=== PATIENT | female | born 1950 | race Caucasian/White ===

== ENCOUNTER 2020-03-04 03:31 | Inpatient (IN) | payer MEDICARE, SELFPAY ==
[2020-03-04] VITALS (17 sets, daily range): BP systolic 108–162; BP diastolic 53–73; PULSE 80–109; RESP 14–24; TEMP 36.2–37.4; O2SAT 92–100; BMI 24.3
--- NOTE | ~2020-03-04 | US_ITS ---
EXAMINATION: US carotid duplex BI DATE: 03/04/2020 18:10 INDICATION: Subjective visual disturbance with left-sided amaurosis fugax. TECHNIQUE: Grayscale, color Doppler, and pulsed Doppler images of the cervical carotid arteries were obtained. The degree of vessel stenosis is placed in one of the following categories: normal, <50%, 5 0-69%, >=70% but less than near-occlusion, near-occlusion, or total occlusion. Note that percent sten osis relative to normal distal artery lumen diameter is indirectly measured from velocity measurement s as described by Tyron, et al. Radiology 2003; 229:340-346. COMPARISON: None. FINDINGS: RIGHT: The right common carotid artery (CCA) peak systolic velocity (PSV) is 112 cm/s. The right internal ca rotid artery (ICA) is tortuous with PSV of 167 cm/s occurring immediately distal to a sharp angulatio n in the course of the artery without significant associated atherosclerotic plaque. The right ICA en d-diastolic velocity (EDV) is 32 cm/s. The right ICA/CCA PSV ratio is 1.5. Grayscale and color Dopple r images yield an estimate of <50% diameter reduction from plaque in the ICA utilizing secondary Dopp ler criteria. The external carotid artery (ECA) PSV is 174 cm/s. There is antegrade flow in the right vertebral artery. LEFT: The left CCA PSV is 119 cm/s. The left ICA PSV is 88 cm/s. The left ICA EDV is 25 cm/s. The left ICA/ CCA PSV ratio is 0.7. Grayscale and color Doppler images yield an estimate of <50% diameter reduction from plaque in the ICA. The ECA PSV is 152 cm/s. There is antegrade flow in the left vertebral arter y. IMPRESSION: 1. <50% stenosis in the right internal carotid artery. 2. <50% stenosis in the left internal carotid artery. Reviewed, dictated and finalized at location A.
--- NOTE | ~2020-03-04 | XR_ITS ---
EXAMINATION: XR chest 2V 03/04/2020 04:03 INDICATION: Right-sided chest and shoulder pain. PROCEDURE: PA and lateral views of the chest COMPARISON: No prior studies for comparison. FINDINGS: The lungs are clear. The cardiomediastinal silhouette is within normal limits. There are no pleural effusions. There is no pneumothorax suspected. IMPRESSION: 1: NO ACUTE CARDIOPULMONARY DISEASE. Reviewed, dictated and finalized at location A.
--- NOTE | ~2020-03-04 | CT_ITS ---
EXAMINATION: CTA chest PE protocol DATE: 03/04/2020 07:54 CDT INDICATION: Chest pain TECHNIQUE: Computed tomographic angiography (CTA) of the chest was performed with 100 mL Omnipaque-35 0 intravenous contrast. The dose-length product was 168.85 mGy-cm. Maximum intensity projection 3D-re constructions of the aorta and other arteries were constructed by the technologist on a separate work station. Automated exposure control and iterative reconstruction technique were employed. COMPARISON: None. FINDINGS: Study is technically adequate without evidence for pulmonary embolism. No significant pleur al or pericardial effusion. No thoracic lymphadenopathy. No evidence for aortic aneurysm or dissectio n. There is subsegmental atelectasis in the right middle and lower lobes. No endobronchial lesions. M inimal fluid in the lower esophagus, consistent with reflux. No focal pneumonia. No acute abnormality of the visualized aspects of the upper abdomen. IMPRESSION: 1. No acute pulmonary embolism or focal pneumonia. Reviewed, dictated and finalized at location A.
--- NOTE | 2020-03-04 03:38 | ECG_ITS ---
Measurements Intervals [place] Rate: 111 P: 51 DE: 132 QRS: 26 QRSD: 99 T: 47 QT: 326 QTc: 444 Interpretive Statements SINUS TACHYCARDIA POSSIBLE LEFT ATRIAL ENLARGEMENT ABNORMAL ECG Electronically Signed On 03-04-2020 7:30:23 CDT by Sudhir Kyle D.O.
--- NOTE | 2020-03-04 03:44 | ED.CHESTPAIN ---
HPI - Chest Pain General Chief Complaint: Chest Pain Stated Complaint: cp Time Seen by Provider: 03/04/20 03:33 Source: RN notes reviewed History of Present Illness HPI narrative: Patient presents emergency department from home for chest pain. Patient states pain is located over the right side of the chest radiating into the right shoulder blade and up into the right jaw. Pain is described as sharp and stabbing worse with deep inspiration. Patient states the pain has been constant since 8 PM yesterday. She denies any fevers or chills shortness of breath abdominal pain nausea vomiting diarrhea or any other symptoms states she is taken no previous pain medication for the symptoms Related Data Allergies Allergy/AdvReac Type Severity Reaction Status Date / Time ibuprofen Allergy Unknown Verified 01/21/17 11:36 Review of Systems Review of Systems: Narrative: Gen.: Denies fevers or chills Eyes: Denies eye pain or visual change ENT: Denies congestion Respiratory: Denies shortness of breath or cough CV: See HPI GI: Denies abdominal pain nausea, emesis or diarrhea Musculoskeletal: Denies back pain or muscle pain Neuro: Denies numbness, tingling, weakness or focal weakness Skin: Denies rash Except as documented, all other systems reviewed and negative [facility] Past Medical History Medical History Amaurosis fugax of left eye Colon cancer screening (~09/2019) Cologuard negative Essential hypertension Hypercholesteremia Pre-diabetes Social History Social History Smoking status: Never smoker Second hand tobacco smoke exposure: No Alcohol intake: never Gender identity (if verbalized by the patient): Female Exam Narrative: Exam Narrative: APPEARANCE: No acute distress, nontoxic, resting in bed EYES: EOMI HEENT: Normocephalic, atraumatic, OMM RESPIRATORY: No respiratory distress Clear to auscultation bilaterally with no rhonchi wheezing or rales. CARDIOVASCULAR: Regular rate and rhythm without murmurs rubs or gallops. Chest: Tender palpation of her right anterior chest wall, pain increased with deep inspiration ABDOMINAL: Soft, nontender, nondistended, no rebound or guarding MUSCULOSKELETAl: Moves all extremities. No clubbing, cyanosis or edema. NEURO: Awake and alert. Following commands, speech normal, no focal deficits SKIN:: Warm, dry. No rashes lesions or abrasions PSYCHIATRIC: Normal affect/mood, Course Course Emergency Course: Patient states chest pain is resolved at this time Discussed Dr. Alcazar presentation work-up agrees with consult at this time Discussed with KITTY Pena for Dr. Cortez presentation work-up. Agrees with admission at this time Discussed with patient and family results of workup and diagnosis. Discussed need for admission. Patient and family understand and agree to current treatment plan Vital Signs Vital signs: Vital Signs Temperature 99.3 F 03/04/20 03:34 Pulse Rate 109 H 03/04/20 03:34 Respiratory Rate 24 H 03/04/20 03:34 Blood Pressure 162/72 H 03/04/20 03:34 Pulse Oximetry 96 03/04/20 03:34 Temperature 97.3 F L 03/04/20 06:52 Pulse Rate 89 03/04/20 06:52 Respiratory Rate 16 03/04/20 06:52 Blood Pressure 113/61 03/04/20 06:52 Pulse Oximetry 96 03/04/20 06:52 MDM - Chest Pain Lab Data Result diagrams: 03/04/20 03:45 03/04/20 04:08 Labs: Lab Results 03/04/20 03/04/20 03/04/20 Range/Units 03:44 03:45 04:07 WBC 13.2 H (4.5-10.0) K/mm3 RBC 4.00 L (4.2-5.4) M/mm3 Hgb 12.8 (12.0-15.0) g/dL Hct 38.3 (37.0-47.0) % MCV 95.8 (80-100) fl MCH 32.0 (26-34) pg MCHC 33.4 (32-36) g/dl RDW 12.3 (11.5-14.5) % Plt Count 342 (150-375) k/mm3 MPV 10.1 (7.4-10.4) fl Immature Gran % (Auto) 0.3 (0-0.5) % Neut % (Auto) 90.0 H (45.5-73.1) % Lymph % (Auto) 4.5 L
[2020-03-04 03:53] LABS: Basophils Percent Auto 0.2 % (0.2-1.2); Hematocrit 38.3 % (37.0-47.0); Hemoglobin 12.8 g/dL (12.0-15.0); Immature Granulocyte Absolute 0.04 K/mm3 (0.00-0.031); Immature Granulocyte Percent A 0.3 % (0-0.5); Lymphocytes Percent Auto 4.5 % (18.3-44.2); Mean Corpuscular HGB Conc 33.4 g/dl (32-36); Mean Corpuscular Volume 95.8 fl (80-100); Mean Platelet Volume 10.1 fl (7.4-10.4); Monocytes Absolute Auto 0.7 K/mm3 (0.1-0.6); Neutrophils Absolute Auto 11.9 K/mm3 (1.3-6.7); Platelet Count Result 342 k/mm3 (150-375); Red Cell Distribution Width 12.3 % (11.5-14.5); White Blood Count 13.2 K/mm3 (4.5-10.0)
[2020-03-04 04:27] LABS: INR 0.9; Partial Thromboplastin Time 31.9 SECONDS (22.3-36.8); Prothrombin Time 11.9 Seconds (11.1-14.7)
[2020-03-04 04:30] LABS: Alanine Aminotransferase 20 U/L (4-35); Albumin Level 4.5 g/dL (3.5-5.1); Alkaline Phosphatase 88 U/L (38-126); Aspartate Amino Transferase 22 U/L (14-36); Bilirubin,Total 0.2 mg/dL (0.2-1.3); Blood Urea Nitrogen 15 mg/dL (7-17); Calcium 9.4 mg/dL (8.4-10.2); Carbon Dioxide 24 mmol/L (22-30); Chloride 97 mmol/L (98-107); Estimated Glomerular Filt Rate > 60; Glucose 205 mg/dL (65-105); Lipase 43 U/L (23-300); Potassium 4.1 mmol/L (3.4-5.0); Sodium 132 mmol/L (137-145)
[2020-03-04 04:40] LABS: Troponin I < 0.012 ng/mL (0.000-0.034)
[2020-03-04] MEDS: MORPHINE SULFATE 2 MG/ML INJ 1 MG IV PUSH (06:08)
[2020-03-04] MEDS: ASPIRIN 81 MG CHEWABLE TABLET 324 MG PO (06:26)
--- NOTE | 2020-03-04 06:46 | PC.NURSE ---
This patient, Anita Little, was admitted to IMU Room 212-01 at 0640. Patient/family oriented to hospital policies and general routines including ID bracelet, bed and alarms, visiting hours, pain management, procedures, bathroom and other care routines, personal items, smoking policy, room service/diet, and visiting hours. Valuables list has been completed. Information on how to activate the Rapid Response Team has been discussed. Patient/Family are encouraged to report perceived risks to care and to ask questions if they do not understand what they are told or what they should do.
[2020-03-04 07:00] LABS: Troponin I < 0.012 ng/mL (0.000-0.034)
[2020-03-04] MEDS: OLMESARTAN MEDOXOMIL 20 MG TABLET BY MOUTH (09:20)
[2020-03-04 09:53] LABS: Cholesterol 200 mg/dL (0-200); HDL Direct 67 mg/dL; Triglycerides 36 mg/dL (<150)
--- NOTE | 2020-03-04 09:54 | PM.IMHP ---
H&P: HPI History of Present Illness Chief complaint: cp Narrative: Anita Little is a 70 year old female patient has a history of high cholesterol which she is not on medications for due to intolerance of statins, hypertension, who presented to the emergency department after having chest pain around 8:00 p.m.. Patient states the last 2 days she has visited her family and yesterday after eating dinner she was sitting down talking and suddenly developed a jabbing pain to her right sternal chest wall with some radiation into her right neck, jaw, upper and lower teeth and right shoulder. She reported relief of the pain if she was to sit still without any movement. She reported increased pain with taking a deep breath, and movement. She denies any increased pain with exertion or with palpation of her chest wall. The patient did not have any relief and at 3:00 a.m. she decided call her family to take her to the emergency department. Patient states when she came to the emergency room she received some IV Tylenol which did help with her pain and then she received a dose of morphine which completely resolved her pain. At this time she is only having some slight right substernal discomfort when she takes a deep breath. Patient denies any shortness of breath, cough, nausea, diaphoresis, lightheadedness, dizziness, syncope, recent falls, numbness, tingling, urinary symptoms, leg swelling, calf pain, increased activity, or any other symptoms at this time. Patient does have a history of neck problems for which she sees her chiropractor regularly. She has had a history of radiculopathy from her neck pain in the past and denies similar symptoms. The patient has never had a stress test before. She has had an echocardiogram in the past about 10 years ago because she has a murmur. On arrival to the emergency department her initial vitals showed temperature of 99.3?, blood pressure 162/72, heart rate 109, respiratory rate 24, oxygen saturation 96% on room air. Initial labs showed slight leukocytosis at 13,200, with a left shift, normal coag panel, hyponatremia at 132, serum glucose was 205. Troponin was negative x3. Her cholesterol panel showed her total cholesterol was 200 which is normal, LDL is 101 which is within normal limits, LDL was 67 which is good and triglycerides were 36 which is normal. Patient had a chest x-ray which showed no acute cardiopulmonary disease. CTA of chest showed no acute pulmonary embolism or focal pneumonia. The patient was admitted into the hospital under observation for chest pain workup and cardiology consult. Code Status: Full Code POA: Daughter, Sivan James PCP: Dr. Aguilera Review of Systems Review of Systems: All systems reviewed & are unremarkable except as noted in HPI and below PMFSH Past Medical History Medical History Amaurosis fugax of left eye Colon cancer screening (~09/2019) Cologuard negative Essential hypertension Hypercholesteremia Reports family history of high cholesterol and being intolerant of statin medications. She is not on any cholesterol control at this time. Pre-diabetes Surgical History Surgical History Hx of colonoscopy Family History Family History Mother Family history of Alzheimer's disease Father Family history of Alzheimer's disease AAA (abdominal aortic aneurysm, ruptured) Sibling Acute myocardial infarction Social History Social History Smoking status: Never smoker Second hand tobacco smoke exposure: Yes Alcohol intake: current Drinks per week: 2 Alcohol use details: Wine with dinner on weekends Substance use: never Living arrangements: alone Additional living arrangements comments: Living alone in [place], [place] and her two c
[2020-03-04 10:05] LABS: LDL Cholesterol Direct 101 mg/dL
[2020-03-04 10:06] LABS: Troponin I < 0.012 ng/mL (0.000-0.034)
--- NOTE | 2020-03-04 12:31 | ECG_ITS ---
Measurements Intervals [place] Rate: 96 P: 20 HI: 159 QRS: 9 QRSD: 87 T: 31 QT: 335 QTc: 424 Interpretive Statements SINUS RHYTHM DELAYED PRECORDIAL R/S TRANSITION BASELINE ARTIFACT- I, II, AVR, AVL BORDERLINE ECG Electronically Signed On 03-04-2020 13:12:24 CDT by Sudhir Kyle D.O.
--- NOTE | 2020-03-04 12:32 | PM.CNCAR ---
Assessment and Plan Assessment and plan (1) Pericarditis: Code(s): I31.9 - Disease of pericardium, unspecified Status: Acute Assessment and Plan: Cardiac examination is impressive and most likely consistent with a 3 component friction rub suggestive of a pericardial inflammatory process. Etiology is unknown at this time but most commonly secondary to viral illness. She denies any prior corroborate history of her preceding viral illness from a medication change or other environmental exposure. Given current pandemic although less likely it is possible this may be a presenting symptom associated with COVID-19 (although unusually short incubation period if so). Pericarditis may also explain her mild leukocytosis. Given negative Trop I, there is no evidence of myopericardial involvement thus far. -repeat 12 lead EKG now and in AM. -2D echocardiogram in AM to assess pericardium, LV function, and/or valve pathology. -screen for COVID-19 -Begin anti-inflammatory therapy with Colchicine 1.2 mg initially and 0.6 mg b.i.d. thereafter. Patient has a true NSAID allergy. Avoid use of steroids. -Check ESR, CRP, TSH, Coxsackie A and B -DVT prophylaxis -Check CBC in AM and BMP I explained my concerns with regards to the unexpected development of acute pericarditis without a corroborating preceding history of illness although curious symptoms begin within 72 hours after exposure to family in setting of pandemic. Although clinically this still remains less likely expressed my concern for possible presenting symptoms social with COVID-19 and recommendations to rule her out in this regard. Patient verbalized understanding. (2) Essential hypertension: Code(s): I10 - Essential (primary) hypertension Status: Acute Assessment and Plan: Stable, improved with pain control. Continue home medical therapy. (3) Leukocytosis: Code(s): D72.829 - Elevated white blood cell count, unspecified Status: Acute Assessment and Plan: As above, may be associated with inflammation related to pericarditis. (4) Heart murmur: Code(s): R01.1 - Cardiac murmur, unspecified Status: Acute Assessment and Plan: As above, I suspect cardiac exam findings most consistent with pericardial friction rub. (5) Hypercholesteremia: Code(s): E78.00 - Pure hypercholesterolemia, unspecified Status: Acute Assessment and Plan: Stable, no acute issues. Intolerant to statins. History of Present Illness History of Present Illness Consult date/time: Date of service: 03/04/20 12:32 This is a cardiology consultation at request of Cori Yadav NP for our opinion regarding chest pain. Requesting physician: Cori Yadav PA-C Consult reason: chest pain Reason For Visit: cp Narrative: Patient is a very pleasant 70-year-old female with past medical history significant for treated hypertension, history dyslipidemia and statin intolerance was in her UE otherwise usual state of health when she presented with sudden onset GI having constant pain beginning in the chest right sternal border radiating to the right neck and to the upper back and her shoulder blade. She was having dinner with her family and around 8:00 p.m. had the sudden onset. It is worse with certain movements, position change, deep breathing. No associated shortness of breath, fevers, chills, cough, sore throat or noted palpitations. She denies recent or preceding illnesses, trauma or strenuous physical activity. She was given intravenous Tylenol in the emergency department which greatly improved her chest pain and was completely resolved with morphine. She has an allergy to ibuprofen with swelling of her face mouth/lips. She has no allergy history with aspirin which she tolerates well with exception of day of set unless she takes with food. Symptoms resolved until later this morning slowly began to recover again worse lying down impro
[2020-03-04] MEDS: COLCHICINE 0.6 MG TABLET 1.2 MG PO (13:14)
--- NOTE | 2020-03-04 13:30 | PC.NURSE ---
This patient, Anita Little, was transferred to ICU-03 on 03/04/20 at 1320. Personal belongings sent with patient. Report given to Avi Knight. Appropriate documentation sent with patient.
[2020-03-04 13:55] LABS: Erythrocyte Sedimentation Rate > 140 mm/hr (0-20)
[2020-03-04 13:57] LABS: CRP 13.5 mg/dL (<1.0)
[2020-03-04] MEDS: COLCHICINE 0.6 MG TABLET PO (21:14)
[2020-03-05] VITALS: BP 105/65; PULSE 84; PULSE 86; RESP 23; TEMP 36.9; O2SAT 93
--- NOTE | 2020-03-05 | ECHO_ITS ---
Patient Info Name: Anita Little Age: 70 years : 1950 Gender: Female Ht: 59 in Wt: 120 lbs BSA: 1.52 m2 HR: 99 bpm BP: 131 / 72 mmHg Heart Rhythm: Sinus Rhythm Technical Quality: Good Exam Date: 03/05/2020 11:35 AM Exam Location: [facility] Pulmonary Patient Status: Inpatient Admit Date: 03/05/2020 Staff Ordering Physician: oCri Yadav PA-C Director Of Content And Programming: Roberth Rai, VERONICA, RT Attending Provider: Cori Yadav PA-C Referring Physician: Leif HERNANDEZ; Exam Type: CA echo doppler color flow Study Info Indications R07.89 - Other chest pain Complete two-dimensional, color flow and Doppler transthoracic echocardiogram is performed. Summary 1. Left ventricular chamber dimension is normal. 2. Left ventricular systolic function is normal, estimated at 60-65%. 3. There is small circumferential pericardial effusion. 4. No significant valvular abnormality. Left Ventricle Left ventricular chamber dimension is normal. Left ventricular systolic function is normal, estimated at 60-65%. There is mild concentric increased left ventricular wall thickness. The left ventricular diastolic function is normal. Right Ventricle Right ventricular chamber dimension is normal. Left Atria Left atrial chamber dimension is normal. Right Atria Right atrial chamber dimension is normal. Aortic Valve The aortic valve is normal. Pulmonic Valve The pulmonic valve is not well visualized. Mitral Valve The mitral valve has normal leaflets. Tricuspid Valve The tricuspid valve leaflets are normal. Pericardium/Pleural The pericardium appears normal. There is small circumferential pericardial effusion. Aorta The aortic root size at the sinus of Valsalva is normal. Left Ventricular Outflow Tract Name Value Normal LVOT 2D LVOT Diameter 1.9 cm LVOT Doppler LVOT Peak Gradient 5 mmHg LVOT Mean Gradient 3 mmHg LVOT VTI 22 cm LVOT VTI/AV VTI Ratio 0.8 LVOT Stroke Volume 66 ml LVOT CO 5.7 l/min LVOT CI 3.8 l/min/m2 Mitral Valve Name Value Normal MV Doppler MV Decel Davison 513 cm/s2 MV PHT 49 ms MV Area (PHT) 4.5 cm2 4.0-5.0 MV Diastolic Function MV E Peak Velocity 87 cm/s MV A Peak Velocity 77 cm/s MV E/A 1.1 MV Decel Time 169 ms Tricuspid Valve Name
[2020-03-05 02:00] VITALS: PULSE 72
[2020-03-05 04:00] VITALS: BP 108/69; PULSE 72; PULSE 76; RESP 22; TEMP 37; O2SAT 93
[2020-03-05 04:47] LABS: Hemoglobin A1C 5.7 % (<5.7)
[2020-03-05 04:48] LABS: Basophils Percent Auto 0.2 % (0.2-1.2); Eosinophils Percent Auto 0.5 % (0-4.4); Hematocrit 33.2 % (37.0-47.0); Hemoglobin 10.9 g/dL (12.0-15.0); Immature Granulocyte Absolute 0.03 K/mm3 (0.00-0.031); Immature Granulocyte Percent A 0.4 % (0-0.5); Lymphocytes Absolute Auto 0.79 K/mm3 (0.9-3.2); Lymphocytes Percent Auto 9.8 % (18.3-44.2); Mean Corpuscular HGB Conc 32.8 g/dl (32-36); Mean Corpuscular Hemoglobin 31.8 pg (26-34); Mean Corpuscular Volume 96.8 fl (80-100); Mean Platelet Volume 9.9 fl (7.4-10.4); Monocytes Absolute Auto 0.5 K/mm3 (0.1-0.6); Monocytes Percent Auto 6.1 % (2.6-8.5); Neutrophils Absolute Auto 6.7 K/mm3 (1.3-6.7); Nucleated Red Blood Cells Perc 0.2 % (0.0-0.2); Platelet Count Result 298 k/mm3 (150-375); Red Blood Count 3.43 M/mm3 (4.2-5.4); Red Cell Distribution Width 12.8 % (11.5-14.5)
[2020-03-05 04:48] LABS: Blood Urea Nitrogen 20 mg/dL (7-17); Calcium 8.8 mg/dL (8.4-10.2); Carbon Dioxide 24 mmol/L (22-30); Chloride 100 mmol/L (98-107); Estimated Glomerular Filt Rate > 60; Glucose 135 mg/dL (65-105); Potassium 3.8 mmol/L (3.4-5.0); Sodium 130 mmol/L (137-145)
[2020-03-05 06:00] VITALS: PULSE 75
[2020-03-05 08:00] VITALS: BP 131/72; PULSE 84; PULSE 91; RESP 16; TEMP 36.9; O2SAT 93; O2SAT 94
[2020-03-05] MEDS: COLCHICINE 0.6 MG TABLET PO (09:05)
[2020-03-05 09:48] LABS: SARS-CoV-2 RNA PCR Negative
[2020-03-05 10:00] VITALS: PULSE 86
[2020-03-05] MEDS: OLMESARTAN MEDOXOMIL 20 MG TABLET BY MOUTH (10:26)
--- NOTE | 2020-03-05 13:32 | PM.PNCARD ---
Progress Note: A&P Additional Plan patient appears to have acute idiopathic or viral pericarditis. Coronavirus swab is negative patient is improved clinically with colchicine which was started yesterday. Absolute contraindication to nonsteroidal anti-inflammatory drugs echocardiogram demonstrates very small circumferential rim of pericardial fluid otherwise structurally normal heart. Patient is okay from cardiac perspective for discharge. She should be continued on the colchicine and follow-up will be arranged with Dr. Mathis. Quincy Reynoso MD [facility] Subjective Date/time seen: Date of service:03/05/20 13:32 Interval history: Follow-up visit in 70-year-old lady with pericarditis patient feels much better today positional chest pain and chest pain with inspiratory effort is markedly improved compared with yesterday offers no new complaints Exam Const: General: comfortable and no acute distress HENMT: Mouth: Yes moist mucous membranes Eyes: Sclera: sclerae normal Pupils: Equal, round and reactive pupils present Neck: Neck: supple and no JVD Thyroid: thyroid normal Other: carotid pulses normal no bruits Resp: Effort & Inspection: normal respiratory effort Auscultation: clear to auscultation bilaterally Cardio: Rate: regular rate Rhythm: regular rhythm Other: continues to have a 2 component pericardial friction rub GI: Auscultation: normal bowel sounds Skin: General skin exam: normal color Neuro: Cognition (Neuro): normal cognition Extrem: General: normal to inspection Objective Data Vital Signs Vital Signs: Vital Signs - 24 hr 03/04/20 14:00 03/04/20 16:00 03/04/20 18:00 Temperature 37.2 C Pulse Rate 86 90 93 Respiratory Rate 20 Blood Pressure 120/68 Pulse Oximetry 96 03/04/20 20:00 03/04/20 21:05 03/04/20 22:00 Temperature 36.9 C Pulse Rate 87 87 85 Respiratory Rate 24 H Blood Pressure 108/68 Pulse Oximetry 92 03/05/20 00:00 03/05/20 02:00 03/05/20 04:00 Temperature 36.9 C 37.0 C Pulse Rate 84 72 72 Respiratory Rate 23 H 22 H Blood Pressure 105/65 108/69 Pulse Oximetry 93 93 03/05/20 06:00 03/05/20 08:00 03/05/20 10:00 Temperature 36.9 C Pulse Rate 75 84 86 Respiratory Rate 16 Blood Pressure 131/72 Pulse Oximetry 94 Intake/Output Intake/Output: Intake & Output 03/02/20 03/03/20 03/04/20 03/05/20 23:59 23:59 23:59 23:59 Intake Total 665 390 Output Total 200 Balance 665 190 Meds/Results Medications: Active Medications Generic Name Dose Route Start Last Admin Trade Name Michaelq PRN Reason Stop Dose Admin Colchicine 0.6 mg 03/04/20 21:00 03/05/20 09:05 Colchicine Po PO 0.6 mg Q12HR VIKTORIYA Administration Olmesartan 20 mg 03/04/20 09:00 03/05/20 10:26 Benicar BY MOUTH 20 mg QAM VIKTORIYA Administration Radiology Results: ITS Impressions Chest CTA 03/04/20 07:54 IMPRESSION: 1. No acute pulmonary embolism or focal pneumonia. Chest X-Ray 03/04/20 08:05 IMPRESSION: 1: NO ACUTE CARDIOPULMONARY DISEASE. Carotid Doppler Study 03/04/20 18:18 IMPRESSION: 1. <50% stenosis in the right internal carotid artery. 2. <50% stenosis in the left internal carotid artery. Labs Labs: Laboratory Results - last 24 hr 03/04/20 03/04/20 03/04/20 13:13 13:13 13:13 WBC RBC Hgb Hct MCV MCH MCHC RDW Plt Count MPV Immature Gran % (Auto) Neut % (Auto) Lymph % (Auto) [place] % (Auto) Eos % (Auto) Baso % (Auto) Lymph # (Auto) [place] # (Auto) Eos # (Auto) Baso # (Auto) Abs Immat Gran (auto) Absolute Neuts (auto) Absolute Nucleated RBC Nucleated RBC % ESR > 140 H Sodium Potassium Chloride Carbon Dioxide BUN Creatinine Estim Creat Clear Calc Estimated GFR Glucose Hemoglobin A1c Calcium C-Reactive Protein 13.5 H TSH (Reflex) 2.040 SARS-CoV-2 RNA (
--- NOTE | 2020-03-05 15:09 | PM.DS ---
DS: Admitting Diagnosis Admitting Diagnosis Admitting Diagnosis: Chest pain, unspecified DS: Discharge Diagnosis Discharge Diagnosis (1) Pericarditis: Code(s): I31.9 - Disease of pericardium, unspecified Status: Acute Assessment and Plan: Cardiology was consulted and diagnosed her with pericarditis. She was started on colchicine with improvement of her symptoms today. Cardiology feels comfortable discharge at this time to continue culture seen in follow-up as an outpatient. Patient feels better and has no concerns at this time. She understands and agrees the plan all questions answered (2) Chest pain: Code(s): R07.9 - Chest pain, unspecified Status: Acute Assessment and Plan: Patient had chest pain prior to arrival without any relief. Symptoms were worse with taking a deep breath and also with movement. Her troponins were negative x3. EKG showed sinus tachycardia, heart rate 111, with a possible left atrial enlargement, normal QTC. No acute STT wave changes noted. Telemetry shows normal sinus rhythm with a heart rate of 89 beats per minute, she had 2 alarms which showed mostly artifact. No arrhythmia or abnormality noted. Echocardiogram showed normal LV systolic function with an EF of 60-65 %, mild concentric increase LVH, normal diastolic function. (3) Heart murmur: Code(s): R01.1 - Cardiac murmur, unspecified Status: Acute Assessment and Plan: Patient has a heart murmur noted best at the apex. She says her last echocardiogram was about 10 years ago. Will repeat echocardiogram for further evaluation on her heart. (4) Hypercholesteremia: Code(s): E78.00 - Pure hypercholesterolemia, unspecified Status: Acute Assessment and Plan: Patient states she is supposed to be on a statin medication but she is intolerant causing liver issues. She states this is a family history of cholesterol problems. Her total cholesterol was 200, LDL was 101, HDL was 67 and triglycerides were 37. This is well controlled unless she has some atherosclerosis that her LDL has be less than 70. (5) Essential hypertension: Code(s): I10 - Essential (primary) hypertension Status: Acute Assessment and Plan: Blood pressure is well controlled this morning at 113/61. Continue her home medications. (6) Pre-diabetes: Code(s): R73.03 - Prediabetes Status: Acute Assessment and Plan: She states her last hemoglobin A1c in May of 2019 was 5 % Will check her hemoglobin A1c in the morning. Serum glucose on arrival was 205. Will continue monitoring glucose a.c. HS, sliding scale insulin low-dose, hypoglycemic protocol in place. (7) Leukocytosis: Code(s): D72.829 - Elevated white blood cell count, unspecified Status: Acute Assessment and Plan: Slight leukocytosis most likely secondary to her pain and discomfort on arrival. She has no signs of an infection. Her chest x-ray showed no pneumonia. She denies any urinary symptoms at this time. Will recheck leukocytosis the morning. (8) Hyponatremia: Code(s): E87.1 - Hypo-osmolality and hyponatremia Status: Acute Assessment and Plan: Found to have some hyponatremia during admission. Sodium this morning was 130. She is only on a started medication which should not at affect her sodium levels. Will recheck her BMP in 1 week have her follow-up with her primary care provider. DS: Summary Hospital Course Reason for hospitalization: Anita Little is a 70 year old female patient has a history of high cholesterol which she is not on medications f
--- NOTE | 2020-03-14 10:54 | PC.NURSE ---
Coxsackie Ab not detected.
== END 2020-03-05 15:55 | disposition home or self-care (01) | DRG 315 ==
LOC: ANHED 06:21 → ANHIMU 06:29 → ANHICU 13:21
PROVIDERS: Internal Medicine Cardiovascular Disease; Physician Assistant; Admitting Provider Internal Medicine; Emergency Provider Emergency Medicine; PCP Family Medicine; Visit Provider Family Medicine
DX: I30.9 Acute pericarditis, unspecified (principal); E87.1 Hypo-osmolality and hyponatremia; Z20.828 Contact with and (suspected) exposure to other viral communicable diseases; R07.9 Chest pain, unspecified; I65.23 Occlusion and stenosis of bilateral carotid arteries; D72.829 Elevated white blood cell count, unspecified; R01.1 Cardiac murmur, unspecified; E78.00 Pure hypercholesterolemia, unspecified; I10 Essential (primary) hypertension; R73.03 Prediabetes
CPT/HCPCS: 36415; 71046; 71275; 80048; 80053; 80061; 83036; 83690; 84443; 84484; 85025; 85610; 85652; 85730; 86140; 86658; 87635; 93005; 93306; 93880; 96374; 96375; 99285; A9270; C9803; G0378; J0131; J2270; Q9967; U0003

== ENCOUNTER 2020-03-10 01:28 | Inpatient (IN) | payer MEDICARE, SELFPAY ==
[2020-03-10] VITALS (13 sets, daily range): BP systolic 84–137; BP diastolic 58–78; PULSE 79–104; RESP 16–98; TEMP 36.5–37.2; O2SAT 93–98; BMI 24.5
--- NOTE | ~2020-03-10 | CT_ITS ---
EXAMINATION: CTA chest PE protocol DATE: 03/10/2020 03:21 INDICATION: Bilateral shoulder pain, posterior neck pain. TECHNIQUE: Computed tomography angiography (CTA) of the chest was performed with 100 mL Omnipaque-350 intravenous contrast timed to evaluate the pulmonary arteries. Coronal maximum intensity projection 3D-reconstructions were created by the technologist. Automated exposure control and iterative reconst ruction technique were employed. Exam dose: 152.71 mGy-cm total exam DLP. COMPARISON: 03/04/2020 CT pulmonary scan FINDINGS: There is diagnostic contrast enhancement of the pulmonary arteries and no evidence of pulmo nary embolism. There is moderately large pericardial effusion with mild pericardial enhancement, suspicious for edwina carditis. Bilateral small left greater than right pleural effusions. No hilar or mediastinal mass lesion or lymphadenopathy. There is dependent atelectasis of the lingula, left lower lobe and right lower lobe. IMPRESSION: No evidence of pulmonary embolism Moderate pericardial effusion, mild pericardial enhancement, suggesting pericarditis Small pleural effusions, left greater than right and mild lower lung atelectasis Reviewed, dictated and finalized at [facility]. Reviewed, dictated and finalized at location [facility]. IMPRESSION: No evidence of pulmonary embolism Moderate pericardial effusion, mild pericardial enhancement, suggesting pericar ditis Small pleural effusions, left greater than right and mild lower lung atelectasi s
--- NOTE | ~2020-03-10 | XR_ITS ---
XR chest 2V DATE: 03/10/2020 01:55 INDICATION: Chest pain TECHNIQUE: PA and lateral views COMPARISON: 03/04/2020 PA and lateral chest 03/04/2020 CT pulmonary scan FINDINGS: There is infiltrate and/atelectasis in the lower lung zones, left greater than right. Small pleural effusions. Cardiac megaly. Aortic calcification. No hilar or mediastinal enlargement. There is mild dextro scoliosis of the thoracic spine. IMPRESSION: Bilateral lower lung infiltrates and/or atelectasis, left greater than right Small bilateral pleural effusions Cardiomegaly Aortic atherosclerosis Osteopenia Reviewed, dictated and finalized at location [facility]. IMPRESSION: Bilateral lower lung infiltrates and/or atelectasis, left greater t sunshine right Small bilateral pleural effusions Cardiomegaly Aortic atherosclerosis Osteopenia
--- NOTE | 2020-03-10 01:39 | ECG_ITS ---
Measurements Intervals [place] Rate: 100 P: 35 NH: 128 QRS: 12 QRSD: 82 T: 55 QT: 341 QTc: 440 Interpretive Statements SINUS TACHYCARDIA POSSIBLE LEFT ATRIAL ENLARGEMENT BORDERLINE R WAVE PROGRESSION, ANTERIOR LEADS BORDERLINE ECG Electronically Signed On 03-10-2020 7:13:10 CDT by Sudhir Kyle D.O.
[2020-03-10 01:55] LABS: Basophils Percent Auto 0.2 % (0.2-1.2); Eosinophils Percent Auto 0.2 % (0-4.4); Hematocrit 35.6 % (37.0-47.0); Hemoglobin 11.9 g/dL (12.0-15.0); Immature Granulocyte Absolute 0.05 K/mm3 (0.00-0.031); Immature Granulocyte Percent A 0.5 % (0-0.5); Lymphocytes Absolute Auto 0.48 K/mm3 (0.9-3.2); Lymphocytes Percent Auto 4.8 % (18.3-44.2); Mean Corpuscular HGB Conc 33.4 g/dl (32-36); Mean Corpuscular Hemoglobin 31.6 pg (26-34); Mean Corpuscular Volume 94.4 fl (80-100); Mean Platelet Volume 9.4 fl (7.4-10.4); Monocytes Absolute Auto 0.6 K/mm3 (0.1-0.6); Monocytes Percent Auto 5.9 % (2.6-8.5); Neutrophils Absolute Auto 8.8 K/mm3 (1.3-6.7); Neutrophils Percent Auto 88.4 % (45.5-73.1); Platelet Count Result 466 k/mm3 (150-375); Red Blood Count 3.77 M/mm3 (4.2-5.4); Red Cell Distribution Width 11.9 % (11.5-14.5)
[2020-03-10 02:04] LABS: INR 0.9; Prothrombin Time 12.3 Seconds (11.1-14.7)
[2020-03-10 02:05] LABS: Partial Thromboplastin Time 31.4 SECONDS (22.3-36.8)
[2020-03-10 02:06] LABS: Blood Urea Nitrogen 22 mg/dL (7-17); Calcium 9.3 mg/dL (8.4-10.2); Carbon Dioxide 23 mmol/L (22-30); Chloride 95 mmol/L (98-107); Estimated Glomerular Filt Rate > 60; Glucose 171 mg/dL (65-105); Potassium 4.4 mmol/L (3.4-5.0); Sodium 130 mmol/L (137-145)
[2020-03-10 02:27] LABS: Troponin I 0.116 ng/mL (0.000-0.034)
[2020-03-10] MEDS: SODIUM CHLORIDE 0.9% IV 500 ML 999 ML IV CONT (02:32)
[2020-03-10 02:36] LABS: Band Neutrophils Percent 4 % (0-6); Monocytes Percent Manual 7 % (3-9); Neutrophils Percent Manual 84 % (46-73); Platelet Estimate Adequate (Adequate); Total Cells Counted 100
--- NOTE | 2020-03-10 02:57 | ED.GENADULT ---
HPI - General Adult General Chief complaint: Unspecified Stated complaint: bilat shoulder pain Time Seen by Provider: 03/10/20 02:43 History of Present Illness HPI narrative: Patient presents with her daughter for bilateral shoulder and posterior neck pain. She has had no injury. She was here in the hospital a week ago, and diagnosed with pericarditis. She has an Advil allergy, and so was sent home on colchicine. Yesterday she took a walk and had no shortness of breath, but in the evening had shortness of breath walking into the ER. Upon second thought she did have some left breast pain recently. Here she had an episode of diaphoresis, and dropped her blood pressure, and felt faint. Appetite is coming back, and she has not been sick. Her only surgery is wisdom tooth extraction. She does not smoke, but she does have occasional alcohol. Related Data Allergies Allergy/AdvReac Type Severity Reaction Status Date / Time ibuprofen Allergy Unknown Verified 01/21/17 11:36 Review of Systems Review of Systems: Narrative: CONSTITUTIONAL: Denies fever, chills, or sweats. EYES: Denies visual changes, redness, or discharge. ENT: Denies rhinorrhea, congestion, sore throat, or otalgia. CARDIOVASCULAR: Denies chest pain, palpitations, or edema. RESPIRATORY: Denies cough or dyspnea. GASTROINTESTINAL: Denies abdominal pain, nausea, vomiting, or diarrhea. GENITOURINARY: Denies dysuria or hematuria. SKIN: Denies rash or itching. MUSCULOSKELETAL: Denies back pain, or myalgia. She does have bilateral shoulder pain. NEUROLOGIC: Denies headache, numbness, or weakness. PSYCHIATRIC: Denies anxiety or depression. [facility] Past Medical History Medical History (Updated 03/10/20 @ 03:50 by Michelle Del Toro MD) Amaurosis fugax of left eye Colon cancer screening (~09/2019) Cologuard negative Essential hypertension Heart murmur Hypercholesteremia Reports family history of high cholesterol and being intolerant of statin medications. She is not on any cholesterol control at this time. Pre-diabetes Surgical History Surgical History (Updated 03/10/20 @ 03:00 by Michelle Del Toro MD) History of wisdom tooth extraction Hx of colonoscopy Family History Family History Mother Family history of Alzheimer's disease Father Family history of Alzheimer's disease AAA (abdominal aortic aneurysm, ruptured) Sibling Acute myocardial infarction Social History Social History Smoking status: Never smoker Second hand tobacco smoke exposure: Yes Alcohol intake: current Drinks per week: 2 Substance use: never Additional living arrangements comments: Living alone in [place], [place] and her two children live down the road within 5 minutes from her if she needs help. 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 Petite and delightful. HEAD: Normocephalic, atraumatic. EYES: PERRLA and EOMI. ENT: Nares clear, no rhinorrhea or epistaxis. Mucous membranes moist. NECK: Supple. CHEST: Clear to auscultation. No respiratory distress. HEART: Regular rate and rhythm. No murmur heard. Normal peripheral pulses. ABDOMEN: Soft, nontender, nondistended, normal active bowel sounds. EXTREMITIES: Normal range of motion. No edema. SKIN: Warm, dry, no rash. NEURO: No focal deficits. Alert and oriented x3. PSYCH: Normal mood and affect. Course Reevaluation(s) Reevaluation #1: Went in to tell the patient and her daughter about the new findings from the CAT scan. There is no blood clot in the lung, but there is fluid around the heart and fluid around the lungs. She will be admitted to the hospital and have another evaluation. Her only request is to go t
[2020-03-10] MEDS: ACETAMINOPHEN 500 MG TABLET 1000 MG PO (03:04)
[2020-03-10] MEDS: ASPIRIN 81 MG CHEWABLE TABLET 324 MG PO (03:04)
[2020-03-10 04:35] LABS: NT Pro B Type Natriuretic Pept 340 PG/ML (5-100)
--- NOTE | 2020-03-10 05:34 | PC.NURSE ---
This patient, Anita Little, was admitted to IMU Room 202-01 at 0507. Patient/family oriented to hospital policies and general routines including ID bracelet, bed and alarms, visiting hours, pain management, procedures, bathroom and other care routines, personal items, smoking policy, room service/diet, and visiting hours. Valuables list has been completed. Information on how to activate the Rapid Response Team has been discussed. Patient/Family are encouraged to report perceived risks to care and to ask questions if they do not understand what they are told or what they should do.
--- NOTE | 2020-03-10 05:37 | ADMIMU ---
This patient, Anita Little, was admitted to IMU status, and placed in IMU Room 202-01 at 0508. Patient/family oriented to hospital policies and general routines including ID bracelet, bed and alarms, visiting hours, pain management, procedures, bathroom and other care routines, personal items, smoking policy, room service/diet, and visiting hours. Valuables list has been completed. Information on how to activate the Rapid Response Team has been discussed. Patient/Family are encouraged to report perceived risks to care and to ask questions if they do not understand what they are told or what they should do.
[2020-03-10 05:41] LABS: Troponin I 0.106 ng/mL (0.000-0.034)
--- NOTE | 2020-03-10 06:01 | PM.IMHP ---
H&P: HPI History of Present Illness Chief complaint: pericarditis and pleural effusions Narrative: This is a 70 year old female with known recently diagnosed pericarditis and pericardial effusion and just discharged from our Hospitalist service on March 05, 2020 and returned to the hospital tonight with a complaint of left sided chest discomfort, left breast discomfort, and bilateral shoulder pain. The patient has been taking her cochicine as prescribed and had been doing well until this past when she started to experience midsternal chest pressure when leaning forward to pick things up. Her symptoms improved yesterday although yesterday evening while she was resting she started to experience left sided chest discomfort that didn't radiate anywhere. Her left sided chest/breast discomfort did not change with position and seemed to wax and wane in intensitiy. She denies any significant fever, chills, shortness of breath, cough, abdominal pain, d ysuria, hematuria, rectal bleeding or LE swelling. She does report having diarrhea over the past few days. The pateint was just tested for COVID-19 this past week and was negative. She was evaluated in the ER and was found to have a mildly elevated troponin of 0.116 and CTA chest was negative for acute pulmonary embolism, bilateral pleural effusions, and interval development of mild-moderate pericardial effusion. Cardiology was consulted by ER provider. We have been asked to admit the patient to the hospital for cardiac rule out. On my encounter with the patient she denies any current left sided chest discomfort. Review of Systems Review of Systems: All systems reviewed & are unremarkable except as noted in HPI and below PMFSH Past Medical History Medical History Amaurosis fugax of left eye Colon cancer screening (~09/2019) Cologuard negative Essential hypertension Heart murmur Hypercholesteremia Reports family history of high cholesterol and being intolerant of statin medications. She is not on any cholesterol control at this time. Pre-diabetes Surgical History Surgical History History of wisdom tooth extraction Hx of colonoscopy Family History Family History Mother Family history of Alzheimer's disease Father Family history of Alzheimer's disease AAA (abdominal aortic aneurysm, ruptured) Sibling Acute myocardial infarction Social History Social History Smoking status: Never smoker Second hand tobacco smoke exposure: No Alcohol intake: current Drinks per week: 2 Substance use: never Substance use type: does not use Additional living arrangements comments: Living alone in [place], [place] and her two children live down the road within 5 minutes from her if she needs help. 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 Gender identity (if verbalized by the patient): Female Spiritual care concerns: No Meds Home Medications and Allergies Home Medications Medication Instructions Recorded Confirmed Type olmesartan 20 mg tablet See Rx Instructions .ROUTE 01/30/20 03/10/20 Rx .COMPLEX #90 tablet colchicine [Colcrys] 0.6 mg PO Q12HR 30 Days #60 tablet 03/05/20 03/10/20 Rx methylprednisolone [Medrol ([place])] See Rx Instructions .ROUTE 03/10/20 Rx .COMPLEX #21 each Allergies Allergy/AdvReac Type Severity Reaction Status Date / Time ibuprofen Allergy Unknown Verified 01/21/17 11:36 Vital Signs Vital Signs - 24 hr 03/10/20 01:34 03/10/20 01:38 03/10/20 02:22 Temperature 36.8 C Pulse Rate 100 104 H 86 Respiratory Rate 98 H 26 H Blood Pressure 137/78 84/58 L Pulse Oximetry 98 93 03/10/20 05:29 Temperature 37.2 C Pulse Rate 88 Respiratory Rate 16 Blood Pressure 101/64 Pulse Oximetry
[2020-03-10] MEDS: ASPIRIN 81 MG ENTERIC TABLET PO (08:33)
[2020-03-10] MEDS: COLCHICINE 0.6 MG TABLET PO (08:33)
[2020-03-10] MEDS: OLMESARTAN MEDOXOMIL 20 MG TABLET PO (08:33)
[2020-03-10 08:42] LABS: Troponin I 0.098 ng/mL (0.000-0.034)
--- NOTE | 2020-03-10 09:22 | PM.CNCAR ---
Assessment and Plan Additional Plan 70-year-old lady with pericarditis. Acute onset of the illness was a week or 2 ago she was admitted last night because of recurrent symptomatology as detailed above. He does have some pericardial fluid but this was also seen on echocardiogram last week and so I M not greatly concerned by this. She has no physical exam evidence of tamponade physiology. Because of recurrent symptoms particularly enough to result in repeat hospitalization I would recommend a course of corticosteroids at this time. The patient is unusually fearful of taking steroids and is not sure that she is agreeable to doing this. She wants time to think about this. I am going to had an old go ahead and order a dose of prednisone 40 mg this morning. If she feels better later in the day and becomes agreeable to steroids I would discharge her with a Medrol Dosepak. If she is not agreeable to steroids that I do not know the we have anything else to offer since she can't take a nonsteroidal anti-inflammatory drug Quincy Reynoso MD [facility] History of Present Illness History of Present Illness Consult date/time: Date of service: 03/10/20 09:22 Reason For Visit: pericarditis and pleural effusions Narrative: This is a very pleasant 70-year-old lady who we saw in consultation just within the last couple of weeks here at this hospital with idiopathic pericarditis. The patient was in her usual state of health at that time when she developed chest pain, she had a fairly typical positional chest pain pattern typical of pericarditis. On physical exam she had a obvious 3 component pericardial friction rub although her electrocardiogram did not show obvious or typical findings of acute pericarditis. She was treated with colchicine after being seen in consultation. She has a serious reaction to nonsteroidal anti-inflammatory drugs with angioedema and swelling of her lips and so she was not able to receive an NSAID. She was feeling much better after a couple of days of colchicine treatment was discharged with plans to follow-up in the office with Dr. martinez. She came to the emergency room yesterday evening with recurrent episodes of some chest pain where she had pain in the precordial region and some pain radiating into the interscapular region of her back. She is not reporting any symptoms of shortness of breath. He was seen in the emergency room and admitted to the hospital reportedly because she has a pericardial effusion. A CTA of the chest was done which I do not see an official report of on the chart but according to the notations it demonstrates a pericardial effusion. I would note that her echocardiogram the last time she was here demonstrated a small circumferential effusion as well. She is not reporting any shortness of breath. She otherwise appears to be very comfortable in her hospital room at this time this morning. She did receive a dose of Tylenol yesterday in the ED in experienced improvement in her symptoms after that. Review of Systems Constitutional: Constitutional: Reports no additional constitutional complaints Eyes: Eyes: Reports no additional eye complaints ENT: Reports system reviewed and no additional complaints, except as documented Cardiovascular: Cardiovascular: Reports as per HPI Respiratory: Respiratory: Reports no additional respiratory complaints Gastrointestinal: Gastrointestinal: Reports no additional gastrointestinal complaints Genitourinary: Genitourinary: Reports no additional female genitourinary complaints Musculoskeletal: Musculoskeletal: Reports no additional musculoskeletal complaints Integumentary/Breasts: Skin/Breast: Reports system reviewed and no additional complaints, except as docu Neurologic: Reports system reviewed and no additional complaints, except as documented Psychiatric: Psychiatric: Reports no additional psychiatric complaints Endocrine: Endocrine: Reports no additional endocrine com
[2020-03-10] MEDS: predniSONE 20 MG TABLET 40 MG PO (10:34)
--- NOTE | 2020-03-10 11:32 | PM.IMPN ---
Progress Note: A&P Assessment and Plan (1) Chest pain: Qualifiers: Chest pain type: other chest pain Qualified Code(s): R07.89 - Other chest pain Code(s): R07.9 - Chest pain, unspecified Status: Acute Assessment and Plan: Result of pericarditis. Cardiology consulted and appreciate input. Patient now on prednisone in addition to colchicine for her pericarditis. She is on room air. Telemetry reviewed on 03/10/2020 with sinus rhythm. Will discharge home today. (2) Pericarditis: Qualifiers: Chronicity: acute Pericarditis type: unspecified type Qualified Code(s): I30.9 - Acute pericarditis, unspecified Code(s): I31.9 - Disease of pericardium, unspecified Status: Acute Assessment and Plan: Recent diagnosis. Has been seen by Cardiology with steroids added. Plan to send home on Medrol Dosepak in addition to her colchicine. Moderate pericardial effusion on CTA chest with no tamponade clinically suspected. (3) Bilateral pleural effusion: Code(s): J90 - Pleural effusion, not elsewhere classified Status: Acute Assessment and Plan: Small pleural effusions with left greater than right. She is on room air and stable. (4) Elevated troponin: Code(s): R79.89 - Other specified abnormal findings of blood chemistry Status: Acute Assessment and Plan: Mild elevation trending down. Result of pericarditis. No plan for further evaluation at this time. Has been seen by Cardiology. (5) Essential hypertension: Code(s): I10 - Essential (primary) hypertension Status: Acute Assessment and Plan: Blood pressure reviewed on 03/10/2020 and stable. Continue olmesartan. (6) Hypercholesteremia: Code(s): E78.00 - Pure hypercholesterolemia, unspecified Status: Acute Assessment and Plan: Not on medication at home. (7) DVT prophylaxis: Code(s): Z29.9 - Encounter for prophylactic measures, unspecified Status: Acute Assessment and Plan: SCDs. Time Spent With Patient Time with patient: 15 - 25 minutes Subjective Date/time seen: 03/10/20 11:32 Interval history: Date of Service: 03/10/2020. Admitted with left-sided chest pain with known recent diagnosis pericarditis. Patient has already seen cardiology this morning and taken prednisone. She is feeling better. No current chest pain. No shortness of breath. Does realize her stamina is not as good as it was prior to the diagnosis of pericarditis. No headache or dizziness. No abdominal pain. No nausea or vomiting. Review of Systems Review of Systems: Narrative: Feeling better. Decreased stamina. Constitutional: Constitutional: Denies chills and Denies fever(s) ENT: Denies dysphagia Cardiovascular: Cardiovascular: Denies chest pain and Denies palpitations Respiratory: Respiratory: Denies cough and Denies dyspnea Gastrointestinal: Gastrointestinal: Denies abdominal pain, Denies nausea and Denies vomiting Genitourinary: Genitourinary: Reports no additional female genitourinary complaints Musculoskeletal: Musculoskeletal: Reports no additional musculoskeletal complaints Integumentary/Breasts: Skin/Breast: Denies rash Neurologic: Denies dizziness and Denies headache(s) Psychiatric: Psychiatric: Denies anxiety, Denies confusion and Denies depression Exam Narrative: Exam Narrative: Awake and alert. Const: General: no acute distress HENMT: Mouth: Yes moist mucous membranes Neck: Neck: supple Lymphatic: lymphadenopathy not noted Resp: Auscultation: clear to auscultation bilaterally, no rales and no wheezes Cardio: Rate: regular rate Rhythm: regular rhythm GI: Inspection: non-distended GI Palp: Yes Soft to palpation and No Tenderness to palpation present (GI) Auscultation: normal bowel sounds Skin: General skin exam: normal color Neuro: Cognition (Neuro): normal cognition Speech: normal speech Extrem: General: n
--- NOTE | 2020-03-10 18:34 | PM.DS ---
DS: Admitting Diagnosis Admitting Diagnosis Admitting Diagnosis: Other chest pain DS: Discharge Diagnosis Discharge Diagnosis (1) Chest pain: Qualifiers: Chest pain type: other chest pain Qualified Code(s): R07.89 - Other chest pain Code(s): R07.9 - Chest pain, unspecified Status: Acute (2) Pericarditis: Qualifiers: Chronicity: acute Pericarditis type: unspecified type Qualified Code(s): I30.9 - Acute pericarditis, unspecified Code(s): I31.9 - Disease of pericardium, unspecified Status: Acute (3) Bilateral pleural effusion: Code(s): J90 - Pleural effusion, not elsewhere classified Status: Acute (4) Elevated troponin: Code(s): R79.89 - Other specified abnormal findings of blood chemistry Status: Acute (5) Essential hypertension: Code(s): I10 - Essential (primary) hypertension Status: Chronic (6) Hypercholesteremia: Code(s): E78.00 - Pure hypercholesterolemia, unspecified Status: Chronic DS: Summary Hospital Course Reason for hospitalization: Left-sided chest and breast pain. Hospital Course: Date of Service of Discharge: March 10, 2020. History of Present Illness: Patient is a 70-year-old with recently diagnosed pericarditis with pericardial effusion discharged from [facility] on March 05, 2020 who return to the emergency room with complaint of left-sided chest discomfort, left breast discomfort and bilateral shoulder pain. Patient has been taking her colchicine as prescribed. She was not given NSAIDs during her last visit due to known allergy. 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 Symptoms improved on the day before presentation although by the evening she began to experience left-sided chest discomfort. Pain did not radiate. Discomfort did not change with position but did seem to wax and wane in intensity. No fever, chills, shortness of breath or cough. No abdominal pain, nausea or vomiting. No lower extremity swelling. She did report having some diarrhea over the previous few days. COVID-19 testing within the past week was negative. In the emergency room, she was noted to have mild elevation of troponin with CTA chest negative for acute pulmonary embolism but bilateral pleural effusions and mild to moderate pericardial effusion present. Cardiology was consulted from the emergency room and did request admission for further evaluation and treatment. Course in Hospital: Patient was admitted to the IMU where she remained for the duration of her stay. Serial troponin levels were obtained with mild elevation and trending down. EKG with no acute changes. Telemetry also with no acute changes. She was seen in consultation by Dr. Reynoso who had a long discussion with the patient regarding treatment options for her pericarditis. Patient was eventually agreeable to steroid treatment with patient receiving prednisone in hospital and plan to continue Medrol Dosepak as an outpatient. Patient was monitored after starting prednisone with no ill affects. She was actually experiencing no chest pain once admitted to hospital and had no shortness of breath. She did notice a decrease in stamina. She was continued on colchicine. No new echocardiogram was felt needed. Patient's blood pressure was monitored throughout her stay and remained stable on home losartan. She remained on room air. She had no other acute issues. With the patient stabilized and no need for further inpatient care, she was discharged home on the afternoon of March 10, 2020. She did discharge sooner than a 2 midnight stay as she improved quicker than anticipated. Status at Discharge Cognitive/behavioral status at discharge: Stable. Functional status at discharge: independent ambulation Overall status at discharge: patient is back to baseline Time Spent wit
== END 2020-03-10 15:20 | disposition home or self-care (01) | DRG 315 ==
LOC: ANHED 04:20 → ANHIMU 05:37
PROVIDERS: Admitting Provider Family Medicine; Emergency Provider Emergency Medicine; PCP Family Medicine; Visit Provider Hospitalist
DX: I30.9 Acute pericarditis, unspecified (principal); J90 Pleural effusion, not elsewhere classified; R79.89 Other specified abnormal findings of blood chemistry; E78.00 Pure hypercholesterolemia, unspecified; I10 Essential (primary) hypertension
CPT/HCPCS: 36415; 71046; 71275; 80048; 83880; 84484; 85025; 85610; 85730; 93005; 96360; 96361; 99291; A9270; J7040; J7512; Q9967

== ENCOUNTER 2020-03-15 07:08 | Observation (INO) | payer MEDICARE, SELFPAY ==
[2020-03-15] VITALS (28 sets, daily range): BP systolic 90–151; BP diastolic 50–92; PULSE 71–164; RESP 16–26; TEMP 36–36.6; O2SAT 95–98; BMI 24.0
--- NOTE | 2020-03-15 | ECHO_ITS ---
Patient Info Name: Anita Little Age: 70 years : 1950 Gender: Female Ht: 59 in Wt: 118 lbs BSA: 1.50 m2 HR: 82 bpm BP: 93 / 57 mmHg Heart Rhythm: Sinus Rhythm Technical Quality: Good Exam Date: 03/15/2020 2:46 PM Exam Location: [facility] Patient Status: Inpatient Admit Date: 03/15/2020 Staff Ordering Physician: Mark Foley MD Barrel Cutter: Roberth Rai, VERONICA, RT Attending Provider: Oneil Dukes MD Referring Physician: Og SOARES; Exam Type: CA echo doppler color flow Study Info Indications I48.0 - Paroxysmal atrial fibrillation Complete two-dimensional, color flow and Doppler transthoracic echocardiogram is performed. Summary 1. Left ventricular systolic function is normal, estimated at 65-70%. 2. Left ventricular chamber dimension is normal. 3. There is mildly increased left ventricular wall thickness. 4. The left ventricular diastolic function is grade II diastolic dysfunction. 5. Global longitudinal strain is normal at -18 %. 6. Left atrial chamber dimension is mildly enlarged. 7. There is mild aortic valve calcification. 8. There is mild mitral valve regurgitation. 9. There is mild tricuspid valve regurgitation. 10. There is mild pulmonic regurgitation. 11. The pericardium appears increased echogenicity of the pericardium. 12. There is small pericardial effusion. Left Ventricle Left ventricular chamber dimension is normal. Left ventricular systolic function is normal, estimated at 65-70%. There is mildly increased left ventricular wall thickness. The left ventricular diastolic function is grade II diastolic dysfunction. Global longitudinal strain is normal at -18 %. Right Ventricle Right ventricular chamber dimension is normal. Right ventricular systolic function is normal. Left Atria Left atrial chamber dimension is mildly enlarged. Right Atria Right atrial chamber dimension is normal. Atrial Septum Intact interatrial septum visualized by color flow imaging. Aortic Valve The aortic valve is trileaflet. There is no aortic valve stenosis. There is trace aortic valve regurgitation. There is mild aortic valve calcification. Pulmonic Valve The pulmonic valve is normal. There is no pulmonic valve stenosis. There is mild pulmonic regurgitation. Mitral Valve The mitral valve has normal leaflets. There is no mitral valve stenosis. There is mild mitral valve regurgitation. Tricuspid Valve The tricuspid valve leaflets are normal. There is no significant tricuspid valve stenosis. There is mild tricuspid valve regurgitation. Pericardium/Pleural The pericardium appears increased echogenicity of the pericardium. There is small pericardial effusion. Inferior Vena Cava Dilated inferior vena cava with <50% collapse upon inspiration consistent with elevated right atrial pressure, 15 mmHg. Aorta The aortic root size at the sinus of Valsalva is normal. The prox ascending aorta size is normal. Left Ventricular Outflow Tract Name Value Normal LVOT 2D LVOT Diameter 1.9 cm LVOT Doppler LVOT Peak Gradient 5 mmHg
--- NOTE | ~2020-03-15 | XR_ITS ---
EXAMINATION: XR chest 1V portable DATE: 03/15/2020 07:53 INDICATION: Shortness of breath TECHNIQUE: frontal view of the chest was obtained. COMPARISON: Chest radiograph dated 03/10/2020 FINDINGS: Persistent opacities at the left lung base with blunting at costophrenic angles consistent with small left pleural effusion and associated basilar atelectasis versus less likely pneumonia. Right lung re maciej clear. No pulmonary edema, pneumothorax or right-sided pleural effusion. Enlarged cardiac silho uette which on prior CT corresponded to both cardiomegaly and pericardial effusion. IMPRESSION: 1. Persistent small left pleural effusion with left basilar atelectasis and/or pneumonia. 2. Enlarged cardiac silhouette likely combination of cardiomegaly and pericardial effusion. Reviewed, dictated and finalized at location A. IMPRESSION: 1. Persistent small left pleural effusion with left basilar atelectasis and/or pneumonia. 2. Enlarged cardiac silhouette likely combination of cardiomegaly and pericardi al effusion.
--- NOTE | 2020-03-15 07:27 | ECG_ITS ---
Measurements Intervals [place] Rate: 160 P: TN: 0 QRS: 23 QRSD: 86 T: 188 QT: 275 QTc: 450 Interpretive Statements ATRIAL FIBRILLATION WITH RAPID VENTRICULAR RESPONSE NONSPECIFIC ST & T-WAVE ABNORMALITY- INF/LAT LEADS ABNORMAL ECG Electronically Signed On 03-15-2020 10:45:25 CDT by Sudhir Kyle D.O.
--- NOTE | 2020-03-15 07:32 | ED.SOB ---
HPI - SOB/Dyspnea General Chief Complaint: Shortness of Breath/Dyspnea Stated Complaint: SOB Time Seen by Provider: 03/15/20 07:16 Source: patient and family Mode of arrival: ambulatory Limitations: no limitations History of Present Illness HPI Narrative: This patient is a 70 year old female with recent diagnosis of pericarditis who presents for evaluation of recurrent shortness of breath and dizziness. PAtient states she was discharged from hospital 03/10/20 after treatment and diagnosis of pericarditis, pericardial effusion, pleural effusion. Yesterday she states she felt fine and she did not have any shortness of breath or dizziness. This morning patient developed dull right shoulder pain, dizziness and shortness of breath. She states her right shoulder pain is similar to pain she had when she was first diagnosed with pericarditis, but it is very mild now. She has shortness of breath with exertion only. She denies dizziness at this time as well. MD elicited complaint: shortness of breath Related Data Home Medications Medication Instructions Recorded Confirmed olmesartan 20 mg PO DAILY 03/15/20 03/15/20 Allergies Allergy/AdvReac Type Severity Reaction Status Date / Time ibuprofen Allergy Unknown Swelling Verified 03/15/20 07:10 of Lip/Tongue/Throat Review of Systems Review of Systems: All systems reviewed & are unremarkable except as noted in HPI and below Constitutional: Constitutional: Denies chills and Denies fever(s) Cardiovascular: Cardiovascular: Denies rapid heart rate, Denies leg edema and Reports radiating jaw, neck or arm pain Respiratory: Respiratory: Denies cough, Reports dyspnea and Denies wheezing Gastrointestinal: Gastrointestinal: Denies abdominal pain, Denies nausea and Denies vomiting Neurologic: Reports dizziness PMFSH Family History Family History Mother Family history of Alzheimer's disease Father Family history of Alzheimer's disease AAA (abdominal aortic aneurysm, ruptured) Sibling Acute myocardial infarction Social History Social History (Updated 03/15/20 @ 16:48 by Oneil Dukes MD) Social History: Lifelong nonsmoker. Drinks 1-2 alcoholic drinks per week. No drug use. She is . Living alone in [place], [place] and her two children live down the road within 5 minutes from her if she needs help. She is a full code. She nominated her daughter sury to be the individual who would make medical decisions for her if she is not able. 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 Gender identity (if verbalized by the patient): Female Spiritual care concerns: No Exam Const: General: no acute distress and alert Orientation/consciousness: patient oriented x3 HENMT: Head: normocephalic and atraumatic Face and sinus: sinuses nontender and face symmetric Eyes: Pupils: Equal, round and reactive pupils present EOM: EOMs intact bilaterally Neck: Neck: no lymphadenopathy Chest: Chest palpation & inspection: normal inspection of the chest Resp: Effort & Inspection: normal respiratory effort and not tachypneic Auscultation: clear to auscultation bilaterally Cardio: Rate: tachycardic Rhythm: abnormal rhythm irregularly irregular Heart sounds: no murmurs GI: GI Palp: Yes Soft to palpation, No Tenderness to palpation present (GI), No Guarding due to palpation present (GI) and No Rigid due to palpation Back/Spine/Pelvis: Back: no CVA tenderness Skin: General skin exam: normal color Rashes: no rashes Neuro: General: patient oriented x3 and moves all extremities Extrem: General: no pedal edema Course Consultations Consultation #1: I discussed case with Carolynn grant. No further
[2020-03-15 07:42] LABS: Basophils Percent Auto 0.2 % (0.2-1.2); Eosinophils Absolute Auto 0.1 K/mm3 (0-0.3); Eosinophils Percent Auto 0.4 % (0-4.4); Hematocrit 37.1 % (37.0-47.0); Hemoglobin 12.4 g/dL (12.0-15.0); Immature Granulocyte Absolute 0.07 K/mm3 (0.00-0.031); Immature Granulocyte Percent A 0.6 % (0-0.5); Lymphocytes Absolute Auto 1.47 K/mm3 (0.9-3.2); Lymphocytes Percent Auto 11.7 % (18.3-44.2); Mean Corpuscular HGB Conc 33.4 g/dl (32-36); Mean Corpuscular Hemoglobin 31.8 pg (26-34); Mean Corpuscular Volume 95.1 fl (80-100); Mean Platelet Volume 9.6 fl (7.4-10.4); Monocytes Percent Auto 8.2 % (2.6-8.5); Neutrophils Percent Auto 78.9 % (45.5-73.1); Platelet Count Result 646 k/mm3 (150-375); Red Cell Distribution Width 11.8 % (11.5-14.5); White Blood Count 12.6 K/mm3 (4.5-10.0)
[2020-03-15 07:52] LABS: Blood Urea Nitrogen 29 mg/dL (7-17); Carbon Dioxide 26 mmol/L (22-30); Chloride 97 mmol/L (98-107); Estimated Glomerular Filt Rate > 60; Glucose 147 mg/dL (65-105); Sodium 132 mmol/L (137-145)
[2020-03-15] MEDS: SODIUM CHLORIDE 0.9% IV 500 ML 999 ML IV CONT ×3 (07:53→09:35)
[2020-03-15 07:54] LABS: INR 0.9; Prothrombin Time 12.2 Seconds (11.1-14.7)
[2020-03-15 07:55] LABS: Partial Thromboplastin Time 26.3 SECONDS (22.3-36.8)
[2020-03-15 08:05] LABS: NT Pro B Type Natriuretic Pept 3470 PG/ML (5-100); Troponin I 0.019 ng/mL (0.000-0.034)
--- NOTE | 2020-03-15 10:45 | ADMGEN ---
This patient, Anita Little, was admitted to IMU Room 214-01 @ 1015. Patient oriented to hospital policies and general routines including ID bracelet, bed and alarms, visiting hours, pain management, procedures, bathroom and other care routines, personal items, smoking policy, room service/diet, and visiting hours. Valuables list has been completed Patient are encouraged to report perceived risks to care and to ask questions if they do not understand what they are told or what they should do.
[2020-03-15 11:09] LABS: Troponin I 0.033 ng/mL (0.000-0.034)
--- NOTE | 2020-03-15 13:34 | PM.CNCAR ---
Assessment and Plan Assessment and plan (1) New onset atrial fibrillation: Code(s): I48.91 - Unspecified atrial fibrillation Status: Acute Assessment and Plan: still in atrial fibrillation with rapid ventricular response at this point. Uncertain etiology. May be related to pericarditis but cannot exclude underlying ischemia, thyroid disease, etc.. Will check a free T4 level. Will start amiodarone 150 mg IV bolus x1 and then standard drip per protocol. Obviously anticoagulation with restarted the given her pericardial effusion, will hold off at this point. Will hope amiodarone converted her back to sinus rhythm. Also will repeat the echo to re-evaluate the size of the effusion. Will also check a magnesium level. (2) Pericarditis: Code(s): I31.9 - Disease of pericardium, unspecified Status: Acute Assessment and Plan: Will check an MAGDALENA panel as well as a CRP. (3) Pericardial effusion: Code(s): I31.3 - Pericardial effusion (noninflammatory) Status: Acute Assessment and Plan: Repeat 2D echocardiogram with Doppler to evaluate the effusion. (4) Essential hypertension: Code(s): I10 - Essential (primary) hypertension Status: Chronic Assessment and Plan: Current lady a bit hypotensive. Will hold losartan for now. Overall Symptomatology is a bit worrisome for worsening effusion History of Present Illness History of Present Illness Consult date/time: 03/15/20 13:34 Requesting physician: Lani Hook MD Consult reason: atrial fibrillation Reason For Visit: new onset afib with RVR/pericarditis Narrative: Date of service 03/15/2020: History patient is a 70-year-old female who is once again admitted for some cardiac issues. She has had 2 other previous admissions recently. Most recent admission was for some chest discomfort that was thought to be related to pericarditis. She was treated with a combination steroids and colchicine. Those symptoms have predominantly resolved but she came to the hospital this morning because of some shortness of breath which started in the pattern scratcher hours or maybe yesterday. Patient states she took her medications and went to bed and woke up about 45 minutes later feeling ?odd?. She felt jittery. She did manage to go back to sleep and woke up a 430 this morning and feeling about the same. At 6:30 a.m. she states that she simply did not feel right and called her daughter. Her daughter came over and noticed that whenever she was walking to and from the bathroom she was short of breath. She also had some dull pain or chest yesterday that occurred and lasted most of the day. No associated symptoms. She did have some right shoulder pain this morning which is similar to what she had had with her ?pericarditis?. She came to the emergency department was found to be in atrial fibrillation with rapid ventricular response. She was given some diltiazem which did drop her blood pressure significantly. This was subsequently stopped. She currently is still in atrial fibrillation but is otherwise feeling okay. She denies any active chest pain, significant shortness of breath at rest. She has no paroxysmal nocturnal dyspnea, orthopnea, syncope, palpitations or edema. She did have a little bit of lightheadedness this morning when texting her daughter Review of Systems Review of Systems: All systems reviewed & are unremarkable except as noted in HPI and below Constitutional: Constitutional: Denies fatigue Eyes: Eyes: Denies blurry vision ENT: Reports Normal hearing present Cardiovascular: Cardiovascular: Reports chest pain, Denies pedal edema and Denies leg edema Respiratory: Respiratory: Reports dyspnea Gastrointestinal: Gastrointestinal: Denies abdominal pain Genitourinary: Genitourinary: Denies hematuria and Denies flank pain Musculoskeletal: Musculoskeletal: Denies back pain and Denies neck pain Integumentary/Breasts:
[2020-03-15] MEDS: AMIODARONE 150 MG/D5W 100 ML 150 MG/100 ML BAG 600 MG IV CONT (13:47)
--- NOTE | 2020-03-15 13:47 | PM.IMHP ---
H&P: HPI History of Present Illness Chief complaint: new onset afib with RVR/pericarditis Narrative: Anita Little is a 70 year old female who was recently diagnosed with pericarditis who returns to the ER fo ching delvalle'dominick' and found to have atrial fibrillation. Patient initially admitted on March 04 was found to have pericarditis. Carotid Dopplers negative. CRP 13. Showed small circumferential pericardial effusion. Trop were negative. She was started on colchicine was able to be discharged March 05. Patient returns to the hospital on March 10 for chest pain. CTA chest showing no evidence of PE, moderate pericardial effusion, and mild pericardial enhancement. Small pleural effusions, left greater than right and mild lower lung atelectasis also noted. Trop were mildly elevated. Steroids started and she had no further chest pain. She was discharged home on March 10. Since discharge, patient was feeling well until yesterday when she developed a 'dull' chest pain that lasted 'all day'. She has been compliant with her medications. Nothing seems to make the pain better or worse. No SOB, nausea, diaphoresis or radiation to the pain. Pain eventually resolved. Last night, patient was woken up feeling 'jittery' but no CP or palpitations. No pain when leaning forward but still with pleuritic pain to the right posterior shoulder. She did become diaphoretic overnight and felt more PORTER when walking to the bathroom prior to admission. She also states she felt everything was 'bright' after walking to the couch and sitting. Symptoms passed quickly. Vision remian clear. No urinary symptoms. No weight changes. No numbness, tingling, and weakness. No fever or chills. Having diarrhea due to the colchiciine. Due to her not feeling well, she presented to the ER. In the ER, patient noted to be tachycardic and found to have atrial fib. SBP 90 and he received Diltiazem 10mg once with improvement of heart rate. SBP dropped to 70 though and she received fluid bolus. BP improved. Heart rate climbed again and Amio started. While in the room, patient converted to NSR. Review of Systems Review of Systems: All systems reviewed & are unremarkable except as noted in HPI and below [facility] Family History Family History Mother Family history of Alzheimer's disease Father Family history of Alzheimer's disease AAA (abdominal aortic aneurysm, ruptured) Sibling Acute myocardial infarction Social History Social History (Updated 03/15/20 @ 16:48 by Oneil Dukes MD) Social History: Lifelong nonsmoker. Drinks 1-2 alcoholic drinks per week. No drug use. She is . Living alone in [place], [place] and her two children live down the road within 5 minutes from her if she needs help. She is a full code. She nominated her daughter sury to be the individual who would make medical decisions for her if she is not able. 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 Gender identity (if verbalized by the patient): Female Spiritual care concerns: No Meds Home Medications and Allergies Home Medications Medication Instructions Recorded Confirmed Type colchicine [Colcrys] 0.6 mg PO Q12HR 30 Days #60 tablet 03/05/20 03/15/20 Rx methylprednisolone [Medrol ([place])] See Rx Instructions .ROUTE 03/10/20 03/15/20 Rx .COMPLEX #21 each olmesartan 20 mg PO DAILY 03/15/20 03/15/20 History Allergies Allergy/AdvReac Type Severity Reaction Status Date / Time ibuprofen Allergy Unknown Swelling Verified 03/15/20 07:10 of Lip/Tongue/Throat Vital Signs Vital Signs - 24 hr 03/15/20 07:20 03/15/20 07:23 03/15/20 07:30 Temperature 97.9 F Pulse Rate 76 164 H 152 H Respir
[2020-03-15] MEDS: AMIODARONE 360 MG/D5W 200 ML 360 MG/200 ML BAG 33.3 MG IV CONT (14:01)
[2020-03-15 14:20] LABS: Troponin I 0.099 ng/mL (0.000-0.034)
[2020-03-15 15:35] LABS: Magnesium 2.2 mg/dL (1.6-2.3)
[2020-03-15 15:39] LABS: CRP 4.1 mg/dL (<1.0)
[2020-03-15 15:53] LABS: T4 Thyroxine 9.59 ug/dL (5.53-11.0)
[2020-03-15] MEDS: AMIODARONE 360 MG/D5W 200 ML 360 MG/200 ML BAG 16.7 MG IV CONT (20:11)
[2020-03-15] MEDS: methylPREDNISolone 4 MG TABLET PO (20:17)
[2020-03-15] MEDS: FAMOTIDINE 20 MG TABLET PO (20:17)
[2020-03-15 20:45] LABS: Glucose Point of Care 132 (65-105)
[2020-03-16] VITALS (8 sets, daily range): BP systolic 126–180; BP diastolic 71–87; PULSE 63–81; RESP 16–20; TEMP 36.2–36.8; O2SAT 98–99
[2020-03-16 04:24] LABS: Basophils Percent Auto 0.3 % (0.2-1.2); Eosinophils Percent Auto 0.5 % (0-4.4); Hematocrit 33.2 % (37.0-47.0); Immature Granulocyte Absolute 0.05 K/mm3 (0.00-0.031); Immature Granulocyte Percent A 0.7 % (0-0.5); Lymphocytes Absolute Auto 0.91 K/mm3 (0.9-3.2); Lymphocytes Percent Auto 12.1 % (18.3-44.2); Mean Corpuscular HGB Conc 33.1 g/dl (32-36); Mean Corpuscular Hemoglobin 31.4 pg (26-34); Mean Corpuscular Volume 94.9 fl (80-100); Mean Platelet Volume 9.3 fl (7.4-10.4); Monocytes Absolute Auto 0.6 K/mm3 (0.1-0.6); Monocytes Percent Auto 7.4 % (2.6-8.5); Platelet Count Result 485 k/mm3 (150-375); Red Cell Distribution Width 11.9 % (11.5-14.5); White Blood Count 7.5 K/mm3 (4.5-10.0)
[2020-03-16 04:38] LABS: Blood Urea Nitrogen 17 mg/dL (7-17); Calcium 8.9 mg/dL (8.4-10.2); Carbon Dioxide 26 mmol/L (22-30); Chloride 103 mmol/L (98-107); Estimated Glomerular Filt Rate > 60; Glucose 127 mg/dL (65-105); Potassium 4.2 mmol/L (3.4-5.0); Sodium 133 mmol/L (137-145)
[2020-03-16 04:48] LABS: Troponin I 0.107 ng/mL (0.000-0.034)
--- NOTE | 2020-03-16 07:00 | ECG_ITS ---
Measurements Intervals [place] Rate: 70 P: 7 MT: 153 QRS: 14 QRSD: 93 T: 61 QT: 377 QTc: 409 Interpretive Statements SINUS RHYTHM NONSPECIFIC T-WAVE ABNORMALITY- ANTERIOR LEADS BASELINE ARTIFACT- I, II, AVR, AVL, AVF, V5 BORDERLINE ECG Electronically Signed On 03-16-2020 10:21:10 CDT by Sudhir Kyle D.O.
[2020-03-16 08:10] LABS: Glucose Point of Care 88 (65-105)
[2020-03-16] MEDS: COLCHICINE 0.6 MG TABLET PO (09:10)
[2020-03-16] MEDS: FAMOTIDINE 20 MG TABLET PO (09:11)
[2020-03-16] MEDS: methylPREDNISolone 4 MG TABLET PO (09:11)
--- NOTE | 2020-03-16 09:37 | PM.PNCARD ---
Progress Note: A&P Assessment and Plan (1) New onset atrial fibrillation: Code(s): I48.91 - Unspecified atrial fibrillation Status: Acute Assessment and Plan: Converted to sinus rhythm. Given the situation, I do not think she requires anticoagulation. Follow-up next week. We eventually need outpatient stress test in my opinion but will defer to Dr. Alcazar. (2) Pericarditis: Code(s): I31.9 - Disease of pericardium, unspecified Status: Acute Assessment and Plan: CRP is improved. Any panel pending. (3) Pericardial effusion: Code(s): I31.3 - Pericardial effusion (noninflammatory) Status: Acute Assessment and Plan: Stable (4) Essential hypertension: Code(s): I10 - Essential (primary) hypertension Status: Chronic Assessment and Plan: Olmesartan 20 mg daily to be started Okay for discharge from my perspective Subjective Date/time seen: 03/16/20 09:37 Interval history: Reason for admission: Atrial fibrillation Date of service 03/16/2020: She converted to sinus rhythm. She feels well. No chest pain or shortness of breath. Review of Systems Review of Systems: All systems reviewed & are unremarkable except as noted in HPI and below Constitutional: Constitutional: Denies excessive sweating, Denies fatigue and Denies headache(s) Eyes: Eyes: Denies blurry vision ENT: Reports Normal hearing present, Denies headache(s), Denies lip swelling and Denies neck pain Cardiovascular: Cardiovascular: Denies pedal edema, Denies leg edema and Denies dyspnea Respiratory: Respiratory: Reports dyspnea Gastrointestinal: Gastrointestinal: Denies abdominal pain Genitourinary: Genitourinary: Denies hematuria and Denies flank pain Musculoskeletal: Musculoskeletal: Denies back pain and Denies neck pain Integumentary/Breasts: Skin/Breast: Denies dry skin Neurologic: Reports Normal hearing present, Denies confusion and Denies headache(s) Psychiatric: Psychiatric: Denies anxiety and Denies confusion Endocrine: Endocrine: Denies excessive sweating and Denies fatigue Hematologic/Lymphatic: Hematologic/Lymphatic: Denies easy bleeding and Denies easy bruising Allergic/Immunologic: Allergic/Immunologic: Denies GI upset with certain foods and Denies lip swelling Exam Narrative: Exam Narrative: Alert and oriented Const: General: no acute distress; No confusion Orientation/consciousness: No confusion HENMT: General nose exam: no epistaxis Eyes: Sclera: sclerae normal Neck: Neck: supple and no JVD Chest: Other: No reproducible chest wall pain to palpation Resp: Auscultation: clear to auscultation bilaterally Cardio: Rate: regular rate Rhythm: regular rhythm Skin: General skin exam: normal color Neuro: General: No confusion Cranial nerves: Yes Normal hearing present Cognition (Neuro): normal cognition Speech: normal speech Extrem: General: normal to inspection, no edema and no pedal edema Psych: Mental Status: mental status grossly normal Objective Data Vital Signs Vital Signs: Vital Signs - 24 hr 03/15/20 10:06 03/15/20 10:38 03/15/20 10:48 Temperature 36.3 C L Pulse Rate 138 H 142 H Respiratory Rate 18 Blood Pressure 151/92 H 113/68 Pulse Oximetry 97 03/15/20 10:50 03/15/20 12:27 03/15/20 14:00 Temperature 36.0 C L Pulse Rate 145 H 110 H 81 Respiratory Rate 18 Blood Pressure 103/62 93/57 L Pulse Oximetry 96 03/15/20 16:00 03/15/20 18:00 03/15/20 20:00 Temperature 36.4 C Pulse Rate 85 78 75 Respiratory Rate 16 Blood Pressure 107/59 L Pulse Oximetry 95 03/15/20 20:07 03/15/20 22:00 03/15/20 23:44 Temperature 36.3 C L 36.2 C L Pulse Rate 90 76 71 Respiratory Rate 20 20 Blood Pressure 146/72 H 116/67 Pulse Oximetry 95 98 03/16/20 00:00 03/16/20 02:00 03/16/20 04:00 Temperature Pulse Rate 72 63 67 Respiratory Rate Blood Pressure Pulse Oximetry
--- NOTE | 2020-03-16 09:43 | PM.IMPN ---
Progress Note: A&P Assessment and Plan (1) New onset atrial fibrillation: Code(s): I48.91 - Unspecified atrial fibrillation Status: Acute Assessment and Plan: Patietn with new onset AFib/RVR. She was initially treated with Diltiazem in ER but resulted in HoTN. She was changed to Amiodarone and has converted to NSR. [id number] 3-4 (if you count the DM). No plans for anticoagulation at this time due to the pericarditis. Appreciate cardiology input. Amiodarone stopped. Did not feel she need betablockers. No ASA due to allergy. (2) Pericardial effusion: Code(s): I31.3 - Pericardial effusion (noninflammatory) Status: Acute Assessment and Plan: CT chest on 03/10 showing moderate pericardial effusion with mild pericardial enhancement. Related to the pericarditis. Treatment as mentioned below. Echo has been repeated showing increased echogenicity of the pericardium with small effusion. (3) Elevated troponin: Code(s): R79.89 - Other specified abnormal findings of blood chemistry Status: Acute Assessment and Plan: Trop has climbed to 0.099. EKG did show AFib with ST-T changes in the lateral leads. Elevated Trop probably related to the AFib/RVR. Echo repeated showing EF 65% with Grade 2 DD, and mild valvular disease. There is increased echogenicity of the pericardium with small effusion. Repeat EKG in NSR showing improvement in the lateral ST-T wave changes. (4) Pericarditis: Code(s): I31.9 - Disease of pericardium, unspecified Status: Acute Assessment and Plan: Recently diagnosed and now on Colchicine and steroids. Pericarditis symptoms improved overall. Colchicine held due to interaction with Amio but this has been resumed. She has now completed steroids. Continue pepcid (5) Pre-diabetes: Code(s): R73.03 - Prediabetes Status: Acute Assessment and Plan: A1c 5.7 earlier this month. Glucose well controlled (6) Essential hypertension: Code(s): I10 - Essential (primary) hypertension Status: Chronic Assessment and Plan: Blood pressure soft on admission. Using amiodarone for rate and rhythm control. BP improved now that she is back in NSR. Olmesartan resumed. (7) DVT prophylaxis: Code(s): Z29.9 - Encounter for prophylactic measures, unspecified Status: Acute Assessment and Plan: SCDs Subjective Date/time seen: 03/16/20 09:43 Interval history: 70yo female with recently diagnosed with pericarditis here for new onset atrial fib. No issues overnight. Eating well. Up walking to the bedside commode. Slept well. Exam Narrative: Exam Narrative: AF 172/71 74 Gen - NARD Chest - CTA bilaterally, nml RR CV - RRR S1/S2. No murmur, gallop or rub; Tele showing no recurrence of AFib Abd - Soft, NT/ND, Positive BS Ext - No pedal edema Psych - Nml mood and affect Skin - Warm and dry Objective Data Vital Signs Vital Signs: Vital Signs - 24 hr 03/15/20 10:06 03/15/20 10:38 03/15/20 10:48 Temperature 97.3 F L Pulse Rate 138 H 142 H Respiratory Rate 18 Blood Pressure 151/92 H 113/68 Pulse Oximetry 97 03/15/20 10:50 03/15/20 12:27 03/15/20 14:00 Temperature 96.8 F L Pulse Rate 145 H 110 H 81 Respiratory Rate 18 Blood Pressure 103/62 93/57 L Pulse Oximetry 96 03/15/20 16:00 03/15/20 18:00 03/15/20 20:00 Temperature 97.6 F Pulse Rate 85 78 75 Respiratory Rate 16 Blood Pressure 107/59 L Pulse Oximetry 95 03/15/20 20:07 03/15/20 22:00 03/15/20 23:44 Temperature 97.3 F L 97.1 F L Pulse Rate 90 76 71 Respiratory Rate 20 20 Blood Pressure 146/72 H 116/67 Pulse Oximetry 95 98 03/16/20 00:00 03/16/20 02:00 03/16/20 04:00 Temperature Pulse Rate 72 63 67 Respiratory Rate Blood Pressure Pulse Oximetry 03/16/20 04:30 03/16/20 06:00 03/16/20 08:00 Temperature 97.2 F L 98.2 F Pulse Rate 66 66
--- NOTE | 2020-03-16 10:17 | PM.DS ---
DS: Admitting Diagnosis Admitting Diagnosis Admitting Diagnosis: Unspecified atrial fibrillation DS: Discharge Diagnosis Discharge Diagnosis (1) New onset atrial fibrillation: Code(s): I48.91 - Unspecified atrial fibrillation Status: Acute Assessment and Plan: Patient with new onset AFib/RVR. She was initially treated with Diltiazem in ER but resulted in HoTN. She was changed to Amiodarone and has converted to NSR. [id number] 3-4 (if you count the DM). No plans for anticoagulation at this time due to the pericarditis. Appreciate cardiology input. Amiodarone stopped. Cards did not feel she need betablockers. No ASA due to allergy. (2) Pericardial effusion: Code(s): I31.3 - Pericardial effusion (noninflammatory) Status: Acute Assessment and Plan: CT chest on 03/10 showing moderate pericardial effusion with mild pericardial enhancement. Related to the pericarditis. Treatment as mentioned below. Echo has been repeated showing increased echogenicity of the pericardium with small effusion. (3) Elevated troponin: Code(s): R79.89 - Other specified abnormal findings of blood chemistry Status: Acute Assessment and Plan: Trop has climbed to 0.099. EKG did show AFib with ST-T changes in the lateral leads. Elevated Trop probably related to the AFib/RVR. Echo repeated showing EF 65% with Grade 2 DD, and mild valvular disease. There is increased echogenicity of the pericardium with small effusion. Repeat EKG in NSR showing improvement in the lateral ST-T wave changes. (4) Pericarditis: Code(s): I31.9 - Disease of pericardium, unspecified Status: Acute Assessment and Plan: Recently diagnosed and now on Colchicine and steroids. Pericarditis symptoms improved overall. Colchicine held due to interaction with AMiobut this has been resumed. She has now completed steroids. Continue pepcid (5) Pre-diabetes: Code(s): R73.03 - Prediabetes Status: Acute Assessment and Plan: A1c 5.7 earlier this month. Glucose well controlled (6) Essential hypertension: Code(s): I10 - Essential (primary) hypertension Status: Chronic Assessment and Plan: Blood pressure soft on admission. Using amiodarone for rate and rhythm control. BP improved now that she is back in NSR. Olmesartan resumed. DS: Summary Time Spent with Patient Time attestation: Total time spent providing and/or coordinating discharge services: Exam Narrative: Exam Narrative: AF 172/71 74 Gen - NARD Chest - CTA bilaterally, nml RR CV - RRR S1/S2. No murmur, gallop or rub; Tele showing no recurrence of AFib Abd - Soft, NT/ND, Positive BS Ext - No pedal edema Psych - Nml mood and affect Skin - Warm and dry DS: Data Data Completed and Pending Labs on day of discharge: Labs from last 24 hours 03/16/20 03/16/20 03/16/20 08:02 04:10 04:10 WBC RBC Hgb Hct MCV MCH MCHC RDW Plt Count MPV Immature Gran % (Auto) Neut % (Auto) Lymph % (Auto) Wirt % (Auto) Eos % (Auto) Baso % (Auto) Lymph # (Auto) Wirt # (Auto) Eos # (Auto) Baso # (Auto) Abs Immat Gran (auto) Absolute Neuts (auto) Absolute Nucleated RBC Nucleated RBC % Sodium 133 L Potassium 4.2 Chloride 103 Carbon Dioxide 26 BUN 17 D Creatinine 0.50 L Estim Creat Clear Calc Not Reportable Estimated GFR > 60 Glucose 127 H POC Capillary Glucose 88 Calcium 8.9 Magnesium Troponin I 0.107 H* C-Reactive Protein Thyroxine (T4) MAGDALENA Screen 03/16/20 03/15/20 03/15/20 04:10 20:37 15:13 WBC 7.5 RBC 3.50 L Hgb 11.0 L Hct 33.2 L MCV 94.9 MCH 31.4 MCHC 33.1 RDW 11.9 Plt Count 485 H MPV 9.3 Immature Gran % (Auto) 0.7 H Neut % (Auto) 79.0 H Lymph % (Auto) 12.1 L Wirt % (Auto) 7.4 Eos % (Auto) 0.5 Bas
[2020-03-16] MEDS: OLMESARTAN MEDOXOMIL 20 MG TABLET PO (11:14)
== END 2020-03-16 11:30 | disposition home or self-care (01) ==
LOC: ANHED 07:38 → ANHIMU 09:50
PROVIDERS: Internal Medicine Cardiovascular Disease; Admitting Provider Internal Medicine; Emergency Provider General Practice; PCP Family Medicine; Visit Provider Internal Medicine
DX: I48.91 Unspecified atrial fibrillation (principal); I30.9 Acute pericarditis, unspecified; I10 Essential (primary) hypertension; R79.89 Other specified abnormal findings of blood chemistry; R73.03 Prediabetes
CPT/HCPCS: 36415; 71045; 80048; 83735; 83880; 84436; 84484; 85025; 85610; 85730; 86038; 86039; 86140; 93005; 93306; 96365; 96366; 96367; 96376; 99285; A9270; G0378; J0282; J7040

== ENCOUNTER 2020-03-16 21:18 | Emergency (ER) | payer MEDICARE, SELFPAY ==
[2020-03-16 21:21] VITALS: BP 178/95; PULSE 80; RESP 18; TEMP 36.2; O2SAT 100
--- NOTE | 2020-03-16 22:38 | ED.SKABFB ---
HPI - Skin/Abscess/Foreign Bdy General Chief complaint: Skin/Abscess/Foreign Body Stated complaint: skin infection Time Seen by Provider: 03/16/20 21:34 History of Present Illness HPI narrative: Patient is a 70-year-old female who presents ER with left arm redness and pain. Noticed that this evening while getting ready for bed around 8:30 PM. It is located right at the site where she had a peripheral IV inserted. She was admitted yesterday for A. fib with RVR and cardioverted with amiodarone. She has since been discharged home on colchicine for pericarditis. She is not on blood thinner. She has no chest pain or shortness of breath. She has been without any fevers or chills or sweats. Additional concerns. Related Data Home Medications Medication Instructions Recorded Confirmed olmesartan 20 mg PO DAILY 03/15/20 03/15/20 Allergies Allergy/AdvReac Type Severity Reaction Status Date / Time ibuprofen Allergy Unknown Swelling Verified 03/16/20 21:59 of Lip/Tongue/Throat Review of Systems Review of Systems: All systems reviewed & are unremarkable except as noted in HPI and below Constitutional: Constitutional: Denies chills, Denies fever(s) and Denies weakness ENT: Denies nasal congestion and Denies sore throat Cardiovascular: Cardiovascular: Denies chest pain and Denies radiating jaw, neck or arm pain Respiratory: Respiratory: Denies cough, Denies dyspnea and Denies wheezing Integumentary/Breasts: Skin/Breast: Reports erythema and Reports rash PMFSH Social History Social History (Updated 03/15/20 @ 16:48 by Oneil Dukes MD) Social History: Lifelong nonsmoker. Drinks 1-2 alcoholic drinks per week. No drug use. She is . Living alone in [place], [place] and her two children live down the road within 5 minutes from her if she needs help. She is a full code. She nominated her daughter sury to be the individual who would make medical decisions for her if she is not able. 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 HEAD: Normocephalic, atraumatic. HEART: Regular rate and rhythm. Normal peripheral pulses. EXTREMITIES: Normal range of motion. No edema. SKIN: Warm, dry, Rash to left biceps with firm cord down near the antecubital fossa. Warm to touch. NEURO: Alert and oriented x3. PSYCH: Normal mood and affect. Course Course Emergency Course: Reviewed case with Dr. Quijano who is on-call for Dr. Aguilera. Patient will be started on Keflex and will contact PCP for routine follow-up. Vital Signs Vital signs: Vital Signs Temperature 97.1 F L 03/16/20 21:21 Pulse Rate 80 03/16/20 21:21 Respiratory Rate 18 03/16/20 21:21 Blood Pressure 178/95 H 03/16/20 21:21 Pulse Oximetry 100 03/16/20 21:21 Temperature 97.1 F L 03/16/20 21:21 Pulse Rate 80 03/16/20 21:21 Respiratory Rate 18 03/16/20 21:21 Blood Pressure 178/95 H 03/16/20 21:21 Pulse Oximetry 100 03/16/20 21:21 Discharge Plan Discharge Clinical Impression: Superficial thrombophlebitis of arm Patient Disposition: Home, Self-Care Condition: Stable Instructions: Antibiotic Form, Superficial Thrombophlebitis (ED) Additional Instructions: Return to the ER if you develop edema or swelling to the lower part of your arm, you have chest pain or shortness of breath, you lose consciousness, or you have additional concerns. Prescriptions: New cephalexin [Keflex] 500 mg capsule 500 mg PO Q12H Qty: 14 RF: 0 No Action colchicine [Colcrys] 0.6 mg Tablet 0.6 mg PO Q12HR 30 Days Qty: 60 RF: 0 olme
[2020-03-16] MEDS: CEPHALEXIN 500 MG CAPSULE PO (22:45)
[2020-03-16 22:50] VITALS: BP 127/87; PULSE 78; RESP 15; O2SAT 99
== END 2020-03-16 22:50 | disposition home or self-care (01) ==
PROVIDERS: Emergency Provider Emergency Medicine; PCP Family Medicine
DX: I80.8 Phlebitis and thrombophlebitis of other sites (principal)
CPT/HCPCS: 99283; A9270

== ENCOUNTER → 2021-07-09 10:20 | Outpatient (CLI) | payer MEDICARE, SELFPAY ==
--- NOTE | ~2021-07-09 | DEXA_ITS ---
Bone Density Report Name: Anita Little Age: 71 Sex: Female Ethnicity: White Date of : 1950 Indication: postmenopausal; screening for osteoporosis; height loss; Referring Provider: ULI SALAZAR Study: Bone densitometry was performed. Exam Date: July 09, 2021 Accession number: [id number] Bone Density: Region BMD T-score Z-score Classification AP Spine (L1, L3, L4) 0.955 -0.9 1.3 Normal Femoral Neck (Left) 0.721 -1.2 0.7 Osteopenia Total Hip (Left) 0.771 -1.4 0.1 Osteopenia Femoral Neck (Right) 0.676 -1.6 0.3 Osteopenia Total Hip (Right) 0.703 -2.0 -0.4 Osteopenia Total Hip Mean 0.737 -1.7 -0.2 Osteopenia World Health Organization criteria for BMD impression classify patients as: Normal (T-score at or above -1.0), Osteopenia (T-score between -1.0 and -2.5), or Osteoporosis (T-score at or below -2.5). 10-year Fracture Risk(1): Major Osteoporotic Fracture 9.2% Hip Fracture 1.4% Reported Risk Factors: [place] (), Neck BMD=0.676, BMI=21.7 (1) FRAX(R) Version 3.08. Fracture probability calculated for an untreated patient. Fracture probability may be lower if the patient has received treatment. Clinical Information Provided by Patient: Has used the following medications: Vitamin D, MTV Patient maximum height was 59.75 Menopause Age: 53 No regular weight bearing exercise Does not regularly consume dairy products Drinks caffeinated beverages Onset of menses at age 10 Number of children 2 Impression: The patient has low bone mass, based on the Right Total Hip T-score. The patient has an estimated ten-year risk of hip fracture of 1.4% and an estimated ten-year risk of major fracture of 9.2%, based on the WHO FRAX algorithm. Discussion: BONE DENSITY IS LOW AT ONE OR MORE SKELETAL SITES. This patient's lowest T-score is low at one or more skeletal sites. It meets the World Health Organization's (WHO) criteria for ?low bone mass? (T-score between -1.0 and -2.5). The patient's 10-year risk of fracture as calculated by FRAX is less than the threshold where pharmacological therapy is recommended by the National Osteoporosis Foundation (NOF). However, all treatment decisions require clinical judgment and consideration of individual patient factors, including patient preferences, comorbidities, previous drug use, risk factors not captured in the FRAX model (e.g., frailty, falls, vitamin D deficiency, increased bone turnover, interval significant decline in bone density) and possible under or overestimation of fracture risk by FRAX. The patient should follow a healthful lifestyle (good nutrition with adequate calcium and vitamin D, and appropriate weight-bearing exercise). Follow-Up: Consider repeating this study in 2 to 3 years to reassess this patient's status, or sooner if there is some new
== END ==
PROVIDERS: PCP Family Medicine; Visit Provider Family Medicine
DX: Z78.0 Asymptomatic menopausal state (principal); M85.851 Other specified disorders of bone density and structure, right thigh; M85.852 Other specified disorders of bone density and structure, left thigh
CPT/HCPCS: 77080

== ENCOUNTER 2022-04-30 14:49 | Observation (INO) | payer MEDICARE, SELFPAY ==
[2022-04-30] VITALS (48 sets, daily range): BP systolic 125–186; BP diastolic 67–85; PULSE 81–104; RESP 16–28; TEMP 36.9; O2SAT 95–100; BMI 20.6
--- NOTE | ~2022-04-30 | CT_ITS ---
EXAMINATION: CTA chest PE protocol DATE: 04/30/2022 17:28 INDICATION: Pulmonary embolism TECHNIQUE: Computed tomography angiography (CTA) of the chest was performed with 200 mL Omnipaque-350 intravenous contrast timed to evaluate the pulmonary arteries (initial injection leaked outside the body). Coronal maximum intensity projection 3D-reconstructions were created by the technologist. The dose-length product (DLP) was 298.58 mGy-cm. Automated exposure control and iterative reconstruction technique were employed. COMPARISON: 03/10/2020. FINDINGS: Study quality: Degraded by late contrast phase, beam hardening, and motion such that subsegmental and non-occlusive segmental emboli could be missed particularly in the left lower lobe. Pulmonary arteries: No pulmonary emboli detected. Thoracic aorta: Arch calcifications. Lung parenchyma and airways: Bibasilar atelectasis. Thoracic inlet, axillae and chest wall: Unremarkable. Mediastinum: Normal. Heart and pericardium: Small volume pericardial effusion, smaller than in the prior study. Coronary artery calcifications: Absent. Pleura: Small volume left pleural fluid. Upper abdomen: No significant finding. Bones: No acute osseous finding. IMPRESSION: Limited exam, as described above, with no definite CT evidence of acute central or occlusive segmenta l pulmonary embolus. Small pericardial effusion. Small left pleural effusion. Reviewed, dictated and finalized at location K. IMPRESSION: Limited exam, as described above, with no definite CT evidence of acute central or occlusive segmental pulmonary embolus. Small pericardial effusion. Small le ft pleural effusion.
--- NOTE | ~2022-04-30 | XR_ITS ---
EXAMINATION: XR chest 1V portable Exam Date/Time: 04/30/2022 15:27 CDT HISTORY: Chest pain Comparison: 03/15/2020. CTPA 03/10/2020. RESULT: Lines, tubes, and devices: None. Lungs and pleura: Chronic bibasilar scar/atelectasis. Chronic left angle blunting. Cardiomediastinal silhouette: Stable. Other: No acute osseous or upper abdominal finding. IMPRESSION: Small left pleural effusion versus chronic pleural scarring. Unchanged cardiomediastinal silhouette s ize, which previously corresponded with a pericardial effusion. Reviewed, dictated and finalized at location K. IMPRESSION: Small left pleural effusion versus chronic pleural scarring. Unchanged cardiome diastinal silhouette size, which previously corresponded with a pericardial eff usion.
--- NOTE | ~2022-04-30 | NM_ITS ---
EXAMINATION: NM martha stress w perfusion DATE: 05/02/2022 09:59 INDICATION: Elevated troponins. Prior pericarditis. TECHNIQUE: Rest images were obtained following intravenous administration of 11.2 mCi Tc99m tetrofosm in (Myoview). The patient was infused intravenously with Lexiscan (Regadenoson). Then, 34.5 mCi Tc99m tetrofosmin (Myoview) was administered intravenously, and stress images were obtained. Data was zoltan nstructed into short axis and horizontal and vertical long axis SPECT images. Gated SPECT images were also obtained. COMPARISON: None. FINDINGS: There is no definite reversible or fixed perfusion abnormality to suggest ischemia or infar ction. There is normal left ventricular chamber size, wall motion and ejection fraction. Left ventr icular ejection fraction measures >70%. IMPRESSION: 1. Normal myocardial perfusion at rest and during stress. 2. Left ventricular ejection fraction measuring >70%. Reviewed, dictated and finalized at location A.
--- NOTE | 2022-04-30 14:59 | ECG_ITS ---
Measurements Intervals [place] Rate: 89 P: 53 NC: 157 QRS: 6 QRSD: 86 T: 63 QT: 343 QTc: 418 Interpretive Statements SINUS RHYTHM DELAYED PRECORDIAL R/S TRANSITION BORDERLINE ECG Electronically Signed On 04-30-2022 15:18:43 CDT by Sudhir Kyle D.O.
--- NOTE | 2022-04-30 15:09 | ED.CHESTPAIN ---
HPI - Chest Pain General Chief Complaint: Chest Pain Stated Complaint: CP w/ fever Time Seen by Provider: 04/30/22 14:59 Source: patient Mode of arrival: ambulatory Limitations: no limitations History of Present Illness HPI narrative: Patient brought to the hospital from home by private car complaining of left shoulder blade and left shoulder pain started at 3:30 AM. Patient work-up from sleep at that time and noticed that pain. Patient is not sure if she wake up because of the storm or because of the pain. Patient denies any trauma or new physical activities. She stated that she been running low-grade fever 99.4 up to 100 over the last 7 days. She denies any chills, sore throat, runny nose, sneezing, headache, nasal congestion or postnasal discharge, coughing or chest pain. History of cervical radiculopathy with intermittent pain at the left shoulder and left shoulder blades usually go away in few hours this 1 has been steady. Patient also reports having similar symptoms and was diagnosed of pericarditis at that time. History of anemia, pericarditis, pericardial effusion, atrial fibrillation, hyponatremia, hyperkalemia, hypertension. Patient does not smoke or uses drugs, drinks occasionally. Patient reports that pain sometimes gets worse with walking, nothing make it better. She did not try to take any pain medication at home prior to arrival. Patient did not get vaccinated for COVID. Related Data Home Medications Medication Instructions Recorded Confirmed Lactobacillus 1 cap PO .qd 03/21/20 12/09/21 acidophil,plantar-Bifido no.7 25 billion cell capsule (up4 Probiotics Adult 50 Plus) ascorbic acid (vitamin C) 250 mg 750 mg PO BID 03/21/20 12/09/21 tablet biotin 5 mg capsule 5 mg PO DAILY 03/21/20 12/09/21 cholecalciferol (vitamin D3) 50 50 mcg PO DAILY 03/21/20 12/09/21 mcg (2,000 unit) capsule cod liver oil 15 ml PO DAILY 03/21/20 12/09/21 garlic 1,500 mg capsule 3,000 mg PO BID 03/21/20 12/09/21 magnesium oxide 350 mg PO BID 03/21/20 12/09/21 [id number] 2 tablet PO BID 03/21/20 12/09/21 tablet (Multivitamin 50 Plus tablet) vitamin B complex 1 cap PO DAILY 03/21/20 12/09/21 Allergies Allergy/AdvReac Type Severity Reaction Status Date / Time ibuprofen Allergy Unknown Swelling Verified 04/30/22 15:02 of Lip/Tongue/Throat Review of Systems Review of Systems: All systems reviewed & are unremarkable except as noted in HPI and below PMFSH Past Medical History Medical History (Updated 04/30/22 @ 18:21 by Michelle Morales MD) Amaurosis fugax of left eye Colon cancer screening (09/2019) Cologuard negative. Essential hypertension Heart murmur Hypercholesteremia Intolerant to statin. Pericarditis Pre-diabetes Surgical History Surgical History (Updated 04/30/22 @ 18:19 by Kanwal Gusman PA-C) History of colonoscopy History of wisdom tooth extraction Family History Family History Mother Family history of Alzheimer's disease Father Family history of Alzheimer's disease AAA (abdominal aortic aneurysm, ruptured) Sibling Acute myocardial infarction Social History Social History Social History: Lifelong nonsmoker. Drinks 1-2 alcoholic drinks per week. No drug use. She is . Living alone in [place], [place] and her two children live down the road within 5 minutes from her if she needs help. She designates her daughter, Sivan Lin, as her surrogate medical decision maker. Code status: Full code. Spiritual care concerns: No Exam Narrative: General appearance: Well-developed, well-nourished Skin: Normal color Head: Normocephalic, nontraumatic Eyes: Clear conjunctiva ENT: Oropharynx normal, ears normal, nose normal Neck: Supple, nontender Chest and respiratory: Airway patent, no respiratory distress, no accessory muscle use Hea
[2022-04-30 15:53] LABS: Basophils Percent Auto 0.2 % (0.2-1.2); Hematocrit 33.5 % (37.0-47.0); Hemoglobin 10.8 g/dL (12.0-15.0); Immature Granulocyte Absolute 0.03 K/mm3 (0.00-0.031); Immature Granulocyte Percent A 0.5 % (0-0.5); Lymphocytes Absolute Auto 0.53 K/mm3 (0.9-3.2); Lymphocytes Percent Auto 9.1 % (18.3-44.2); Mean Corpuscular HGB Conc 32.2 g/dl (32-36); Mean Corpuscular Hemoglobin 31.1 pg (26-34); Mean Corpuscular Volume 96.5 fl (80-100); Mean Platelet Volume 9.9 fl (7.4-10.4); Monocytes Absolute Auto 0.4 K/mm3 (0.1-0.6); Monocytes Percent Auto 6.9 % (2.6-8.5); Neutrophils Absolute Auto 4.8 K/mm3 (1.3-6.7); Neutrophils Percent Auto 83.3 % (45.5-73.1); Platelet Count Result 269 k/mm3 (150-375); Red Blood Count 3.47 M/mm3 (4.2-5.4); Red Cell Distribution Width 12.3 % (11.5-14.5); White Blood Count 5.8 K/mm3 (4.5-10.0)
[2022-04-30 16:04] LABS: Prothrombin Time 12.8 Seconds (11.1-14.7)
[2022-04-30 16:05] LABS: Alanine Aminotransferase 21 U/L (6-35); Albumin Level 3.8 g/dL (3.5-5.1); Alkaline Phosphatase 62 U/L (38-126); Anion Gap 11 mmol/L (8-16); Aspartate Amino Transferase 32 U/L (14-36); Bilirubin,Total 0.4 mg/dL (0.2-1.3); Blood Urea Nitrogen 12 mg/dL (7-17); CRP 7.4 mg/dL (<1.0); Calcium 8.2 mg/dL (8.4-10.2); Carbon Dioxide 24 mmol/L (22-30); Chloride 92 mmol/L (98-107); Estimated Glomerular Filt Rate > 60; Glucose 127 mg/dL (65-110); Potassium 4.6 mmol/L (3.4-5.0); Sodium 127 mmol/L (137-145)
[2022-04-30 16:08] LABS: D Dimer 2.75 ug/mL (<0.48)
[2022-04-30 16:19] LABS: NT Pro B Type Natriuretic Pept 556 pg/mL (5-100)
[2022-04-30 16:25] LABS: Erythrocyte Sedimentation Rate 83 mm/hr (0-20)
[2022-04-30 16:30] LABS: SARS-CoV-2 RNA PCR Negative
--- NOTE | 2022-04-30 18:17 | PM.IMHP ---
H&P: HPI History of Present Illness Date/Time: 04/30/22 18:45 Chief Complaint: Chest pain. Narrative: This is a 72-year-old female with PMFSH Past Medical History Medical History (Updated 04/30/22 @ 18:21 by Michelle Morales MD) Amaurosis fugax of left eye Colon cancer screening (09/2019) Cologuard negative. Essential hypertension Heart murmur Hypercholesteremia Intolerant to statin. Pericarditis Pre-diabetes Surgical History Surgical History (Updated 04/30/22 @ 18:19 by Kanwal Gusman PA-C) History of colonoscopy History of wisdom tooth extraction Family History Family History Mother Family history of Alzheimer's disease Father Family history of Alzheimer's disease AAA (abdominal aortic aneurysm, ruptured) Sibling Acute myocardial infarction Social History Social History (Updated 04/30/22 @ 18:21 by Kanwal Gusman PA-C) Social History: Lifelong nonsmoker. Drinks 1-2 alcoholic drinks per week. No drug use. She is . Living alone in [place], [place] and her two children live down the road within 5 minutes from her if she needs help. She designates her daughter, Sivan Lin, as her surrogate medical decision maker. Code status: Full code. Spiritual care concerns: No Meds Home Medications and Allergies Home Medications Medication Instructions Recorded Confirmed Type Lactobacillus 1 cap PO .qd 03/21/20 12/09/21 History acidophil,plantar-Bifido no.7 25 billion cell capsule (up4 Probiotics Adult 50 Plus) ascorbic acid (vitamin C) 250 mg 750 mg PO BID 03/21/20 12/09/21 History tablet biotin 5 mg capsule 5 mg PO DAILY 03/21/20 12/09/21 History cholecalciferol (vitamin D3) 50 50 mcg PO DAILY 03/21/20 12/09/21 History mcg (2,000 unit) capsule cod liver oil 15 ml PO DAILY 03/21/20 12/09/21 History garlic 1,500 mg capsule 3,000 mg PO BID 03/21/20 12/09/21 History magnesium oxide 350 mg PO BID 03/21/20 12/09/21 History kxipuhtaiabf-ggtywojz-rgzksx 2 tablet PO BID 03/21/20 12/09/21 History tablet (Multivitamin 50 Plus tablet) vitamin B complex 1 cap PO DAILY 03/21/20 12/09/21 History losartan 50 mg tablet 50 mg PO DAILY #90 tabs 08/04/21 12/09/21 Rx Allergies Allergy/AdvReac Type Severity Reaction Status Date / Time ibuprofen Allergy Unknown Swelling Verified 04/30/22 15:02 of Lip/Tongue/Throat Vital Signs Vital Signs - 24 hr 04/30/22 14:55 04/30/22 14:54 04/30/22 15:05 Pulse Rate 91 93 Respiratory Rate 28 H 24 H Blood Pressure 178/85 H 178/85 H Pulse Oximetry 100 97 Oxygen Delivery Room Air Room Air 04/30/22 15:06 04/30/22 16:20 04/30/22 16:21 Pulse Rate 89 85 85 Respiratory Rate 22 H Blood Pressure 141/75 H Pulse Oximetry 96 Oxygen Delivery H&P: Results Labs Labs: Short CBC 04/30/22 Range/Units 15:47 WBC 5.8 (4.5-10.0) K/mm3 Hgb 10.8 L (12.0-15.0) g/dL Hct 33.5 L (37.0-47.0) % Plt Count 269 (150-375) k/mm3 BMP 04/30/22 15:47 Sodium 127 L Potassium 4.6 Chloride 92 L Carbon Dioxide 24 BUN 12 D Creatinine 0.40 L Glucose 127 H Calcium 8.2 L Cardiac Enzymes 04/30/22 Range/Units 15:47 Troponin I 1.070 H* (0.000-0.034) ng/mL Liver Function 04/30/22 Range/Units 15:47 Total Bilirubin 0.4 (0.2-1.3) mg/dL AST 32 (14-36) U/L ALT 21 (6-35) U/L Alkaline Phosphatase 62 (38-126) U/L Albumin 3.8 (3.5-5.1) g/dL Imaging Chest X-Ray 04/30/22 15:34 IMPRESSION: 1. Small left pleural effusion versus chronic pleural scarring. 2. Unchanged cardiomediastinal silhouette size, which previously corresponded with a pericardial effusion. Chest CTA 04/30/22 17:31 IMPRESSION: 1. Limited exam, as described above, with no definite CT evidence of acute central or occlusive segmental pulmonary embolus. 2. Small pericardial effusion. Small left pleural effusion.
[2022-04-30] MEDS: ENOXAPARIN 60 MG/0.6 ML SYRINGE 50 MG SUB-Q (19:04)
--- NOTE | 2022-04-30 20:02 | PM.IMHP ---
H&P: HPI History of Present Illness Date/Time: 04/30/22 20:02 Chief Complaint: chest discomfort Narrative: This is a 72-year-old female with past medical history significant for hypertension, hypercholesterolemia, pericarditis. patient presents to the emergency room with complaints of chest discomfort that had started early in the morning along with left shoulder pain patient has had pericarditis in the past and has been having low-grade fevers for the last week or so denies any rashes, any pain or swelling of the joints, no nausea, no vomiting, no abdominal pain, no shortness of breath, no cough, no sputum production, no leg swelling, no dizziness, no PND, no orthopnea, no syncope, or near syncope, no lightheadedness, patient is by herself has not been around sick contacts according to her to the best of her knowledge. Preliminary workup was significant for CT angiogram of the chest with no acute pulmonary embolism small pericardial effusion and left pleural effusion, sodium 127, CBC hemoglobin of 10, Coxsackie serology is pending tested negative for COVID-19, troponins x3 were elevated and EKG shows sinus rhythm with delayed precordial R/S transition. Patient is been admitted for further evaluation management and treatment. Review of Systems Review of Systems: Chest discomfort, low-grade temp, left shoulder pain. Constitutional: Constitutional: Reports fatigue, Reports fever(s), Reports malaise, Reports poor appetite and Reports weakness Eyes: Eyes: Denies change in vision ENT: Denies dysphagia, Denies vertigo, Denies dizziness, Denies nasal congestion, Denies nasal discharge and Denies odynophagia Cardiovascular: Cardiovascular: Reports chest pain, Denies pedal edema, Denies claudication, Denies lightheadedness, Denies palpitations, Denies dyspnea on exertion and Denies paroxysmal nocturnal dyspnea Respiratory: Respiratory: Denies chest congestion, Denies cough, Denies excessive phlegm production and Denies dyspnea Gastrointestinal: Gastrointestinal: Denies abdominal pain, Denies dyspepsia, Denies heartburn, Denies diarrhea, Denies nausea and Denies vomiting Genitourinary: Genitourinary: Denies dysuria Musculoskeletal: Musculoskeletal: Reports myalgias, Denies atrophy, Denies joint swelling, Denies limited range of motion and Denies muscle weakness Integumentary/Breasts: Skin/Breast: Denies rash Neurologic: Denies vertigo, Denies dizziness, Denies focal weakness and Denies Sensory deficit (Neuro) Psychiatric: Psychiatric: Reports no additional psychiatric complaints and Reports as per HPI Endocrine: Endocrine: Denies cold intolerance, Denies fatigue, Denies flushing, Denies heat intolerance, Denies polyphagia, Denies polydipsia and Denies palpitations Hematologic/Lymphatic: Hematologic/Lymphatic: Reports no additional hematologic/lymphatic complaints and Reports as per HPI Allergic/Immunologic: Allergic/Immunologic: Reports no additional allergic/immunologic complaints and Reports as per HPI PMFSH Past Medical History Medical History (Updated 04/30/22 @ 18:21 by Michelle Morales MD) Amaurosis fugax of left eye Colon cancer screening (09/2019) Cologuard negative. Essential hypertension Heart murmur Hypercholesteremia Intolerant to statin. Pericarditis Pre-diabetes Surgical History Surgical History (Updated 04/30/22 @ 18:19 by Kanwal Gusman PA-C) History of colonoscopy History of wisdom tooth extraction Family History Family History Mother Family history of Alzheimer's disease Father Family history of Alzheimer's disease AAA (abdominal aortic aneurysm, ruptured) Sibling Acute myocardial infarction Social History Social History (Updated 04/30/22 @ 18:21 by Kanwal Gusman PA-C) Social History: Lifelong nonsmoker. Drinks 1-2 alcoholic drinks per week. No drug use. She is . Living alone in [place], [place] and her two children l
--- NOTE | 2022-04-30 22:27 | ADMGEN ---
This patient, Anita Little, was admitted to IMU Room 210-01 at 2227. Patient/family oriented to hospital policies and general routines including ID bracelet, bed and alarms, visiting hours, pain management, procedures, bathroom and other care routines, personal items, smoking policy, room service/diet, and visiting hours. Information on how to activate the Rapid Response Team has been discussed. Patient/Family are encouraged to report perceived risks to care and to ask questions if they do not understand what they are told or what they should do.
[2022-04-30] MEDS: NITROGLYCERIN OINTMENT 1 INCH DOSE TRANSDERM (23:52)
[2022-04-30] MEDS: SODIUM CHLORIDE 0.9% IV 1,000 ML 60 ML IV CONT (23:52)
[2022-05-01] VITALS (14 sets, daily range): BP systolic 119–140; BP diastolic 60–80; PULSE 77–91; RESP 12–26; TEMP 36.4–37.3; O2SAT 92–96
--- NOTE | 2022-05-01 | ECHO_ITS ---
Patient Info Name: Anita Little Age: 72 years : 1950 Gender: Female Ht: 59 in Wt: 102 lbs BSA: 1.39 m2 HR: 88 bpm BP: 125 / 60 mmHg Heart Rhythm: Sinus Rhythm Technical Quality: Good Exam Date: 05/01/2022 3:21 PM Exam Location: [facility] Pulmonary Exam Room: 310 Patient Status: Inpatient Admit Date: 04/30/2022 Staff Ordering Physician: Quincy Mack MD Thread Spooler: Dee Leggett RDCS Attending Provider: Quincy Mack MD Referring Physician: Frederick VARGAS; Exam Type: CA echo doppler color flow Study Info Indications R07.89 - Other chest pain Complete two-dimensional, color flow and Doppler transthoracic echocardiogram is performed. Summary 1. Complete two-dimensional, color flow and Doppler transthoracic echocardiogram is performed. 2. Left ventricular hypertrophy with normal size and contractility. 3. Grade 1 diastolic noncompliance. 4. Modest left atrial enlargement. 5. In contrast to chest CT no pericardial fluid is seen on this exam. Left Ventricle Left ventricular chamber dimension is normal. Left ventricular systolic function is normal, estimated at 65-70%. There is mild concentric increased left ventricular wall thickness. The left ventricular diastolic function is grade I diastolic dysfunction. Right Ventricle Right ventricular chamber dimension is normal. Left Atria Left atrial chamber dimension is mildly enlarged. Right Atria Right atrial chamber dimension is normal. Aortic Valve The aortic valve is trileaflet. There is mild aortic valve sclerosis. Pulmonic Valve The pulmonic valve is normal. Mitral Valve The mitral valve has normal leaflets. Tricuspid Valve The tricuspid valve leaflets are normal. Pericardium/Pleural The pericardium appears normal. There is no pericardial effusion. Aorta The aortic root size at the sinus of Valsalva is normal. Left Ventricular Outflow Tract Name Value Normal LVOT 2D LVOT Diameter 2.0 cm LVOT Doppler LVOT Peak Gradient 5 mmHg LVOT Mean Gradient 3 mmHg LVOT VTI 23 cm LVOT VTI/AV VTI Ratio 0.7 LVOT Stroke Volume 68 ml LVOT CO 16.2 l/min LVOT CI 11.7 l/min/m2 Pulmonic Valve Name Value Normal PV Doppler PV Peak Gradient 3 mmHg Mitral Valve Name Value Normal MV Doppler MV Decel D[place] 442 cm/s2 MV PHT 106 ms
[2022-05-01 05:41] LABS: Anion Gap 9 mmol/L (8-16); Blood Urea Nitrogen 8 mg/dL (7-17); Calcium 7.8 mg/dL (8.4-10.2); Carbon Dioxide 26 mmol/L (22-30); Chloride 95 mmol/L (98-107); Estimated Glomerular Filt Rate > 60; Glucose 101 mg/dL (65-110); Potassium 3.8 mmol/L (3.4-5.0); Sodium 130 mmol/L (137-145)
--- NOTE | 2022-05-01 06:00 | ECG_ITS ---
Measurements Intervals [place] Rate: 80 P: 26 CO: 150 QRS: 10 QRSD: 86 T: 19 QT: 373 QTc: 431 Interpretive Statements SINUS RHYTHM CONSIDER INFERIOR INFARCT, AGE INDETERMINATE BASELINE ARTIFACT- I, II, AVR, V2, V4-V5 ABNORMAL ECG Electronically Signed On 05-01-2022 9:15:50 CDT by Sudhir Kyle D.O.
[2022-05-01] MEDS: OPTI-GEN TAB 2 TABLET PO ×2 (08:46→16:52)
[2022-05-01] MEDS: LOSARTAN POTASSIUM 50 MG TABLET PO (08:46)
[2022-05-01] MEDS: VITAMIN B COMPLEX CAPSULE 2 CAP PO (08:46)
[2022-05-01] MEDS: MAGNESIUM OXIDE 400 MG TABLET PO ×2 (08:46→16:52)
[2022-05-01] MEDS: ACIDOPHILUS/BULGARICUS CHEWABLE TABLET 2 TABLET BY MOUTH (08:46)
[2022-05-01] MEDS: CHOLECALCIFEROL 1,000 UNITS TABLET 2000 UNITS PO (08:46)
[2022-05-01] MEDS: ASCORBIC ACID 500 MG TABLET 1000 MG PO ×2 (08:47→16:52)
--- NOTE | 2022-05-01 10:37 | PM.CNCAR ---
Assessment and Plan Assessment and plan (1) Acute hyponatremia: Code(s): E87.1 - Hypo-osmolality and hyponatremia Status: Acute (2) Elevated troponin: Code(s): R77.8 - Other specified abnormalities of plasma proteins Status: Acute (3) Pleural effusion: Code(s): J90 - Pleural effusion, not elsewhere classified Status: Acute (4) Effusion, pericardium: Code(s): I31.3 - Pericardial effusion (noninflammatory) Status: Acute Additional Plan -fever for 1 week as patient stated. -elevated troponins. -small pericardial effusion CT scan. -small left pleural effusion CT scan. -hyponatremia with sodium 127 on presentation. -history of pericarditis. -history of hypertension. -history of hyperlipidemia This 72-year-old female with past history of pericarditis, negative stress test 2019 who presents here to the hospital with feeling fever for 1 week with maximum recorded temperature by patient of 100.4, mild episode of right upper back yesterday that resolved. She underwent CT scan that showed small pericardial effusion and small left pleural effusion was noted to have hyponatremia on presentation. His EKG showed no ischemia but troponins were elevated with maximum 1.29. Her troponins 2 years ago were in range of 0.1. No events on telemetry. This could be an episode of pericarditis however due to higher elevation troponin than previous episode will order a nuclear stress test to rule out ischemia. -continue aspirin 81 mg daily. -I will order treatment for pericarditis using colchicine until the stress test is done. Given small pericardial effusion this is definitely high on the differential diagnosis as possible etiology for the elevated troponin. -in regards to the hyponatremia patient is not on any diuretics at and therefore the etiology to be determined by primary team. -blood pressure is reasonable controlled using losartan 50 mg daily. History of Present Illness History of Present Illness Consult date/time: Date of service 05/01/22 10:37 Requesting physician: Quincy Mack MD Consult reason: chest pain Reason For Visit: N STEMI,pleural effusion,pericardial effusion Narrative: This 72-year-old female with past medical history of hypertension, hyperlipidemia and history of pericarditis in 2019, brief episode of atrial fibrillation 2019 which converted to sinus rhythm and did not require anticoagulation. Presents here to the hospital with chest pain. She states that she has been feeling tired and with low-grade fever this week. She measured a temperature 100.4?. Yesterday she did have some pain in the right upper back which was mild with no aggravating or relieving factors. Denies shortness of breath, palpitations, dizziness, syncope, orthopnea proximal nocturnal dyspnea. She reports that when she had pericarditis previously she did have severe pain across the upper back. This time the pain is much milder. CTA coronary angiogram shows no pulmonary embolism in the major arteries, small pleural effusions, small pericardial effusion Sodium 127 on admission and today 130, Troponins 1 , 1.25, 1.29 Hemoglobin 10.8, Brain atretic peptide 556 EKG reviewed and was massive shows normal sinus rhythm. Nuclear stress test April 05 1020 negative for ischemia. Review of Systems Constitutional: Constitutional: Denies chills, Reports fatigue, Reports fever(s) and Denies poor appetite Eyes: Eyes: Denies eye discharge, Denies loss of vision, Denies eye pain and Denies photophobia ENT: Denies dizziness, Denies epistaxis, Denies nasal congestion and Denies sore throat Cardiovascular: Cardiovascular: Denies chest pain, Denies syncope, Denies pedal edema, Denies leg edema, Denies palpitations, Denies dyspnea, Denies dyspnea on exertion and Denies orthopnea Comments: Pain in the upper back Respiratory: Respiratory: Denies cough, Denies dyspnea, Denies dyspnea on exertion and Denies wheezing
[2022-05-01] MEDS: NITROGLYCERIN OINTMENT 1 INCH DOSE TRANSDERM ×2 (12:25→16:52)
[2022-05-01] MEDS: COLCHICINE 0.6 MG TABLET 1.2 MG PO (12:25)
--- NOTE | 2022-05-01 12:45 | PM.IMPN ---
Progress Note: A&P Assessment and Plan (1) Acute hyponatremia: Code(s): E87.1 - Hypo-osmolality and hyponatremia Status: Acute Assessment and Plan: patient appears euvolemic this could be SIADH according to findings on chest x-ray will do fluid restriction to 1500 cc daily will continue to monitor And renal consult (2) Elevated troponin: Code(s): R77.8 - Other specified abnormalities of plasma proteins Status: Acute Assessment and Plan: likely secondary to pericarditis Coxsackie serology pending will start colchicine EKG reviewed cardiology consult Echo ordered, question plan for stress test (3) Effusion, pericardium: Code(s): I31.3 - Pericardial effusion (noninflammatory) Status: Acute Assessment and Plan: small pericardial effusion supportive care (4) Pleural effusion: Code(s): J90 - Pleural effusion, not elsewhere classified Status: Acute Assessment and Plan: small pleural effusion on the left side continue to monitor (5) Positive MAGDALENA (antinuclear antibody): Code(s): R76.8 - Other specified abnormal immunological findings in serum Status: Acute Assessment and Plan: according to patient her jockey valet is said that this was not concerning. (6) Essential hypertension: Code(s): I10 - Essential (primary) hypertension Status: Chronic Assessment and Plan: continue home meds continue to monitor Subjective Date/time seen: 05/01/22 12:45 Still having some mild chest pain Exam Narrative: patient is laying in a stretcher Const: General: cooperative, comfortable, no acute distress, well developed, alert, awake and other ( well-appearing) Nutritional Appearance: average body habitus Orientation/consciousness: patient oriented x3 HENMT: Head: normal to inspection, normocephalic and atraumatic Ears: hearing grossly normal bilaterally Face and sinus: normal facial exam Eyes: General: appearance normal, both eyes and all related structures Pupils: Equal, round and reactive pupils present EOM: EOMs intact bilaterally Neck: Neck: full ROM, no lymphadenopathy and no JVD Thyroid: thyroid normal Lymphatic: no lymphadenopathy noted Resp: Effort & Inspection: normal respiratory effort and able to speak in complete sentences Auscultation: clear to auscultation bilaterally Cardio: Jugular venous distension: no JVD Rate: regular rate Rhythm: regular rhythm Heart sounds: S1 normal heart sound present and S2 normal heart sound present GI: Inspection: normal to inspection : General: Yes deferred Skin: Rashes: no rashes Wounds: no wounds Neuro: General: patient oriented x3 and CN's II-XI intact bilaterally Cranial nerves: Yes CN's II-XII intact bilaterally and Yes Equal, round and reactive pupils present Cognition (Neuro): normal cognition Speech: normal speech Gait exam (Neuro): Normal gait present Motor exam (neuro): 5/5 motor strength present throughout Sensory Exam: No Sensory deficit (Neuro) Extrem: General: normal to inspection, full ROM, no joint enlargement and no pedal edema Objective Data Vital Signs Vital Signs: Vital Signs - 24 hr 04/30/22 14:55 04/30/22 14:54 04/30/22 15:05 Temperature Pulse Rate 91 93 Respiratory Rate 28 H 24 H Blood Pressure 178/85 H 178/85 H Pulse Oximetry 100 97 Oxygen Delivery Room Air Room Air 04/30/22 15:06 04/30/22 16:20 04/30/22 16:21 Temperature Pulse Rate 89 85 85 Respiratory Rate 22 H Blood Pressure 141/75 H Pulse Oximetry 96 Oxygen Delivery 04/30/22 15:01 04/30/22 15:15 04/30/22 15:30 Temperature Pulse Rate 89 86 89 Respiratory Rate 25 H 25 H 24 H Blood Pressure Pulse Oximetry 96 96 Oxygen Delivery 04/30/22 15:45 04/30/22 16:00 04/30/22 16:15 Temperature Pulse Rate 86 90 94 Respiratory Rate 24 H 24 H 27 H Blood Pressure Pulse Oximetry 95 97 100 Oxygen Delivery
--- NOTE | 2022-05-01 12:46 | PM.CNNEP ---
Assessment and Plan Additional Plan 1. Anita has hyponatremia. This happened once before when she was in the hospital for pericarditis. Now she presents with the same symptoms and she has a pericardial effusion but I am not sure how this relates to the low sodium , and less that his brought along with that a mild episode of dehydration. She is not on any medications that would do this. She has no personal history of cancer. She has no pulmonary issues. 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 At this point will get at TSH , cholesterol, and a cortisol level. Will also check an SPEP, urine sodium, serum and urine osmolality. her sodium came up from 127 to 130 on its own. She is getting some IV fluids in so perhaps some subtle case of dehydration is being treated. I will not put her on a fluid restriction now since her sodium level is coming up at a reasonable rate. 2. The patient has a pericardial effusion. Dr. Ventura is seeing the patient for this. History of Present Illness Reason for Consult Consult date: 05/01/22 Chief Complaint Chief complaint: N STEMI,pleural effusion,pericardial effusion History of Present Illness Narrative: Anita is a very pleasant 72-year-old lady who has multiple medical problems including a past history of pericarditis, pre diabetes, hyperlipidemia, hypertension, who has low sodium. The patient says that she came to the emergency room because of chest and back discomfort. It reminded her of the pericarditis that she had in the past. She tells me that the pericarditis was diagnosed as a viral syndrome. It resolved spontaneously. This time she developed the chest pain plus back pain along with low-grade fevers. This is been going on for about a week. She does not have any sores in her mouth she does not cough up blood she does not blow blood out of her nose no skin rash, oral ulcers, or unusual joint pains. she was seen in the emergency room and evaluated. She had a CTA of the lungs which ruled out pulmonary embolism. It did show a small pericardial effusion and the left pleural effusion. Her sodium was 127. She was felt to be dehydrated possibly so she was given some IV fluids overnight and her sodium climbed to 130. She says that she has not changed her dietary intake especially of either water or food. She does not think she was dehydrated when she had was admitted to the hospital. Looking in the records looks like she had a low sodium in the past. In March of 2020 the patient was admitted for the episode of pericarditis as above. At the time her sodium level was low, but only mildly ranging from 130-133. It was improving by the time she was discharged. In for lab draws between then and now her sodium level was normal. She denies any use of narcotics, antidepressants, diuretics, or PPI eyes. She has no history of cancer. There is no pulmonary issues on chest x-ray or CT. Review of Systems Constitutional: Constitutional: Reports no additional constitutional complaints Eyes: Eyes: Reports no additional eye complaints ENT: Reports system reviewed and no additional complaints, except as documented Cardiovascular: Cardiovascular: Reports no additional cardiovascular complaints Respiratory: Respiratory: Reports no additional respiratory complaints Gastrointestinal: Gastrointestinal: Reports no additional gastrointestinal complaints Genitourinary: Genitourinary: Reports no additional female genitourinary complaints Musculoskeletal: Musculoskeletal: Reports no additional musculoskeletal complaints Integumentary/Breasts: Skin/Breast: Reports system reviewed and no additional complaints, except as docu Neurologic: Reports system reviewed and no additional complaints, except as documented Psychiatric: Psychiatric: Reports no additional psychiatric complaints Endocrine: Endocrine: Reports no additional endocrine complaints [facility] Past Medic
[2022-05-01 13:42] LABS: Cholesterol 137 mg/dL (0-200)
[2022-05-01 16:03] LABS: Sodium 129 mmol/L (137-145)
[2022-05-01] MEDS: SODIUM CHLORIDE 0.9% IV 1,000 ML 60 ML IV CONT (16:52)
[2022-05-01 21:44] LABS: Sodium Urine Random 35 meq/L
[2022-05-01 21:48] LABS: Creatinine Urine 32.6 mg/dL; Total Protein Urine Random 13 mg/dL
[2022-05-02] VITALS (10 sets, daily range): BP systolic 137–169; BP diastolic 72–89; PULSE 76–97; RESP 16–28; TEMP 36.8–37.4; O2SAT 94–97
[2022-05-02 05:36] LABS: Hematocrit 31.3 % (37.0-47.0); Hemoglobin 10.4 g/dL (12.0-15.0); Mean Corpuscular HGB Conc 33.2 g/dl (32-36); Mean Corpuscular Hemoglobin 31.6 pg (26-34); Mean Corpuscular Volume 95.1 fl (80-100); Mean Platelet Volume 10.8 fl (7.4-10.4); Platelet Count Result 288 k/mm3 (150-375); Red Blood Count 3.29 M/mm3 (4.2-5.4); Red Cell Distribution Width 12.1 % (11.5-14.5)
[2022-05-02 05:47] LABS: Albumin Level 2.9 g/dL (3.5-5.1); Anion Gap 10 mmol/L (8-16); Blood Urea Nitrogen 10 mg/dL (7-17); Calcium 8.1 mg/dL (8.4-10.2); Carbon Dioxide 24 mmol/L (22-30); Chloride 98 mmol/L (98-107); Estimated Glomerular Filt Rate > 60; Glucose 98 mg/dL (65-110); Phosphorus 3.3 mg/dL (2.5-4.5); Potassium 3.9 mmol/L (3.4-5.0); Sodium 132 mmol/L (137-145)
--- NOTE | 2022-05-02 09:36 | PM.PNCARD ---
Progress Note: A&P Assessment and Plan (1) Elevated troponin: Code(s): R77.8 - Other specified abnormalities of plasma proteins Status: Acute Assessment and Plan: Possibly related to pericarditis. Underwent lexiscan stress test this morning to rule out ischemia. Further recommendations to follow review of those results. Does not have any ungoing chest pain. (2) Acute hyponatremia: Code(s): E87.1 - Hypo-osmolality and hyponatremia Status: Acute Assessment and Plan: Improving. (3) Effusion, pericardium: Code(s): I31.3 - Pericardial effusion (noninflammatory) Status: Acute Assessment and Plan: Small by CT scan yesterday. She was started on colchicine. Subjective Date/time seen: 05/02/22 09:36 Cardiology follow up for chest pain, elevated troponin Feels ok this morning. Denies any chest pain at the present time. No shortness of breath. Review of Systems Constitutional: Constitutional: Denies chills, Reports fatigue, Reports fever(s) and Denies poor appetite Eyes: Eyes: Denies eye discharge, Denies loss of vision, Denies eye pain and Denies photophobia ENT: Denies dizziness, Denies epistaxis, Denies nasal congestion and Denies sore throat Cardiovascular: Cardiovascular: Denies chest pain, Denies syncope, Denies pedal edema, Denies leg edema, Denies palpitations, Denies dyspnea, Denies dyspnea on exertion and Denies orthopnea Respiratory: Respiratory: Denies cough, Denies dyspnea, Denies dyspnea on exertion and Denies wheezing Gastrointestinal: Gastrointestinal: Denies abdominal pain, Denies diarrhea, Denies nausea and Denies vomiting Genitourinary: Genitourinary: Denies hematuria, Denies genital lesions and Denies dysuria Musculoskeletal: Musculoskeletal: Denies arthralgias, Denies joint swelling and Denies numbness Integumentary/Breasts: Skin/Breast: Denies pruritus and Denies rash Neurologic: Denies dizziness, Denies syncope, Denies loss of vision and Denies numbness Psychiatric: Psychiatric: Denies anxiety and Denies depression Endocrine: Endocrine: Denies cold intolerance, Reports fatigue, Denies heat intolerance and Denies palpitations Hematologic/Lymphatic: Hematologic/Lymphatic: Denies easy bleeding and Denies easy bruising Allergic/Immunologic: Allergic/Immunologic: Denies urticaria and Denies wheezing Exam Const: General: cooperative, comfortable, no acute distress, alert and awake Nutritional Appearance: well nourished Orientation/consciousness: patient oriented x3 HENMT: Head: normal to inspection, normocephalic and atraumatic Ears: hearing grossly normal bilaterally General nose exam: Normal external nose present, Normal nares present and no nasal discharge noted Face and sinus: normal facial exam and no erythema Mouth: No drooling and No restricted motion Throat: uvula midline Eyes: General: appearance normal, both eyes and all related structures Alignment and Position: position normal Conjunctivae: conjunctivae normal Sclera: sclerae normal Direct Ophthalmoscopy: No photophobia Neck: Neck: normal visual inspection and no JVD Thyroid: thyroid normal Carotids: no bruits Lymphatic: lymphedema not noted Chest: Chest palpation & inspection: normal inspection of the chest and no tenderness Resp: Effort & Inspection: normal respiratory effort and no nasal flaring Auscultation: clear to auscultation bilaterally, no crackles, no rales and no wheezes Cardio: Jugular venous distension: no JVD Rate: regular rate Rhythm: regular rhythm Heart sounds: S1 normal heart sound present, S2 normal heart sound present, no gallops, no murmurs and no rubs GI: Inspection: non-distended Auscultation: normal bowel sounds Rectal Exam: deferred : General: No no CVA tenderness Back/Spine/Pelvis: Back: No no CVA tenderness Cervical Spine: cervical ROM normal Skin: General skin exam: normal color and rashes and/or lesions noted Neuro: Genera
[2022-05-02] MEDS: CHOLECALCIFEROL 1,000 UNITS TABLET 2000 UNITS PO (09:55)
[2022-05-02] MEDS: ASPIRIN 81 MG ENTERIC TABLET PO (09:55)
[2022-05-02] MEDS: VITAMIN B COMPLEX CAPSULE 2 CAP PO (09:55)
[2022-05-02] MEDS: OPTI-GEN TAB 2 TABLET PO (09:55)
[2022-05-02] MEDS: ACIDOPHILUS/BULGARICUS CHEWABLE TABLET 2 TABLET BY MOUTH (09:55)
[2022-05-02] MEDS: COLCHICINE 0.6 MG TABLET PO (09:56)
[2022-05-02] MEDS: LOSARTAN POTASSIUM 50 MG TABLET PO (09:56)
[2022-05-02] MEDS: MAGNESIUM OXIDE 400 MG TABLET PO (09:56)
[2022-05-02] MEDS: ASCORBIC ACID 500 MG TABLET 1000 MG PO (09:56)
--- NOTE | 2022-05-02 11:00 | EST_ITS ---
Patient Info Name: Anita Little Age: 72 years : 1950 Gender: Female Ht: 59 in Wt: 101 lbs BSA: 1.38 m2 HR: 92 bpm BP: 148 / 76 mmHg Heart Rhythm: Sinus Rhythm Exam Date: 05/02/2022 8:40 AM Exam Location: [facility] Stress Patient Status: Inpatient Admit Date: 04/30/2022 Staff Ordering Physician: Oscar Ventura MD Attending Provider: Quincy Mack MD Exercise Technologist: Hollie Daley, DARLENE Nurse: NABEEL HILLMAN Exam Type: CA stress martha w NM Study Info Indications R74.8 - ELEVATED TROPONIN A regadenoson stress test was performed. Summary 1. Normal sinus rhythm. 2. Minor nonspecific T-wave flattening. 3. No significant ST or T changes following Lexiscan injection. 4. Clinically and electrocardiographically uneventful Lexiscan stress test. 5. Myocardial perfusion imaging results to be dictated by the radiologist. Protocol: Lexiscan Stress ECG Details Stage: REST Duration (min): 1 min : 29 sec HR (bpm): 93 SBP (mmHg): 148 DBP (mmHg): 76 Stage: REST Duration (min): 8 min : 15 sec HR (bpm): 92 SBP (mmHg): 148 DBP (mmHg): 76 Stage: STAGE 1 Duration (min): 1 min : 0 sec HR (bpm): 110 SBP (mmHg): 150 DBP (mmHg): 76 Stage: RECOVERY Duration (min): 1 min : 0 sec HR (bpm): 111 SBP (mmHg): 150 DBP (mmHg): 76 Stage: RECOVERY Duration (min): 2 min : 0 sec HR (bpm): 112 SBP (mmHg): 150 DBP (mmHg): 76 Stage: RECOVERY Duration (min): 3 min : 0 sec HR (bpm): 106 SBP (mmHg): 145 DBP (mmHg): 70 Stage: RECOVERY Duration (min): 4 min : 0 sec HR (bpm): 104 SBP (mmHg): 145 DBP (mmHg): 70 Stage: RECOVERY Duration (min): 5 min : 0 sec HR (bpm): 104 SBP (mmHg): 148 DBP (mmHg): 67 Stage: RECOVERY Duration (min): 5 min : 29 sec HR (bpm): 103 SBP (mmHg): 148 DBP (mmHg): 67 Rest HR: 92 bpm Peak HR: 113 bpm Rest Sys BP: 148 mmHg Peak Sys BP: 150 mmHg Max Pred HR: 149 bpm % Max Pred HR: 76 % Target HR: 127 bpm Max RPP: 16,950 bpm*mmHg Termination Reason: Completed protocol Cardiac Symptoms: Chest discomfort Total Time: 1 min : 0 sec Rest Salgado BP: 76 mmHg Peak Salgado BP: 76 mmHg Total Dose: 0.4 mg Resting ECG Normal sinus rhythm. Minor nonspecific T-wave flattening. Stress ECG No significant ST or T changes following Lexiscan injection. Report Signatures
--- NOTE | 2022-05-02 11:52 | PM.PNNEP ---
Progress Note: A&P Additional Plan 1. Anita has hyponatremia. Urine osmolality and SPEP are pending. Cortisol levels 13.5. Will need a Cortrosyn stim test since below 15. TSH not done. It was normal however a few months ago. Sodium level is 132 today. Will start a fluid restriction. I do not think we need to be too aggressive about this currently because it is above 130 and can be managed as an outpatient when she is ready to go. She is not on any medications that would do this. She has no personal history of cancer. She has no pulmonary issues. 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 If the low-sodium is persistent be on this hospitalization we can do further evaluation. 2. The patient has a pericardial effusion. Dr. Ventura is seeing the patient for this. Subjective Date/time seen: 05/02/22 11:52 Interval history: The patient feels okay this morning. She had the 1st part of her nuclear stress test. Review of Systems Cardiovascular: Cardiovascular: Reports no additional cardiovascular complaints Respiratory: Respiratory: Reports no additional respiratory complaints Gastrointestinal: Gastrointestinal: Reports no additional gastrointestinal complaints Genitourinary: Genitourinary: Reports no additional female genitourinary complaints Exam Narrative: WDWN in NAD skin no rash head ncat lungs clear cor reg no rub abd BS+ nontender and soft ext no edema. Objective Data Vital Signs Vital Signs: Vital Signs - 24 hr 05/01/22 12:00 05/01/22 12:00 05/01/22 12:00 Temperature 36.4 C Pulse Rate 83 86 Respiratory Rate 12 Blood Pressure 125/60 Pulse Oximetry 96 Oxygen Delivery Room Air 05/01/22 14:00 05/01/22 16:00 05/01/22 16:00 Temperature 36.6 C Pulse Rate 84 86 Respiratory Rate 12 Blood Pressure 127/80 Pulse Oximetry 96 Oxygen Delivery Room Air 05/01/22 16:00 05/01/22 18:00 05/01/22 20:00 Temperature 36.7 C Pulse Rate 87 84 85 Respiratory Rate 24 H Blood Pressure 122/60 Pulse Oximetry 93 Oxygen Delivery 05/01/22 20:00 05/01/22 20:00 05/01/22 22:00 Temperature Pulse Rate 79 79 85 Respiratory Rate 24 H Blood Pressure Pulse Oximetry 93 Oxygen Delivery Room Air 05/02/22 00:00 05/02/22 00:00 05/02/22 00:00 Temperature 36.8 C Pulse Rate 81 76 76 Respiratory Rate 26 H 26 H Blood Pressure 152/72 H Pulse Oximetry 97 97 Oxygen Delivery Room Air 05/02/22 02:00 05/02/22 04:00 05/02/22 04:00 Temperature Pulse Rate 82 82 82 Respiratory Rate 26 H Blood Pressure Pulse Oximetry 97 Oxygen Delivery Room Air 05/02/22 04:00 05/02/22 06:00 05/02/22 07:47 Temperature 37.4 C 37.1 C Pulse Rate 90 88 91 Respiratory Rate 24 H 28 H Blood Pressure 169/82 H 137/79 Pulse Oximetry 94 94 Oxygen Delivery 05/02/22 08:00 05/02/22 10:00 05/02/22 08:00 Temperature Pulse Rate 87 91 Respiratory Rate Blood Pressure Pulse Oximetry Oxygen Delivery Room Air Intake/Output Intake/Output: Intake & Output 04/29/22 04/30/22 05/01/22 05/02/22 23:59 23:59 23:59 23:59 Intake Total 2020 650 Output Total 1200 1550 Balance 820 -900 Meds/Results Medications: Active Medications Generic Name Dose Route Start Last Admin Trade Name Freq PRN Reason Stop Dose Admin Ascorbic Acid 1,000 mg 05/01/22 09:00 05/02/22 09:56 Ascorbic Acid 500 Mg Tablet PO 1,000 mg BID VIKTORIYA Administration Aspirin 81 mg 05/02/22 09:00 05/02/22 09:55 Aspirin 81 Mg Enteric Tablet PO 81 mg QAM VIKTROIYA Administration Colchicine 0.6 mg 05/02/22 09:00 05/02/22 09:56 Colchicine 0.6 Mg Tablet PO 0.6 mg Q12HR VIKTORIYA Administration Sodium Chloride 1,000 mls @ 60 mls/hr 04/30/22 19:25 05/01/22 16:52 Normal Saline Iv IV CONT 60 mls/hr .[id number] VIKTORIYA Administration Lactobacillus Acidophilus 2 tablet 05/01/22 09:00 05/02/22 09:55 Acidophilus/Bulgaricus Mary
[2022-05-02] MEDS: SODIUM CHLORIDE 0.9% IV 1,000 ML 60 ML IV CONT (12:02)
[2022-05-02] MEDS: NITROGLYCERIN OINTMENT 1 INCH DOSE TRANSDERM (12:04)
--- NOTE | 2022-05-02 12:34 | PM.DS ---
DS: Admitting Diagnosis Discharge Date May 02, 2022 Admitting Diagnosis . Carditis now improved DS: Discharge Diagnosis Discharge Diagnosis (1) Acute hyponatremia: Code(s): E87.1 - Hypo-osmolality and hyponatremia Status: Acute Assessment and Plan: patient appears euvolemic this could be SIADH according to findings on chest x-ray will do fluid restriction to 1500 cc daily will continue to monitor Improved. (2) Elevated troponin: Code(s): R77.8 - Other specified abnormalities of plasma proteins Status: Acute Assessment and Plan: likely secondary to pericarditis Coxsackie serology pending will start colchicine EKG reviewed cardiology consult Echo ordered, question plan for stress test (3) Effusion, pericardium: Code(s): I31.3 - Pericardial effusion (noninflammatory) Status: Acute Assessment and Plan: small pericardial effusion supportive care (4) Pleural effusion: Code(s): J90 - Pleural effusion, not elsewhere classified Status: Acute Assessment and Plan: small pleural effusion on the left side continue to monitor (5) Positive MAGDALENA (antinuclear antibody): Code(s): R76.8 - Other specified abnormal immunological findings in serum Status: Acute Assessment and Plan: 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 (6) Essential hypertension: Code(s): I10 - Essential (primary) hypertension Status: Chronic Assessment and Plan: continue home meds continue to monitor DS: Summary Hospital Course Hospital Course: Patient was admitted for some chest pain with mild troponin elevation. Looks scan and echo or within normal limits. Likely has pericarditis. Patient can't take NSAIDs secondary to allergy. She was given some colchicine here but there is no pericardial effusion so this can likely be stopped on discharge. will need to follow up with Cardiology Also to note patient had mild hyponatremia likely from dehydration improved. Time Spent with Patient Time attestation: Total time spent providing and/or coordinating discharge services: Exam Narrative: patient is laying in a stretcher Const: General: cooperative, comfortable, no acute distress, well developed, alert, awake and other ( well-appearing) Nutritional Appearance: average body habitus Orientation/consciousness: patient oriented x3 HENMT: Head: normal to inspection, normocephalic and atraumatic Ears: hearing grossly normal bilaterally Face and sinus: normal facial exam Eyes: General: appearance normal, both eyes and all related structures Pupils: Equal, round and reactive pupils present EOM: EOMs intact bilaterally Neck: Neck: full ROM, no lymphadenopathy and no JVD Thyroid: thyroid normal Lymphatic: no lymphadenopathy noted Resp: Effort & Inspection: normal respiratory effort and able to speak in complete sentences Auscultation: clear to auscultation bilaterally Cardio: Jugular venous distension: no JVD Rate: regular rate Rhythm: regular rhythm Heart sounds: S1 normal heart sound present and S2 normal heart sound present GI: Inspection: normal to inspection : General: Yes deferred Skin: Rashes: no rashes Wounds: no wounds Neuro: General: patient oriented x3 and CN's II-XI intact bilaterally Cranial nerves: Yes CN's II-XII intact bilaterally and Yes Equal, round and reactive pupils present Cognition (Neuro): normal cognition Speech: normal speech Gait exam (Neuro): Normal gait present Motor exam (neuro): 5/5 motor strength present throughout Sensory Exam: No Sensory deficit (Neuro) Extrem: General: normal to inspection, full ROM, no joint enlargement and no pedal edema DS: Data Data Completed and Pending Labs on day of discharge: Labs from last 24 hours 05/02/22 05/02/22 05/02/22 12:05 12:05 04:09 WBC RBC Hgb Hct MCV MCH MCHC RDW Plt
[2022-05-02] MEDS: COSYNTROPIN 0.25 MG/ML VIAL IV PUSH (12:45)
[2022-05-04 14:53] LABS: Kappa\\Lambda Light Chains 0.79 (0.26-1.65); Lambda Light Chain 44.9 mg/L (5.7-26.3)
[2022-05-08 13:09] LABS: Osmolality, Urine 240 mOsm/kg (50-1200)
[2022-05-14 01:50] LABS: Albumin 18 %; Measured Kappa Chains 1.62 mg/dL (<2.00); Measured Lambda Chains <1.00 mg/dL (<2.00); Pro/Creat Ratio 324 mg/g creat (<=114); Total Kappa Chains 30.78 mg/24 h
[2022-05-14 15:17] LABS: Protein,total, 24 Hr Ur 209 mg/24h
== END 2022-05-02 15:26 | disposition home or self-care (01) ==
LOC: ANHED 18:21 → ANHIMU 21:40
PROVIDERS: Internal Medicine Nephrology; Admitting Provider Chiropractor; Emergency Provider Emergency Medicine; PCP Family Medicine; Visit Provider Chiropractor
DX: E87.1 Hypo-osmolality and hyponatremia (principal); R77.8 Other specified abnormalities of plasma proteins; I31.3 Pericardial effusion (noninflammatory); J90 Pleural effusion, not elsewhere classified; R76.8 Other specified abnormal immunological findings in serum; I10 Essential (primary) hypertension; R94.31 Abnormal electrocardiogram [ECG] [EKG]; M54.12 Radiculopathy, cervical region; M25.512 Pain in left shoulder; R50.9 Fever, unspecified; R07.89 Other chest pain; D64.9 Anemia, unspecified; I25.10 Atherosclerotic heart disease of native coronary artery without angina pectoris; R01.1 Cardiac murmur, unspecified; E78.00 Pure hypercholesterolemia, unspecified; R73.03 Prediabetes; Z20.822 Contact with and (suspected) exposure to COVID-19; Z28.310 Unvaccinated for COVID-19; Z72.89 Other problems related to lifestyle; Z79.899 Other long term (current) drug therapy; Z82.49 Family history of ischemic heart disease and other diseases of the circulatory system
CPT/HCPCS: 36415; 71045; 71275; 78452; 80048; 80053; 80069; 82465; 82533; 82570; 83880; 83883; 83930; 83935; 84156; 84295; 84300; 84443; 84484; 85025; 85027; 85380; 85610; 85652; 85730; 86140; 86334; 86335; 93005; 93017; 93306; 96361; 96372; 96374; 99285; A9270; A9502; C9803; G0378; J0834; J1650; J2785; J7030; Q9967; U0003; U0005

== ENCOUNTER 2022-05-23 13:21 | Emergency (ER) | payer MEDICARE, SELFPAY ==
[2022-05-23 13:25] VITALS: BP 147/80; PULSE 105; RESP 16; TEMP 36.6; O2SAT 98
[2022-05-23 14:05] LABS: Basophils Percent Auto 0.4 % (0.2-1.2); Eosinophils Percent Auto 0.2 % (0-4.4); Hemoglobin 11.2 g/dL (12.0-15.0); Immature Granulocyte Absolute 0.04 K/mm3 (0.00-0.031); Immature Granulocyte Percent A 0.8 % (0-0.5); Lymphocytes Absolute Auto 0.87 K/mm3 (0.9-3.2); Lymphocytes Percent Auto 16.9 % (18.3-44.2); Mean Corpuscular HGB Conc 32.9 g/dl (32-36); Mean Corpuscular Hemoglobin 30.4 pg (26-34); Mean Corpuscular Volume 92.1 fl (80-100); Mean Platelet Volume 10.9 fl (7.4-10.4); Monocytes Absolute Auto 0.2 K/mm3 (0.1-0.6); Monocytes Percent Auto 4.7 % (2.6-8.5); Platelet Count Result 207 k/mm3 (150-375); Red Blood Count 3.69 M/mm3 (4.2-5.4); Red Cell Distribution Width 12.6 % (11.5-14.5); White Blood Count 5.2 K/mm3 (4.5-10.0)
[2022-05-23 15:01] LABS: Alanine Aminotransferase 33 U/L (6-35); Albumin Level 3.1 g/dL (3.5-5.1); Alkaline Phosphatase 77 U/L (38-126); Anion Gap 10 mmol/L (8-16); Aspartate Amino Transferase 46 U/L (14-36); Bilirubin,Total 0.3 mg/dL (0.2-1.3); Blood Urea Nitrogen 22 mg/dL (7-17); Calcium 8.2 mg/dL (8.4-10.2); Carbon Dioxide 25 mmol/L (22-30); Chloride 91 mmol/L (98-107); Estimated Glomerular Filt Rate > 60; Glucose 114 mg/dL (65-110); Sodium 126 mmol/L (137-145)
--- NOTE | 2022-05-23 15:41 | ED.GENADULT ---
HPI - General Adult General Chief complaint: Recheck/Abnormal Lab/Rx Stated complaint: abnormal labs - fatique and memory loss Time Seen by Provider: 05/23/22 13:38 History of Present Illness HPI narrative: 72-year-old female presented to the emergency department for evaluation of worsened confusion and generalized fatigue. Patient had similar symptoms when she was hyponatremic. Patient had a recent admission for pericarditis and hyponatremia on April 30. At that time patient was evaluated by nephrology. Was decided to start a water restriction. Patient had a recheck of her labs 1 week ago and was found to have a sodium of 129. Patient did switch to a 1500 cc water restriction and had worsening symptoms so she was referred to the emergency department today by her primary care physician. Patient denies any seizure-like activity. Patient denies any falls or injuries. Patient denies any coughs colds or fevers. Family states that the patient has been following a 1600 cc water restriction. Related Data Home Medications Medication Instructions Recorded Confirmed Lactobacillus 1 cap PO .qd 03/21/20 05/16/22 acidophil,plantar-Bifido no.7 25 billion cell capsule (up4 Probiotics Adult 50 Plus) ascorbic acid (vitamin C) 250 mg 1,000 mg PO BID 03/21/20 05/16/22 tablet biotin 5 mg capsule 5 mg PO DAILY 03/21/20 05/16/22 cholecalciferol (vitamin D3) 50 50 mcg PO DAILY 03/21/20 05/16/22 mcg (2,000 unit) capsule cod liver oil 15 ml PO DAILY 03/21/20 05/16/22 garlic 1,500 mg capsule 3,000 mg PO BID 03/21/20 05/16/22 magnesium oxide 350 mg PO BID 03/21/20 05/16/22 [id number] 2 tablet PO BID 03/21/20 05/16/22 tablet (Multivitamin 50 Plus tablet) vitamin B complex 2 cap PO DAILY 03/21/20 05/16/22 Allergies Allergy/AdvReac Type Severity Reaction Status Date / Time ibuprofen Allergy Unknown Swelling Verified 05/23/22 13:23 of Lip/Tongue/Throat Review of Systems Review of Systems: CONSTITUTIONAL: See HPI EYES: Denies visual changes, redness, or discharge. ENT: Denies rhinorrhea, congestion, sore throat, or otalgia. CARDIOVASCULAR: Denies chest pain, palpitations, or edema. RESPIRATORY: Denies cough or dyspnea. GASTROINTESTINAL: Denies abdominal pain, nausea, vomiting, or diarrhea. GENITOURINARY: Denies dysuria or hematuria. SKIN: Denies rash or itching. MUSCULOSKELETAL: Denies back pain, joint pain, or myalgia. NEUROLOGIC: Denies headache, numbness, or weakness. PSYCHIATRIC: Denies anxiety or depression. [facility] Past Medical History Medical History (Updated 05/23/22 @ 17:49 by Darren Aden MD) Amaurosis fugax of left eye Colon cancer screening (09/2019) Cologuard negative. Essential hypertension Heart murmur Hypercholesteremia Intolerant to statin. Hypocalcemia Pericarditis Pre-diabetes Surgical History Surgical History History of colonoscopy History of wisdom tooth extraction Family History Family History Mother Family history of Alzheimer's disease Father Family history of Alzheimer's disease AAA (abdominal aortic aneurysm, ruptured) Sibling Acute myocardial infarction Social History Social History Social History: Lifelong nonsmoker. Drinks 1-2 alcoholic drinks per week. No drug use. She is . Living alone in [place], [place] and her two children live down the road within 5 minutes from her if she needs help. She designates her daughter, Sivan Lin, as her surrogate medical decision maker. Code status: Full code. Smoking status: Never smoker Alcohol intake: current Drinks per week: 2 Substance use: never Substance use type: does not use Spiritual care concerns: Yes (does not eat shellfish) Exam Narrative: APPEARANCE: Well appearing, no pain, no distress, well
[2022-05-23 15:58] LABS: Appearance Urine Clear (Clear); Bilirubin Urine 1+ (Negative); Blood Urine Negative (Negative); Color Urine Yellow (Yellow); Glucose Urine UA Negative (Negative); Ketones Urine 2+ mg/dL (Negative); Leukocyte Esterase Ur Negative LEU/UL (Negative); Nitrate Urine Negative (Negative); Protein Urine 1+ mg/dL (Negative); Specific Grav Ur 1.025 (1.001-1.035); Urobilinogen Urine 0.2 mg/dL (<2.0)
[2022-05-23 16:11] LABS: Mucus Urine Rare /lpf; RBC Urine 0-2 /hpf (0-2); Squamous Epithelial Cell Urine Rare /hpf (Few); WBC Urine 0-3 /hpf
[2022-05-23 16:16] LABS: Add Urine Microscopic? YES
[2022-05-23 18:08] VITALS: BP 156/89; PULSE 100; RESP 16; O2SAT 96
== END 2022-05-23 18:10 | disposition home or self-care (01) ==
PROVIDERS: Emergency Provider Emergency Medicine; PCP Family Medicine
DX: E87.1 Hypo-osmolality and hyponatremia (principal); I10 Essential (primary) hypertension; E78.00 Pure hypercholesterolemia, unspecified; R73.03 Prediabetes
CPT/HCPCS: 36415; 80053; 81001; 85025; 99283

== ENCOUNTER 2022-05-28 02:54 | Inpatient (IN) | payer MEDICARE, SELFPAY ==
[2022-05-28] VITALS (15 sets, daily range): BP systolic 102–144; BP diastolic 57–82; PULSE 83–112; RESP 16–42; TEMP 36.2–36.5; O2SAT 91–100
--- NOTE | ~2022-05-28 | CT_ITS ---
EXAMINATION: CTA chest PE protocol DATE: 05/30/2022 13:49 INDICATION: Tachypnea. TECHNIQUE: Computed tomography angiography (CTA) of the chest was performed with 100 mL Omnipaque-350 intravenous contrast timed to evaluate the pulmonary arteries. Coronal maximum intensity projection 3D-reconstructions were created by the technologist. Automated exposure control and iterative reconst ruction technique were employed. The dose-length product was 147.59 mGy-cm. COMPARISON: Chest CT 04/30/2022 FINDINGS: There is mild scarring at the lung apices. There is mild atelectasis bilaterally. There are small pleural effusions. Cardiomegaly is noted. No pericardial effusion. The central pulmonary arter ies are enlarged, consistent with pulmonary arterial hypertension. There is no pulmonary embolus. The re is mild thoracic spondylosis. There is mild chronic anterior wedging of multiple thoracic vertebra l bodies. IMPRESSION: 1. No pulmonary embolus. 2. Small pleural effusions. 3. Cardiomegaly. Reviewed, dictated and finalized at location A.
--- NOTE | ~2022-05-28 | CT_ITS ---
EXAMINATION: CT lumbar spine w con DATE: 05/28/2022 11:38 INDICATION: Back pain. TECHNIQUE: Computed tomography (CT) of the lumbar spine was performed with 100 mL Omnipaque 350 intra venous contrast. Automated exposure control and iterative reconstruction technique were employed. The dose-length product was 176.40 mGy-cm. COMPARISON: None FINDINGS: There is 5 degrees levocurvature of lumbar spine. Vertebral body heights are normal. There is mildly decreased disc height at L1-L2, L3-L4, and L4-L5. The following disc levels are specificall y discussed: L1-L2: The disc is bulging. There is severe right and moderate left facet joint osteoarthritis. There is no neural foraminal stenosis. There is mild central canal stenosis. L2-L3: The disc is bulging. There is moderate bilateral facet joint osteoarthritis. There is mild alfie ateral neural foraminal stenosis. There is mild central canal stenosis. L3-L4: The disc is bulging. There is severe right and mild left facet joint osteoarthritis. There is mild bilateral neural foraminal stenosis. There is mild central canal stenosis. L4-L5: The disc is bulging. There is severe bilateral facet joint osteoarthritis. There is mild bilat eral neural foraminal stenosis. There is mild central canal stenosis. L5-S1: The disc is mildly bulging. There is severe bilateral facet joint osteoarthritis. There is mil d bilateral neural foraminal stenosis. There is no central canal stenosis. IMPRESSION: 1. Mild lumbar spondylosis. Reviewed, dictated and finalized at location A. IMPRESSION: 1. Mild lumbar spondylosis.
--- NOTE | ~2022-05-28 | XR_ITS ---
EXAMINATION: XR chest 2V DATE: 05/28/2022 04:33 INDICATION: Altered mental status. TECHNIQUE: Frontal and lateral views of the chest were obtained. COMPARISON: Chest single view 04/30/2022, CT abdomen and pelvis 05/28/2022 FINDINGS: There are small pleural effusions. There are airspace opacities in left mid and lower lung zones. No pneumothorax. Cardiomegaly is noted. There is mild chronic anterior wedging of 2 thoracic v ertebral bodies. IMPRESSION: 1. Small pleural effusions. 2. Airspace opacities in left mid and lower lung zones, likely atelectasis. 3. Cardiomegaly. Reviewed, dictated and finalized at location A.
--- NOTE | ~2022-05-28 | XR_ITS ---
EXAMINATION: XR chest 1V portable INDICATION: Tachypnea TECHNIQUE: Portable AP chest at 1232 hours COMPARISON: 05/28/2022 FINDINGS: Small pleural effusions persist without significant change. Cardiomegaly is noted. There is no pneumothorax. There are minimal airspace opacities of the mid and lower lung zones. IMPRESSION: 1. Small pleural effusions. 2. Airspace opacities of the mid and lower lung zones, consistent with atelectasis versus pneumonia v ersus pulmonary edema. 3. Cardiomegaly. Reviewed, dictated and finalized at location A. IMPRESSION: 1. Small pleural effusions. 2. Airspace opacities of the mid and lower lung zones, consistent with atelecta sis versus pneumonia versus pulmonary edema. 3. Cardiomegaly.
--- NOTE | ~2022-05-28 | CT_ITS ---
EXAMINATION: CT brain wo con DATE: 05/28/2022 04:35 INDICATION: Altered mental status. TECHNIQUE: Computed tomography (CT) of the head was performed without intravenous contrast. The mA wa s adjusted according to patient size. Iterative reconstruction technique was employed. The dose-lengt h product was 605.33 mGy-cm. COMPARISON: None FINDINGS: There is no intracranial hemorrhage, acute infarction, or abnormal intracranial mass lesion . There are scattered areas of low attenuation in the cerebral white matter, which is within normal l imits for the patient's age. The ventricles are normal in size. The orbits are normal. There is mild mucosal thickening in the ethmoid sinuses. The mastoid air cells are normal. IMPRESSION: 1. Normal aging brain. Reviewed, dictated and finalized at location A. IMPRESSION: 1. Normal aging brain.
--- NOTE | ~2022-05-28 | XR_ITS ---
EXAMINATION: XR chest 2V DATE: 06/06/2022 14:40 INDICATION: Shortness of breath TECHNIQUE: frontal and lateral views of the chest were obtained. COMPARISON: Chest radiograph dated 06/05/2022 FINDINGS: Persistent opacities in the bilateral lower lung zones, left greater than right with blunting at the posterior sulci and costophrenic angles consistent with small bilateral pleural effusions and associa tiny basilar atelectasis and/or pneumonia. No other airspace opacities, pulmonary edema or pneumothora x. Again mildly . Mild thoracic spondylosis with chronic mild anterior wedging of a few mid to lower thoracic vertebral bodies. IMPRESSION: 1. No significant change in small bilateral pleural effusions left greater than right, with associate d basilar atelectasis and/or pneumonia. Reviewed, dictated and finalized at location A. IMPRESSION: 1. No significant change in small bilateral pleural effusions left greater than right, with associated basilar atelectasis and/or pneumonia.
--- NOTE | ~2022-05-28 | XR_ITS ---
EXAM: XR abdomen/kub 1V DATE: 05/31/2022 11:24 HISTORY: abdominal pain, constipation . COMPARISON: None available. FINDINGS: Lung bases and upper abdomen excluded from [id number]. The rectum is dilated by formed stool, otherwise normal bowel gas pattern. No organomegaly. Pelvic phleboliths. Degenerative changes in the lumbar spine. IMPRESSION: Limited [id number]. Possible fecal impaction. No radiographic evidence of obstruction or ileus. Reviewed, dictated and finalized at location K. IMPRESSION: Limited [id number]. Possible fecal impaction. No radiographic ev idence of obstruction or ileus.
--- NOTE | ~2022-05-28 | XR_ITS ---
EXAMINATION: XR chest 1V portable DATE: 06/05/2022 16:16 INDICATION: Worsening shortness of breath. TECHNIQUE: A single frontal view of the chest was obtained. COMPARISON: Chest single view 05/24/2022, chest CT 05/30/2022 FINDINGS: There are small right and moderate-sized left pleural effusions. There are airspace opaciti es at the lung bases. No pneumothorax. The heart size is normal. IMPRESSION: 1. Stable small right and moderate-sized left pleural effusions. 2. Stable airspace opacities at the lung bases, consistent with atelectasis or less likely pneumonia. Reviewed, dictated and finalized at location A.
--- NOTE | ~2022-05-28 | CT_ITS ---
EXAMINATION: CT abdomen pelvis w con DATE: 05/28/2022 06:07 INDICATION: Right lower quadrant abdominal pain. TECHNIQUE: Computed tomography (CT) of the abdomen and pelvis was performed with 88 mL Omnipaque 350 intravenous contrast. Automated exposure control and iterative reconstruction technique were employed . The dose-length product was 176.40 mGy-cm. COMPARISON: None. FINDINGS: The visualized portions of the lung bases demonstrate mild atelectasis. There are small ple ural effusions, left worse than right. Cardiomegaly is noted. There is a small pericardial effusion. The liver, gallbladder, spleen, pancreas, adrenal glands, and kidneys are normal. There are no dilate d loops of bowel. The appendix is normal. The periuterine veins and left ovarian vein are enlarged, c onsistent with pelvic venous insufficiency. There is a small right inguinal hernia containing fat. Th ere are no pathologically enlarged lymph nodes. There is no free intraperitoneal fluid. There is mild lumbar spondylosis. IMPRESSION: 1. Small right inguinal hernia containing fat. 2. Small pleural effusions. 3. Pelvic venous insufficiency. 4. Small pericardial effusion. Reviewed, dictated and finalized at location A.
--- NOTE | 2022-05-28 03:54 | ECG_ITS ---
Measurements Intervals [place] Rate: 97 P: 34 RI: 157 QRS: 20 QRSD: 86 T: 1 QT: 348 QTc: 444 Interpretive Statements SINUS RHYTHM NONSPECIFIC T-WAVE ABNORMALITY BORDERLINE ECG COMPARED TO ECG 05/01/2022 09:00:23 T-WAVE ABNORMALITY NOW PRESENT Electronically Signed On 05-28-2022 16:04:24 CDT by Helder Alcazar M.D.
--- NOTE | 2022-05-28 03:54 | ED.RECABL ---
HPI - Recheck/Abnormal Lab/Rx General Chief Complaint: Recheck/Abnormal Lab/Rx <Keily Padgett MD - Last Filed: 05/28/22 06:33> Stated Complaint: sharp pains lower right abd. low sodium. <Keily Padgett MD - Last Filed: 05/28/22 06:33> Time Seen by Provider: 05/28/22 03:53 <Keily Padgett MD - Last Filed: 05/28/22 06:33> Source: patient <Keily Padgett MD - Last Filed: 05/28/22 06:33> Mode of arrival: wheelchair <Keily Padgett MD - Last Filed: 05/28/22 06:33> Limitations: altered mental status and clinical condition <Keily Padgett MD - Last Filed: 05/28/22 06:33> History of Present Illness HPI narrative: Patient is a 72-year-old female with a history of presumptive SIADH, hyponatremia currently on water restriction, pericarditis, presenting to the emergency department for evaluation of worsening generalized weakness, altered mental status. Patient with recent inpatient admission for these diagnoses, followed by nephrology and discharged home with water restriction and PCP follow-up. Patient followed up to her primary care provider where she had continued to clinically worsen and patient was noted to have worsening hyponatremia. Patient then presented to our emergency department and was seen on May 23, and noted to have worsening hyponatremia and shared decision-making occurred, patient ultimately wished for discharge home with family. Patient presents with daughter, patient is currently alert and oriented to person, not to place, can state the year. She cannot identify she is at the hospital and no history can be obtained from her. Patient's daughter states that she has had worsening mental status with increased confusion over the past week. She has been sleeping upwards of 16 to 18 hours daily. Patient also has been reporting right-sided lower abdominal pain without fever, nausea or vomiting. Patient's daughter states that she has had very limited oral intake since discharge from the hospital. <Keily Padgett MD - Last Filed: 05/28/22 06:33> Related Data Home Medications: Home Medications Medication Instructions Recorded Confirmed cholecalciferol (vitamin D3) 50 50 mcg PO DAILY 03/21/20 05/28/22 mcg (2,000 unit) capsule magnesium oxide 350 mg PO BID 03/21/20 05/28/22 aspirin 81 mg tablet 81 mg PO DAILY 05/28/22 05/28/22 <Keily Padgett MD - Last Filed: 05/28/22 06:33> Allergies/Adverse Reactions: Allergies Allergy/AdvReac Type Severity Reaction Status Date / Time ibuprofen Allergy Unknown Swelling Verified 05/28/22 05:05 of Lip/Tongue/Throat <Keily Padgett MD - Last Filed: 05/28/22 06:33> Review of Systems Review of Systems: ROS unobtainable: Yes unobtainable due to mental status <Keily Padgett MD - Last Filed: 05/28/22 06:33> [facility] Past Medical History Medical History: Medical History Amaurosis fugax of left eye Colon cancer screening (09/2019) Cologuard negative. Essential hypertension Heart murmur Hypercholesteremia Intolerant to statin. Hypocalcemia Pericarditis Pre-diabetes <Keily Padgett MD - Last Filed: 05/28/22 06:33> Surgical History Surgical History: Surgical History History of colonoscopy History of wisdom tooth extraction <Keily Pagdett MD - Last Filed: 05/28/22 06:33> Family History Family History: Family History Mother Family history of Alzheimer's disease Father Family history of Alzheimer's disease AAA (abdominal aortic aneurysm, ruptured) Sibling Acute myocardial infarction <Keily Padgett MD - Last Filed: 05/28/22 06:33> Social History Social History: Social History Social History: Lifelong nonsmoker. Drinks 1-
[2022-05-28 04:59] LABS: Basophils Percent Auto 0.1 % (0.2-1.2); Hematocrit 32.2 % (37.0-47.0); Hemoglobin 10.7 g/dL (12.0-15.0); Immature Granulocyte Absolute 0.07 K/mm3 (0.00-0.031); Immature Granulocyte Percent A 0.9 % (0-0.5); Lymphocytes Absolute Auto 0.59 K/mm3 (0.9-3.2); Lymphocytes Percent Auto 7.2 % (18.3-44.2); Mean Corpuscular HGB Conc 33.2 g/dl (32-36); Mean Corpuscular Hemoglobin 30.2 pg (26-34); Mean Platelet Volume 8.7 fl (7.4-10.4); Monocytes Absolute Auto 0.3 K/mm3 (0.1-0.6); Neutrophils Absolute Auto 7.3 K/mm3 (1.3-6.7); Neutrophils Percent Auto 88.8 % (45.5-73.1); Platelet Count Result 422 k/mm3 (150-375); Red Blood Count 3.54 M/mm3 (4.2-5.4); Red Cell Distribution Width 12.4 % (11.5-14.5); White Blood Count 8.2 K/mm3 (4.5-10.0)
[2022-05-28 05:11] LABS: Prothrombin Time 13.2 Seconds (11.1-14.7)
[2022-05-28 05:12] LABS: Partial Thromboplastin Time 34.1 SECONDS (22.3-36.8)
[2022-05-28 05:14] LABS: Lactic Acid Reflex 0.9 mmol/L (0.7-2.0)
[2022-05-28 05:18] LABS: Alanine Aminotransferase 30 U/L (6-35); Alkaline Phosphatase 68 U/L (38-126); Anion Gap 8 mmol/L (8-16); Aspartate Amino Transferase 35 U/L (14-36); Bilirubin,Total 0.3 mg/dL (0.2-1.3); Blood Urea Nitrogen 21 mg/dL (7-17); Calcium 8.7 mg/dL (8.4-10.2); Carbon Dioxide 27 mmol/L (22-30); Chloride 95 mmol/L (98-107); Estimated Glomerular Filt Rate > 60; Glucose 155 mg/dL (65-110); Lipase 60 U/L (23-300); Sodium 130 mmol/L (137-145)
[2022-05-28 05:25] LABS: Troponin I 0.022 ng/mL (0.000-0.034)
[2022-05-28 05:39] LABS: Appearance Urine Clear (Clear); Bilirubin Urine Negative (Negative); Blood Urine Negative (Negative); Color Urine Yellow (Yellow); Glucose Urine UA Negative (Negative); Ketones Urine 1+ mg/dL (Negative); Leukocyte Esterase Ur Negative LEU/UL (Negative); Nitrate Urine Negative (Negative); Protein Urine 1+ mg/dL (Negative); Urobilinogen Urine 0.2 mg/dL (<2.0); pH Urine 6.5 (5.0-9.0)
[2022-05-28 05:45] LABS: Bacteria Urine Trace /hpf; Mucus Urine Rare /lpf; RBC Urine 0-2 /hpf (0-2); WBC Urine 0-3 /hpf
[2022-05-28 05:46] LABS: Add Urine Microscopic? YES
[2022-05-28 05:53] LABS: SARS-CoV-2 RNA PCR Negative
[2022-05-28 06:28] LABS: CRP 13.8 mg/dL (<1.0)
--- NOTE | 2022-05-28 06:49 | PC.NURSE ---
Pt ambulated to the bathroom with daughter with a steady gait
--- NOTE | 2022-05-28 08:31 | PM.IMHP ---
H&P: HPI History of Present Illness Date/Time: 05/28/22 08:31 Chief Complaint: Abdominal pain Narrative: Patient is a 72-year-old female with a past medical history of HTN, hypocalcemia, and Pre-diabetes. She presented to [facility] worsening generalized weakness and altered mental status. The patient was recently inpatient admission for SIADH and hyponatremia she was discharged with a water restriction intake. Patient was followed by Nephrology discharged home to follow-up with her PCP. Patient was able to follow-up with primary care provider where she continued to clinically worsen and the patient was noted to have worsening hyponatremia. Patient presented to [facility] on May 23 and noted to have worsening hyponatremia unsure decision making occurred. Patient ultimately wished for discharge home with family at that time. Patient presents with her daughter in the emergency department today as she is currently alert and oriented to person, not to place or time. She cannot identify which hospital she is at [facility] history can be provided. Patient's daughter was able to provide history at the bedside. Patient daughter reports that she has become worsening with mental status and increased confusion over the last week. She has increased her sleeping habits up to 16-18 hours a day. She reports right-sided lower abdominal pain without fever, nausea or vomiting. Patient's daughter states that she has had very limited oral intake since discharge from the hospital. While in the emergency department labs and imaging were obtained. She had a WBC of 8.2, hemoglobin 10.7, hematocrit 32.2 and platelet 422, INR 1, sodium 130, potassium 4.0, BUN 21, creatinine 0.4 and GFR greater than 60, glucose 155 with normal LFTs and a negative troponin. Patient's CRP is elevated at 13.8 lipase negative and UA unremarkable. Chest x-ray did reveal a left pleural effusion. Head CT negative for acute findings. CT of the abdomen and pelvis revealed small right inguinal hernia containing fat, small pleural effusions, pelvic venous insufficiency and small pericardial effusion. Unchanged to improved from last obtained imaging in the 04/30/2022 during my encounter with the patient and the daughter at bedside. Discussed possible [facility] facility placement. Discussed imaging results and sodium. Patient appears at her baseline she is just physically declining due to multiple hospitalizations and prolonged immobility at home. Patient will need skilled therapy. Patient also reported possible urinary retention. although the patient is a poor historian. Will have nursing staff to perform accurate I&Os Review of Systems Review of Systems: All systems reviewed & are unremarkable except as noted in HPI and below PMFSH Past Medical History Medical History Amaurosis fugax of left eye Colon cancer screening (09/2019) Cologuard negative. Essential hypertension Heart murmur Hypercholesteremia Intolerant to statin. Hypocalcemia Pericarditis Pre-diabetes Surgical History Surgical History History of colonoscopy History of wisdom tooth extraction Family History Family History Mother Family history of Alzheimer's disease Father Family history of Alzheimer's disease AAA (abdominal aortic aneurysm, ruptured) Sibling Acute myocardial infarction Social History Social History Social History: Lifelong nonsmoker. Drinks 1-2 alcoholic drinks per week. No drug use. She is . Living alone in [place], [place] and her two children live down the road within 5 minutes from her if she needs help. She designates her daughter, Sivan Lin, as her surrogate medical decision maker. Code status: Full code.
[2022-05-28] MEDS: MORPHINE SULFATE (*CRX) 4 MG/ML INJ IV PUSH (09:11)
[2022-05-28] MEDS: TAMSULOSIN HCL 0.4 MG CAPSULE PO (13:09)
--- NOTE | 2022-05-28 15:00 | WPDNEURCNPN ---
Consult date: 05/28/22 HPI: Anita Little is a 72 year old female admitted to the [facility] through the emergency room for the complaints of right lower abdominal pains with hyponatremia and resultant change in mental status. Patient has ongoing history of SI ADH, hyponatremia, and is currently on water restriction in addition to the diagnosis of pericarditis she presented to the ER for the complaints of increasing generalized weakness with change in the mental status patient had been seen by chair lift operator during her most recent hospitalization when she was discharged to home with water restriction and follow-up by the primary care physician but unfortunately she continued to clinically worsened with worsening hyponatremia she was seen in the emergency room on 05/23 22 when she was found to have hyponatremia she was discharged to her home with family with the patient's desire at the time of this particular visit patient is awake alert oriented to person not to the place and further information could not be obtained from the patient she was noted to have increasing confusion over the last week, excessive sleepiness up to 16 to 18 hours with complaint of right lower abdominal pain without any febrile condition her medications included all the supplement she is allergic to ibuprofen she has history of amaurosis fugax of left eye, hypertension, hypocalcemia, and pericarditis she has never smoker current alcohol intake of the 2 drinks per week but no substance abuse initial examination in the emergency room was nonfocal except the rebound tenderness in the right lower quadrant and orientation x2 vital signs were normal, her basic metabolic panel was abnormal with sodium of 130 glucose 155 lactic acid 0.9 x-ray chest with left pleural effusion, EKG without any atrial fibrillation negative CT scan of the brain Review of Systems Review of Systems: All systems reviewed & are unremarkable except as noted in HPI and below PMFSH Past Medical History Medical History Amaurosis fugax of left eye Colon cancer screening (09/2019) Cologuard negative. Essential hypertension Heart murmur Hypercholesteremia Intolerant to statin. Hypocalcemia Pericarditis Pre-diabetes Surgical History Surgical History History of colonoscopy History of wisdom tooth extraction Family History Family History Mother Family history of Alzheimer's disease Father Family history of Alzheimer's disease AAA (abdominal aortic aneurysm, ruptured) Sibling Acute myocardial infarction Social History Social History Social History: Lifelong nonsmoker. Drinks 1-2 alcoholic drinks per week. No drug use. She is . Living alone in [place], [place] and her two children live down the road within 5 minutes from her if she needs help. She designates her daughter, Sivan Lin, as her surrogate medical decision maker. Code status: Full code. Smoking status: Never smoker Alcohol intake: never Drinks per week: 2 Substance use: never Substance use type: does not use Spiritual care concerns: No Meds Home Medications and Allergies Home Medications Medication Instructions Recorded Confirmed Type cholecalciferol (vitamin D3) 50 50 mcg PO DAILY 03/21/20 05/28/22 History mcg (2,000 unit) capsule magnesium oxide 350 mg PO BID 03/21/20 05/28/22 History losartan 50 mg tablet 50 mg PO DAILY #90 tabs 08/04/21 05/28/22 Rx ferrous sulfate 325 mg (65 mg 325 mg PO BID #60 tabs 05/27/22 05/28/22 Rx iron) tablet aspirin 81 mg tablet 81 mg PO DAILY 05/28/22 05/28/22 History Allergies Allergy/AdvReac Type Severity Reaction Status Date / Time ibuprofen Allergy Unknown Swelling Verified 05/28/22 05:05 of Lip/Tongue/Throat Vital Si
--- NOTE | 2022-05-28 15:18 | PCOTNOTE ---
Addendum entered by Emelina Garza, OT 05/28/22 15:21: Will follow. Original Note: Attempted occupational therapy evaluation. Spoke with pt. and family who are interested in greater understanding of pt. condition and state prior to seeking therapy services
--- NOTE | 2022-05-28 16:26 | PCPTNOTE ---
Per OT: Spoke with pt. and family who are interested in greater understanding of pt. condition and state prior to seeking therapy services.
[2022-05-28] MEDS: ACETAMINOPHEN 325 MG TABLET 650 MG PO ×2 (17:30→23:24)
[2022-05-28] MEDS: FERROUS SULFATE 324 MG TABLET PO (18:01)
[2022-05-28] MEDS: MELATONIN 5 MG TABLET PO (20:32)
[2022-05-29] VITALS (24 sets, daily range): BP systolic 98–130; BP diastolic 50–72; PULSE 73–165; RESP 14–24; TEMP 36.2–36.7; O2SAT 91–98; BMI 17.8
--- NOTE | 2022-05-29 06:22 | ECG_ITS ---
Measurements Intervals [place] Rate: 160 P: RI: 0 QRS: 3 QRSD: 82 T: -34 QT: 278 QTc: 453 Interpretive Statements ATRIAL FIBRILLATION WITH RAPID VENTRICULAR RESPONSE NONSPECIFIC ST & T-WAVE ABNORMALITY ABNORMAL ECG COMPARED TO ECG 05/28/2022 04:10:52 ATRIAL FIBRILLATION NOW PRESENT Electronically Signed On 05-29-2022 15:10:58 CDT by Helder Alcazar M.D.
[2022-05-29] MEDS: METOPROLOL TARTRATE 25 MG TABLET PO ×2 (06:41→18:15)
[2022-05-29] MEDS: METOPROLOL TARTRATE INJ 5 MG/5 ML VIAL IV PUSH ×2 (06:44→08:02)
[2022-05-29 06:53] LABS: Basophils Percent Auto 0.1 % (0.2-1.2); Eosinophils Percent Auto 0.1 % (0-4.4); Hematocrit 29.2 % (37.0-47.0); Hemoglobin 9.6 g/dL (12.0-15.0); Immature Granulocyte Absolute 0.07 K/mm3 (0.00-0.031); Immature Granulocyte Percent A 0.9 % (0-0.5); Lymphocytes Absolute Auto 0.47 K/mm3 (0.9-3.2); Lymphocytes Percent Auto 6.2 % (18.3-44.2); Mean Corpuscular HGB Conc 32.9 g/dl (32-36); Mean Corpuscular Hemoglobin 30.1 pg (26-34); Mean Corpuscular Volume 91.5 fl (80-100); Monocytes Absolute Auto 0.3 K/mm3 (0.1-0.6); Monocytes Percent Auto 3.9 % (2.6-8.5); Neutrophils Absolute Auto 6.8 K/mm3 (1.3-6.7); Neutrophils Percent Auto 88.8 % (45.5-73.1); Platelet Count Result 441 k/mm3 (150-375); Red Blood Count 3.19 M/mm3 (4.2-5.4); Red Cell Distribution Width 12.5 % (11.5-14.5); White Blood Count 7.6 K/mm3 (4.5-10.0)
[2022-05-29 07:10] LABS: Alanine Aminotransferase 25 U/L (6-35); Albumin Level 2.8 g/dL (3.5-5.1); Alkaline Phosphatase 65 U/L (38-126); Anion Gap 10 mmol/L (8-16); Aspartate Amino Transferase 31 U/L (14-36); Bilirubin,Total 0.3 mg/dL (0.2-1.3); Blood Urea Nitrogen 15 mg/dL (7-17); Calcium 8.3 mg/dL (8.4-10.2); Carbon Dioxide 24 mmol/L (22-30); Chloride 97 mmol/L (98-107); Estimated Glomerular Filt Rate > 60; Glucose 146 mg/dL (65-110); Potassium 3.6 mmol/L (3.4-5.0); Sodium 131 mmol/L (137-145)
--- NOTE | 2022-05-29 07:52 | ECHO_ITS ---
Patient Info Name: Anita Little Age: 72 years : 1950 Gender: Female Ht: 59 in Wt: 88 lbs BSA: 1.28 m2 HR: 86 bpm BP: 110 / 50 mmHg Heart Rhythm: Atrial Fibrillation Exam Date: 05/29/2022 1:39 PM Exam Location: [facility] Patient Status: Outpatient Admit Date: 05/28/2022 Staff Ordering Physician: Allison Marie APRN Roofing Laborer: Roberth Rai RDCS, RT Attending Provider: Larry Alvarado MD Referring Physician: Frank ARZATE; Exam Type: CA echo doppler color flow Study Info Indications I48.1 - Persistent atrial fibrillation Complete two-dimensional, color flow and Doppler transthoracic echocardiogram is performed. Strain analysis performed. Summary 1. Complete two-dimensional, color flow and Doppler transthoracic echocardiogram is performed. 2. Left ventricular chamber dimension is normal. 3. Left ventricular systolic function is normal, estimated at 55-60%. 4. There is moderately increased left ventricular wall thickness. 5. The left ventricular diastolic function is indeterminate. 6. Global longitudinal strain is moderately elevated at -14 %. 7. There is mild mitral valve regurgitation. 8. There is mild tricuspid valve regurgitation. 9. No pulmonary hypertension, estimated pulmonary arterial systolic pressure is 31 mmHg. 10. There is trivial pericardial effusion. Left Ventricle Left ventricular chamber dimension is normal. Left ventricular systolic function is normal, estimated at 55-60%. There is moderately increased left ventricular wall thickness. The left ventricular diastolic function is indeterminate. Global longitudinal strain is moderately elevated at -14 %. Right Ventricle Right ventricular chamber dimension is normal. Right ventricular systolic function is normal. Left Atria Left atrial chamber dimension is normal. Right Atria Right atrial chamber dimension is normal. Aortic Valve The aortic valve is trileaflet. There is mild aortic valve sclerosis. There is no aortic valve stenosis. There is no aortic valve regurgitation. Pulmonic Valve The pulmonic valve is not well visualized. There is mild pulmonic regurgitation. Mitral Valve The mitral valve has normal leaflets. There is mild mitral valve regurgitation. Tricuspid Valve The tricuspid valve leaflets are normal. There is mild tricuspid valve regurgitation. No pulmonary hypertension, estimated pulmonary arterial systolic pressure is 31 mmHg. Pericardium/Pleural The pericardium appears normal. There is trivial pericardial effusion. Inferior Vena Cava Dilated inferior vena cava with >50% collapse upon inspiration consistent with elevated right atrial pressure, 10 mmHg. Aorta The aortic root size at the sinus of Valsalva is normal. Left Ventricular Outflow Tract Name Value Normal LVOT 2D LVOT Diameter 1.9 cm LVOT Doppler LVOT Peak Gradient 2 mmHg LVOT Mean Gradient 1 mmHg LVOT VTI 17 cm LVOT VTI/AV VTI Ratio 0.6 LVOT Stroke Volume
--- NOTE | 2022-05-29 08:04 | PM.IMPN ---
Progress Note: A&P Assessment and Plan (1) Abdominal pain, acute, right lower quadrant: Code(s): R10.31 - Right lower quadrant pain Status: Acute Assessment and Plan: -stable (2) Chronic hyponatremia: Code(s): E87.1 - Hypo-osmolality and hyponatremia Status: Acute Assessment and Plan: Patient has been to the hospital multiple times for chronic hyponatremia. Patient's sodium level today is 130 although this is appears to be the patient's baseline Will obtain a TSH, cortisol level, urine osmolality and SPEP Patient was placed on a fluid restriction at the time of discharge at the end of April, patient has been relatively compliant. Patient has no PATIENT ACCOUNT ANALYST symptoms, CT head WNL Patient has no pulmonary issues-chest x-ray does show small pleural effusion that is stable since 05/02/2022 (3) Confusion: Code(s): R41.0 - Disorientation, unspecified Status: Acute Assessment and Plan: stable (4) Pericardial effusion: Code(s): I31.3 - Pericardial effusion (noninflammatory) Status: Acute Assessment and Plan: Stable pericardial effusion since April, cardiology follows the patient on the outpatient basis. Patient was started on colchicine during her last hospitalization (5) New onset atrial fibrillation: Code(s): I48.91 - Unspecified atrial fibrillation Status: Acute Assessment and Plan: patient has had a recurrent episode of AFib RVR. First episode of AFib RVR March 16, 2020 during her last hospitalization. Patient was not started on anticoagulation at that time. cardiology did not feel that she needed beta-blockers at that time. Patient converted to normal sinus rhythm At that time. Monitor vital signs, I&Os, neuro status, patient is a fall risk and patient is a bleeding risk Monitor PTT, Serum electrolytes, and cbc Keep serum potassium >4 and keep magnesium >2 Started the patient on Lovenox 1 mg per kg b.i.d. Consult Cardiology for further management, appreciate assistance and recommendations Obtain echocardiogram Plan During the patient's last hospitalization and discharged on 05/02/2022. The patient was started on colchicine for possible pericarditis and pericardial effusion although this was stopped upon discharge. She was recommended to follow up with Cardiology and nephrology on the outpatient basis. Patient was placed on a 1500 cc fluid restriction. Negative Coxsackie panel on last hospitalization. 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 Subjective Date/time seen: 05/29/22 08:04 Patient is alert this morning at bedside. She reports mild abdominal pain. However the patient was found to be in AFib RVR at 5:45 a.m. this morning. At that time the treatment supervisor administered 1 dose of 25 mg metoprolol oral and 5 mg metoprolol IV P. Patient's heart rate continues to sustain in the 120s. Around 8:00 a.m. this morning the patient's heart rate continued to check climb, heart rate 130 therefore an additional dose of metoprolol was administered and the patient was ordered to be transferred to IMU to start a Cardizem drip. Cardiology was consulted and will further manage AFib RVR. The patient was placed on therapeutic Lovenox. Patient has had history of AFib RVR in March of 2020, at that time cardiology deferred anticoagulation and beta-ann as the patient converted to normal sinus rhythm after dose of amiodarone. Review of Systems Review of Systems: All systems reviewed & are unremarkable except as noted in HPI and below Exam Narrative: General: No acute distress. Forgetful Mental Status: Awake, alert and oriented to person, disoriented place and time with clear speech. Skin: Skin in warm, dry and intact without rashes or lesions. Head: Normocephalic and atraumatic. Eyes: Conjunctivae are clear without exudates or hemorrhage. Sclera is non-icteric. EOM are intact, PERRLA. Ears
[2022-05-29] MEDS: ASPIRIN 81 MG ENTERIC TABLET PO (08:58)
[2022-05-29] MEDS: CHOLECALCIFEROL 1,000 UNITS TABLET 2000 UNITS PO (08:58)
[2022-05-29] MEDS: MAGNESIUM OXIDE 400 MG TABLET PO ×2 (08:58→17:17)
[2022-05-29] MEDS: LOSARTAN POTASSIUM 50 MG TABLET PO (08:58)
[2022-05-29] MEDS: FERROUS SULFATE 324 MG TABLET PO ×2 (08:58→17:17)
[2022-05-29] MEDS: ACETAMINOPHEN 325 MG TABLET 650 MG PO (09:08)
--- NOTE | 2022-05-29 09:13 | ECG_ITS ---
Measurements Intervals [place] Rate: 144 P: DE: 0 QRS: 2 QRSD: 86 T: -28 QT: 295 QTc: 457 Interpretive Statements ATRIAL FIBRILLATION WITH RAPID VENTRICULAR RESPONSE NONSPECIFIC T-WAVE ABNORMALITY ABNORMAL ECG COMPARED TO ECG 05/29/2022 05:35:12 NO SIGNIFICANT CHANGES Electronically Signed On 05-29-2022 15:20:48 CDT by Helder Alcazar M.D.
--- NOTE | 2022-05-29 09:54 | PC.NURSE ---
Addendum entered by Izzy Pearce RN 05/29/22 17:32: Report received from NAHUN [place] @ 0934 Original Note: This patient, Anita Little, was received from [[id number] ] on 05/29/22 at 0955. Patient/family oriented to unit policies and routines
[2022-05-29] MEDS: ENOXAPARIN 40 MG/0.4 ML SYRINGE SUB-Q ×2 (10:06→20:48)
[2022-05-29] MEDS: dilTIAZem 100 MG/100 ML 100 MG/100 ML BAG IV CONT ×2 (10:06→20:47)
--- NOTE | 2022-05-29 12:26 | PCPTNOTE ---
Attempted PT evaluation, Per RN, patient HR recently controlled with medication and would like patient to rest at this time. Will follow.
--- NOTE | 2022-05-29 12:41 | PC.NURSE ---
Addendum entered by Izzy Pearce RN 05/29/22 12:47: Phone conversation occurred at 1235 Original Note: Notified Dr. Alcazar of BP of 101/52 taken one hour after increasing Cardizem drip to 10mg/hr. Pt's BP prior to increase was 103/70. HR now more controlled in the 90's to 1-teen's, down from the 140-160's. New order to keep Cardizem infusion at 10mg/hr. Continue to monitor BP and HR. Notify MD if heart rate becomes uncontrolled on current medication dosage.
--- NOTE | 2022-05-29 12:55 | PCOTNOTE ---
Per RN, patient HR recently controlled with medication and would like patient to rest. Therapy evaluation to be held at this time. Will follow.
--- NOTE | 2022-05-29 13:32 | PM.CNCAR ---
Assessment and Plan Assessment and plan (1) Paroxysmal atrial fibrillation with RVR: Code(s): I48.0 - Paroxysmal atrial fibrillation Status: Acute Assessment and Plan: History of paroxysmal atrial fibrillation with rapid ventricular response mildly symptomatic heart rate improved on uptitration of diltiazem infusion. Patient is on systemic anticoagulation at present. Discussed AV nena blocking agents versus antiarrhythmic therapy with the patient and her daughter bedside at great length. If unable to up titrate AV nena blocking agents due to hypotension and or poorly controlled heart rate may consider short-term use of amiodarone which has previously been successful. However, this would necessitate persistent anticoagulation for least the next 30 days sore like to observe patient's response to therapy at this time hold off for now if possible. Risks and benefits in this regard discussed at length. All questions answered to their satisfaction. Patient is otherwise hemodynamically stable and tolerating atrial fibrillation reasonably well although she is symptomatic. Further recommendations to follow. CHADS2 Vasc score 2 age hypertension. Patient has previously declined systemic anticoagulation agreeing only to aspirin daily (2) Altered mental status: Code(s): R41.82 - Altered mental status, unspecified Status: Acute Assessment and Plan: Improving this morning. Does not seem likely that her significant decline in mental status, memory issues is related to sodium level at the lowest 126 when she has a history of chronic hyponatremia generally in the low 130s. I have great concern with regards to description of her memory lapses, intermittent confusion generalized weakness and excessive daytime sleepiness over the past several weeks along with unintentional weight loss. Neurology consultation noted. While this will be deferred to primary service and Neurology consider MRI of the brain. No clear medication complications contributors. AFib would not explain her symptoms. Although certainly possible I do not believe her degree of hyponatremia his primary explanation but cannot be exclude. Further management per primary service. Avoid narcotics, anxiolytics/sedatives. The constellation of this patients issues and presentation are very concerning given fairly rapid decline from her baseline functional status. There is no evidence of stroke on CT head. (3) History of pericarditis: Code(s): Z86.79 - Personal history of other diseases of the circulatory system Status: Acute Assessment and Plan: Unusual history to with myopericarditis with elevated troponin 1.29 in April with symptoms resolved with very brief use of colchicine which was not continued. Patient plan of ongoing exertional dyspnea and some atypical chest pain resolved with topical salves per her daughter. I would favor re-initiation colchicine 0.6 mg b.i.d.. However, given potential side effects which would confound patient's recovery and or present symptom complex I feel be prudent to further evaluate for evidence of active inflammatory process prior to resuming. Will check Sedimentation rate, troponin. I have concern with regards anticoagulation given this history as there is a risk for increased bleeding risk if significant pericardial inflammation is present. 2D echocardiogram pending. Certainly, if significant or enlarging pericardial effusion out favor discontinuation anticoagulation better safety. Consider cardiac MRI post discharge. (4) Chronic hyponatremia: Code(s): E87.1 - Hypo-osmolality and hyponatremia Status: Acute Assessment and Plan: As above. Stable, slight improvement. Difficult to associate her presentation in the past several weeks simply due to hyponatremia given chronic hyponatremia although remains a possibility. (5) Anemia: Code(s): D64.9 - Anemia, unspecified Status: Acute A
[2022-05-29 14:52] LABS: Troponin I 0.023 ng/mL (0.000-0.034)
[2022-05-29 15:34] LABS: Erythrocyte Sedimentation Rate > 140 mm/hr (0-20)
--- NOTE | 2022-05-29 16:20 | PC.NURSE ---
Spoke with KITTY Cooper regarding patient not voiding since 1000 today. Bladder scanned showed >500 in bladder. Pt placed on bedside commode and was unable to urinate. New order for Buck Catheter placement.
--- NOTE | 2022-05-29 17:00 | PC.NURSE ---
Addendum entered by Izzy Pearce RN 05/29/22 17:05: This conversation took place at 1620 Addendum entered by Izzy Pearce RN 05/29/22 17:03: Continuation of note: administer 250ml/hr NS IV bolus, recheck BP in one hour, start 25 mg PO Metoprolol Tartrate q12h (first dose in one hour, if SBP >95), and hold Losartan. Original Note: Spoke with Dr. Alcazar regarding elevated ESR level. Also notified MD of patient's current BP of 98/61. New orders to decrease Cardizem gtt to 5mg/hr, adminsiter 254
[2022-05-29] MEDS: SODIUM CHLORIDE 0.9% IV 250 ML IV CONT (17:08)
[2022-05-29] MEDS: MELATONIN 5 MG TABLET PO (20:48)
[2022-05-30] VITALS (17 sets, daily range): BP systolic 81–126; BP diastolic 42–69; PULSE 71–110; RESP 20–32; TEMP 36.4–37; O2SAT 92–95
--- NOTE | 2022-05-30 08:12 | PM.IMPN ---
Progress Note: A&P Assessment and Plan (1) Abdominal pain, acute, right lower quadrant: Code(s): R10.31 - Right lower quadrant pain Status: Acute Assessment and Plan: -stable (2) Chronic hyponatremia: Code(s): E87.1 - Hypo-osmolality and hyponatremia Status: Acute Assessment and Plan: Patient has been to the hospital multiple times for chronic hyponatremia. Patient's sodium level today is 130 although this is appears to be the patient's baseline Will obtain a TSH, cortisol level, urine osmolality and SPEP Patient was placed on a fluid restriction at the time of discharge at the end of April, patient has been relatively compliant. Patient has no CAMPAIGN ASSISTANT symptoms, CT head WNL Patient has no pulmonary issues-chest x-ray does show small pleural effusion that is stable since 05/02/2022 (3) Confusion: Code(s): R41.0 - Disorientation, unspecified Status: Acute Assessment and Plan: stable (4) Pericardial effusion: Code(s): I31.3 - Pericardial effusion (noninflammatory) Status: Acute Assessment and Plan: Stable pericardial effusion since April, cardiology follows the patient on the outpatient basis. Patient was started on colchicine during her last hospitalization (5) New onset atrial fibrillation: Code(s): I48.91 - Unspecified atrial fibrillation Status: Acute Assessment and Plan: patient has had a recurrent episode of AFib RVR. First episode of AFib RVR March 16, 2020 during her last hospitalization. Patient was not started on anticoagulation at that time. cardiology did not feel that she needed beta-blockers at that time. Patient converted to normal sinus rhythm. patient remains in AFib, Cardizem drip plans 2 transition to oral amiodarone -defer to Cardiology Monitor vital signs, I&Os, neuro status, patient is a fall risk and patient is a bleeding risk Monitor Serum electrolytes, and cbc Keep serum potassium >4 and keep magnesium >2 patient was started on Eliquis 5 mg b.i.d. by Cardiology Cardiology Consulted for further management, appreciate assistance and recommendations echocardiogram reviewed. Patient on LVEF of 55-60% with global longitudinal strain moderately elevated at -14% and left ventricular wall thickness. (6) Unintentional weight loss: Code(s): R63.4 - Abnormal weight loss Status: Acute Assessment and Plan: registered dietitian consulted Dietary supplements added Patient reports that she has had decreased oral intake, however does not believe that she has had a significant amount decreased to create the weight loss imaging that has been performed has not revealed significant abnormalities to suspect other modalities at that time, unknown last mammogram (7) Severe protein-calorie malnutrition: Code(s): E43 - Unspecified severe protein-calorie malnutrition Status: Acute Assessment and Plan: RD consulted (8) Weakness: Code(s): R53.1 - Weakness Status: Acute Assessment and Plan: PT/OT ordered for further evaluation and treatment (9) History of pericarditis: Code(s): Z86.79 - Personal history of other diseases of the circulatory system Status: Acute Assessment and Plan: patient does have a history of pericarditis Patient's CRP is elevated-she previously received colchicine. She was started on Eliquis by Cardiology. (10) Paroxysmal atrial fibrillation with RVR: Code(s): I48.0 - Paroxysmal atrial fibrillation Status: Acute Assessment and Plan: Patient was seen by Cardiology today. She will trial a dose of amiodarone and she was started on Eliquis for AFib. Patient remained in AFib with a rate in 80s (11) Urinary retention: Code(s): R33.9 - Retention of urine, unspecified Status: Acute Assessment and Plan: patient's bladder scan revealed greater than 350 mL. Patient's family reported possible uri
[2022-05-30] MEDS: MAGNESIUM OXIDE 400 MG TABLET PO ×2 (08:26→17:17)
[2022-05-30] MEDS: METOPROLOL TARTRATE 25 MG TABLET PO ×2 (08:26→20:29)
[2022-05-30] MEDS: CHOLECALCIFEROL 1,000 UNITS TABLET 2000 UNITS PO (08:26)
[2022-05-30] MEDS: ENOXAPARIN 40 MG/0.4 ML SYRINGE SUB-Q (08:26)
[2022-05-30] MEDS: FERROUS SULFATE 324 MG TABLET PO ×2 (08:27→17:17)
[2022-05-30] MEDS: ASPIRIN 81 MG ENTERIC TABLET PO (08:27)
[2022-05-30 09:46] LABS: Erythrocyte Sedimentation Rate > 140 mm/hr (0-20)
[2022-05-30 09:47] LABS: CRP 17.2 mg/dL (<1.0)
--- NOTE | 2022-05-30 10:44 | PCNFU ---
Nutrition Follow-Up Complete: Severe malnutrition related to chronic illness, loss of appetite as evidenced by weight loss -22%/1 month, poor intake, and muscle wasting and fat loss. Goal: Meal intake at least 50% - goal being met. Intakes improved to 80% Supplement intakes at least 50% - patient has not gotten supplement yet, had to override fluid restriction. Pt current nutrition is Diabetic consistent carb, 1500 ml fluid restriction. Nutrition recommendation: Continue current diet order and Ensure Compact BID. Last recorded weight is 40 kg. Bowel Motility: 0 BM charted Labs Reviewed: No new labs Meds Noted: Losartan, zofran, Vit D Skin: WNL Additional Notes: Pt is feeling better and able to eat a bit more. Not requiring assistance now. Follow up in 5 days for intakes, weights, plan of care.
--- NOTE | 2022-05-30 11:17 | PM.PNCARD ---
Progress Note: A&P Assessment and Plan (1) Paroxysmal atrial fibrillation with RVR: Code(s): I48.0 - Paroxysmal atrial fibrillation Status: Acute (2) History of pericarditis: Code(s): Z86.79 - Personal history of other diseases of the circulatory system Status: Acute Plan 72-year-old lady with previous history of myopericarditis in the past presents with symptomatic/problematic hyponatremia during this hospitalization she has developed recurrent atrial fibrillation. Despite rate control with IV diltiazem and metoprolol she remains in atrial fib. My partner who is followed her and saw her yesterday recommended amiodarone to restore sinus rhythm if this persists. I will start oral loading dose of amiodarone today and stop IV diltiazem. Systemic anticoagulation with apixaban will be started as well. Quincy Reynoso MD [facility] Subjective Date/time seen: Date of service: 05/30/22 11:17 Interval history: Follow-up visit in this 72-year-old lady with: Previous history of myopericarditis presenting to the hospital with generalized weakness hyponatremia and in that setting developed recurrent atrial fibrillation. Heart rate is controlled with metoprolol and intravenous diltiazem but she persists in atrial fibrillation today. She says that she feels better with less sense of tachycardia and palpitations but according to telemetry is still in atrial fib with controlled response. Exam Const: General: comfortable and no acute distress Other: Thin elderly lady no distress HENMT: Mouth: Yes moist mucous membranes Eyes: Sclera: sclerae normal Neck: Neck: supple Other: No significant venous distention Resp: Effort & Inspection: normal respiratory effort Auscultation: diminished lung sounds Cardio: Rhythm: abnormal rhythm irregularly irregular GI: GI Palp: Yes Soft to palpation Auscultation: normal bowel sounds Skin: General skin exam: normal color Neuro: Other: Alert and oriented x3 Extrem: Other: No edema, normal pulses Objective Data Vital Signs Vital Signs: Vital Signs - 24 hr 05/29/22 11:25 05/29/22 11:25 05/29/22 12:00 Temperature Pulse Rate 130 H 83 Respiratory Rate Blood Pressure 103/70 103/70 Pulse Oximetry Oxygen Delivery 05/29/22 12:00 05/29/22 14:00 05/29/22 14:35 Temperature Pulse Rate 73 Respiratory Rate Blood Pressure Pulse Oximetry 97 Oxygen Delivery Room Air Room Air 05/29/22 11:25 05/29/22 16:00 05/29/22 16:40 Temperature 36.4 C L 36.6 C Pulse Rate 87 81 Respiratory Rate 20 24 H Blood Pressure 103/70 98/61 L 98/61 L Pulse Oximetry 98 93 Oxygen Delivery 05/29/22 16:00 05/29/22 16:00 05/29/22 18:14 Temperature Pulse Rate 87 Respiratory Rate Blood Pressure 100/62 Pulse Oximetry Oxygen Delivery Room Air 05/29/22 18:15 05/29/22 18:00 05/29/22 19:50 Temperature 36.2 C L Pulse Rate 93 94 94 Respiratory Rate 16 Blood Pressure 99/54 L Pulse Oximetry 93 Oxygen Delivery 05/29/22 20:00 05/29/22 20:47 05/29/22 22:00 Temperature Pulse Rate 76 81 Respiratory Rate Blood Pressure 99/54 L Pulse Oximetry Oxygen Delivery 05/30/22 00:00 05/30/22 00:00 05/30/22 02:00 Temperature 36.6 C Pulse Rate 80 71 71 Respiratory Rate 20 Blood Pressure 97/53 L Pulse Oximetry 94 Oxygen Delivery 05/30/22 04:00 05/30/22 04:00 05/30/22 06:00 Temperature 36.6 C Pulse Rate 77 86 85 Respiratory Rate 20 Blood Pressure 104/53 L Pulse Oximetry 93 Oxygen Delivery 05/30/22 08:00 05/30/22 08:00 05/30/22 08:00 Temperature 36.7 C Pulse Rate 81 84 Respiratory Rate 28 H Blood Pressure 113/53 L Pulse Oximetry 93 Oxygen Delivery Room Air 05/30/22 10:00 Temperature Pulse Rate 80 Respiratory Rate Blood Pressure Pulse Oximetry Oxygen Delivery Intake/Output Intake/Output: Intake & Output 05/27/22 05/28/2205/29
[2022-05-30 11:56] LABS: Magnesium 2.3 mg/dL (1.6-2.3)
[2022-05-30 11:59] LABS: Basophils Percent Auto 0.1 % (0.2-1.2); Eosinophils Percent Auto 0.4 % (0-4.4); Hematocrit 28.2 % (37.0-47.0); Hemoglobin 9.1 g/dL (12.0-15.0); Immature Granulocyte Absolute 0.02 K/mm3 (0.00-0.031); Immature Granulocyte Percent A 0.3 % (0-0.5); Lymphocytes Absolute Auto 0.55 K/mm3 (0.9-3.2); Lymphocytes Percent Auto 8.2 % (18.3-44.2); Mean Corpuscular HGB Conc 32.3 g/dl (32-36); Mean Corpuscular Volume 93.1 fl (80-100); Mean Platelet Volume 9.6 fl (7.4-10.4); Monocytes Absolute Auto 0.3 K/mm3 (0.1-0.6); Monocytes Percent Auto 4.6 % (2.6-8.5); Neutrophils Absolute Auto 5.8 K/mm3 (1.3-6.7); Neutrophils Percent Auto 86.4 % (45.5-73.1); Platelet Count Result 506 k/mm3 (150-375); Red Blood Count 3.03 M/mm3 (4.2-5.4); Red Cell Distribution Width 12.9 % (11.5-14.5); White Blood Count 6.7 K/mm3 (4.5-10.0)
[2022-05-30 12:06] LABS: Alanine Aminotransferase 22 U/L (6-35); Albumin Level 2.6 g/dL (3.5-5.1); Alkaline Phosphatase 59 U/L (38-126); Anion Gap 10 mmol/L (8-16); Aspartate Amino Transferase 35 U/L (14-36); Bilirubin,Total 0.2 mg/dL (0.2-1.3); Blood Urea Nitrogen 25 mg/dL (7-17); Calcium 8.2 mg/dL (8.4-10.2); Carbon Dioxide 21 mmol/L (22-30); Chloride 98 mmol/L (98-107); Estimated Glomerular Filt Rate > 60; Glucose 112 mg/dL (65-110); Potassium 3.6 mmol/L (3.4-5.0); Sodium 129 mmol/L (137-145)
[2022-05-30] MEDS: AMIODARONE HCL 200 MG TABLET 400 MG PO ×2 (12:43→20:28)
[2022-05-30 12:50] LABS: Carcinoembryonic Antigen < 0.3 ng/mL (0.0-3.0)
--- NOTE | 2022-05-30 13:12 | ECG_ITS ---
Measurements Intervals [place] Rate: 109 P: VT: 0 QRS: 16 QRSD: 86 T: 25 QT: 347 QTc: 468 Interpretive Statements ATRIAL FIBRILLATION WITH RAPID VENTRICULAR RESPONSE ABNORMAL ECG Electronically Signed On 05-31-2022 9:55:41 CDT by Mark Foley M.D.
--- NOTE | 2022-05-30 14:00 | WPDURCON ---
Assessment and Plan Assessment and plan (1) Urinary retention: Code(s): R33.9 - Retention of urine, unspecified Status: Acute Assessment and Plan: No identifiable source for retention, we discussed the possibility of a neurogenic bladder and the need for Urodynamics in the future possibly. She will keep her sandoval in for the duration of her hospital stay and follow up in 1-2 weeks in the office after discharge and we can perform a voiding trial to re-assess in the office. CT scan is normal, no hematuria or UTI present at this time. She is not on any OAB medications that could cause retention. Urology Consult Note HPI Date Seen: 05/30/22 Time Seen: 12:30 Requesting Physician: Larry Alvarado MD Primary Care Provider: Danelle Aguilera MD Consult Narrative Reason for consult: Retention Narrative: Anita Little is a 72 year old female who presented to the ER for weakness and mental status changes. She is currently on fluid restrictions for hyponatremia. However, simultaneously over the past week at home her daughter and daughter in law are at the bedside and state that she has been struggling with urinary frequency, urgency, hesitancy, straining and nocturia x 2/night. This is new for her, but she has had several months of a slow stream and difficulty with urination and bladder emptying. Suddenly in the hospital this time she is unable to urinate at all. Her bladder scan was >500cc and a sandoval was then placed. She denies a history of hematuria, OAB or chronic UTI's. Her WBC is normal at 7.6 and creatinine is 0.30. CT scan on 05/28/22 shows no urologic abnormalities. Blood cultures are negative preliminarily and her UA is not suggestive of a UTI. Urine is clear and draining to gravity in her sandoval bag. Review of Systems Cardiovascular: Cardiovascular: Denies chest pain Respiratory: Respiratory: Reports no additional respiratory complaints Gastrointestinal: Gastrointestinal: Denies abdominal pain, Denies nausea and Denies vomiting Genitourinary: Genitourinary: Denies hematuria, Denies nocturia, Denies dysuria, Denies flank pain, Denies urinary incontinence and Reports urinary hesitancy Comments: nocturia x2/night PMFSH Past Medical History Medical History Amaurosis fugax of left eye Colon cancer screening (09/2019) Cologuard negative. Essential hypertension Heart murmur Hypercholesteremia Intolerant to statin. Hypocalcemia Pericarditis Pre-diabetes Surgical History Surgical History History of colonoscopy History of wisdom tooth extraction Family History Family History Mother Family history of Alzheimer's disease Father Family history of Alzheimer's disease AAA (abdominal aortic aneurysm, ruptured) Sibling Acute myocardial infarction Social History Social History Social History: Lifelong nonsmoker. Drinks 1-2 alcoholic drinks per week. No drug use. She is . Living alone in [place], [place] and her two children live down the road within 5 minutes from her if she needs help. She designates her daughter, Sivan Lin, as her surrogate medical decision maker. Code status: Full code. Smoking status: Never smoker Alcohol intake: never Drinks per week: 2 Substance use: never Substance use type: does not use Spiritual care concerns: No Meds Home Medications and Allergies Home Medications Medication Instructions Recorded Confirmed Type cholecalciferol (vitamin D3) 50 50 mcg PO DAILY 03/21/20 05/28/22 History mcg (2,000 unit) capsule magnesium oxide 350 mg PO BID 03/21/20 05/28/22 History losartan 50 mg tablet 50 mg PO DAILY #90 tabs 08/04/21 05/28/22 Rx ferrous sulfate 325 mg (65 mg 325 mg PO BID #60 tabs 05/27/22 05/28/22 Rx iron) t
[2022-05-30] MEDS: TAMSULOSIN HCL 0.4 MG CAPSULE PO (17:17)
--- NOTE | 2022-05-30 18:22 | ECG_ITS ---
Measurements Intervals [place] Rate: 90 P: 24 ND: 151 QRS: 3 QRSD: 86 T: 15 QT: 378 QTc: 463 Interpretive Statements SINUS RHYTHM WITH OCCASIONAL SUPRAVENTRICULAR PREMATURE COMPLEXES NONSPECIFIC T-WAVE ABNORMALITY ABNORMAL ECG Electronically Signed On 05-31-2022 10:00:02 CDT by Mark Foley M.D.
[2022-05-30] MEDS: APIXABAN 5 MG TABLET PO (20:28)
[2022-05-30] MEDS: MELATONIN 5 MG TABLET PO (20:29)
[2022-05-31] VITALS (16 sets, daily range): BP systolic 113–140; BP diastolic 67–78; PULSE 73–101; RESP 20–32; TEMP 36.4–37.7; O2SAT 93–95
[2022-05-31] MEDS: ACETAMINOPHEN 325 MG TABLET 650 MG PO (04:11)
--- NOTE | 2022-05-31 07:11 | PM.IMPN ---
Progress Note: A&P Assessment and Plan (1) Abdominal pain, acute, right lower quadrant: Code(s): R10.31 - Right lower quadrant pain Status: Acute Assessment and Plan: -stable (2) Chronic hyponatremia: Code(s): E87.1 - Hypo-osmolality and hyponatremia Status: Acute Assessment and Plan: Patient has been to the hospital multiple times for chronic hyponatremia. Patient's sodium level today is 130 although this is appears to be the patient's baseline Will obtain a TSH, cortisol level, urine osmolality and SPEP Patient was placed on a fluid restriction at the time of discharge at the end of April, patient has been relatively compliant. Patient has no STNA symptoms, CT head WNL Patient has no pulmonary issues-chest x-ray does show small pleural effusion that is stable since 05/02/2022 (3) Confusion: Code(s): R41.0 - Disorientation, unspecified Status: Acute Assessment and Plan: stable (4) Pericardial effusion: Code(s): I31.3 - Pericardial effusion (noninflammatory) Status: Acute Assessment and Plan: Stable pericardial effusion since April, cardiology follows the patient on the outpatient basis. Patient was started on colchicine during her last hospitalization (5) New onset atrial fibrillation: Code(s): I48.91 - Unspecified atrial fibrillation Status: Acute Assessment and Plan: patient has had a recurrent episode of AFib RVR. First episode of AFib RVR March 16, 2020 during her last hospitalization. Patient was not started on anticoagulation at that time. cardiology did not feel that she needed beta-blockers at that time. Patient converted to normal sinus rhythm. patient remains in AFib, Cardizem drip plans 2 transition to oral amiodarone -defer to Cardiology Monitor vital signs, I&Os, neuro status, patient is a fall risk and patient is a bleeding risk Monitor Serum electrolytes, and cbc Keep serum potassium >4 and keep magnesium >2 patient was started on Eliquis 5 mg b.i.d. by Cardiology Cardiology Consulted for further management, appreciate assistance and recommendations echocardiogram reviewed. Patient on LVEF of 55-60% with global longitudinal strain moderately elevated at -14% and left ventricular wall thickness. 820: Patient converted to normal sinus rhythm, she was started on amiodarone by Cardiology on 05/30/2022. (6) Unintentional weight loss: Code(s): R63.4 - Abnormal weight loss Status: Acute Assessment and Plan: registered dietitian consulted Dietary supplements added Patient reports that she has had decreased oral intake, however does not believe that she has had a significant amount decreased to create the weight loss imaging that has been performed has not revealed significant abnormalities to suspect other modalities at that time, unknown last mammogram >10 years Last colonoscopy was greater than 10 years ago CEA negative (7) Severe protein-calorie malnutrition: Code(s): E43 - Unspecified severe protein-calorie malnutrition Status: Acute Assessment and Plan: RD consulted (8) Weakness: Code(s): R53.1 - Weakness Status: Acute Assessment and Plan: PT/OT ordered for further evaluation and treatment (9) History of pericarditis: Code(s): Z86.79 - Personal history of other diseases of the circulatory system Status: Acute Assessment and Plan: patient does have a history of pericarditis Patient's CRP is elevated-she previously received colchicine. does not appear to have active pericarditis She was started on Eliquis by Cardiology. (10) Paroxysmal atrial fibrillation with RVR: Code(s): I48.0 - Paroxysmal atrial fibrillation Status: Acute Assessment and Plan: Patient was seen by Cardiology today. She will trial a dose of amiodarone and she was started on Eliquis for AFib. Patient remained in AFib with a rate in 80s
[2022-05-31 07:40] LABS: Basophils Percent Auto 0.1 % (0.2-1.2); Eosinophils Percent Auto 0.1 % (0-4.4); Hematocrit 30.3 % (37.0-47.0); Hemoglobin 9.9 g/dL (12.0-15.0); Immature Granulocyte Absolute 0.04 K/mm3 (0.00-0.031); Immature Granulocyte Percent A 0.6 % (0-0.5); Lymphocytes Absolute Auto 0.51 K/mm3 (0.9-3.2); Lymphocytes Percent Auto 7.1 % (18.3-44.2); Mean Corpuscular HGB Conc 32.7 g/dl (32-36); Mean Corpuscular Hemoglobin 29.9 pg (26-34); Mean Corpuscular Volume 91.5 fl (80-100); Mean Platelet Volume 8.7 fl (7.4-10.4); Monocytes Absolute Auto 0.3 K/mm3 (0.1-0.6); Monocytes Percent Auto 3.6 % (2.6-8.5); Neutrophils Absolute Auto 6.4 K/mm3 (1.3-6.7); Neutrophils Percent Auto 88.5 % (45.5-73.1); Platelet Count Result 491 k/mm3 (150-375); Red Blood Count 3.31 M/mm3 (4.2-5.4); Red Cell Distribution Width 12.7 % (11.5-14.5); White Blood Count 7.2 K/mm3 (4.5-10.0)
[2022-05-31 07:55] LABS: Alanine Aminotransferase 29 U/L (6-35); Albumin Level 2.8 g/dL (3.5-5.1); Alkaline Phosphatase 69 U/L (38-126); Anion Gap 10 mmol/L (8-16); Aspartate Amino Transferase 38 U/L (14-36); Bilirubin,Total 0.3 mg/dL (0.2-1.3); Blood Urea Nitrogen 20 mg/dL (7-17); Calcium 7.9 mg/dL (8.4-10.2); Carbon Dioxide 23 mmol/L (22-30); Chloride 96 mmol/L (98-107); Estimated Glomerular Filt Rate > 60; Glucose 138 mg/dL (65-110); Magnesium 2.2 mg/dL (1.6-2.3); Potassium 3.7 mmol/L (3.4-5.0); Sodium 129 mmol/L (137-145)
[2022-05-31] MEDS: MAGNESIUM OXIDE 400 MG TABLET PO ×2 (09:07→18:27)
[2022-05-31] MEDS: AMIODARONE HCL 200 MG TABLET 400 MG PO ×2 (09:07→21:25)
[2022-05-31] MEDS: METOPROLOL TARTRATE 25 MG TABLET PO ×2 (09:07→21:26)
[2022-05-31] MEDS: ASPIRIN 81 MG ENTERIC TABLET PO (09:07)
[2022-05-31] MEDS: APIXABAN 5 MG TABLET PO ×2 (09:08→21:26)
[2022-05-31] MEDS: FERROUS SULFATE 324 MG TABLET PO ×2 (09:08→18:27)
[2022-05-31] MEDS: CHOLECALCIFEROL 1,000 UNITS TABLET 2000 UNITS PO (09:08)
[2022-05-31] MEDS: TAMSULOSIN HCL 0.4 MG CAPSULE PO (09:08)
[2022-05-31] MEDS: polyethylene glycoL 3350 17 GM POWD.PACK PO (10:13)
[2022-05-31] MEDS: DOCUSATE SODIUM 100 MG CAPSULE PO (10:14)
--- NOTE | 2022-05-31 14:20 | PM.PNCARD ---
Progress Note: A&P Assessment and Plan (1) Paroxysmal atrial fibrillation with RVR: Code(s): I48.0 - Paroxysmal atrial fibrillation Status: Acute Assessment and Plan: Continue amiodarone and anticoagulation. No changes today from a cardiac perspective (2) History of pericarditis: Code(s): Z86.79 - Personal history of other diseases of the circulatory system Status: Acute Subjective Date/time seen: 05/31/22 14:20 Interval history: Follow-up visit in this 72-year-old lady with: Previous history of myopericarditis presenting to the hospital with generalized weakness hyponatremia and in that setting developed recurrent atrial fibrillation. Follow-up note date of service 05/31/2022: Still in sinus rhythm. Still short of breath with some activity but no chest pain Review of Systems Constitutional: Constitutional: Denies body ache(s) ENT: Reports Normal hearing present Cardiovascular: Cardiovascular: Denies chest pain Respiratory: Respiratory: Reports dyspnea on exertion Gastrointestinal: Gastrointestinal: Denies abdominal pain Genitourinary: Genitourinary: Denies hematuria Musculoskeletal: Musculoskeletal: Denies myalgias Integumentary/Breasts: Skin/Breast: Denies dry skin Psychiatric: Psychiatric: Denies anxiety Endocrine: Endocrine: Denies change in body appearance Allergic/Immunologic: Allergic/Immunologic: Denies GI upset with certain foods Exam Const: General: comfortable and no acute distress Other: Thin elderly lady no distress HENMT: Mouth: Yes moist mucous membranes Eyes: Sclera: sclerae normal Neck: Neck: supple Other: No significant venous distention Resp: Effort & Inspection: normal respiratory effort Auscultation: diminished lung sounds Cardio: Rate: regular rate Rhythm: regular rhythm GI: Auscultation: normal bowel sounds Skin: General skin exam: normal color Neuro: Speech: normal speech Other: Alert and oriented x3 Extrem: Other: No edema, normal pulses Objective Data Vital Signs Vital Signs: Vital Signs - 24 hr 05/30/22 16:00 05/30/22 16:00 05/30/22 16:00 Temperature 36.8 C Pulse Rate 110 H 106 H Respiratory Rate 32 H Blood Pressure 107/65 Pulse Oximetry 92 Oxygen Delivery Room Air 05/30/22 18:00 05/30/22 19:49 05/30/22 20:28 Temperature 36.4 C Pulse Rate 92 86 95 Respiratory Rate 20 Blood Pressure 112/55 L Pulse Oximetry 93 Oxygen Delivery 05/30/22 20:29 05/30/22 20:00 05/30/22 20:00 Temperature Pulse Rate 95 89 Respiratory Rate Blood Pressure Pulse Oximetry 93 Oxygen Delivery Room Air 05/30/22 23:50 05/30/22 22:00 05/31/22 00:00 Temperature 37.0 C Pulse Rate 92 82 85 Respiratory Rate 20 Blood Pressure 126/67 Pulse Oximetry 93 Oxygen Delivery 05/31/22 00:00 05/31/22 02:00 05/31/22 04:00 Temperature 36.9 C Pulse Rate 84 96 Respiratory Rate 22 H Blood Pressure 131/67 Pulse Oximetry 93 94 Oxygen Delivery Room Air 05/31/22 04:00 05/31/22 04:00 05/31/22 06:00 Temperature Pulse Rate 97 93 Respiratory Rate Blood Pressure Pulse Oximetry 94 Oxygen Delivery Room Air 05/31/22 08:00 05/31/22 08:00 05/31/22 12:00 Temperature 36.4 C 36.7 C Pulse Rate 90 82 Respiratory Rate 28 H 28 H Blood Pressure 139/70 127/68 Pulse Oximetry 95 95 Oxygen Delivery Room Air 05/31/22 12:31 05/31/22 12:00 05/31/22 08:00 Temperature 36.7 C Pulse Rate 82 93 Respiratory Rate 28 H Blood Pressure 127/68 Pulse Oximetry 95 Oxygen Delivery Room Air 05/31/22 10:00 05/31/22 12:00 05/31/22 14:00 Temperature Pulse Rate 83 73 80 Respiratory Rate Blood Pressure Pulse Oximetry Oxygen Delivery Intake/Output Intake/Output: Intake & Output 05/28/22 05/29/22 05/30/22 05/31/22 23:59 23:59 23:59 23:59 Intake Total 1989 1085.0 802.6 510 Output Total 1250 700 325 Balance 1989 -165.0 1
[2022-05-31] MEDS: MELATONIN 5 MG TABLET PO (21:26)
[2022-06-01] VITALS (17 sets, daily range): BP systolic 125–144; BP diastolic 67–75; PULSE 73–94; RESP 14–34; TEMP 36.1–37.3; O2SAT 92–96
[2022-06-01 06:23] LABS: Basophils Percent Auto 0.2 % (0.2-1.2); Hematocrit 27.8 % (37.0-47.0); Hemoglobin 9.3 g/dL (12.0-15.0); Immature Granulocyte Absolute 0.06 K/mm3 (0.00-0.031); Immature Granulocyte Percent A 1.1 % (0-0.5); Lymphocytes Absolute Auto 0.46 K/mm3 (0.9-3.2); Lymphocytes Percent Auto 8.2 % (18.3-44.2); Mean Corpuscular HGB Conc 33.5 g/dl (32-36); Mean Corpuscular Hemoglobin 30.1 pg (26-34); Mean Platelet Volume 9.2 fl (7.4-10.4); Monocytes Absolute Auto 0.2 K/mm3 (0.1-0.6); Monocytes Percent Auto 3.9 % (2.6-8.5); Neutrophils Absolute Auto 4.9 K/mm3 (1.3-6.7); Neutrophils Percent Auto 86.6 % (45.5-73.1); Platelet Count Result 490 k/mm3 (150-375); Red Blood Count 3.09 M/mm3 (4.2-5.4); Red Cell Distribution Width 12.6 % (11.5-14.5); White Blood Count 5.6 K/mm3 (4.5-10.0)
[2022-06-01 06:48] LABS: Alanine Aminotransferase 30 U/L (6-35); Albumin Level 2.8 g/dL (3.5-5.1); Alkaline Phosphatase 69 U/L (38-126); Anion Gap 8 mmol/L (8-16); Aspartate Amino Transferase 38 U/L (14-36); Bilirubin,Total 0.2 mg/dL (0.2-1.3); Blood Urea Nitrogen 17 mg/dL (7-17); Calcium 7.8 mg/dL (8.4-10.2); Carbon Dioxide 23 mmol/L (22-30); Chloride 97 mmol/L (98-107); Estimated Glomerular Filt Rate > 60; Glucose 124 mg/dL (65-110); Potassium 3.9 mmol/L (3.4-5.0); Sodium 128 mmol/L (137-145)
--- NOTE | 2022-06-01 07:06 | PM.IMPN ---
Progress Note: A&P Assessment and Plan (1) Abdominal pain, acute, right lower quadrant: Code(s): R10.31 - Right lower quadrant pain Status: Acute Assessment and Plan: -stable (2) Chronic hyponatremia: Code(s): E87.1 - Hypo-osmolality and hyponatremia Status: Acute Assessment and Plan: Patient has been to the hospital multiple times for chronic hyponatremia. 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 Patient has no LAB SUPPORT SERVICE TECH symptoms, CT head WNL Patient has no pulmonary issues-chest x-ray does show small pleural effusion that is stable since 05/02/2022 (3) Confusion: Code(s): R41.0 - Disorientation, unspecified Status: Acute Assessment and Plan: stable (4) Pericardial effusion: Code(s): I31.3 - Pericardial effusion (noninflammatory) Status: Acute Assessment and Plan: Stable pericardial effusion since April, cardiology follows the patient on the outpatient basis. Patient was started on colchicine during her last hospitalization (5) New onset atrial fibrillation: Code(s): I48.91 - Unspecified atrial fibrillation Status: Acute Assessment and Plan: patient has had a recurrent episode of AFib RVR. First episode of AFib RVR March 16, 2020 during her last hospitalization. Patient was not started on anticoagulation at that time. cardiology did not feel that she needed beta-blockers at that time. Patient converted to normal sinus rhythm. patient remains in AFib, Cardizem drip plans 2 transition to oral amiodarone -defer to Cardiology Monitor vital signs, I&Os, neuro status, patient is a fall risk and patient is a bleeding risk Monitor Serum electrolytes, and cbc Keep serum potassium >4 and keep magnesium >2 patient was started on Eliquis 5 mg b.i.d. by Cardiology Cardiology Consulted for further management, appreciate assistance and recommendations echocardiogram reviewed. Patient on LVEF of 55-60% with global longitudinal strain moderately elevated at -14% and left ventricular wall thickness. 820: Patient converted to normal sinus rhythm, she was started on amiodarone by Cardiology on 05/30/2022. (6) Unintentional weight loss: Code(s): R63.4 - Abnormal weight loss Status: Acute Assessment and Plan: registered dietitian consulted Dietary supplements added Patient reports that she has had decreased oral intake, however does not believe that she has had a significant amount decreased to create the weight loss imaging that has been performed has not revealed significant abnormalities to suspect other modalities at that time, unknown last mammogram >10 years Last colonoscopy was greater than 10 years ago CEA negative (7) Severe protein-calorie malnutrition: Code(s): E43 - Unspecified severe protein-calorie malnutrition Status: Acute Assessment and Plan: RD consulted (8) Weakness: Code(s): R53.1 - Weakness Status: Acute Assessment and Plan: PT/OT ordered for further evaluation and treatment (9) History of pericarditis: Code(s): Z86.79 - Personal history of other diseases of the circulatory system Status: Acute Assessment and Plan: patient does have a history of pericarditis Patient's CRP is elevated-she previously received colchicine. does not appear to have active pericarditis She was started on Eliquis by Cardiology. (10) Paroxysmal atrial fibrillation with RVR: Code(s): I48.0 - Paroxysmal atrial fibrillation Status: Acute Assessment and Plan: Patient was seen by Cardiology today. She will trial a dose of amiodarone and she was started on Eliquis for AFib. Tim
[2022-06-01] MEDS: CHOLECALCIFEROL 1,000 UNITS TABLET 2000 UNITS PO (10:09)
[2022-06-01] MEDS: DOCUSATE SODIUM 100 MG CAPSULE PO (10:09)
[2022-06-01] MEDS: TAMSULOSIN HCL 0.4 MG CAPSULE PO (10:09)
[2022-06-01] MEDS: METOPROLOL TARTRATE 25 MG TABLET PO ×2 (10:09→21:04)
[2022-06-01] MEDS: MAGNESIUM OXIDE 400 MG TABLET PO ×2 (10:09→16:16)
[2022-06-01] MEDS: FERROUS SULFATE 324 MG TABLET PO ×2 (10:09→16:16)
[2022-06-01] MEDS: ASPIRIN 81 MG ENTERIC TABLET PO (10:10)
[2022-06-01] MEDS: AMIODARONE HCL 200 MG TABLET 400 MG PO (10:10)
[2022-06-01] MEDS: APIXABAN 5 MG TABLET PO ×2 (10:10→21:04)
--- NOTE | 2022-06-01 11:04 | PM.PNCARD ---
Progress Note: A&P Assessment and Plan (1) Paroxysmal atrial fibrillation with RVR: Code(s): I48.0 - Paroxysmal atrial fibrillation Status: Acute Assessment and Plan: Will reduce amiodarone to 200 mg p.o. b.i.d.. Continue anticoagulation. Furosemide 20 mg IV x1 (2) History of pericarditis: Code(s): Z86.79 - Personal history of other diseases of the circulatory system Status: Acute Subjective Date/time seen: 06/01/22 11:04 Interval history: 72-year-old with shortness of breath, atrial fibrillation Date of service 06/01/2022: Still in sinus rhythm. No chest pain. Mildly dyspneic Review of Systems Constitutional: Constitutional: Denies body ache(s) ENT: Reports Normal hearing present Cardiovascular: Cardiovascular: Denies chest pain and Reports dyspnea on exertion Respiratory: Respiratory: Reports dyspnea on exertion Gastrointestinal: Gastrointestinal: Denies abdominal pain Genitourinary: Genitourinary: Denies hematuria Musculoskeletal: Musculoskeletal: Denies myalgias Integumentary/Breasts: Skin/Breast: Denies dry skin Neurologic: Reports Normal hearing present Psychiatric: Psychiatric: Denies anxiety Endocrine: Endocrine: Denies change in body appearance Allergic/Immunologic: Allergic/Immunologic: Denies GI upset with certain foods Exam Const: General: comfortable and no acute distress Other: Thin elderly lady no distress HENMT: Mouth: Yes moist mucous membranes Eyes: Sclera: sclerae normal Neck: Neck: supple Other: No significant venous distention Resp: Effort & Inspection: normal respiratory effort Auscultation: diminished lung sounds Cardio: Rate: regular rate Rhythm: regular rhythm and abnormal rhythm irregularly irregular GI: Auscultation: normal bowel sounds Skin: General skin exam: normal color Neuro: Cranial nerves: Yes Normal hearing present Speech: normal speech Other: Alert and oriented x3 Extrem: Other: No edema, normal pulses Objective Data Vital Signs Vital Signs: Vital Signs - 24 hr 05/31/22 12:00 05/31/22 12:31 05/31/22 12:00 Temperature 36.7 C 36.7 C Pulse Rate 82 82 Respiratory Rate 28 H 28 H Blood Pressure 127/68 127/68 Pulse Oximetry 95 95 Oxygen Delivery Room Air 05/31/22 12:00 05/31/22 14:00 05/31/22 16:00 Temperature Pulse Rate 73 80 Respiratory Rate Blood Pressure Pulse Oximetry Oxygen Delivery Room Air 05/31/22 16:00 05/31/22 16:00 05/31/22 18:00 Temperature 36.6 C Pulse Rate 78 89 94 Respiratory Rate 32 H Blood Pressure 129/75 Pulse Oximetry 94 Oxygen Delivery 05/31/22 20:00 05/31/22 21:25 05/31/22 21:26 Temperature 37.7 C H Pulse Rate 94 101 H 101 H Respiratory Rate 20 Blood Pressure 113/70 Pulse Oximetry 95 Oxygen Delivery 05/31/22 20:00 05/31/22 23:37 06/01/22 00:00 Temperature 37.1 C Pulse Rate 94 87 87 Respiratory Rate 20 20 20 Blood Pressure 140/78 Pulse Oximetry 95 93 93 Oxygen Delivery Room Air Room Air 05/31/22 20:00 05/31/22 22:00 06/01/22 00:00 Temperature Pulse Rate 95 97 78 Respiratory Rate Blood Pressure Pulse Oximetry Oxygen Delivery 06/01/22 02:00 06/01/22 04:00 06/01/22 04:00 Temperature 36.4 C L Pulse Rate 91 78 94 Respiratory Rate 18 Blood Pressure 137/75 Pulse Oximetry 96 Oxygen Delivery 06/01/22 03:43 06/01/22 06:00 06/01/22 08:00 Temperature Pulse Rate 94 86 75 Respiratory Rate 18 Blood Pressure Pulse Oximetry 96 Oxygen Delivery Room Air 06/01/22 08:00 06/01/22 10:09 06/01/22 10:10 Temperature 36.7 C Pulse Rate 82 94 94 Respiratory Rate 24 H Blood Pressure 129/72 Pulse Oximetry 93 Oxygen Delivery 06/01/22 08:00 06/01/22 10:00 Temperature Pulse Rate 94 85 Respiratory Rate 24 H Blood Pressure Pulse Oximetry 93 Oxygen Delivery Room Air Intake/Output Intake/Output: Intake & Output
[2022-06-01] MEDS: FUROSEMIDE INJ 40 MG/4 ML VIAL 20 MG IV PUSH (12:11)
[2022-06-01 13:06] LABS: Fractional Inspired Oxygen 21 %; HCO3 ABG 23.4 mEq/l (22.0-26.0); Oxygen Content ABG 13.5 %vol (16.0-22.0); Oxygen Saturation ABG 93.3 % (95.0-100.0); Oxyhemoglobin 90.1 % THb (90.0-100.0); PCO2 ABG 29.7 mmHg (35.0-45.0); PO2 ABG 59.2 mmHg (80.0-100.0); PO2 FiO2 Ratio Arterial Blood 2.82 %; Total Hemoglobin 10.6 g/dL (12.0-18.0)
[2022-06-01 13:07] LABS: Device ROOM AIR; Modified Allen's Test Pass; Site Drawn RIGHT RADIAL; pH ABG 7.514 (7.350-7.450)
--- NOTE | 2022-06-01 13:40 | PM.IMPN ---
Progress Note: A&P Assessment and Plan (1) Abdominal pain, acute, right lower quadrant: Code(s): R10.31 - Right lower quadrant pain Status: Acute (2) Chronic hyponatremia: Code(s): E87.1 - Hypo-osmolality and hyponatremia Status: Acute (3) Confusion: Code(s): R41.0 - Disorientation, unspecified Status: Acute (4) Pericardial effusion: Code(s): I31.3 - Pericardial effusion (noninflammatory) Status: Acute (5) New onset atrial fibrillation: Code(s): I48.91 - Unspecified atrial fibrillation Status: Acute (6) Unintentional weight loss: Code(s): R63.4 - Abnormal weight loss Status: Acute (7) Severe protein-calorie malnutrition: Code(s): E43 - Unspecified severe protein-calorie malnutrition Status: Acute (8) Weakness: Code(s): R53.1 - Weakness Status: Acute (9) History of pericarditis: Code(s): Z86.79 - Personal history of other diseases of the circulatory system Status: Acute (10) Paroxysmal atrial fibrillation with RVR: Code(s): I48.0 - Paroxysmal atrial fibrillation Status: Acute (11) Urinary retention: Code(s): R33.9 - Retention of urine, unspecified Status: Acute Plan # abdominal pain CT abdomen with no acute findings. Small pleural effusions. The venous insufficiency and small pericardial effusion. This resolved lipase normal # chronic hyponatremia: Multiple admissions for chronic hyponatremia. Sodium level is 130 TSH normal cortisol normal, urine osmolality an SPEP. On fluid restriction CT head within normal limits # altered mental status CT head is negative. This is resolved and much improved # pericardial effusion stable pericardial effusion since April per id cardiology following. Placed on colchicine last hospitalization # paroxysmal atrial fibrillation. Episode March 16, 2020. Back with atrial fibrillation. Cardizem drip later switched to oral amiodarone. On Eliquis that was started by kiln car unloader. EF 55-60% with global longitudinal strain moderately elevated at -14% and left ventricular wall thickness. 05/24 converted to sinus rhythm. Currently on are amiodarone # unintentional weight loss colon dietitian consulted on overall supplement cancer screening as an outpatient basis. CEA negative. Last colonoscopy greater than 10 years ago. Mammogram more than 10 years ago. Cologuard test done 2019 was negative # tachypnea ABG with respiratory alkalosis. BNP was elevated. Effusions bilateral has gotten worse. Pericardial effusion is trivial on repeat echo. Diurese and monitor. CT is negative for PE # severe protein calorie malnutrition # anemia mild normocytic. No signs of bleeding. Continue to monitor. Check ferritin and iron profile B12 # generalized weakness PT OT # history of pericarditis # urinary retention bladder scan more than 350 mL. Buck catheter in place. Follow-up with Urology in 1-2 weeks after discharge for voiding trial. Subjective Date/time seen: 06/01/22 13:40 chart reviewed. Discussed with patient and her [id number] at bedside. Feels little short of breath. Abdominal pain has resolved. Confusion has resolved as well. No fever. Intermittent cough without any expectoration. No chest pain. No nausea vomiting appetite is low. Weight loss history noted. Review of Systems Review of Systems: All systems reviewed & are unremarkable except as noted in HPI and below Exam Narrative: GENERAL: The patient is thin built, not in acute distress HEENT: Nonicteric sclerae, PERRLA, EOMI. Oropharynx clear. Moist mucous membranes. Conjunctivae appear well perfused. CHEST: Chest wall is nontender. HEART: Regular rate and rhythm without murmur, rubs, or gallops LUNGS: Coarse breath sounds bilaterally few crackles at the bases. no respiratory distress ABDOMEN: Soft, positive bowel sounds, non-tender, no organomegaly. SKIN: No rash, no excessive bruising, petec
[2022-06-01 14:20] LABS: NT Pro B Type Natriuretic Pept 1750 pg/mL (5-100)
[2022-06-01 15:58] LABS: Iron 20 ug/dL (37-170)
[2022-06-01 16:09] LABS: Percent Iron Saturation 12 % (20-50)
[2022-06-01 17:11] LABS: Folic Acid 11.6 ng/mL (2.76->20); Vitamin B12 > 1000.0 pg/mL (239-931)
[2022-06-01] MEDS: TOLNAFTATE 1% POWDER 45 GM BTL 1 APPLIC TOPICAL (21:03)
[2022-06-01] MEDS: AMIODARONE HCL 200 MG TABLET PO (21:04)
[2022-06-01] MEDS: MELATONIN 5 MG TABLET PO (21:04)
[2022-06-01 21:19] LABS: Sodium 125 mmol/L (137-145)
[2022-06-02] VITALS (17 sets, daily range): BP systolic 120–133; BP diastolic 58–67; PULSE 66–89; RESP 16–36; TEMP 36.6–37.1; O2SAT 92–95
--- NOTE | 2022-06-02 00:11 | PC.NURSE ---
Assumed care of the patient at this time. Report received from NAHUN Beht.
[2022-06-02 05:31] LABS: Basophils Percent Auto 0.2 % (0.2-1.2); Eosinophils Percent Auto 0.2 % (0-4.4); Hematocrit 27.4 % (37.0-47.0); Hemoglobin 9.1 g/dL (12.0-15.0); Immature Granulocyte Absolute 0.08 K/mm3 (0.00-0.031); Immature Granulocyte Percent A 1.4 % (0-0.5); Lymphocytes Absolute Auto 0.49 K/mm3 (0.9-3.2); Lymphocytes Percent Auto 8.5 % (18.3-44.2); Mean Corpuscular HGB Conc 33.2 g/dl (32-36); Mean Corpuscular Hemoglobin 29.8 pg (26-34); Mean Corpuscular Volume 89.8 fl (80-100); Mean Platelet Volume 9.1 fl (7.4-10.4); Monocytes Absolute Auto 0.2 K/mm3 (0.1-0.6); Monocytes Percent Auto 3.8 % (2.6-8.5); Neutrophils Percent Auto 85.9 % (45.5-73.1); Platelet Count Result 490 k/mm3 (150-375); Red Blood Count 3.05 M/mm3 (4.2-5.4); Red Cell Distribution Width 12.6 % (11.5-14.5); White Blood Count 5.8 K/mm3 (4.5-10.0)
[2022-06-02 05:50] LABS: Alanine Aminotransferase 29 U/L (6-35); Albumin Level 2.6 g/dL (3.5-5.1); Alkaline Phosphatase 65 U/L (38-126); Anion Gap 2 mmol/L (8-16); Aspartate Amino Transferase 37 U/L (14-36); Bilirubin,Total 0.2 mg/dL (0.2-1.3); Blood Urea Nitrogen 18 mg/dL (7-17); Calcium 7.7 mg/dL (8.4-10.2); Carbon Dioxide 26 mmol/L (22-30); Chloride 93 mmol/L (98-107); Estimated Glomerular Filt Rate > 60; Glucose 128 mg/dL (65-110); Magnesium 2.1 mg/dL (1.6-2.3); Potassium 3.7 mmol/L (3.4-5.0); Sodium 121 mmol/L (137-145)
[2022-06-02] MEDS: MAGNESIUM OXIDE 400 MG TABLET PO ×2 (10:26→17:34)
[2022-06-02] MEDS: CHOLECALCIFEROL 1,000 UNITS TABLET 2000 UNITS PO (10:26)
[2022-06-02] MEDS: METOPROLOL TARTRATE 25 MG TABLET PO ×2 (10:27→21:31)
[2022-06-02] MEDS: AMIODARONE HCL 200 MG TABLET PO ×2 (10:27→21:31)
[2022-06-02] MEDS: DOCUSATE SODIUM 100 MG CAPSULE PO (10:28)
[2022-06-02] MEDS: SODIUM CHLORIDE 1 GM TABLET PO ×2 (10:28→17:35)
[2022-06-02] MEDS: APIXABAN 5 MG TABLET PO ×2 (10:28→21:31)
[2022-06-02] MEDS: ASPIRIN 81 MG ENTERIC TABLET PO (10:28)
[2022-06-02] MEDS: FERROUS SULFATE 324 MG TABLET PO ×2 (10:28→17:34)
[2022-06-02] MEDS: TAMSULOSIN HCL 0.4 MG CAPSULE PO (10:29)
[2022-06-02] MEDS: TOLNAFTATE 1% POWDER 45 GM BTL 1 APPLIC TOPICAL ×2 (10:29→21:32)
--- NOTE | 2022-06-02 12:14 | PM.IMPN ---
Progress Note: A&P Assessment and Plan (1) Abdominal pain, acute, right lower quadrant: Code(s): R10.31 - Right lower quadrant pain Status: Acute (2) Chronic hyponatremia: Code(s): E87.1 - Hypo-osmolality and hyponatremia Status: Acute (3) Confusion: Code(s): R41.0 - Disorientation, unspecified Status: Acute (4) Pericardial effusion: Code(s): I31.3 - Pericardial effusion (noninflammatory) Status: Acute (5) New onset atrial fibrillation: Code(s): I48.91 - Unspecified atrial fibrillation Status: Acute (6) Unintentional weight loss: Code(s): R63.4 - Abnormal weight loss Status: Acute (7) Severe protein-calorie malnutrition: Code(s): E43 - Unspecified severe protein-calorie malnutrition Status: Acute (8) Weakness: Code(s): R53.1 - Weakness Status: Acute (9) History of pericarditis: Code(s): Z86.79 - Personal history of other diseases of the circulatory system Status: Acute (10) Paroxysmal atrial fibrillation with RVR: Code(s): I48.0 - Paroxysmal atrial fibrillation Status: Acute (11) Urinary retention: Code(s): R33.9 - Retention of urine, unspecified Status: Acute Plan # abdominal pain CT abdomen with no acute findings. Small pleural effusions. The venous insufficiency and small pericardial effusion. This resolved lipase normal # chronic hyponatremia: Multiple admissions for chronic hyponatremia. Sodium level is 130 TSH normal cortisol normal, urine osmolality an SPEP. On fluid restriction CT head within normal limits. Sodium worsened today at 1:21 a.m.. Add salt tablets. Recheck and monitor if worsens get Nephrology on board. Will give a dose of IV Lasix # altered mental status CT head is negative. This is resolved and much improved # pericardial effusion stable pericardial effusion since April per id cardiology following. Placed on colchicine last hospitalization # paroxysmal atrial fibrillation. Episode March 16, 2020. Back with atrial fibrillation. Cardizem drip later switched to oral amiodarone. On Eliquis that was started by water treatment plant mechanic. EF 55-60% with global longitudinal strain moderately elevated at -14% and left ventricular wall thickness. 05/24 converted to sinus rhythm. Currently on oral amiodarone # unintentional weight loss colon dietitian consulted on overall supplement cancer screening as an outpatient basis. CEA negative. Last colonoscopy greater than 10 years ago. Mammogram more than 10 years ago. Cologuard test done 2019 was negative # tachypnea ABG with respiratory alkalosis. BNP was elevated. Effusions bilateral has gotten worse. Pericardial effusion is trivial on repeat echo. Diurese and monitor. CT is negative for PE # severe protein calorie malnutrition # anemia mild normocytic. No signs of bleeding. Continue to monitor. Iron profile suggestive of anemia chronic disease. B12 and folate normal # generalized weakness PT OT # history of pericarditis # urinary retention bladder scan more than 350 mL. Buck catheter in place. Follow-up with Urology in 1-2 weeks after discharge for voiding trial. Subjective Date/time seen: 06/02/22 12:14 Interval history: 06/01/22? 13:40 chart reviewed.? Discussed with patient and her [id number] at bedside.? Feels little short of breath.? Abdominal pain has resolved.? Confusion has resolved as well.? No fever.? Intermittent cough without any expectoration.? No chest pain.? No nausea vomiting appetite is low.? Weight loss history noted. 06/02/2022 no overnight events. No new complaints. Sodium is lowered. Labs reviewed. Feels short of breath particularly with exertion. Denies any chest pain. Tickly sensation in her throat with some dry cough denies any fever chills Review of Systems Review of Systems: All systems reviewed & are unremarkable except as noted in HPI and below Exam Narrative:
[2022-06-02 13:36] LABS: Osmolality, Urine 515 mOsm/kg (50-1200)
[2022-06-02 15:12] LABS: Anion Gap 4 mmol/L (8-16); Blood Urea Nitrogen 19 mg/dL (7-17); Calcium 7.6 mg/dL (8.4-10.2); Carbon Dioxide 25 mmol/L (22-30); Chloride 92 mmol/L (98-107); Estimated Glomerular Filt Rate > 60; Glucose 150 mg/dL (65-110); Potassium 4.2 mmol/L (3.4-5.0); Sodium 121 mmol/L (137-145)
[2022-06-02] MEDS: FUROSEMIDE INJ 40 MG/4 ML VIAL 20 MG IV PUSH (15:17)
[2022-06-02] MEDS: ACETAMINOPHEN 325 MG TABLET 650 MG PO (17:31)
[2022-06-02 18:53] LABS: Anion Gap 3 mmol/L (8-16); Blood Urea Nitrogen 21 mg/dL (7-17); Calcium 7.6 mg/dL (8.4-10.2); Carbon Dioxide 26 mmol/L (22-30); Chloride 91 mmol/L (98-107); Estimated Glomerular Filt Rate > 60; Glucose 159 mg/dL (65-110); Potassium 3.6 mmol/L (3.4-5.0); Sodium 120 mmol/L (137-145)
[2022-06-02] MEDS: MELATONIN 5 MG TABLET PO (21:31)
[2022-06-03] VITALS (12 sets, daily range): BP systolic 116–150; BP diastolic 60–74; PULSE 70–88; RESP 16–36; TEMP 36.5–36.9; O2SAT 92–96
[2022-06-03 03:54] LABS: Anion Gap 11 mmol/L (8-16); Blood Urea Nitrogen 23 mg/dL (7-17); Calcium 7.5 mg/dL (8.4-10.2); Carbon Dioxide 25 mmol/L (22-30); Chloride 90 mmol/L (98-107); Estimated Glomerular Filt Rate > 60; Glucose 129 mg/dL (65-110); Potassium 3.5 mmol/L (3.4-5.0); Sodium 126 mmol/L (137-145)
[2022-06-03 04:47] LABS: Eosinophils Percent Auto 0.3 % (0-4.4); Hematocrit 27.5 % (37.0-47.0); Hemoglobin 9.1 g/dL (12.0-15.0); Immature Granulocyte Absolute 0.06 K/mm3 (0.00-0.031); Lymphocytes Absolute Auto 0.47 K/mm3 (0.9-3.2); Lymphocytes Percent Auto 7.8 % (18.3-44.2); Mean Corpuscular HGB Conc 33.1 g/dl (32-36); Mean Corpuscular Hemoglobin 29.6 pg (26-34); Mean Corpuscular Volume 89.6 fl (80-100); Mean Platelet Volume 8.7 fl (7.4-10.4); Monocytes Absolute Auto 0.2 K/mm3 (0.1-0.6); Monocytes Percent Auto 3.3 % (2.6-8.5); Neutrophils Absolute Auto 5.3 K/mm3 (1.3-6.7); Neutrophils Percent Auto 87.6 % (45.5-73.1); Platelet Count Result 469 k/mm3 (150-375); Red Blood Count 3.07 M/mm3 (4.2-5.4); Red Cell Distribution Width 12.6 % (11.5-14.5); White Blood Count 6.1 K/mm3 (4.5-10.0)
[2022-06-03 05:02] LABS: Alanine Aminotransferase 34 U/L (6-35); Albumin Level 2.5 g/dL (3.5-5.1); Alkaline Phosphatase 69 U/L (38-126); Anion Gap 8 mmol/L (8-16); Aspartate Amino Transferase 43 U/L (14-36); Bilirubin,Total 0.1 mg/dL (0.2-1.3); Blood Urea Nitrogen 18 mg/dL (7-17); Calcium 7.8 mg/dL (8.4-10.2); Carbon Dioxide 28 mmol/L (22-30); Chloride 93 mmol/L (98-107); Estimated Glomerular Filt Rate > 60; Glucose 132 mg/dL (65-110); Potassium 3.5 mmol/L (3.4-5.0); Sodium 129 mmol/L (137-145)
[2022-06-03 08:33] LABS: Anion Gap 7 mmol/L (8-16); Blood Urea Nitrogen 17 mg/dL (7-17); Calcium 7.7 mg/dL (8.4-10.2); Carbon Dioxide 26 mmol/L (22-30); Chloride 94 mmol/L (98-107); Estimated Glomerular Filt Rate > 60; Glucose 126 mg/dL (65-110); Potassium 3.7 mmol/L (3.4-5.0); Sodium 127 mmol/L (137-145)
[2022-06-03] MEDS: CHOLECALCIFEROL 1,000 UNITS TABLET 2000 UNITS PO (09:51)
[2022-06-03] MEDS: FERROUS SULFATE 324 MG TABLET PO ×2 (09:52→16:55)
[2022-06-03] MEDS: APIXABAN 5 MG TABLET PO ×2 (09:52→20:07)
[2022-06-03] MEDS: METOPROLOL TARTRATE 25 MG TABLET PO ×2 (09:52→20:07)
[2022-06-03] MEDS: DOCUSATE SODIUM 100 MG CAPSULE PO (09:52)
[2022-06-03] MEDS: ASPIRIN 81 MG ENTERIC TABLET PO (09:52)
[2022-06-03] MEDS: TAMSULOSIN HCL 0.4 MG CAPSULE PO (09:53)
[2022-06-03] MEDS: MAGNESIUM OXIDE 400 MG TABLET PO ×2 (09:53→16:56)
[2022-06-03] MEDS: AMIODARONE HCL 200 MG TABLET PO ×2 (09:54→20:07)
[2022-06-03] MEDS: TOLNAFTATE 1% POWDER 45 GM BTL 1 APPLIC TOPICAL (09:58)
--- NOTE | 2022-06-03 12:03 | PM.CNNEP ---
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 (and CT of brain negative) TSH and cortisol okay currently previous cortisol level was lowish (13.5) - but appropriate response with cosyntropin stim test sodium improved in the last 24 hours with addition of salt tabs and IV lasix in conjunction with fluid restriction to avoid overcorrection of sodium (4 - 6mmol/L in 24hrs but not to exceed 8mmol/L) have cut back on salt tabs sodium went from 121 to 129 in 24 hours so still within range follow trend of repeat sodium levels (2) Altered mental status: Code(s): R41.82 - Altered mental status, unspecified Status: Acute Assessment and Plan: due to #1 (?) clinically better at this time (3) Weakness: Code(s): R53.1 - Weakness Status: Acute Assessment and Plan: physical decline likely due to recurrent hospitalizations recently PT/OT as tolerated Long and extensive discussion (> 20 minutes) with patient and daughter at bedside regarding her hyponatremia and the need for close monitoring of sodium as well as ensuring stability in this issue. Will continue to follow. History of Present Illness Reason for Consult Consult date: 06/03/22 Reason for consult: hyponatremia Chief Complaint Chief complaint: hyponatremia History of Present Illness Narrative: The patient is 72-year-old female with a past medical history as outlined below who presented to [facility] Emergency room for further evaluation of generalized weakness in association with altered mental status. The patient's daughter reported on admission that the patient's weakness, altered mental status, and confusion has been deteriorating over the last week prior to presentation. She has been reported sleeping up to 16-18 hours a day because of lethargy. She also apparently had some right lower abdominal pain but no associated fevers, chills nausea or vomiting. Furthermore, the patient's daughter stated that her oral intake was very limited due to her altered mental status and in general. It should be noted the patient was just recently discharged from the hospital about a month ago for issues relating to hyponatremia. At that time, she responded to gentle IV fluids and no real other interventions (salt tabs, diuretics, fluid restriction...etc) were needed and her discharge sodium was 132 millimoles per L. Workup and evaluation emergency room demonstrated routine labs with a normal white blood cell count, mild anemia, along with a sodium of 130 and normal renal function. The urinalysis was unremarkable and chest x-ray only revealed a left pleural effusion. CT scan of the head was negative for any acute intracranial findings a and her CT scan of the abdomen pelvis was unremarkable aside from a small pericardial effusion. Given her constellation of symptoms as well as her laboratory/imaging findings, she was admitted the hospital for further evaluation therapy. Over the course of her hospitalization, despite being on a fluid restriction, her sodium levels continue to drop. She was subsequently continued on the fluid restriction but salt tablets were recently added to her medication regimen and this seems to have improved her sodium level in the last 24 hours. Renal consultation was requested due to her acute on chronic hyponatremia. The patient has had issues and problems with hyponatremia in the past with her most recent hospitalization here a
[2022-06-03 12:57] LABS: Anion Gap 9 mmol/L (8-16); Blood Urea Nitrogen 18 mg/dL (7-17); Calcium 8.1 mg/dL (8.4-10.2); Carbon Dioxide 28 mmol/L (22-30); Chloride 90 mmol/L (98-107); Estimated Glomerular Filt Rate > 60; Glucose 121 mg/dL (65-110); Potassium 3.9 mmol/L (3.4-5.0); Sodium 127 mmol/L (137-145)
--- NOTE | 2022-06-03 15:05 | PM.IMPN ---
Progress Note: A&P Assessment and Plan (1) Abdominal pain, acute, right lower quadrant: Code(s): R10.31 - Right lower quadrant pain Status: Acute (2) Chronic hyponatremia: Code(s): E87.1 - Hypo-osmolality and hyponatremia Status: Acute (3) Confusion: Code(s): R41.0 - Disorientation, unspecified Status: Acute (4) Pericardial effusion: Code(s): I31.3 - Pericardial effusion (noninflammatory) Status: Acute (5) New onset atrial fibrillation: Code(s): I48.91 - Unspecified atrial fibrillation Status: Acute (6) Unintentional weight loss: Code(s): R63.4 - Abnormal weight loss Status: Acute (7) Severe protein-calorie malnutrition: Code(s): E43 - Unspecified severe protein-calorie malnutrition Status: Acute (8) Weakness: Code(s): R53.1 - Weakness Status: Acute (9) History of pericarditis: Code(s): Z86.79 - Personal history of other diseases of the circulatory system Status: Acute (10) Paroxysmal atrial fibrillation with RVR: Code(s): I48.0 - Paroxysmal atrial fibrillation Status: Acute (11) Urinary retention: Code(s): R33.9 - Retention of urine, unspecified Status: Acute Plan # abdominal pain CT abdomen with no acute findings. Small pleural effusions. The venous insufficiency and small pericardial effusion. This resolved lipase normal # chronic hyponatremia: Multiple admissions for chronic hyponatremia. Sodium level is 130 TSH normal cortisol normal, urine osmolality an SPEP. On fluid restriction CT head within normal limits. Sodium worsened to 120. Started on salt tablets and Lasix. Suspect SIADH. Nephrology board. Sodium level has improved but with wide jump from 120-129 today. Will hold off on salt tablets and Lasix today recheck and monitor sodium level. Per nephrology # altered mental status CT head is negative. This is resolved and much improved # pericardial effusion stable pericardial effusion since April per id cardiology following. Placed on colchicine last hospitalization # paroxysmal atrial fibrillation. Episode March 16, 2020. Back with atrial fibrillation. Cardizem drip later switched to oral amiodarone. 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 EF 55-60% with global longitudinal strain moderately elevated at -14% and left ventricular wall thickness. 05/24 converted to sinus rhythm. Currently on oral amiodarone # unintentional weight loss colon dietitian consulted on overall supplement cancer screening as an outpatient basis. CEA negative. Last colonoscopy greater than 10 years ago. Mammogram more than 10 years ago. Cologuard test done 2018 was negative # tachypnea ABG with respiratory alkalosis. BNP was elevated. Effusions bilateral has gotten worse. Pericardial effusion is trivial on repeat echo. Diurese and monitor. CTA is negative for PE # severe protein calorie malnutrition # anemia mild normocytic. No signs of bleeding. Continue to monitor. Iron profile suggestive of anemia chronic disease. B12 and folate normal # generalized weakness PT OT # history of pericarditis # urinary retention bladder scan more than 350 mL. Buck catheter in place. Follow-up with Urology in 1-2 weeks after discharge for voiding trial. Moved out of IMU. To medical floor Subjective Date/time seen: 06/03/22 15:05 Interval history: 06/01/22? 13:40 chart reviewed.? Discussed with patient and her [id number] at bedside.? Feels little short of breath.? Abdominal pain has resolved.? Confusion has resolved as well.? No fever.? Intermittent cough without any expectoration.? No chest pain.? No nausea vomiting appetite is low.? Weight loss history noted. 06/02/2022 no overnight events. No new complaints. Sodium is lowered. Labs reviewed. Feels short of breath particularly with exertion. Denies any chest pain. Tickly sensation in her throat with some dry cough de
--- NOTE | 2022-06-03 16:52 | PC.NURSE ---
This patient, Anita Little, was transferred to [facility] on 06/03/22 at 1621. Personal belongings sent with patient. Report given to Tigist GARNICA. Appropriate documentation sent with patient.
[2022-06-03 18:56] LABS: Anion Gap 11 mmol/L (8-16); Blood Urea Nitrogen 22 mg/dL (7-17); Calcium 8.1 mg/dL (8.4-10.2); Carbon Dioxide 25 mmol/L (22-30); Chloride 90 mmol/L (98-107); Estimated Glomerular Filt Rate > 60; Glucose 127 mg/dL (65-110); Potassium 3.6 mmol/L (3.4-5.0); Sodium 126 mmol/L (137-145)
[2022-06-03] MEDS: polyethylene glycoL 3350 17 GM POWD.PACK PO (20:05)
[2022-06-03] MEDS: MELATONIN 5 MG TABLET PO (20:07)
[2022-06-04 01:14] LABS: Anion Gap 0 mmol/L (8-16); Blood Urea Nitrogen 20 mg/dL (7-17); Calcium 7.6 mg/dL (8.4-10.2); Carbon Dioxide 27 mmol/L (22-30); Chloride 93 mmol/L (98-107); Estimated Glomerular Filt Rate > 60; Glucose 126 mg/dL (65-110); Potassium 4.2 mmol/L (3.4-5.0); Sodium 120 mmol/L (137-145)
[2022-06-04 05:53] LABS: Eosinophils Percent Auto 0.2 % (0-4.4); Hematocrit 26.8 % (37.0-47.0); Hemoglobin 8.8 g/dL (12.0-15.0); Immature Granulocyte Absolute 0.04 K/mm3 (0.00-0.031); Immature Granulocyte Percent A 0.8 % (0-0.5); Lymphocytes Percent Auto 8.2 % (18.3-44.2); Mean Corpuscular HGB Conc 32.8 g/dl (32-36); Mean Corpuscular Hemoglobin 29.5 pg (26-34); Mean Corpuscular Volume 89.9 fl (80-100); Mean Platelet Volume 8.9 fl (7.4-10.4); Monocytes Absolute Auto 0.2 K/mm3 (0.1-0.6); Monocytes Percent Auto 3.9 % (2.6-8.5); Neutrophils Absolute Auto 4.3 K/mm3 (1.3-6.7); Neutrophils Percent Auto 86.9 % (45.5-73.1); Platelet Count Result 498 k/mm3 (150-375); Red Blood Count 2.98 M/mm3 (4.2-5.4); Red Cell Distribution Width 12.6 % (11.5-14.5); White Blood Count 4.9 K/mm3 (4.5-10.0)
[2022-06-04 05:56] LABS: Alanine Aminotransferase 36 U/L (6-35); Albumin Level 2.5 g/dL (3.5-5.1); Alkaline Phosphatase 70 U/L (38-126); Anion Gap 8 mmol/L (8-16); Aspartate Amino Transferase 40 U/L (14-36); Bilirubin,Total 0.1 mg/dL (0.2-1.3); Blood Urea Nitrogen 16 mg/dL (7-17); Calcium 7.9 mg/dL (8.4-10.2); Carbon Dioxide 26 mmol/L (22-30); Chloride 92 mmol/L (98-107); Estimated Glomerular Filt Rate > 60; Glucose 122 mg/dL (65-110); Potassium 3.8 mmol/L (3.4-5.0); Sodium 126 mmol/L (137-145)
[2022-06-04 08:00] VITALS: BP 110/48; PULSE 77; RESP 20; TEMP 36.4; O2SAT 95
[2022-06-04] MEDS: ASPIRIN 81 MG ENTERIC TABLET PO (08:53)
[2022-06-04] MEDS: APIXABAN 5 MG TABLET PO ×2 (08:53→20:38)
[2022-06-04] MEDS: DOCUSATE SODIUM 100 MG CAPSULE PO (08:53)
[2022-06-04] MEDS: CHOLECALCIFEROL 1,000 UNITS TABLET 2000 UNITS PO (08:53)
[2022-06-04] MEDS: FERROUS SULFATE 324 MG TABLET PO ×2 (08:53→17:04)
[2022-06-04] MEDS: MAGNESIUM OXIDE 400 MG TABLET PO ×2 (08:53→17:04)
[2022-06-04] MEDS: FUROSEMIDE 10 MG TABLET PO ×2 (08:53→17:03)
[2022-06-04 08:54] VITALS: PULSE 81
[2022-06-04] MEDS: SODIUM CHLORIDE 1 GM TABLET PO ×2 (08:54→17:04)
[2022-06-04] MEDS: AMIODARONE HCL 200 MG TABLET PO ×2 (08:54→20:38)
[2022-06-04] MEDS: TAMSULOSIN HCL 0.4 MG CAPSULE PO (08:54)
[2022-06-04 08:55] VITALS: PULSE 81
[2022-06-04] MEDS: METOPROLOL TARTRATE 25 MG TABLET PO ×2 (08:55→20:38)
[2022-06-04] MEDS: polyethylene glycoL 3350 17 GM POWD.PACK PO (09:04)
[2022-06-04 09:20] LABS: Sodium 126 mmol/L (137-145)
--- NOTE | 2022-06-04 11:05 | PCNFU ---
Nutrition Follow-Up Complete: Severe malnutrition related to chronic illness, loss of appetite as evidenced by weight loss -22%/1 month, poor intake, and muscle wasting and fat loss. goal: Meal intake at least 50% Supplement intakes at least 50% Patient is meeting current goals. Pt current nutrition is DBCC/FR 1500 ml. Last recorded weight is 47.5 kg, up from 40 kg on admit. Bowel Motility:+BM reported 05/31 Labs Reviewed:Glu 122, Cr 0.4,Alb 2.5 Meds Noted:Lopressor, Mag ox, Ferrous Sulfate, Eliquis, Lasix, Colace Skin: Deep Tissue-sacrum Additional Notes: Patient seen today for nutrition follow up. She is tolerating DBCC-eating 100% of most meals. Discussed Leif with patient today due to wounds. Leif started BID for wound healing, providing an additional 90 kcals and 2.5 gms protein. Na 126, nursing plans to speak with MD regarding fluid restriction. Agree with diet orders. Monitoring: Follow up in 7 days for intakes, weights, plan of care.
[2022-06-04] MEDS: TOLNAFTATE 1% POWDER 45 GM BTL 1 APPLIC TOPICAL (12:02)
--- NOTE | 2022-06-04 12:36 | P.PNNP_ITS ---
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 (and CT of brain negative) * TSH and cortisol okay currently * previous cortisol level was lowish (13.5) - but appropriate response with cosyntropin stim test * trying to avoid overcorrection of sodium (4 - 6mmol/L in 24hrs but not to exceed 8mmol/L) * will add low dose lasix to salt tabs * follow trend of repeat sodium levels (2) Altered mental status: Code(s): R41.82 - Altered mental status, unspecified Status: Acute Assessment and Plan: * due to #1 (?) * clinically better at this time (3) Weakness: Code(s): R53.1 - Weakness Status: Acute Assessment and Plan: * physical decline likely due to recurrent hospitalizations recently * PT/OT as tolerated Will continue to follow. Subjective Date/time seen: 06/04/22 12:36 Appears to be doing reasonably well; sodium better overall but still continues t o fluctuate as noted by trend in the last 24 hours; otherwise, appears asymptomatic with regard to this issue; no other acute distress noted; no events overnight or earlier this AM. Exam Narrative: General: elderly female in NAD Heart: normal S1 and S2; no rub Lungs: coarse breath sounds Abdomen: soft, nontender, nondistended, positive bowel sounds Extremities: no cyanosis or clubbing; trace edema Skin: warm and dry Objective Data Vital Signs Vital Signs: Vital Signs Temp Pulse Resp BP Pulse Ox O2 Del Method 06/04/22 08:00 Room Air 06/04/22 08:55 81 06/04/22 08:54 81 06/04/22 08:00 36.4 C 77 20 110/48 L 95 06/03/22 23:56 36.7 C 73 18 130/63 95 06/03/22 20:07 83 06/03/22 20:07 83 06/03/22 16:00 36.8 C 78 20 119/60 95 Intake/Output Intake/Output: Intake & Output 06/01/22 06/02/22 06/03/22 06/04/22 23:59 23:59 23:59 23:59 Intake Total 602 190 5546 520 Output Total 1050 1225 1900 450 [facility] -60 -265 -820 70 Meds/Results Medications: Active Medications Generic Name Dose Route Start Last Admin Trade Name Freq PRN Reason Stop Dose Admin Acetaminophen 650 mg 05/28/22 08:49 06/02/22 17:31 Acetaminophen 325 Mg Tablet PO 650 mg Q6H PRN Administration Mild Pain (1-3) or Fever Amiodarone HCl 200 mg 06/01/22 21:00 06/04/22 08:54 Amiodarone Hcl 200 Mg Tablet PO 200 mg Q12HR VIKTORIYA Administration Apixaban 5 mg 05/30/22 21:00 06/04/22 08:53 Apixaban 5 Mg Tablet PO 5 mg Q12HR VIKTORIYA Administration Aspirin 81 mg 05/29/22 09:00 06/04/22 08:53 Aspirin 81 Mg Enteric Tablet PO 81 mg QAM VIKTORIYA Administration
--- NOTE | 2022-06-04 12:36 | PM.PNNEP ---
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 (and CT of brain negative) TSH and cortisol okay currently previous cortisol level was lowish (13.5) - but appropriate response with cosyntropin stim test trying to avoid overcorrection of sodium (4 - 6mmol/L in 24hrs but not to exceed 8mmol/L) will add low dose lasix to salt tabs follow trend of repeat sodium levels (2) Altered mental status: Code(s): R41.82 - Altered mental status, unspecified Status: Acute Assessment and Plan: due to #1 (?) clinically better at this time (3) Weakness: Code(s): R53.1 - Weakness Status: Acute Assessment and Plan: physical decline likely due to recurrent hospitalizations recently PT/OT as tolerated Will continue to follow. Subjective Date/time seen: 06/04/22 12:36 Appears to be doing reasonably well; sodium better overall but still continues to fluctuate as noted by trend in the last 24 hours; otherwise, appears asymptomatic with regard to this issue; no other acute distress noted; no events overnight or earlier this AM. Exam Narrative: General: elderly female in NAD Heart: normal S1 and S2; no rub Lungs: coarse breath sounds Abdomen: soft, nontender, nondistended, positive bowel sounds Extremities: no cyanosis or clubbing; trace edema Skin: warm and dry Objective Data Vital Signs Vital Signs: Vital Signs Temp Pulse Resp BP Pulse Ox O2 Del Method 06/04/22 08:00 Room Air 06/04/22 08:55 81 06/04/22 08:54 81 06/04/22 08:00 36.4 C 77 20 110/48 L 95 06/03/22 23:56 36.7 C 73 18 130/63 95 06/03/22 20:07 83 06/03/22 20:07 83 06/03/22 16:00 36.8 C 78 20 119/60 95 Intake/Output Intake/Output: Intake & Output 06/01/22 06/02/22 06/03/22 06/04/22 23:59 23:59 23:59 23:59 Intake Total 013 691 5496 520 Output Total 1050 1225 1900 450 Balance -60 -265 -820 70 Meds/Results Medications: Active Medications Generic Name Dose Route Start Last Admin Trade Name Freq PRN Reason Stop Dose Admin Acetaminophen 650 mg 05/28/22 08:49 06/02/22 17:31 Acetaminophen 325 Mg Tablet PO 650 mg Q6H PRN Administration Mild Pain (1-3) or Fever Amiodarone HCl 200 mg 06/01/22 21:00 06/04/22 08:54 Amiodarone Hcl 200 Mg Tablet PO 200 mg Q12HR VIKTORIYA Administration Apixaban 5 mg 05/30/22 21:00 06/04/22 08:53 Apixaban 5 Mg Tablet PO 5 mg Q12HR VIKTORIYA Administration Aspirin 81 mg 05/29/22 09:00 06/04/22 08:53 Aspirin 81 Mg Enteric Tablet PO 81 mg QAM VIKTORIYA Administration Docusate Sodium 100 mg 06/01/22 09:00 06/04/22 08:53 Docusate Sodium 100 Mg Capsule PO 100 mg DAILY VIKTORIYA Administration Ferrous Sulfate 324 mg 05/28/22 17:00 06/04/22 08:53 Ferrous Sulfate 324 Mg Tablet PO 324 mg BIDWM VIKTORIYA Administration Furosemide 10 mg 06/04/22 09:00 06/04/22 08:53 Furosemide 10 Mg Tablet PO 10 mg BID VIKTORIYA Administration Losartan Potassium 50 mg 05/29/22 09:00 05/29/22 08:58 Losartan Potassium 50 Mg Tablet PO 50 mg DAILY VIKTORIYA Administration Magnesium Oxide 400 mg 05/29/22 09:00 06/04/22 08:53 Magnesium Oxide 400 Mg Tablet PO 06/27/22 08:59 400 mg BID VIKTORIYA Administration Melatonin 5 mg 05/28/22 21:00 06/03/22 20:07 Melatonin 5 Mg Tablet PO 5 mg HS VIKTORIYA Administration Metoprolol Tartrate 25 mg 05/29/22 16:30 06/04/22 08:55 Metoprolol T
[2022-06-04 14:00] VITALS: BP 115/57; PULSE 78; RESP 18; TEMP 36.6; O2SAT 93
[2022-06-04 15:26] LABS: Sodium 121 mmol/L (137-145)
--- NOTE | 2022-06-04 18:38 | PM.IMPN ---
Progress Note: A&P Assessment and Plan (1) Paroxysmal atrial fibrillation with RVR: Code(s): I48.0 - Paroxysmal atrial fibrillation Status: Acute (2) Chronic hyponatremia: Code(s): E87.1 - Hypo-osmolality and hyponatremia Status: Acute (3) Abdominal pain, acute, right lower quadrant: Code(s): R10.31 - Right lower quadrant pain Status: Acute (4) Confusion: Code(s): R41.0 - Disorientation, unspecified Status: Acute (5) Pericardial effusion: Code(s): I31.3 - Pericardial effusion (noninflammatory) Status: Acute (6) Unintentional weight loss: Code(s): R63.4 - Abnormal weight loss Status: Acute (7) Severe protein-calorie malnutrition: Code(s): E43 - Unspecified severe protein-calorie malnutrition Status: Acute (8) Weakness: Code(s): R53.1 - Weakness Status: Acute (9) History of pericarditis: Code(s): Z86.79 - Personal history of other diseases of the circulatory system Status: Acute (10) Urinary retention: Code(s): R33.9 - Retention of urine, unspecified Status: Acute Plan # Abdominal and pelvic CT with no acute findings except small pericardial effusions. She does have small right inguinal hernia containing fat and pelvic venous insufficient which could possibly contribute to pain. No bowel movements for 3 days so consider constipation for abdominal pain. Lipase is normal. Pain is much improved. Will schedule the MiraLax # chronic hyponatremia: Multiple admissions for chronic hyponatremia. Sodium level was 130 but dropped to 120. TSH and cortisol normal. Remains on fluid restriction. CT head within normal limits. Started on salt tablets and Lasix. Suspect SIADH. Nephrology consulted and appreciate their input. Sodium level with wide jump from 120-129 over the past 48hrs. Continue salt tablets; Lasix stopped. # altered mental status: CT head is negative. This is resolved and much improved # pericardial effusion: stable pericardial effusion since April. Cardiology following. Echo showing trivial effusion. # pAFib: Previous episode in 2019 associated with pericarditis. Back with atrial fibrillation. Cardizem drip later switched to oral amiodarone. Eliquis started. Echo showing EF 55-60% with global longitudinal strain moderately elevated at -14% and left ventricular wall thickness. 05/24 converted to sinus rhythm. Continue amiodarone. Continue Eliquis. Continue metoprolol. # unintentional weight loss: CEA negative. Last colonoscopy greater than 10 years ago. Mammogram more than 10 years ago. Cologuard test done 2018 was negative. Continue supplements. # tachypnea ABG with respiratory alkalosis. BNP was elevated. CT showing small pleural effusions. Pericardial effusion is trivial on repeat echo. Diurese and monitor. CTA is negative for PE # severe protein calorie malnutrition # anemia mild normocytic. No signs of bleeding. Continue to monitor. Iron profile suggestive of anemia chronic disease. B12 and folate normal # generalized weakness PT OT # history of pericarditis # urinary retention bladder scan more than 350 mL. Buck catheter in place. Follow-up with Urology in 1-2 weeks after discharge for voiding trial. Will discuss with them about voiding trial prior to discharge. Subjective Date/time seen: 06/04/22 18:38 Interval history: 72yo female with HTN and pre-DM here for abdominal pain. Assuming care. Chart reviewed. Slept well last night. No bowel a 3 days. She has occasional abdominal pain. At passing flatus. No nausea or vomiting. No chest pain. Exam Narrative: AF 97.9 115/57 78 18 93% RA Gen - NARD lying semi-recumbent in bed Chest - distant BS with faint crackles in the left base CV - RRR S1/S2 Abd - Soft, mildly protuberant, +BS, NT Ext - No pedal edema Psych - Nml mood and affect Skin - Warm and dry Objective Data Vital
[2022-06-04 20:38] VITALS: PULSE 82
[2022-06-04] MEDS: MELATONIN 5 MG TABLET PO (20:38)
[2022-06-04 21:51] LABS: Sodium 127 mmol/L (137-145)
[2022-06-04] MEDS: BISACODYL 10 MG SUPPOSITORY RECTAL (22:00)
[2022-06-05] VITALS (7 sets, daily range): BP systolic 109–154; BP diastolic 55–75; PULSE 77–85; RESP 16–20; TEMP 36.1–36.9; O2SAT 93–99
[2022-06-05 06:15] LABS: Eosinophils Percent Auto 0.2 % (0-4.4); Hemoglobin 8.5 g/dL (12.0-15.0); Immature Granulocyte Absolute 0.06 K/mm3 (0.00-0.031); Immature Granulocyte Percent A 1.1 % (0-0.5); Lymphocytes Absolute Auto 0.56 K/mm3 (0.9-3.2); Lymphocytes Percent Auto 10.2 % (18.3-44.2); Mean Corpuscular HGB Conc 32.7 g/dl (32-36); Mean Corpuscular Hemoglobin 29.5 pg (26-34); Mean Corpuscular Volume 90.3 fl (80-100); Mean Platelet Volume 8.9 fl (7.4-10.4); Monocytes Absolute Auto 0.3 K/mm3 (0.1-0.6); Monocytes Percent Auto 4.8 % (2.6-8.5); Neutrophils Absolute Auto 4.6 K/mm3 (1.3-6.7); Neutrophils Percent Auto 83.7 % (45.5-73.1); Platelet Count Result 520 k/mm3 (150-375); Red Blood Count 2.88 M/mm3 (4.2-5.4); Red Cell Distribution Width 12.6 % (11.5-14.5); White Blood Count 5.5 K/mm3 (4.5-10.0)
[2022-06-05 06:24] LABS: Alanine Aminotransferase 37 U/L (6-35); Albumin Level 2.5 g/dL (3.5-5.1); Alkaline Phosphatase 68 U/L (38-126); Anion Gap 6 mmol/L (8-16); Aspartate Amino Transferase 40 U/L (14-36); Bilirubin,Total < 0.1 mg/dL (0.2-1.3); Blood Urea Nitrogen 19 mg/dL (7-17); Calcium 7.7 mg/dL (8.4-10.2); Carbon Dioxide 27 mmol/L (22-30); Chloride 93 mmol/L (98-107); Estimated Glomerular Filt Rate > 60; Glucose 126 mg/dL (65-110); Potassium 3.7 mmol/L (3.4-5.0); Sodium 126 mmol/L (137-145)
[2022-06-05] MEDS: APIXABAN 5 MG TABLET PO ×2 (09:14→19:48)
[2022-06-05] MEDS: FUROSEMIDE 10 MG TABLET PO ×2 (09:14→16:49)
[2022-06-05] MEDS: CHOLECALCIFEROL 1,000 UNITS TABLET 2000 UNITS PO (09:14)
[2022-06-05] MEDS: FERROUS SULFATE 324 MG TABLET PO ×2 (09:14→16:49)
[2022-06-05] MEDS: ASPIRIN 81 MG ENTERIC TABLET PO (09:14)
[2022-06-05] MEDS: MAGNESIUM OXIDE 400 MG TABLET PO ×2 (09:14→16:49)
[2022-06-05] MEDS: METOPROLOL TARTRATE 25 MG TABLET PO ×2 (09:15→19:47)
[2022-06-05] MEDS: TAMSULOSIN HCL 0.4 MG CAPSULE PO (09:15)
[2022-06-05] MEDS: DOCUSATE SODIUM 100 MG CAPSULE PO (09:15)
[2022-06-05] MEDS: AMIODARONE HCL 200 MG TABLET PO ×2 (09:16→19:47)
--- NOTE | 2022-06-05 09:16 | PM.IMPN ---
Progress Note: A&P Assessment and Plan (1) Paroxysmal atrial fibrillation with RVR: Code(s): I48.0 - Paroxysmal atrial fibrillation Status: Acute Assessment and Plan: Previous episode in 2019 associated with pericarditis. Had recurrent atrial fibrillation this admission. Cardizem drip started and later switched to oral amiodarone. Eliquis started. Echo showing EF 55-60% with global longitudinal strain moderately elevated at -14% and left ventricular wall thickness. 05/24 converted to sinus rhythm. Continue amiodarone. Continue Eliquis. Continue metoprolol. (2) Chronic hyponatremia: Code(s): E87.1 - Hypo-osmolality and hyponatremia Status: Acute Assessment and Plan: Multiple admissions for chronic hyponatremia. Sodium level was 130 but dropped to 120. TSH and cortisol normal. Remains on fluid restriction. CT head within normal limits. Started on salt tablets and Lasix. Suspect SIADH. Nephrology consulted and appreciate their input. Sodium level better; now running from 121-127 over the past 24hrs but mostly 126-127. Continue salt tablets; Lasix added back. (3) Abdominal pain, acute, right lower quadrant: Code(s): R10.31 - Right lower quadrant pain Status: Acute Assessment and Plan: Abdominal and pelvic CT with no acute findings except small pericardial effusions. Lipase is normal. She does have small right inguinal hernia containing fat and pelvic venous insufficient which could possibly contribute to pain. Constipation could be causing some abdominal pain. Pain is much improved. Now having BMs. Continue scheduled MiraLax (4) Confusion: Code(s): R41.0 - Disorientation, unspecified Status: Acute Assessment and Plan: Patient was confused on presentation. CT head was negative. Na was 130 on admission. Etiology unclear. Her symptoms have resolved. Continue to follow (5) Pericardial effusion: Code(s): I31.3 - Pericardial effusion (noninflammatory) Status: Acute Assessment and Plan: Stable pericardial effusion since April. Cardiology following. Echo showing trivial effusion. (6) Unintentional weight loss: Code(s): R63.4 - Abnormal weight loss Status: Acute Assessment and Plan: CEA negative. Last colonoscopy greater than 10 years ago. Mammogram more than 10 years ago. Cologuard test done 2019 was negative. Continue supplements. Routine cancer screening after discharge. (7) Severe protein-calorie malnutrition: Code(s): E43 - Unspecified severe protein-calorie malnutrition Status: Acute Assessment and Plan: Severe protein calorie malnutrition. Supplements added. She is eating 100% of her meals. (8) Weakness: Code(s): R53.1 - Weakness Status: Acute Assessment and Plan: Generalized weakness present on admission related to above. Continue PT OT. Encouraged her to be out of bed. (9) History of pericarditis: Code(s): Z86.79 - Personal history of other diseases of the circulatory system Status: Acute Assessment and Plan: Patient has a hx of pericarditis. (10) Urinary retention: Code(s): R33.9 - Retention of urine, unspecified Status: Acute Assessment and Plan: Bladder scan more than 350 mL. Buck catheter was placed. Flomax started. Urology wants follow-up in 1-2 weeks after discharge for voiding trial. Discussed with Urology of performing voiding trial now since she has been on Flomax for 1 week and now ambulating. They will look at the chart and determine if prudent. Plan DVT prophylaxis: Cristhian Code status: Full Diet: Diabetic with supplements. Remains on fluid restriction. She presumably has pre diabetes with last A1c of 5.6 in December. Will change her to a regular diet. Disposition: [facility] nursing facility placement. Discharge when okay with Nephrology Subjective Date/time
[2022-06-05] MEDS: TOLNAFTATE 1% POWDER 45 GM BTL 1 APPLIC TOPICAL ×2 (09:17→19:52)
[2022-06-05] MEDS: polyethylene glycoL 3350 17 GM POWD.PACK PO (09:25)
--- NOTE | 2022-06-05 09:40 | P.PNNP_ITS ---
Progress Note: A&P Assessment and Plan (1) Hyponatremia: Code(s): E87.1 - Hypo-osmolality and hyponatremia Status: Acute Assessment and Plan: * improving * this has occurred twice before * last hospitalization about a month ago (April 2022) and previously episode when she had pericariditis * on April 2022, her sodium improved to 132 on discharge after gentle IVFs * previous/current evaluation noted: * no culprit medications * no history of cancer * no pulmonary issues (although CXR suggests some fluid retention issues) * no BUILDING TRADES INSTRUCTOR symptoms (and CT of brain negative) * TSH and cortisol okay currently * previous cortisol level was lowish (13.5) - but appropriate response with cosyntropin stim test * urine immunofixation negative, serum immunofixation inconclusive but kappa/lambda ratio normal * urine osmolality noted but serum osmolality not done * suspect SIADH * current therapy = salt tabs, lasix, and fluid restriction * follow trend of repeat sodium levels (2) Altered mental status: Code(s): R41.82 - Altered mental status, unspecified Status: Acute Assessment and Plan: * due to #1 (?) * clinically better at this time (3) Weakness: Code(s): R53.1 - Weakness Status: Acute Assessment and Plan: * physical decline likely due to recurrent hospitalizations recently * PT/OT as tolerated Will continue to follow. Subjective Date/time seen: 06/05/22 09:40 No new issues or problems to report at this time; no apparent distress voiced; eating and drinking okay; in spite of fluctuating sodium levels, remains relative asymptomatic. Exam Narrative: General: elderly female in NAD Heart: normal S1 and S2; no rub Lungs: coarse breath sounds Abdomen: soft, nontender, nondistended, positive bowel sounds Extremities: no cyanosis or clubbing; trace edema Skin: warm and intact Objective Data Vital Signs Vital Signs: Vital Signs Temp Pulse Resp BP Pulse Ox 06/05/22 09:16 80 06/05/22 09:15 80 06/05/22 08:37 36.8 C 81 20 143/68 H 95 06/05/22 00:00 36.9 C 85 16 154/69 H 99 06/04/22 20:38 82 06/04/22 20:38 82 06/04/22 14:00 36.6 C 78 18 115/57 L 93 Intake/Output Intake/Output: Intake & Output 06/02/22 06/03/22 06/04/22 06/05/22 23:59 23:59 23:59 23:59 Intake Total 960 1080 760 Output Total 1225 1900 1250 900 Balance -265 -820 -490 -900 Meds/Results Medications: Active Medications Generic Name Dose Route Start Last Admin Trade Name Freq PRN Reason Stop Dose Admin Acetaminophen 650 mg 05/28/22 08:49 06/02/22 17:31 Acetaminophen 325 Mg Tablet PO 650 mg Q6H PRN Administration Mild Pain (1-3) or Fever Amiodarone HCl 200 mg 06/01/22 21:00 06/05/22 09:16 Amiodarone Hcl 200 Mg Tablet PO 200 mg Q12HR VIKTORIYA Administration Apixaban 5 mg 05/30/22 21:00 06/05/22 09:14 Apixaban 5 Mg Tablet PO 5 mg Q12HR VIKTORIYA Administration Aspirin 81 mg 05/29/22 09:00 06/05/22 09:14 Aspirin 81 Mg Enteric Tablet PO 81 mg QAM VIKTORIYA Administration Docusate Sod
--- NOTE | 2022-06-05 09:40 | PM.PNNEP ---
Progress Note: A&P Assessment and Plan (1) Hyponatremia: Code(s): E87.1 - Hypo-osmolality and hyponatremia Status: Acute Assessment and Plan: improving this has occurred twice before last hospitalization about a month ago (April 2022) and previously episode when she had pericariditis on April 2022, her sodium improved to 132 on discharge after gentle IVFs previous/current evaluation noted: no culprit medications no history of cancer no pulmonary issues (although CXR suggests some fluid retention issues) no RESIDENT PHYSICIAN symptoms (and CT of brain negative) TSH and cortisol okay currently previous cortisol level was lowish (13.5) - but appropriate response with cosyntropin stim test urine immunofixation negative, serum immunofixation inconclusive but kappa/lambda ratio normal urine osmolality noted but serum osmolality not done suspect SIADH current therapy = salt tabs, lasix, and fluid restriction follow trend of repeat sodium levels (2) Altered mental status: Code(s): R41.82 - Altered mental status, unspecified Status: Acute Assessment and Plan: due to #1 (?) clinically better at this time (3) Weakness: Code(s): R53.1 - Weakness Status: Acute Assessment and Plan: physical decline likely due to recurrent hospitalizations recently PT/OT as tolerated Will continue to follow. Subjective Date/time seen: 06/05/22 09:40 No new issues or problems to report at this time; no apparent distress voiced; eating and drinking okay; in spite of fluctuating sodium levels, remains relative asymptomatic. Exam Narrative: General: elderly female in NAD Heart: normal S1 and S2; no rub Lungs: coarse breath sounds Abdomen: soft, nontender, nondistended, positive bowel sounds Extremities: no cyanosis or clubbing; trace edema Skin: warm and intact Objective Data Vital Signs Vital Signs: Vital Signs Temp Pulse Resp BP Pulse Ox 06/05/22 09:16 80 06/05/22 09:15 80 06/05/22 08:37 36.8 C 81 20 143/68 H 95 06/05/22 00:00 36.9 C 85 16 154/69 H 99 06/04/22 20:38 82 06/04/22 20:38 82 06/04/22 14:00 36.6 C 78 18 115/57 L 93 Intake/Output Intake/Output: Intake & Output 06/02/22 06/03/22 06/04/22 06/05/22 23:59 23:59 23:59 23:59 Intake Total 960 1772 760 Output Total 1220 1900 7208 500 Balance -265 -820 -490 -900 Meds/Results Medications: Active Medications Generic Name Dose Route Start Last Admin Trade Name Freq PRN Reason Stop Dose Admin Acetaminophen 650 mg 05/28/22 08:49 06/02/22 17:31 Acetaminophen 325 Mg Tablet PO 650 mg Q6H PRN Administration Mild Pain (1-3) or Fever Amiodarone HCl 200 mg 06/01/22 21:00 06/05/22 09:16 Amiodarone Hcl 200 Mg Tablet PO 200 mg Q12HR VIKTORIYA Administration Apixaban 5 mg 05/30/22 21:00 06/05/22 09:14 Apixaban 5 Mg Tablet PO 5 mg Q12HR VIKTORIYA Administration Aspirin 81 mg 05/29/22 09:00 06/05/22 09:14 Aspirin 81 Mg Enteric Tablet PO 81 mg QAM VIKTORIYA Administration Docusate Sodium 100 mg 06/01/22 09:00 06/05/22 09:15 Docusate Sodium 100 Mg Capsule PO 100 mg DAILY VIKTORIYA Administration Ferrous Sulfate 324 mg 05/28/22 17:00 06/05/22 09:14 Ferrous Sulfate 324 Mg Tablet PO 324 mg BIDWM VIKTORIYA Administration Furosemide 10 mg 06/04/22 09:00 06/05/22 09:14 Furosemide 10 Mg Tablet PO 10 mg BID VIKTORIYA Administration Magnesium Oxide 400 mg 05/29/22 09:00 06/05/22 09:14 Magnesium Oxide 400 Mg Tablet PO 06/27/22 08:59 400 mg BID VIKTORIYA Administration Melatonin 5 mg 05/28/22 21:00 06/04/22 20:38 Melatonin 5 Mg Tablet PO 5 mg HS VIKTORIYA Administration Metoprolol Tartrate 25 mg 05/29/22 16:30 06/05/22 09:15 Metoprolol Tartrate 25 Mg Tablet PO 25 mg Q12HR VIKTORIYA Administration Ondansetron HCl 4 mg 05/28/22 08:49 Ondansetron Inj 4 Mg/2 Ml Vial IV PUSH Q6H PRN
[2022-06-05] MEDS: SODIUM CHLORIDE 1 GM TABLET PO ×2 (10:38→16:49)
[2022-06-05 11:26] LABS: Sodium 122 mmol/L (137-145)
--- NOTE | 2022-06-05 13:11 | WPDUROPN2 ---
Progress Note: A&P Assessment and Plan (1) Urinary retention: Code(s): R33.9 - Retention of urine, unspecified Status: Acute Assessment and Plan: Perform a voiding trial today, push fluids within her restriction limit to produce an urge to urinate. After first void, bladder scan and call with results. If PVR is <300cc ok to leave sandoval out. May discontinue Flomax if she is urinating well, otherwise replace sandoval if PVR is >300cc and we will f/u in the office for a Urodynamic study. Subjective Subjective Date/Time Seen: 06/05/22 13:11 The patient had her sandoval removed today for a voiding trial. We had planned doing it in the office this week, however since she was still hospitalized we decided to do it now. She is on fluid restriction, therefore I suspect it may take a while for her to have the urge to urinate. Review of Systems Cardiovascular: Cardiovascular: Denies chest pain Respiratory: Respiratory: Reports no additional respiratory complaints Gastrointestinal: Gastrointestinal: Denies abdominal pain, Denies nausea and Denies vomiting Genitourinary: Genitourinary: Denies hematuria, Denies dysuria, Denies pelvic pain, Denies flank pain and Denies urinary hesitancy Exam Const: General: cooperative Resp: Effort & Inspection: normal respiratory effort Cardio: Rate: regular rate GI: GI Palp: Yes Soft to palpation and No Tenderness to palpation present (GI) : General: Yes no CVA tenderness Extrem: Right lower extremity: no edema Left lower extremity: no edema Objective Data Vital Signs Vital Signs: Vital Signs - 24 hr 06/04/22 14:00 06/04/22 20:38 06/04/22 20:38 Temperature 97.9 F Pulse Rate 78 82 82 Respiratory Rate 18 Blood Pressure 115/57 L Pulse Oximetry 93 06/05/22 00:00 06/05/22 08:37 06/05/22 09:15 Temperature 98.4 F 98.2 F Pulse Rate 85 81 80 Respiratory Rate 16 20 Blood Pressure 154/69 H 143/68 H Pulse Oximetry 99 95 06/05/22 09:16 Temperature Pulse Rate 80 Respiratory Rate Blood Pressure Pulse Oximetry Intake/Output Intake/Output: Intake & Output 06/02/22 06/03/22 06/04/22 06/05/22 23:59 23:59 23:59 23:59 Intake Total 960 1080 760 240 Output Total 1229 1900 1227 900 [facility] -265 -820 -490 -660 Meds/Results Medications: Active Medications Generic Name Dose Route Start Last Admin Trade Name Darryl PRN Reason Stop Dose Admin Acetaminophen 650 mg 05/28/22 08:49 06/02/22 17:31 Acetaminophen 325 Mg Tablet PO 650 mg Q6H PRN Administration Mild Pain (1-3) or Fever Amiodarone HCl 200 mg 06/01/22 21:00 06/05/22 09:16 Amiodarone Hcl 200 Mg Tablet PO 200 mg Q12HR VIKTORIYA Administration Apixaban 5 mg 05/30/22 21:00 06/05/22 09:14 Apixaban 5 Mg Tablet PO 5 mg Q12HR VIKTORIYA Administration Aspirin 81 mg 05/29/22 09:00 06/05/22 09:14 Aspirin 81 Mg Enteric Tablet PO 81 mg QAM VIKTORIYA Administration Docusate Sodium 100 mg 06/01/22 09:00 06/05/22 09:15 Docusate Sodium 100 Mg Capsule PO 100 mg DAILY VIKTORIYA Administration Ferrous Sulfate 324 mg 05/28/22 17:00 06/05/22 09:14 Ferrous Sulfate 324 Mg Tablet PO 324 mg BIDWM VIKTORIYA Administration Furosemide 10 mg 06/04/22 09:00 06/05/22 09:14 Furosemide 10 Mg Tablet PO 10 mg BID VIKTORIYA Administration Magnesium Oxide 400 mg 05/29/22 09:00 06/05/22 09:14 Magnesium Oxide 400 Mg Tablet PO 06/27/22 08:59 400 mg BID VIKTORIYA Administration Melatonin 5 mg 05/28/22 21:00 06/04/22 20:38 Melatonin 5 Mg Tablet PO 5 mg HS VIKTORIYA Administration Metoprolol Tartrate 25 mg 05/29/22 16:30 06/05/22 09:15 Metoprolol Tartrate 25 Mg Tablet PO 25 mg Q12HR VIKTORIYA Administration Ondansetron HCl 4 mg 05/28/22 08:49 Ondansetron Inj 4 Mg/2 Ml Vial IV PUSH Q6H PRN Nausea And Vomiting Perflutren Lipid Microsphere 0 ml 05/29/22 07:51 Perflutren Lipid Microspheres 1.5 Ml Vial Diluted To 10 Ml Total Volume IV PUSH
[2022-06-05] MEDS: SODIUM CHLORIDE 500 MG TABLET PO (16:49)
[2022-06-05] MEDS: MELATONIN 5 MG TABLET PO (19:47)
[2022-06-05 21:21] LABS: Glucose Point of Care 169 mg/dl (65-105)
[2022-06-06] VITALS (12 sets, daily range): BP systolic 141–157; BP diastolic 71–72; PULSE 71–96; RESP 16–22; TEMP 36.1–36.8; O2SAT 88–100
[2022-06-06 06:06] LABS: Basophils Percent Auto 0.2 % (0.2-1.2); Eosinophils Percent Auto 0.3 % (0-4.4); Hematocrit 25.8 % (37.0-47.0); Hemoglobin 8.4 g/dL (12.0-15.0); Immature Granulocyte Absolute 0.06 K/mm3 (0.00-0.031); Lymphocytes Absolute Auto 0.56 K/mm3 (0.9-3.2); Lymphocytes Percent Auto 9.1 % (18.3-44.2); Mean Corpuscular HGB Conc 32.6 g/dl (32-36); Mean Corpuscular Hemoglobin 29.6 pg (26-34); Mean Corpuscular Volume 90.8 fl (80-100); Mean Platelet Volume 8.7 fl (7.4-10.4); Monocytes Absolute Auto 0.3 K/mm3 (0.1-0.6); Monocytes Percent Auto 4.6 % (2.6-8.5); Neutrophils Absolute Auto 5.2 K/mm3 (1.3-6.7); Neutrophils Percent Auto 84.8 % (45.5-73.1); Platelet Count Result 496 k/mm3 (150-375); Red Blood Count 2.84 M/mm3 (4.2-5.4); Red Cell Distribution Width 12.8 % (11.5-14.5); White Blood Count 6.1 K/mm3 (4.5-10.0)
[2022-06-06 06:24] LABS: Alanine Aminotransferase 37 U/L (6-35); Albumin Level 2.5 g/dL (3.5-5.1); Alkaline Phosphatase 71 U/L (38-126); Anion Gap 6 mmol/L (8-16); Aspartate Amino Transferase 37 U/L (14-36); Bilirubin,Total 0.1 mg/dL (0.2-1.3); Blood Urea Nitrogen 17 mg/dL (7-17); Calcium 7.7 mg/dL (8.4-10.2); Carbon Dioxide 26 mmol/L (22-30); Chloride 95 mmol/L (98-107); Estimated Glomerular Filt Rate > 60; Glucose 129 mg/dL (65-110); Phosphorus 3.5 mg/dL (2.5-4.5); Potassium 3.7 mmol/L (3.4-5.0); Sodium 127 mmol/L (137-145)
[2022-06-06] MEDS: SODIUM CHLORIDE 500 MG TABLET PO ×2 (08:51→17:03)
[2022-06-06] MEDS: CHOLECALCIFEROL 1,000 UNITS TABLET 2000 UNITS PO (08:51)
[2022-06-06] MEDS: polyethylene glycoL 3350 17 GM POWD.PACK PO (08:51)
[2022-06-06] MEDS: MAGNESIUM OXIDE 400 MG TABLET PO ×2 (08:51→17:03)
[2022-06-06] MEDS: APIXABAN 5 MG TABLET PO ×2 (08:51→21:27)
[2022-06-06] MEDS: ASPIRIN 81 MG ENTERIC TABLET PO (08:51)
[2022-06-06] MEDS: FERROUS SULFATE 324 MG TABLET PO ×2 (08:51→17:03)
[2022-06-06] MEDS: AMIODARONE HCL 200 MG TABLET PO ×2 (08:51→21:27)
[2022-06-06] MEDS: TAMSULOSIN HCL 0.4 MG CAPSULE PO (08:52)
[2022-06-06] MEDS: SODIUM CHLORIDE 1 GM TABLET PO ×2 (08:52→17:03)
[2022-06-06] MEDS: DOCUSATE SODIUM 100 MG CAPSULE PO (08:52)
[2022-06-06] MEDS: FUROSEMIDE 10 MG TABLET PO ×2 (08:52→17:03)
[2022-06-06] MEDS: METOPROLOL TARTRATE 25 MG TABLET PO ×2 (08:52→21:26)
--- NOTE | 2022-06-06 14:08 | P.PNNP_ITS ---
Progress Note: A&P Assessment and Plan (1) Hyponatremia: Code(s): E87.1 - Hypo-osmolality and hyponatremia Status: Acute Assessment and Plan: * improving * this has occurred twice before * last hospitalization about a month ago (April 2022) and previously episode when she had pericariditis * on April 2022, her sodium improved to 132 on discharge after gentle IVFs * previous/current evaluation noted: * no culprit medications * no history of cancer * no pulmonary issues (although CXR suggests some fluid retention issues) * no TECHNICAL WRITER AND EDITOR symptoms (and CT of brain negative) * TSH and cortisol okay currently * previous cortisol level was lowish (13.5) - but appropriate response with cosyntropin stim test * urine immunofixation negative, serum immunofixation inconclusive but kappa/lambda ratio normal * urine osmolality noted but serum osmolality not done * suspect SIADH * current therapy = salt tabs, lasix, and fluid restriction; consider escalate diuretics (depending on CXR findings) * follow trend of repeat sodium levels (2) Altered mental status: Code(s): R41.82 - Altered mental status, unspecified Status: Acute Assessment and Plan: * due to #1 (?) * clinically better at this time (3) Weakness: Code(s): R53.1 - Weakness Status: Acute Assessment and Plan: * physical decline likely due to recurrent hospitalizations recently * PT/OT as tolerated Will continue to follow. Subjective Date/time seen: 06/06/22 14:08 Sodium remains relatively stable at this time; reported issues with pleuritic chest pain overnight but did not alert or tell anybody about this; also had some shortness of breath so she was placed on supplemental oxygen; no apparent distress currently, Exam Narrative: General: elderly female in NAD Heart: normal S1 and S2; no rub Lungs: coarse breath sounds Abdomen: soft, nontender, nondistended, positive bowel sounds Extremities: no cyanosis or clubbing; trace edema Skin: no rash Objective Data Vital Signs Vital Signs: Vital Signs Temp Pulse Resp BP Pulse Ox 06/06/22 14:00 36.8 C 71 22 H 157/71 H 100 06/06/22 08:52 85 06/06/22 08:51 85 06/06/22 04:37 36.3 C L 85 16 141/72 H 96 06/05/22 19:47 81 06/05/22 19:47 81 06/05/22 19:42 36.1 C L 81 18 133/75 96 Intake/Output Intake/Output: Intake & Output 06/03/22 06/04/22 06/05/22 06/06/22 23:59 23:59 23:59 23:59 Intake Total 1080 760 960 580 Output Total 1900 1250 1525 700 [facility] -820 -490 -565 -120 Meds/Results Medications: Active Medications Generic Name Dose Route Start Last Admin Trade Name Freq PRN Reason Stop Dose Admin Acetaminophen 650 mg 05/28/22 08:49 06/02/22 17:31 Acetaminophen 325 Mg Tablet PO 650 mg Q6H PRN Administration Mild Pain (1-3) or Fever Amiodarone HCl 200 mg 06/01/22 21:00 06/06/22 08:51 Amiodarone Hcl 200 Mg Tablet PO 200 mg Q12HR VIKTORIYA Administration Apixaban 5 mg 05/30/22 21:00 06/06/22 08:51 Apixaban 5 Mg Tablet PO 5 mg Q12HR VIKTORIYA Administration Aspirin 81 mg
--- NOTE | 2022-06-06 14:08 | PM.PNNEP ---
Progress Note: A&P Assessment and Plan (1) Hyponatremia: Code(s): E87.1 - Hypo-osmolality and hyponatremia Status: Acute Assessment and Plan: improving this has occurred twice before last hospitalization about a month ago (April 2022) and previously episode when she had pericariditis on April 2022, her sodium improved to 132 on discharge after gentle IVFs previous/current evaluation noted: no culprit medications no history of cancer no pulmonary issues (although CXR suggests some fluid retention issues) no HELICOPTER SPECIALIST symptoms (and CT of brain negative) TSH and cortisol okay currently previous cortisol level was lowish (13.5) - but appropriate response with cosyntropin stim test urine immunofixation negative, serum immunofixation inconclusive but kappa/lambda ratio normal urine osmolality noted but serum osmolality not done suspect SIADH current therapy = salt tabs, lasix, and fluid restriction; consider escalate diuretics (depending on CXR findings) follow trend of repeat sodium levels (2) Altered mental status: Code(s): R41.82 - Altered mental status, unspecified Status: Acute Assessment and Plan: due to #1 (?) clinically better at this time (3) Weakness: Code(s): R53.1 - Weakness Status: Acute Assessment and Plan: physical decline likely due to recurrent hospitalizations recently PT/OT as tolerated Will continue to follow. Subjective Date/time seen: 06/06/22 14:08 Sodium remains relatively stable at this time; reported issues with pleuritic chest pain overnight but did not alert or tell anybody about this; also had some shortness of breath so she was placed on supplemental oxygen; no apparent distress currently, Exam Narrative: General: elderly female in NAD Heart: normal S1 and S2; no rub Lungs: coarse breath sounds Abdomen: soft, nontender, nondistended, positive bowel sounds Extremities: no cyanosis or clubbing; trace edema Skin: no rash Objective Data Vital Signs Vital Signs: Vital Signs Temp Pulse Resp BP Pulse Ox 06/06/22 14:00 36.8 C 71 22 H 157/71 H 100 06/06/22 08:52 85 06/06/22 08:51 85 06/06/22 04:37 36.3 C L 85 16 141/72 H 96 06/05/22 19:47 81 06/05/22 19:47 81 06/05/22 19:42 36.1 C L 81 18 133/75 96 Intake/Output Intake/Output: Intake & Output 06/03/22 06/04/22 06/05/22 06/06/22 23:59 23:59 23:59 23:59 Intake Total 1080 760 960 580 Output Total 1900 1250 1525 700 Balance -820 -490 -565 -120 Meds/Results Medications: Active Medications Generic Name Dose Route Start Last Admin Trade Name Darryl PRN Reason Stop Dose Admin Acetaminophen 650 mg 05/28/22 08:49 06/02/22 17:31 Acetaminophen 325 Mg Tablet PO 650 mg Q6H PRN Administration Mild Pain (1-3) or Fever Amiodarone HCl 200 mg 06/01/22 21:00 06/06/22 08:51 Amiodarone Hcl 200 Mg Tablet PO 200 mg Q12HR VIKTORIYA Administration Apixaban 5 mg 05/30/22 21:00 06/06/22 08:51 Apixaban 5 Mg Tablet PO 5 mg Q12HR VIKTORIYA Administration Aspirin 81 mg 05/29/22 09:00 06/06/22 08:51 Aspirin 81 Mg Enteric Tablet PO 81 mg QAM VIKTORIYA Administration Docusate Sodium 100 mg 06/01/22 09:00 06/06/22 08:52 Docusate Sodium 100 Mg Capsule PO 100 mg DAILY VIKTORIYA Administration Ferrous Sulfate 324 mg 05/28/22 17:00 06/06/22 08:51 Ferrous Sulfate 324 Mg Tablet PO 324 mg BIDWM VIKTORIYA Administration Furosemide 10 mg 06/04/22 09:00 06/06/22 08:52 Furosemide 10 Mg Tablet PO 10 mg BID VIKTORIYA Administration Magnesium Oxide 400 mg 05/29/22 09:00 06/06/22 08:51 Magnesium Oxide 400 Mg Tablet PO 06/27/22 08:59 400 mg BID VIKTORIYA Administration Melatonin 5 mg 05/28/22 21:00 06/05/22 19:47 Melatonin 5 Mg Tablet PO 5 mg HS VIKTORIYA Administration Metoprolol Tartrate 25 mg 05/29/22 16:30 06/06/22 08:52 Metoprolol Tartrate 25 Mg Tablet PO
--- NOTE | 2022-06-06 14:10 | PM.IMPN ---
Progress Note: A&P Assessment and Plan (1) Chest pain: Code(s): R07.9 - Chest pain, unspecified Status: Acute Assessment and Plan: Patient with atypical chest pain that woke her up from sleep overnight. Possibly acid reflux. Consider also brief run of AFib with RVR. Will add Pepcid at night. Place on telemetry as well. He is also having feelings of shortness of breath without hypoxia. Will check chest x-ray. Home O2 evaluation. Chest x-ray reviewed showing no significant change in small bilateral pleural effusions with basilar atelectasis and/or pneumonia. Will add incentive spirometry. (2) Paroxysmal atrial fibrillation with RVR: Code(s): I48.0 - Paroxysmal atrial fibrillation Status: Acute Assessment and Plan: Previous episode in 2019 associated with pericarditis. Had recurrent atrial fibrillation this admission. Cardizem drip started and later switched to oral amiodarone. Eliquis started. Echo showing EF 55-60% with global longitudinal strain moderately elevated at -14% and left ventricular wall thickness. 05/24 converted to sinus rhythm. Continue amiodarone. Continue Eliquis. Continue metoprolol. (3) Chronic hyponatremia: Code(s): E87.1 - Hypo-osmolality and hyponatremia Status: Acute Assessment and Plan: Multiple admissions for chronic hyponatremia. Sodium level was 130 but dropped to 120. TSH and cortisol normal. Remains on fluid restriction. CT head within normal limits. Started on high dose salt tablets and Lasix. Suspect SIADH. Nephrology consulted and appreciate their input. Sodium level better; now running from 122-127 over the past 24hrs. Continue salt tablets and Lasix. (4) Abdominal pain, acute, right lower quadrant: Code(s): R10.31 - Right lower quadrant pain Status: Acute Assessment and Plan: Abdominal and pelvic CT with no acute findings except small pericardial effusions. Lipase is normal. She does have small right inguinal hernia containing fat and pelvic venous insufficient which could possibly contribute to pain. Constipation could be causing some abdominal pain. Pain is much improved. Now having BMs. Continue scheduled MiraLax (5) Confusion: Code(s): R41.0 - Disorientation, unspecified Status: Acute Assessment and Plan: Patient was confused on presentation. CT head was negative. Na was 130 on admission. Etiology unclear. Her symptoms have resolved. Continue to follow (6) Pericardial effusion: Code(s): I31.3 - Pericardial effusion (noninflammatory) Status: Acute Assessment and Plan: Stable pericardial effusion since April. Cardiology following. Echo showing trivial effusion. (7) Unintentional weight loss: Code(s): R63.4 - Abnormal weight loss Status: Acute Assessment and Plan: CEA negative. Last colonoscopy greater than 10 years ago. Mammogram more than 10 years ago. Cologuard test done 2019 was negative. Continue supplements. Routine cancer screening after discharge. (8) Severe protein-calorie malnutrition: Code(s): E43 - Unspecified severe protein-calorie malnutrition Status: Acute Assessment and Plan: Severe protein calorie malnutrition. Supplements added. She is eating well (9) Weakness: Code(s): R53.1 - Weakness Status: Acute Assessment and Plan: Generalized weakness present on admission related to above. Continue PT OT. Encouraged her to be out of bed. (10) History of pericarditis: Code(s): Z86.79 - Personal history of other diseases of the circulatory system Status: Acute Assessment and Plan: Patient has a hx of pericarditis. (11) Urinary retention: Code(s): R33.9 - Retention of urine, unspecified Status: Acute Assessment and Plan: Bladder scan more than 350 mL. Buck catheter was placed. Flomax started. Urology wants follow-up in 1-2 wee
--- NOTE | 2022-06-06 15:49 | HOMEO2EVAL ---
Evaluation was performed at [facility] Home Oxygen Evaluation RC: Home Oxygen (O2) Evaluation Start: 06/06/22 14:13 Freq: ONCE Status: Active Protocol: RPE Activity Type Activity Date Activity User E-sign Co-sign Detail Recorded Client Recorded Date Recorded By Document 06/06/22 15:30 ARNALDO [email or web address] 06/06/22 15:49 ARNALDO Document 06/06/22 15:35 ARNALDO [email or web address] 06/06/22 15:49 ARNALDO Document 06/06/22 15:35 ARNALDO [email or web address] 06/06/22 15:49 ARNALDO Document 06/06/22 15:40 ARNALDO [email or web address] 06/06/22 15:49 ARNALDO 06/06/22 06/06/22 06/06/22 15:30 15:35 15:35 Home O2 Evaluation Test Phase Resting Exercise Exercise Oxygen Delivery Room Air Room Air Nasal Cannula Oxygen Flow Rate (L/min) 2 Pulse Oximetry (90-100 %) 93 88 L 93 Pulse Rate (60-100 beats/min) 80 96 Ambulation Distance (feet) 50 Ambulation Distance (meters) 15.23 Home Oxygen Evaluation Comments PT REQUIRES 2 L WITH ACTIVITY Treatment Charges O2 Evaluation - Inpatient 06/06/22 15:40 Home O2 Evaluation Test Phase Resting Oxygen Delivery Room Air Oxygen Flow Rate (L/min) Pulse Oximetry (90-100 %) 93 Pulse Rate (60-100 beats/min) 87 Ambulation Distance (feet) Ambulation Distance (meters) Home Oxygen Evaluation Comments Treatment Charges
--- NOTE | 2022-06-06 15:49 | PCRCNOTE ---
HOME O2 EVAL DONE, PT REQUIRES 2 L WITH ACTIVITY, ROOM AIR AT REST. PT ISNT GOING HOME, SHE WILL NOT NEED SET-UP, THIS PT IS GOING [facility]
[2022-06-06] MEDS: MELATONIN 5 MG TABLET PO (21:27)
[2022-06-06] MEDS: FAMOTIDINE 20 MG TABLET PO (21:27)
[2022-06-06] MEDS: TOLNAFTATE 1% POWDER 45 GM BTL 1 APPLIC TOPICAL (21:28)
[2022-06-07] VITALS (8 sets, daily range): BP systolic 130–156; BP diastolic 37–72; PULSE 70–82; RESP 18; TEMP 35.8–36.1; O2SAT 93–94
[2022-06-07 05:47] LABS: Alanine Aminotransferase 37 U/L (6-35); Albumin Level 2.7 g/dL (3.5-5.1); Alkaline Phosphatase 79 U/L (38-126); Anion Gap 10 mmol/L (8-16); Aspartate Amino Transferase 38 U/L (14-36); Bilirubin,Total < 0.1 mg/dL (0.2-1.3); Blood Urea Nitrogen 15 mg/dL (7-17); Calcium 7.5 mg/dL (8.4-10.2); Carbon Dioxide 27 mmol/L (22-30); Chloride 92 mmol/L (98-107); Eosinophils Percent Auto 0.1 % (0-4.4); Estimated Glomerular Filt Rate > 60; Glucose 133 mg/dL (65-110); Hemoglobin 8.1 g/dL (12.0-15.0); Immature Granulocyte Absolute 0.05 K/mm3 (0.00-0.031); Immature Granulocyte Percent A 0.7 % (0-0.5); Lymphocytes Absolute Auto 0.54 K/mm3 (0.9-3.2); Lymphocytes Percent Auto 7.4 % (18.3-44.2); Mean Corpuscular HGB Conc 32.4 g/dl (32-36); Mean Corpuscular Hemoglobin 29.3 pg (26-34); Mean Corpuscular Volume 90.6 fl (80-100); Mean Platelet Volume 8.7 fl (7.4-10.4); Monocytes Absolute Auto 0.3 K/mm3 (0.1-0.6); Monocytes Percent Auto 4.4 % (2.6-8.5); Neutrophils Absolute Auto 6.4 K/mm3 (1.3-6.7); Neutrophils Percent Auto 87.4 % (45.5-73.1); Platelet Count Result 523 k/mm3 (150-375); Potassium 3.9 mmol/L (3.4-5.0); Red Blood Count 2.76 M/mm3 (4.2-5.4); Red Cell Distribution Width 12.9 % (11.5-14.5); Sodium 129 mmol/L (137-145); White Blood Count 7.3 K/mm3 (4.5-10.0)
[2022-06-07] MEDS: SODIUM CHLORIDE 500 MG TABLET PO (09:27)
[2022-06-07] MEDS: MAGNESIUM OXIDE 400 MG TABLET PO (09:28)
[2022-06-07] MEDS: DOCUSATE SODIUM 100 MG CAPSULE PO (09:28)
[2022-06-07] MEDS: SODIUM CHLORIDE 1 GM TABLET PO (09:28)
[2022-06-07] MEDS: ASPIRIN 81 MG ENTERIC TABLET PO (09:28)
[2022-06-07] MEDS: FERROUS SULFATE 324 MG TABLET PO (09:29)
[2022-06-07] MEDS: AMIODARONE HCL 200 MG TABLET PO (09:29)
[2022-06-07] MEDS: METOPROLOL TARTRATE 25 MG TABLET PO (09:30)
[2022-06-07] MEDS: FUROSEMIDE 10 MG TABLET PO (09:30)
[2022-06-07] MEDS: APIXABAN 5 MG TABLET PO (09:30)
[2022-06-07] MEDS: TAMSULOSIN HCL 0.4 MG CAPSULE PO (09:30)
[2022-06-07] MEDS: CHOLECALCIFEROL 1,000 UNITS TABLET 2000 UNITS PO (09:30)
[2022-06-07] MEDS: TOLNAFTATE 1% POWDER 45 GM BTL 1 APPLIC TOPICAL (09:31)
[2022-06-07] MEDS: polyethylene glycoL 3350 17 GM POWD.PACK PO (09:31)
--- NOTE | 2022-06-07 10:07 | P.PNNP_ITS ---
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 lasix 15mg bid) * follow trend of repeat sodium levels (2) Altered mental status: Code(s): R41.82 - Altered mental status, unspecified Status: Acute Assessment and Plan: * due to #1 (?) * clinically better at this time (3) Weakness: Code(s): R53.1 - Weakness Status: Acute Assessment and Plan: * physical decline likely due to recurrent hospitalizations recently * PT/OT as tolerated Will continue to follow. Subjective Date/time seen: 06/07/22 10:07 Continues to make slow and steady progress; sodium continue to improve with current therapy; no apparent distress voiced; no other issues/events overnight or earlier this AM. Exam Narrative: General: elderly female in NAD Heart: normal S1 and S2; no rub Lungs: coarse breath sounds Abdomen: soft, nontender, nondistended, positive bowel sounds Extremities: no cyanosis or clubbing; trace edema Skin: no nodules Objective Data Vital Signs Vital Signs: Vital Signs Temp Pulse Resp BP Pulse Ox O2 Del Method O2 Flow Rate 06/07/22 09:30 82 06/07/22 09:29 82 06/07/22 05:39 36.1 C L 77 18 156/72 H 94 06/07/22 04:11 81 06/07/22 00:00 75 06/06/22 21:30 85 06/06/22 21:27 85 06/06/22 21:26 85 06/06/22 20:25 36.1 C L 88 18 152/71 H 93 06/06/22 16:00 74 06/06/22 15:40 87 93 Room Air 06/06/22 15:35 93 Nasal Cannula 2 06/06/22 15:35 96 88 L Room Air 06/06/22 15:30 80 93 Room Air 06/06/22 14:00 36.8 C 71 22 H 157/71 H 100 Intake/Output Intake/Output: Intake & Output 06/04/22 06/05/22 06/06/22 06/07/22 23:59 23:59 23:59 23:59 Intake Total 083 203 8430 440 Output Total 1250 1525 1350 [facility] -490 -565 -140 440 Meds/Results Medications: Active Medications Generic Name Dose Route Start Last Admin Trade Name Freq PRN Reason Stop Dose Admin Acetaminophen 650 mg 05/28/22 08:49 06/02/22 17:31 Acetaminophen 325 Mg Tablet PO 650 mg Q6H PRN Administration Mild Pain (1-3) or Fever
--- NOTE | 2022-06-07 10:07 | PM.PNNEP ---
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 lasix 15mg bid) follow trend of repeat sodium levels (2) Altered mental status: Code(s): R41.82 - Altered mental status, unspecified Status: Acute Assessment and Plan: due to #1 (?) clinically better at this time (3) Weakness: Code(s): R53.1 - Weakness Status: Acute Assessment and Plan: physical decline likely due to recurrent hospitalizations recently PT/OT as tolerated Will continue to follow. Subjective Date/time seen: 06/07/22 10:07 Continues to make slow and steady progress; sodium continue to improve with current therapy; no apparent distress voiced; no other issues/events overnight or earlier this AM. Exam Narrative: General: elderly female in NAD Heart: normal S1 and S2; no rub Lungs: coarse breath sounds Abdomen: soft, nontender, nondistended, positive bowel sounds Extremities: no cyanosis or clubbing; trace edema Skin: no nodules Objective Data Vital Signs Vital Signs: Vital Signs Temp Pulse Resp BP Pulse Ox O2 Del Method O2 Flow Rate 06/07/22 09:30 82 06/07/22 09:29 82 06/07/22 05:39 36.1 C L 77 18 156/72 H 94 06/07/22 04:11 81 06/07/22 00:00 75 06/06/22 21:30 85 06/06/22 21:27 85 06/06/22 21:26 85 06/06/22 20:25 36.1 C L 88 18 152/71 H 93 06/06/22 16:00 74 06/06/22 15:40 87 93 Room Air 06/06/22 15:35 93 Nasal Cannula 2 06/06/22 15:35 96 88 L Room Air 06/06/22 15:30 80 93 Room Air 06/06/22 14:00 36.8 C 71 22 H 157/71 H 100 Intake/Output Intake/Output: Intake & Output 06/04/22 06/05/22 06/06/22 06/07/22 23:59 23:59 23:59 23:59 Intake Total 929 296 6931 440 Output Total 1250 1525 1350 Balance -490 -565 -140 440 Meds/Results Medications: Active Medications Generic Name Dose Route Start Last Admin Trade Name Freq PRN Reason Stop Dose Admin Acetaminophen 650 mg 05/28/22 08:49 06/02/22 17:31 Acetaminophen 325 Mg Tablet PO 650 mg Q6H PRN Administration Mild Pain (1-3) or Fever Amiodarone HCl 200 mg 06/01/22 21:00 06/07/22 09:29 Amiodarone Hcl 200 Mg Tablet PO 200 mg Q12HR VIKTORIYA Administration Apixaban 5 mg 05/30/22 21:00 06/07/22 09:30 Apixaban 5 Mg Tablet PO 5 mg Q12HR VIKTORIYA Administration Aspirin 81 mg 05/29/22 09:00 06/07/22 09:28 Aspirin 81 Mg Enteric Tablet PO 81 mg QAM VIKTORIYA Administration Docusate Sodium 100 mg 06/01/22 09:00 06/07/22 09:28 Docusate Sodium 100 Mg Capsule PO 100 mg DAILY VIKTORIYA Administration Famotidine 20 mg 06/06/22 21:00 06/06/22 21:27 Famotidine 20 Mg Tablet PO 20 mg HS VIKTORIYA Administration Ferrous Sulfate 324 mg 05/28/22 17:00 06/07/22 09:29 Ferrous Sulfate 324 Mg Tablet PO 324 mg BIDWM VIKTORIYA Administration Furosemide 10 mg 06/04/22 09:00 06/07/22 09:30 Furosemide 10 Mg Tablet PO 10 mg BID VIKTORIYA Adm
[2022-06-07] MEDS: ACETAMINOPHEN 325 MG TABLET 650 MG PO (11:35)
--- NOTE | 2022-06-07 14:52 | PM.DS ---
DS: Admitting Diagnosis Discharge Date 06/07/22 Admitting Diagnosis Abdominal pain DS: Discharge Diagnosis Discharge Diagnosis (1) Chest pain: Code(s): R07.9 - Chest pain, unspecified Status: Acute (2) Paroxysmal atrial fibrillation with RVR: Code(s): I48.0 - Paroxysmal atrial fibrillation Status: Acute (3) Chronic hyponatremia: Code(s): E87.1 - Hypo-osmolality and hyponatremia Status: Acute (4) Abdominal pain, acute, right lower quadrant: Code(s): R10.31 - Right lower quadrant pain Status: Acute (5) Confusion: Code(s): R41.0 - Disorientation, unspecified Status: Acute (6) Pericardial effusion: Code(s): I31.3 - Pericardial effusion (noninflammatory) Status: Acute (7) Unintentional weight loss: Code(s): R63.4 - Abnormal weight loss Status: Acute (8) Severe protein-calorie malnutrition: Code(s): E43 - Unspecified severe protein-calorie malnutrition Status: Acute (9) Weakness: Code(s): R53.1 - Weakness Status: Acute (10) History of pericarditis: Code(s): Z86.79 - Personal history of other diseases of the circulatory system Status: Acute (11) Urinary retention: Code(s): R33.9 - Retention of urine, unspecified Status: Acute DS: Summary Hospital Course Reason for hospitalization: 72yo female with HTN and pre-DM here for abdominal pain. Please see H&P for details Hospital Course: Patient presneted with abdominal pain. Abdominal and pelvic CT with no acute findings except small pericardial effusions. Lipase was normal. She does have small right inguinal hernia containing fat and pelvic venous insufficient which could possibly contribute to pain.? Constipation could be causing some abdominal pain. Pain resolved. Now having BMs. We continued scheduled MiraLax. Patient with AFib. Previous episode in 2019 associated with pericarditis. Cardizem drip started and later switched to oral amiodarone. Eliquis started. Echo showing EF 55-60% with global longitudinal strain moderately elevated at -14% and left ventricular wall thickness.? 05/24 converted to sinus rhythm.? Patient with atypical chest pain that woke her up from sleep one night.? Possibly acid reflux.? Consider also brief run of AFib with RVR.? We added Pepcid at night.? She was also having feelings of shortness of breath without hypoxia. Chest x-ray reviewed showing no significant change in small bilateral pleural effusions with basilar atelectasis and/or pneumonia.? We added incentive spirometry. Home O2 evaluation did show she needed 2L with activity. Multiple admissions for chronic hyponatremia.? Sodium level was 130 but dropped to 120. TSH and cortisol normal. Placed on fluid restriction.? CT head within normal limits. Started on salt tablets and Lasix.? Nephrology consulted and appreciate their input. Sodium level better at 129.? Patient was confused on presentation. CT head was negative. Sodium level was 130 on admission. Etiology unclear. Her symptoms have resolved.? Stable pericardial effusion since April. Cardiology following.? Echo here showing trivial effusion. Patient having unexplained weight loss with severe protein calorie malnutrition. CEA negative.? Last colonoscopy greater than 10 years ago.? Mammogram more than 10 years ago.? Cologuard test done 2018 was negative.?We started supplements. Routine cancer screening after discharge. Bladder scan showing more than 350 mL.? Buck catheter was placed.? Flomax started. Urology performed voiding trial before discharge and patient able to void normally. Patient overall did well and was able to be discharged to SNF on 06/07/22 Status at Discharge Cognitive/behavioral status at discharge: Stable Time Spent with Patient Time attestation: Total time spent providing and/or coordinating discharge services:36 minutes Time spent: Greater than 30 minutes Exam Narrative: AF 97.
[2022-06-07 16:21] LABS: EDCOVIDSCREEN Negative (Negative)
[2022-06-10 04:31] LABS: H pylori Ag Stool Detected (Not Detected)
--- NOTE | 2022-06-10 12:25 | PC.NURSE ---
H pylori Ag is detected. Dr. Roseline greenfield.
--- NOTE | 2022-06-11 09:25 | PC.NURSE ---
H pylori results faxed to Dr. Aguilera. Dr. Dukes aware of finding.
== END 2022-06-07 16:39 | DRG 643 ==
LOC: ANHED 05:12 → ANH3MEDSUR 09:52 → ANHIMU 05-29 09:41 → ANH3MED 06-03 15:53
PROVIDERS: Internal Medicine Cardiovascular Disease; Internal Medicine Nephrology; Nurse Practitioner; Nurse Practitioner Family; Admitting Provider Internal Medicine; Emergency Provider Emergency Medicine; PCP Family Medicine; Visit Provider Internal Medicine
DX: E22.2 Syndrome of inappropriate secretion of antidiuretic hormone (principal); E43 Unspecified severe protein-calorie malnutrition; I31.3 Pericardial effusion (noninflammatory); I48.0 Paroxysmal atrial fibrillation; Z20.822 Contact with and (suspected) exposure to COVID-19; R10.31 Right lower quadrant pain; R41.0 Disorientation, unspecified; R63.4 Abnormal weight loss; R33.9 Retention of urine, unspecified; R07.89 Other chest pain; D50.9 Iron deficiency anemia, unspecified; I10 Essential (primary) hypertension; R06.82 Tachypnea, not elsewhere classified; K40.90 Unilateral inguinal hernia, without obstruction or gangrene, not specified as recurrent; I87.2 Venous insufficiency (chronic) (peripheral); E83.51 Hypocalcemia; E78.00 Pure hypercholesterolemia, unspecified; R73.03 Prediabetes; Z86.79 Personal history of other diseases of the circulatory system; Z68.20 Body mass index [BMI] 20.0-20.9, adult; D63.8 Anemia in other chronic diseases classified elsewhere
CPT/HCPCS: 36415; 36600; 70450; 71045; 71046; 71275; 72132; 74018; 74177; 80048; 80053; 81001; 82378; 82533; 82607; 82728; 82746; 82805; 82948; 83540; 83550; 83605; 83690; 83735; 83880; 83935; 84100; 84295; 84443; 84484; 85025; 85610; 85652; 85730; 86140; 87040; 87338; 87426; 93005; 93306; 94618; 96361; 96365; 96366; 96372; 96374; 96375; 96376; 97110; 97116; 97161; 97165; 97530; 97535; 99285; A9270; C9803; G0378; J1650; J1940; J2270; J7030; J7050; Q9967; U0003; U0005

== ENCOUNTER 2022-06-19 10:51 | Emergency (ER) | payer MEDICARE, SELFPAY ==
--- NOTE | ~2022-06-19 | XR_ITS ---
EXAMINATION: XR chest 2V DATE: 06/19/2022 11:59 INDICATION: Shortness of breath and intermittent chest pain TECHNIQUE: frontal and lateral views of the chest were obtained. COMPARISON: Chest radiograph dated 06/06/2022 FINDINGS: Medically. Increasing opacities in the bilateral lower lung zones with blunting at the posterior sulc i and costophrenic angles consistent with small bilateral pleural effusions with associated basilar a telectasis, mild pulmonary edema, pneumonia or some combination thereof. No pneumothorax. Visualized bones and soft tissues are unremarkable. IMPRESSION: 1. Small bilateral pleural effusions with associated bibasilar atelectasis, mild pulmonary edema, pne umonia or some combination thereof. 2. Cardiomegaly suggesting the above findings may reflect congestive heart failure. Reviewed, dictated and finalized at location A. IMPRESSION: 1. Small bilateral pleural effusions with associated bibasilar atelectasis, mil d pulmonary edema, pneumonia or some combination thereof. 2. Cardiomegaly suggesting the above findings may reflect congestive heart fail ure.
[2022-06-19 11:00] VITALS: BP 151/75; PULSE 67; RESP 26; TEMP 36.3; O2SAT 95
--- NOTE | 2022-06-19 11:00 | ECG_ITS ---
Measurements Intervals [place] Rate: 65 P: 9 ND: 179 QRS: 19 QRSD: 86 T: 57 QT: 324 QTc: 338 Interpretive Statements SINUS RHYTHM DELAYED PRECORDIAL R/S TRANSITION NONSPECIFIC T-WAVE ABNORMALITY- HIGH LATERAL LEADS BASELINE ARTIFACT- I, II, III, AVR, AVL, AVF BORDERLINE ECG COMPARED TO ECG 05/30/2022 17:29:13 NO SIGNIFICANT CHANGES Electronically Signed On 06-19-2022 11:13:30 CDT by Sudhir Kyle D.O.
[2022-06-19 11:17] VITALS: BP 188/80; PULSE 69; RESP 33; O2SAT 95
--- NOTE | 2022-06-19 11:20 | ED.CHESTPAIN ---
HPI - Chest Pain General Chief Complaint: Chest Pain Stated Complaint: chest pain Time Seen by Provider: 06/19/22 11:20 Source: patient and family Limitations: no limitations History of Present Illness HPI narrative: 72 years old white female lives alone came to the emergency room with her daughter because sudden onset of left chest tightness while sitting, lasted less then 5 minutes, currently is asymptomatic. Patient denies aggravating or relieving factors. She reported having similar symptoms recently and was diagnosed of pericarditis and was discharged from our hospital few days ago. Diagnosis at the time of discharge was a chest pain, unspecified, paroxysmal A. fib with RVR, chronic hyponatremia and abdominal pain Related Data Home Medications Medication Instructions Recorded Confirmed cholecalciferol (vitamin D3) 50 50 mcg PO DAILY 03/21/20 06/16/22 mcg (2,000 unit) capsule magnesium oxide 350 mg PO BID 03/21/20 06/16/22 aspirin 81 mg tablet 81 mg PO DAILY 05/28/22 06/16/22 arginine 7 gram-glutamine 7 ea PO 06/16/22 06/16/22 gram-calcium HMB 1.5 gram oral powder pack (Leif) calcium carbonate 500 mg calcium 500 mg PO DAILY 06/16/22 06/16/22 (1,250 mg) tablet (Oyster Shell Calcium) mupirocin 2 % topical ointment 1 applic topical TID 06/16/22 06/16/22 Allergies Allergy/AdvReac Type Severity Reaction Status Date / Time ibuprofen Allergy Unknown Swelling Verified 06/16/22 09:51 of Lip/Tongue/Throat PMFSH Past Medical History Medical History Amaurosis fugax of left eye Colon cancer screening (09/2019) Cologuard negative. Essential hypertension Heart murmur Hypercholesteremia Intolerant to statin. Hypocalcemia Pericarditis Pre-diabetes Surgical History Surgical History History of colonoscopy History of wisdom tooth extraction Family History Family History Mother Family history of Alzheimer's disease Father Family history of Alzheimer's disease AAA (abdominal aortic aneurysm, ruptured) Sibling Acute myocardial infarction Social History Social History (Reviewed 06/16/22 @ 09:56 by Parvin Hartman [facility]) Social History: Lifelong nonsmoker. Drinks 1-2 alcoholic drinks per week. No drug use. She is . Living alone in [place], [place] and her two children live down the road within 5 minutes from her if she needs help. She designates her daughter, Sivan Lin, as her surrogate medical decision maker. Code status: Full code. Smoking status: Never smoker Alcohol intake: never Drinks per week: 2 Substance use: never Substance use type: does not use Gender identity (if verbalized by the patient): Female Spiritual care concerns: No Course Course Emergency Course: Patient presents with left chest pain at rest lasted less than 5 minutes then resolved. Work-up today showed mild pulmonary edema, currently patient on Lasix 10 mg twice a day, my plan to increase it to 20 mg twice a day for 3 days then go back to her normal regimen. Currently patient is asymptomatic. Vital Signs Vital signs: Vital Signs Temperature 36.3 C L 06/19/22 11:00 Pulse Rate 67 06/19/22 11:00 Respiratory Rate 26 H 06/19/22 11:00 Blood Pressure 151/75 H 06/19/22 11:00 Pulse Oximetry 95 06/19/22 11:00 Oxygen Delivery Room Air 06/19/22 11:00 Temperature 36.3 C L 06/19/22 11:00 Pulse Rate 64 06/19/22 13:39 Respiratory Rate 18 06/19/22 13:39 Blood Pressure 167/76 H 06/19/22 13:39 Pulse Oximetry 95 06/19/22 13:39 Oxygen Delivery Room Air 06/19/22 11:00 MDM - Chest Pain Lab Data Result diagrams: 06/19/22 11:40 06/19/22 11:40 Labs: Lab Results 06/19/22 06/19/22 06/19/22 Range/Units 11:40 11:40 11:40 WBC 6.6 (4.5-10.
[2022-06-19 11:39] VITALS: PULSE 71
[2022-06-19] MEDS: METOPROLOL TARTRATE 50 MG TAB 25 MG PO (11:39)
[2022-06-19 11:49] LABS: Eosinophils Percent Auto 0.2 % (0-4.4); Hematocrit 26.9 % (37.0-47.0); Hemoglobin 8.6 g/dL (12.0-15.0); Immature Granulocyte Absolute 0.03 K/mm3 (0.00-0.031); Immature Granulocyte Percent A 0.5 % (0-0.5); Lymphocytes Absolute Auto 0.51 K/mm3 (0.9-3.2); Lymphocytes Percent Auto 7.8 % (18.3-44.2); Mean Corpuscular Hemoglobin 28.8 pg (26-34); Mean Platelet Volume 8.8 fl (7.4-10.4); Monocytes Absolute Auto 0.3 K/mm3 (0.1-0.6); Monocytes Percent Auto 4.6 % (2.6-8.5); Neutrophils Absolute Auto 5.7 K/mm3 (1.3-6.7); Neutrophils Percent Auto 86.9 % (45.5-73.1); Platelet Count Result 481 k/mm3 (150-375); Red Blood Count 2.99 M/mm3 (4.2-5.4); Red Cell Distribution Width 14.3 % (11.5-14.5); White Blood Count 6.6 K/mm3 (4.5-10.0)
[2022-06-19] MEDS: NITROGLYCERIN SL 0.4 MG TABLET SUBLINGUAL (11:52)
[2022-06-19 11:59] LABS: Alanine Aminotransferase 20 U/L (6-35); Albumin Level 2.9 g/dL (3.5-5.1); Alkaline Phosphatase 91 U/L (38-126); Anion Gap 10 mmol/L (8-16); Aspartate Amino Transferase 21 U/L (14-36); Bilirubin,Total 0.2 mg/dL (0.2-1.3); Blood Urea Nitrogen 14 mg/dL (7-17); Carbon Dioxide 27 mmol/L (22-30); Chloride 94 mmol/L (98-107); Estimated CRCL calculation 74 ml/min; Estimated Glomerular Filt Rate > 60; Glucose 125 mg/dL (65-110); Lipase 78 U/L (23-300); Potassium 3.7 mmol/L (3.4-5.0); Sodium 131 mmol/L (137-145)
[2022-06-19 12:04] LABS: INR 1.4
[2022-06-19 12:05] LABS: Partial Thromboplastin Time 43.6 SECONDS (22.3-36.8)
[2022-06-19 12:10] LABS: Troponin I < 0.012 ng/mL (0.000-0.034)
[2022-06-19 12:57] VITALS: BP 160/78; PULSE 65; RESP 35; O2SAT 94
[2022-06-19 13:39] VITALS: BP 167/76; PULSE 64; RESP 18; O2SAT 95
[2022-06-19 15:09] LABS: Troponin I < 0.012 ng/mL (0.000-0.034)
[2022-06-19 15:25] VITALS: BP 162/76; PULSE 70; RESP 31; O2SAT 93
== END 2022-06-19 15:26 | disposition home or self-care (01) ==
PROVIDERS: Emergency Provider Emergency Medicine; PCP Family Medicine
DX: I11.0 Hypertensive heart disease with heart failure (principal); I50.9 Heart failure, unspecified; R07.9 Chest pain, unspecified; E78.00 Pure hypercholesterolemia, unspecified; R73.03 Prediabetes; Z79.82 Long term (current) use of aspirin; Z79.01 Long term (current) use of anticoagulants
CPT/HCPCS: 36415; 71046; 80053; 83690; 84484; 85025; 85610; 85730; 93005; 99284; A9270

== ENCOUNTER 2022-06-27 01:42 | Inpatient (IN) | payer MEDICARE, SELFPAY ==
[2022-06-27] VITALS (17 sets, daily range): BP systolic 141–187; BP diastolic 56–88; PULSE 74–95; RESP 18–41; TEMP 35.9–37.2; O2SAT 89–98; BMI 19.9
--- NOTE | ~2022-06-27 | XR_ITS ---
EXAMINATION: XR chest 2V DATE: 06/27/2022 02:30 INDICATION: Dyspnea. TECHNIQUE: Frontal and lateral views of the chest were obtained. COMPARISON: Chest 2 views 06/19/2022, chest CT 05/30/2022 FINDINGS: There are small right and moderate-sized left pleural effusions. There is a diffuse interst itial pattern in the lungs, consistent with pulmonary edema. There are airspace opacities at the lung bases, likely atelectasis. No pneumothorax. Cardiomegaly is noted. IMPRESSION: 1. Mild pulmonary edema. 2. Stable small right and moderate-sized left pleural effusions. 3. Cardiomegaly. Reviewed, dictated and finalized at location A.
--- NOTE | ~2022-06-27 | XR_ITS ---
XR chest 2V 06/29/2022 08:30 Indication: Shortness of breath Procedure: AP and lateral views of the chest Comparison: Comparison to multiple prior studies sequentially, with oldest reviewed study dated 10/2021. Findings: Stable bibasilar airspace disease. Small pleural effusions. No edema or pneumothorax. Stabl e cardiomediastinal silhouette. No acute osseous abnormality. Impression: 1: Stable bibasilar airspace disease which may represent pneumonia and/or atelectasis. 2: Small pleural effusions. Reviewed, dictated and finalized at location A. Impression: 1: Stable bibasilar airspace disease which may represent pneumonia and/or atele ctasis. 2: Small pleural effusions.
--- NOTE | 2022-06-27 01:50 | ECG_ITS ---
Measurements Intervals [place] Rate: 92 P: 19 [place]: 154 QRS: 23 QRSD: 86 T: 36 QT: 291 QTc: 360 Interpretive Statements SINUS RHYTHM POSSIBLE LEFT ATRIAL ENLARGEMENT DELAYED PRECORDIAL R/S TRANSITION NONSPECIFIC T-WAVE ABNORMALITY- INFERIOR LEADS BASELINE ARTIFACT- I, II, III, AVR, V3 BORDERLINE ECG COMPARED TO ECG 06/19/2022 11:06:14 NO SIGNIFICANT CHANGES Electronically Signed On 06-27-2022 6:34:15 CDT by Sudhir Kyle D.O.
--- NOTE | 2022-06-27 02:00 | PC.NURSE ---
Pt O2 sats dropped to 79% on room air with good wave form. Placed on 2 liters O2 via nasal cannula and 02 sats 98% with good wave form. ERP notified and new orders received.
[2022-06-27 02:06] LABS: Basophils Percent Auto 0.2 % (0.2-1.2); Eosinophils Percent Auto 0.2 % (0-4.4); Hematocrit 26.2 % (37.0-47.0); Hemoglobin 8.1 g/dL (12.0-15.0); Immature Granulocyte Absolute 0.08 K/mm3 (0.00-0.031); Immature Granulocyte Percent A 0.7 % (0-0.5); Lymphocytes Absolute Auto 0.59 K/mm3 (0.9-3.2); Lymphocytes Percent Auto 5.4 % (18.3-44.2); Mean Corpuscular HGB Conc 30.9 g/dl (32-36); Mean Corpuscular Hemoglobin 28.1 pg (26-34); Mean Platelet Volume 8.9 fl (7.4-10.4); Monocytes Absolute Auto 0.4 K/mm3 (0.1-0.6); Monocytes Percent Auto 3.6 % (2.6-8.5); Neutrophils Absolute Auto 9.8 K/mm3 (1.3-6.7); Neutrophils Percent Auto 89.9 % (45.5-73.1); Platelet Count Result 658 k/mm3 (150-375); Red Blood Count 2.88 M/mm3 (4.2-5.4); Red Cell Distribution Width 14.7 % (11.5-14.5); White Blood Count 10.9 K/mm3 (4.5-10.0)
[2022-06-27 02:20] LABS: INR 1.4; Partial Thromboplastin Time 43.3 SECONDS (22.3-36.8); Prothrombin Time 16.8 Seconds (11.1-14.7)
[2022-06-27 02:47] LABS: Alanine Aminotransferase 24 U/L (6-35); Albumin Level 3.2 g/dL (3.5-5.1); Alkaline Phosphatase 93 U/L (38-126); Anion Gap 11 mmol/L (8-16); Aspartate Amino Transferase 36 U/L (14-36); Bilirubin,Total 0.5 mg/dL (0.2-1.3); Blood Urea Nitrogen 16 mg/dL (7-17); Calcium 8.7 mg/dL (8.4-10.2); Carbon Dioxide 26 mmol/L (22-30); Chloride 94 mmol/L (98-107); Estimated Glomerular Filt Rate > 60; Glucose 143 mg/dL (65-110); Potassium 4.1 mmol/L (3.4-5.0); Sodium 131 mmol/L (137-145)
[2022-06-27 03:02] LABS: NT Pro B Type Natriuretic Pept 2050 pg/mL (5-100); Troponin I 0.017 ng/mL (0.000-0.034)
--- NOTE | 2022-06-27 03:18 | ED.SOB ---
HPI - SOB/Dyspnea General Chief Complaint: Shortness of Breath/Dyspnea Stated Complaint: dyspnea Time Seen by Provider: 06/27/22 01:59 History of Present Illness HPI Narrative: 72-year-old female with history of paroxysmal A. fib on Eliquis, CHF on Lasix presents here with increasing difficulty breathing, at home her pulse ox seem to be have dropped to the 70s, and she was having trouble catching her breath, so they came to the hospital here. She denies any chest pain, she was placed on oxygen since arrival. Is breathing more easily Related Data Home Medications Medication Instructions Recorded Confirmed cholecalciferol (vitamin D3) 50 50 mcg PO DAILY 03/21/20 06/16/22 mcg (2,000 unit) capsule magnesium oxide 350 mg PO BID 03/21/20 06/16/22 aspirin 81 mg tablet 81 mg PO DAILY 05/28/22 06/16/22 arginine 7 gram-glutamine 7 ea PO 06/16/22 06/16/22 gram-calcium HMB 1.5 gram oral powder pack (Leif) calcium carbonate 500 mg calcium 500 mg PO DAILY 06/16/22 06/16/22 (1,250 mg) tablet (Oyster Shell Calcium) mupirocin 2 % topical ointment 1 applic topical TID 06/16/22 06/16/22 Allergies Allergy/AdvReac Type Severity Reaction Status Date / Time ibuprofen Allergy Unknown Swelling Verified 06/16/22 09:51 of Lip/Tongue/Throat Review of Systems Review of Systems: CONST: No fever. HEENT: No sore throat C/V: No chest pain RESP: Dyspnea GI: no abdominal pain : No dysuria. M/S: No joint pain. SKIN: No rash. NEURO: [No headache or focal numbness or weakness] PSYCH: [No depression] [facility] Past Medical History Medical History Amaurosis fugax of left eye Colon cancer screening (09/2019) Cologuard negative. Essential hypertension Heart murmur Hypercholesteremia Intolerant to statin. Hypocalcemia Pericarditis Pre-diabetes Surgical History Surgical History History of colonoscopy History of wisdom tooth extraction Family History Family History Mother Family history of Alzheimer's disease Father Family history of Alzheimer's disease AAA (abdominal aortic aneurysm, ruptured) Sibling Acute myocardial infarction Social History Social History Social History: Lifelong nonsmoker. Drinks 1-2 alcoholic drinks per week. No drug use. She is . Living alone in [place], [place] and her two children live down the road within 5 minutes from her if she needs help. She designates her daughter, Sivan Lin, as her surrogate medical decision maker. Code status: Full code. Smoking status: Never smoker Alcohol intake: never Drinks per week: 2 Substance use: never Substance use type: does not use Gender identity (if verbalized by the patient): Female Spiritual care concerns: No Exam Narrative: EXAMINATION OF ORGAN SYSTEMS/BODY AREAS: Constitutional: Vital signs per nursing GENERAL: Resting comfortably in bed HEAD: Normal with no signs of head trauma. EYES: EOMI, conjunctiva normal ENT: Hearing grossly intact LUNGS: One-word sentences and short of breath when speaking but otherwise normal respirations when she is at rest HEART: [Regular rate and rhythm] ABD: [Soft], [nontender to palpation] EXT: Normal range of motion SKIN: [No rashes or lesions.] NEURO: [Alert and oriented x 3. No gross focal sensory or strength deficits.] PSYCH: Normal affect Course Vital Signs Vital signs: Vital Signs Temperature 98.9 F 06/27/22 01:45 Pulse Rate 95 06/27/22 01:45 Respiratory Rate 22 H 06/27/22 01:45 Blood Pressure 187/82 H 06/27/22 01:45 Pulse Oximetry 89 L 06/27/22 01:45 Oxygen Delivery Room Air 06/27/22 01:45 Temperature 98.9 F 06/27/22 01:45 Pulse Rate 82 06/27/22 02:17 Respiratory Rate 22 H 06/27/22 02:17 Blood Pressure 145/78 H 06/27/22 0
[2022-06-27] MEDS: FUROSEMIDE INJ 40 MG/4 ML VIAL IV PUSH ×2 (03:19→17:32)
--- NOTE | 2022-06-27 03:37 | PM.IMHP ---
H&P: HPI History of Present Illness Date/Time: 06/27/22 03:37 <HERB Garsia - Last Filed: 06/28/22 02:12> Chief Complaint: Shortness of breath <HERB Garsia - Last Filed: 06/28/22 02:12> Narrative: Patient is a 72 year old female with a past medical history of Afib, hyponatremia, HTN, pericarditits who presented to the ED with complaints of worsening shortness of breath. She was recently admitted for new onset afib, hyponatremia, pericarditiis. At this time she did have a long stay, and while she was here did have some need for supplement oxygen at times. She was discharged to a rehab center. Recently she has been able to go home, and her daughter has been staying with her. It was noted that over the course of the last few days she has been having increasing shortness of breath confusion. Her daughter is present and stated that the patient is unable to take a deep breath. Her shortness of breath is worse with activity. It was explained that she did not need the oxygen at the rehab center. She denies any urination problems, however, there is an odor that has been noted by her daughter. She denies any nausea, vomiting, cough, sweats, fevers, chill, headache, dizziness, lightheadedness, pain, chest pain. She denies having any problems with eating, and appetite has been good. Her daughter noted that her legs were swelling when she was taking the sodium tabs at home, however, since she has stopped them she no longer has the notable swelling. She does endorse wearing compression stockings. Currently the patient is taking 20mg lasix daily which was increased to BID yesterday. BNP is elevated at 2049. Sodium is slightly low at 131. She also stated that she is still following, a strict fluid restriction of 1200ml per day. Echo from 05/29/22 of an EF 55-60% with an indeterminate diastolic dysfunction. Patient is being admitted to the ED under observation <HERB Garsia - Last Filed: 06/28/22 02:12> Review of Systems Review of Systems: All systems reviewed & are unremarkable except as noted in HPI and below <HERB Garsia - Last Filed: 06/28/22 02:12> [facility] Past Medical History Medical History: Medical History Amaurosis fugax of left eye Chronic hyponatremia Essential hypertension Heart murmur History of pericarditis Hypercholesteremia Intolerant to statin. Hypocalcemia New onset atrial fibrillation Non-ST elevated myocardial infarction (non-STEMI) Paroxysmal atrial fibrillation with RVR Pleural effusion <HERB Garsia - Last Filed: 06/28/22 02:12> Surgical History Surgical History: Surgical History History of colonoscopy History of wisdom tooth extraction <HERB Garsia - Last Filed: 06/28/22 02:12> Family History Family History: Family History Mother Family history of Alzheimer's disease Father Family history of Alzheimer's disease AAA (abdominal aortic aneurysm, ruptured) Sibling Acute myocardial infarction Diabetes mellitus <HERB Garsia - Last Filed: 06/28/22 02:12> Social History Social History: Social History (Updated 06/27/22 @ 04:01 by HERB Garsia) Social History: Lifelong nonsmoker. No drug use. She is . Living alone in [place], [place] and her two children live down the road within 5 minutes from her if she needs help. She designates her daughter, Sivan Lin, as her surrogate medical decision maker. Code status: Full code. Smoking status: Never smoker Alcohol intake: former Drinks per week: 2 Substance use: never Substance use type: does not use Living arrangements: alone Additional living arrangements comments: Daughter currently staying with patient Occupation/Education: retired [employer]
[2022-06-27 03:50] LABS: SARS-CoV-2 RNA PCR Negative
--- NOTE | 2022-06-27 05:03 | ADMGEN ---
This patient, Anita Little, was admitted to [facility] Surg Room 316-02. Patient/family oriented to hospital policies and general routines including ID bracelet, bed and alarms, visiting hours, pain management, procedures, bathroom and other care routines, personal items, smoking policy, room service/diet, and visiting hours. Information on how to activate the Rapid Response Team has been discussed. Patient/Family are encouraged to report perceived risks to care and to ask questions if they do not understand what they are told or what they should do.
[2022-06-27 05:04] LABS: Transferrin 148 mg/dL (206-381)
[2022-06-27 06:03] LABS: Folic Acid 8.5 ng/mL (2.76->20)
[2022-06-27 06:49] LABS: Free T4 Free Thyroxine Reflex 1.99 ng/dL (0.78-2.19)
[2022-06-27 06:54] LABS: Creatinine Urine 14.3 mg/dL; Urea Random Urine 209 MG/DL
[2022-06-27 07:19] LABS: Sodium Urine Random 116 meq/L
[2022-06-27] MEDS: ASPIRIN 81 MG CHEWABLE TABLET PO (08:58)
[2022-06-27] MEDS: CHOLECALCIFEROL 1,000 UNITS TABLET 2000 UNITS PO (08:58)
[2022-06-27] MEDS: CALCIUM CARBONATE (OSCAL) 500 MG TABLET PO (08:59)
[2022-06-27] MEDS: FERROUS SULFATE 324 MG TABLET PO ×2 (08:59→17:31)
[2022-06-27] MEDS: AMIODARONE HCL 200 MG TABLET PO ×2 (08:59→21:38)
[2022-06-27] MEDS: APIXABAN 5 MG TABLET PO ×2 (08:59→21:39)
[2022-06-27] MEDS: FAMOTIDINE 20 MG TABLET PO (08:59)
[2022-06-27] MEDS: MAGNESIUM OXIDE 200 MG TABLET PO ×2 (08:59→17:32)
[2022-06-27] MEDS: METOPROLOL TARTRATE 25 MG TABLET PO ×2 (09:01→21:39)
[2022-06-27] MEDS: MUPIROCIN 2% OINT 22 GM TUBE 1 APPLIC TOPICAL (09:02)
[2022-06-27 09:58] LABS: Total Triiodothyronine (T3) 0.84 NG/ML (0.97-1.69)
[2022-06-27 12:25] LABS: Iron 14 ug/dL (37-170)
[2022-06-27 12:44] LABS: Percent Iron Saturation 7 % (20-50)
--- NOTE | 2022-06-27 15:05 | PCNSR ---
On 06/27/22, the student, Jason Hummel, provided care and completed [facility] on this patient. I have reviewed the student's documentation and agree with the findings.
--- NOTE | 2022-06-27 18:21 | P.PNCROSS_ITS ---
Event Note Event Note Event Note: Please see nurse practitioner H&P for my attestation after seeing the patient joe deleon.
[2022-06-27] MEDS: MELATONIN 5 MG TABLET PO (21:38)
[2022-06-28] VITALS (13 sets, daily range): BP systolic 143–158; BP diastolic 67–75; PULSE 67–85; RESP 14–20; TEMP 36–37.1; O2SAT 93–98
[2022-06-28 06:59] LABS: Anion Gap 8 mmol/L (8-16); Blood Urea Nitrogen 17 mg/dL (7-17); Calcium 8.3 mg/dL (8.4-10.2); Carbon Dioxide 32 mmol/L (22-30); Chloride 91 mmol/L (98-107); Estimated Glomerular Filt Rate > 60; Glucose 122 mg/dL (65-110); Potassium 3.1 mmol/L (3.4-5.0); Sodium 131 mmol/L (137-145)
--- NOTE | 2022-06-28 08:04 | PM.IMPN ---
Progress Note: A&P Assessment and Plan (1) Acute exacerbation of congestive heart failure: Code(s): I50.9 - Heart failure, unspecified Status: Acute Assessment and Plan: BNP 2049. CXR with bilateral pleural effusions with small right and moderate sized left and pulmonary edema. Last echo 05/29/22 HFpEF with EF 55-60% with intermediate diastolic dysfunction. Fluid restriction 1200ml per day Lasix 40mg IV BID (2) Chronic hyponatremia: Code(s): E87.1 - Hypo-osmolality and hyponatremia Status: Acute Assessment and Plan: As sodium can improve with diuresis as volume contracts will defer restarting sodium tabs at this time. If sodium starts to drop significantly will restart sodium tabs. (3) Anemia: Code(s): D64.9 - Anemia, unspecified Status: Acute Assessment and Plan: Iron deficiency anemia. Does not seem to be appropriately responding to oral iron supplementation. Hemoglobin has been declining since April 13-->. For a target hemoglobin of 10, calculated iron deficit is 593mg. Continue ferrous sulfate. May benefit from IV iron infusion. (4) Afib: Code(s): I48.91 - Unspecified atrial fibrillation Status: Acute Assessment and Plan: In sinus rhythm. Takes amiodarone and metoprolol at home. Also on apixban for stroke prophylaxis. Continue home medications. (5) Essential hypertension: Code(s): I10 - Essential (primary) hypertension Status: Chronic Assessment and Plan: Hypertensive. May benefit from low dose REGI/ARB. Will monitor. (6) Thrombocytosis: Code(s): D75.839 - Thrombocytosis, unspecified Status: Acute Assessment and Plan: SPEP from 05/01/22 had elevated kappa and lambda light chains but the ratio was normal. Will repeat SPEP & UPEP with immunofixation. Subjective Date/time seen: 06/28/22 08:04 Patient daughter is at bedside. Patient says she has to calm herself down to breath. She denies shortness of breath or difficulty breathing. She denies muscle aches but says she has felt weak since her hospitalizations started a few months ago. Discussed with the patient about how she has chronic bilateral pleural effusions, which at this time do not appear to require thoracentesis. Discussed that if she cannot get off oxygen this may be ordered. Review of Systems Respiratory: Respiratory: Reports dyspnea Exam Narrative: GENERAL: NAD, cooperative HEENT: Normocephalic, atraumatic, anicteric, nares clear, oropharynx moist and clear, dentition normal NECK: Supple CV: Normal S1, S2, RRR, No MRG RESP: Diminished breath sounds. No wheezes, rhonchi. Abdomen: Soft, non-tender, non-distended, +BS EXTREMITIES: Warm and well perfused, no clubbing, cyanosis, or edema. SKIN: warm, dry and intact. NEURO: CN 2-12 grossly intact. Objective Data Vital Signs Vital Signs: Vital Signs - 24 hr 06/27/22 08:59 06/27/22 09:01 06/27/22 14:00 Temperature 97.5 F L Pulse Rate 75 75 76 Respiratory Rate 20 Blood Pressure 141/56 H Pulse Oximetry 94 Oxygen Delivery Oxygen Flow Rate 06/27/22 08:59 06/27/22 12:00 06/27/22 16:00 Temperature Pulse Rate 77 77 Respiratory Rate Blood Pressure Pulse Oximetry 94 Oxygen Delivery Nasal Cannula Oxygen Flow Rate 2 06/27/22 14:00 06/27/22 21:38 06/27/22 21:39 Temperature Pulse Rate 80 80 Respiratory Rate Blood Pressure Pulse Oximetry 94 Oxygen Delivery Nasal Cannula Oxygen Flow Rate 1 06/27/22 22:00 06/27/22 20:00 06/27/22 20:00 Temperature 96.7 F L Pulse Rate 88 74 Respiratory Rate 18 Blood Pressure 156/71 H Pulse Oximetry 95 95 Oxygen Delivery Nasal Cannula Oxygen Flow Rate 1 06/28/22 00:00 06/28/22 04:00 06/28/22 06:00 Temperature 96.8 F L Pulse Rate 68 67 75 Respiratory Rate 18
[2022-06-28] MEDS: CALCIUM CARBONATE (OSCAL) 500 MG TABLET PO (09:03)
[2022-06-28] MEDS: FERROUS SULFATE 324 MG TABLET PO ×2 (09:03→16:51)
[2022-06-28] MEDS: METOPROLOL TARTRATE 25 MG TABLET PO ×2 (09:03→20:36)
[2022-06-28] MEDS: FAMOTIDINE 20 MG TABLET PO (09:04)
[2022-06-28] MEDS: CHOLECALCIFEROL 1,000 UNITS TABLET 2000 UNITS PO (09:04)
[2022-06-28] MEDS: AMIODARONE HCL 200 MG TABLET PO ×2 (09:05→20:36)
[2022-06-28] MEDS: FUROSEMIDE INJ 40 MG/4 ML VIAL IV PUSH ×2 (09:05→16:52)
[2022-06-28] MEDS: ASPIRIN 81 MG CHEWABLE TABLET PO (09:05)
[2022-06-28] MEDS: APIXABAN 5 MG TABLET PO ×2 (09:05→20:36)
[2022-06-28] MEDS: MAGNESIUM OXIDE 200 MG TABLET PO ×2 (09:05→16:51)
[2022-06-28] MEDS: MUPIROCIN 2% OINT 22 GM TUBE 1 APPLIC TOPICAL (09:06)
[2022-06-28] MEDS: POTASSIUM CHLORIDE 20 MEQ TABLET 40 MEQ PO (09:59)
[2022-06-28] MEDS: POTASSIUM CHLORIDE 20 MEQ TABLET.ER 40 MEQ PO (16:51)
[2022-06-28 19:16] LABS: Anion Gap 10 mmol/L (8-16); Blood Urea Nitrogen 21 mg/dL (7-17); Calcium 8.2 mg/dL (8.4-10.2); Carbon Dioxide 34 mmol/L (22-30); Chloride 89 mmol/L (98-107); Estimated Glomerular Filt Rate > 60; Glucose 160 mg/dL (65-110); Potassium 4.9 mmol/L (3.4-5.0); Sodium 133 mmol/L (137-145)
[2022-06-28] MEDS: MELATONIN 5 MG TABLET PO (20:36)
[2022-06-29] VITALS (15 sets, daily range): BP systolic 109–152; BP diastolic 51–81; PULSE 63–81; RESP 14–18; TEMP 36.1–36.4; O2SAT 89–98
[2022-06-29 07:05] LABS: Anion Gap 9 mmol/L (8-16); Blood Urea Nitrogen 17 mg/dL (7-17); Calcium 8.4 mg/dL (8.4-10.2); Carbon Dioxide 31 mmol/L (22-30); Chloride 93 mmol/L (98-107); Estimated Glomerular Filt Rate > 60; Glucose 115 mg/dL (65-110); Potassium 4.4 mmol/L (3.4-5.0); Sodium 133 mmol/L (137-145)
--- NOTE | 2022-06-29 07:51 | PM.IMPN ---
Progress Note: A&P Assessment and Plan (1) Acute exacerbation of congestive heart failure: Code(s): I50.9 - Heart failure, unspecified Status: Acute Assessment and Plan: BNP 2049. Last echo 05/29/22 HFpEF with EF 55-60% with intermediate diastolic dysfunction. CXR a little improved this morning with the pleural effusions a little less on each side. Patient appears clinically improved able to speak in full sentences off oxygen. Fluid restriction 1200ml per day Lasix 40mg IV x 1 today Will plan to transition to oral furosemide tomorrow Possible discharge tomorrow (2) Chronic hyponatremia: Code(s): E87.1 - Hypo-osmolality and hyponatremia Status: Acute Assessment and Plan: As sodium can improve with diuresis as volume contracts will defer restarting sodium tabs at this time. If sodium starts to drop significantly will restart sodium tabs. 06/29/22 (3) Anemia: Code(s): D64.9 - Anemia, unspecified Status: Acute Assessment and Plan: Anemia already on iron supplementation. Additional studies sent to workup other causes. Discussed this with the family today. (4) Afib: Code(s): I48.91 - Unspecified atrial fibrillation Status: Acute Assessment and Plan: In sinus rhythm. Takes amiodarone and metoprolol at home. Also on apixaban for stroke prevention. Continue home medications. (5) Essential hypertension: Code(s): I10 - Essential (primary) hypertension Status: Chronic Assessment and Plan: Hypertensive but has improved with diuresis. May benefit from low dose REGI/ARB. Will monitor. (6) Thrombocytosis: Code(s): D75.839 - Thrombocytosis, unspecified Status: Acute Assessment and Plan: SPEP from 05/01/22 had elevated kappa and lambda light chains but the ratio was normal. Will repeat SPEP & UPEP with immunofixation. Subjective Date/time seen: 06/29/22 07:51 Friendly family member at bedside. She asked questions about mobility and whether or not walking around the room helps keep the patient strong. The patient say she feels good and would like to get the oxygen off. Denies feeling shortness of breath or difficulty breathing. Review of Systems Respiratory: Respiratory: Denies dyspnea Exam Narrative: GENERAL: NAD, cooperative HEENT: Normocephalic, atraumatic, anicteric, nares clear, oropharynx moist and clear, dentition normal NECK: Supple CV: Normal S1, S2, RRR, No MRG RESP: Diminished breath sounds. No wheezes, rhonchi. Abdomen: Soft, non-tender, non-distended, +BS EXTREMITIES: Warm and well perfused, no clubbing, cyanosis, or edema. SKIN: warm, dry and intact. NEURO: CN 2-12 grossly intact. Objective Data Vital Signs Vital Signs: Vital Signs - 24 hr 06/28/22 09:03 06/28/22 09:05 06/28/22 09:03 Temperature Pulse Rate 72 72 Respiratory Rate Blood Pressure Pulse Oximetry 95 Oxygen Delivery Nasal Cannula Oxygen Flow Rate 2 Fraction of Inspired Oxygen 06/28/22 08:45 06/28/22 14:00 06/28/22 08:00 Temperature 37.1 C Pulse Rate 73 81 Respiratory Rate 20 Blood Pressure 158/70 H Pulse Oximetry 96 93 Oxygen Delivery Nasal Cannula Oxygen Flow Rate 2 Fraction of Inspired Oxygen 28 06/28/22 12:00 06/28/22 16:00 06/28/22 20:36 Temperature Pulse Rate 73 77 75 Respiratory Rate Blood Pressure Pulse Oximetry Oxygen Delivery Oxygen Flow Rate Fraction of Inspired Oxygen 06/28/22 20:36 06/28/22 20:00 06/28/22 22:00 Temperature 36.3 C L Pulse Rate 75 85 73 Respiratory Rate 14 Blood Pressure 147/67 H Pulse Oximetry 97 Oxygen Delivery Oxygen Flow Rate Fraction of Inspired Oxygen 06/29/22 00:00 06/29/22 04:00 06/29/22 05:51 Temperature 36.1 C L Pulse Rate 63 67 73 Respiratory Rate 14 Blood Pressure
[2022-06-29] MEDS: FUROSEMIDE INJ 40 MG/4 ML VIAL IV PUSH (08:54)
[2022-06-29] MEDS: ASPIRIN 81 MG CHEWABLE TABLET PO (08:55)
[2022-06-29] MEDS: FERROUS SULFATE 324 MG TABLET PO ×3 (08:55→17:05)
[2022-06-29] MEDS: AMIODARONE HCL 200 MG TABLET PO ×2 (08:55→21:22)
[2022-06-29] MEDS: APIXABAN 5 MG TABLET PO ×2 (08:55→21:24)
[2022-06-29] MEDS: MAGNESIUM OXIDE 200 MG TABLET PO ×3 (08:55→17:05)
[2022-06-29] MEDS: CHOLECALCIFEROL 1,000 UNITS TABLET 2000 UNITS PO (08:56)
[2022-06-29] MEDS: METOPROLOL TARTRATE 25 MG TABLET PO ×2 (08:56→21:28)
[2022-06-29] MEDS: POTASSIUM CHLORIDE 20 MEQ TABLET.ER 40 MEQ PO ×2 (08:56→17:02)
[2022-06-29] MEDS: FAMOTIDINE 20 MG TABLET PO (08:56)
[2022-06-29] MEDS: CALCIUM CARBONATE (OSCAL) 500 MG TABLET PO (08:56)
[2022-06-29] MEDS: MUPIROCIN 2% OINT 22 GM TUBE 1 APPLIC TOPICAL (08:59)
[2022-06-29 10:51] LABS: Hemoglobin A1C 5.9 % (<5.7)
--- NOTE | 2022-06-29 12:34 | PM.EVENT ---
Event Note Event Note Event Note: courtesy visit. Patient's sodium level is okay. Talked with the daughter on the phone yesterday and [id number] this morning along with the patient. I agree with staying off the sodium chloride tabs for now. She will get some blood work done on and call me with the results on Thursday if she has gone home by then. Orders are in the [facility].
--- NOTE | 2022-06-29 13:17 | PC.NURSE ---
Patient unable to do incentive spirometer she does not take deep breaths very shallow.She was able to do the trumpet.
[2022-06-29] MEDS: MELATONIN 5 MG TABLET PO (21:28)
[2022-06-30] VITALS (10 sets, daily range): BP systolic 138–144; BP diastolic 61–77; PULSE 61–77; RESP 17; TEMP 36.2–36.6; O2SAT 95–98
[2022-06-30 07:01] LABS: Anion Gap 8 mmol/L (8-16); Blood Urea Nitrogen 19 mg/dL (7-17); Calcium 8.8 mg/dL (8.4-10.2); Carbon Dioxide 28 mmol/L (22-30); Chloride 96 mmol/L (98-107); Estimated Glomerular Filt Rate > 60; Glucose 116 mg/dL (65-110); Potassium 4.8 mmol/L (3.4-5.0); Sodium 132 mmol/L (137-145)
--- NOTE | 2022-06-30 07:43 | PM.DS ---
DS: Admitting Diagnosis Discharge Date 06/30/22 Admitting Diagnosis Acute decompensated heart failure DS: Discharge Diagnosis Discharge Diagnosis (1) Acute hypoxemic respiratory failure: Code(s): J96.01 - Acute respiratory failure with hypoxia Status: Acute Assessment and Plan: Documented 89% on room air at 0145 on 06/27/22 improved to 98% with 2LNC. During hospitalization patient was diuresed and was able to breathe without supplemental oxygen. Patient had walk test on day of discharge and maintained adequate oxygen saturation on room air. (2) Acute exacerbation of congestive heart failure: Code(s): I50.9 - Heart failure, unspecified Status: Acute Assessment and Plan: BNP 2049. Last echo 05/29/22 HFpEF with EF 55-60% with intermediate diastolic dysfunction. CXR a little improved this morning with the pleural effusions a little less on each side. Patient appears clinically improved able to speak in full sentences off oxygen and was walked with repsiratory therapy for an evaluation for home oxygen and does not need home oxygen. Continue fluid restriction 1200ml per day at home Restarted furosemide 20 mg BID Discharge to home (3) Chronic hyponatremia: Code(s): E87.1 - Hypo-osmolality and hyponatremia Status: Acute Assessment and Plan: Sodium tabs were held during hospitalization due to concern from over-correction with volume contraction from diruresis. Discussed with the patient and family that salt tabs have been restarted for discharge and the patient will need to check a BMP on , July 03. (4) Anemia: Code(s): D64.9 - Anemia, unspecified Status: Acute Assessment and Plan: Anemia already on iron supplementation. Additional studies sent to workup other causes. Discussed this with the family today. (5) Afib: Code(s): I48.91 - Unspecified atrial fibrillation Status: Acute Assessment and Plan: In sinus rhythm. Takes amiodarone and metoprolol at home. Also on apixaban for stroke prevention. Continue home medications. (6) Essential hypertension: Code(s): I10 - Essential (primary) hypertension Status: Chronic Assessment and Plan: Hypertensive but has improved with diuresis. May benefit from low dose REGI/ARB. Will monitor. (7) Thrombocytosis: Code(s): D75.839 - Thrombocytosis, unspecified Status: Acute Assessment and Plan: SPEP from 7/28/22 had elevated kappa and lambda light chains but the ratio was normal. Will repeat SPEP & UPEP with immunofixation and this is still pending at discharge. Will need follow up by primary care physician. (8) Prediabetes: Code(s): R73.03 - Prediabetes Status: Inactive Assessment and Plan: A1c 5.9, which was checked after noting persistently elevated blood glucose while hospitalized. DS: Summary Hospital Course Reason for hospitalization: Acute decompensated heart failure and acute hypoxemic respiratory failure. Hospital Course: 72F with a past medical history of heart failure with preserved ejection fraction, chronic hyponatremia, hypertension, pericarditis and atrial fibrillation on apixaban who presented to the emergency department with shortness of breath with oxygen saturation of 89% on room air and BNP of 2050. Patient was admitted and started on furosemide 40 mg IV BID. Intake and output was not accurately recorded. Clinically the patient improved and was able to tolerate being off oxygen. Salt tabs were not given during the hospitalization. SPEP and UPEP were sent due to fatigue, worsening anemia and thrombocytosis to rule out myeloproliferative disorders, but this was pending at the time of discharge. Patient was advised to have repeat BMP the after discharge as the salt tabs were restarted for discharge. Patient discharge
[2022-06-30] MEDS: FUROSEMIDE 20 MG TABLET PO (09:05)
[2022-06-30] MEDS: CALCIUM CARBONATE (OSCAL) 500 MG TABLET PO (09:05)
[2022-06-30] MEDS: FAMOTIDINE 20 MG TABLET PO (09:05)
[2022-06-30] MEDS: CHOLECALCIFEROL 1,000 UNITS TABLET 2000 UNITS PO (09:06)
[2022-06-30] MEDS: METOPROLOL TARTRATE 25 MG TABLET PO (09:06)
[2022-06-30] MEDS: MUPIROCIN 2% OINT 22 GM TUBE 1 APPLIC TOPICAL (09:07)
[2022-06-30] MEDS: AMIODARONE HCL 200 MG TABLET PO (09:07)
[2022-06-30] MEDS: APIXABAN 5 MG TABLET PO (09:07)
[2022-06-30] MEDS: ASPIRIN 81 MG CHEWABLE TABLET PO (09:07)
--- NOTE | 2022-06-30 14:23 | PCRCNOTE ---
Home O2 eval completed. Patient does not require Home O2. RN notified.
[2022-06-30 17:21] LABS: Osmolality, Urine 362 mOsm/kg (50-1200)
[2022-07-01 17:53] LABS: Albumin 2.2 g/dL (3.8-4.8); Alpha 1 Globulin 0.7 g/dL (0.2-0.3); Alpha 2 Globulin 1.2 g/dL (0.5-0.9); Beta 1 Globulin 0.5 g/dL (0.4-0.6); Gamma Globulin 1.1 g/dL (0.8-1.7); Protein, Total 6.1 g/dL (6.1-8.1)
[2022-07-02 22:59] LABS: Total Protein/Creatinine Ratio 438 mg/g creat (24-184)
== END 2022-06-30 16:50 | disposition home health service (06) | DRG 291 ==
LOC: ANHED 03:22 → ANH3MEDSUR 04:55
PROVIDERS: Nurse Practitioner; Admitting Provider Internal Medicine; Emergency Provider Emergency Medicine; PCP Family Medicine; Visit Provider Family Medicine
DX: I11.0 Hypertensive heart disease with heart failure (principal); I50.33 Acute on chronic diastolic (congestive) heart failure; J96.01 Acute respiratory failure with hypoxia; E87.1 Hypo-osmolality and hyponatremia; I48.91 Unspecified atrial fibrillation; E78.00 Pure hypercholesterolemia, unspecified; E78.5 Hyperlipidemia, unspecified; D75.839 Thrombocytosis, unspecified; D50.9 Iron deficiency anemia, unspecified; R73.03 Prediabetes; Z20.822 Contact with and (suspected) exposure to COVID-19; I25.2 Old myocardial infarction; Z79.01 Long term (current) use of anticoagulants; Z79.82 Long term (current) use of aspirin; Z79.899 Other long term (current) drug therapy
CPT/HCPCS: 36415; 71046; 80048; 80053; 82570; 82607; 82728; 82746; 83036; 83540; 83550; 83880; 83935; 84155; 84156; 84165; 84166; 84300; 84439; 84443; 84466; 84480; 84484; 84540; 85025; 85610; 85730; 86334; 86335; 93005; 94618; 96374; 96376; 99285; A9270; C9803; G0378; J1940; U0003; U0005

== ENCOUNTER 2023-01-12 09:44 | Outpatient (CLI) | payer MEDICARE, SELFPAY ==
[2023-01-12 10:40] LABS: Albumin Level 4.5 g/dL (3.5-5.1); Anion Gap 5 mmol/L (8-16); Blood Urea Nitrogen 24 mg/dL (7-17); Calcium 9.5 mg/dL (8.4-10.2); Carbon Dioxide 32 mmol/L (22-30); Chloride 103 mmol/L (98-107); Estimated Glomerular Filt Rate > 60; Glucose 123 mg/dL (65-110); Phosphorus 4.2 mg/dL (2.5-4.5); Potassium 4.4 mmol/L (3.4-5.0); Sodium 140 mmol/L (137-145)
== END 2023-01-12 09:45 | disposition home or self-care (01) ==
PROVIDERS: PCP Family Medicine; Visit Provider Internal Medicine Nephrology
DX: E87.1 Hypo-osmolality and hyponatremia (principal)
CPT/HCPCS: 36415; 80069

== ENCOUNTER 2023-04-20 09:01 | Outpatient (CLI) | payer MEDICARE, SELFPAY ==
[2023-04-20 10:04] LABS: Albumin Level 4.5 g/dL (3.5-5.1); Anion Gap 4 mmol/L (8-16); Blood Urea Nitrogen 21 mg/dL (7-17); Calcium 9.4 mg/dL (8.4-10.2); Carbon Dioxide 34 mmol/L (22-30); Chloride 101 mmol/L (98-107); Estimated Glomerular Filt Rate > 60; Glucose 108 mg/dL (65-110); Phosphorus 4.1 mg/dL (2.5-4.5); Potassium 4.2 mmol/L (3.4-5.0); Sodium 139 mmol/L (137-145)
== END 2023-04-20 09:02 | disposition home or self-care (01) ==
PROVIDERS: PCP Family Medicine; Visit Provider Internal Medicine Nephrology
DX: E87.1 Hypo-osmolality and hyponatremia (principal)
CPT/HCPCS: 36415; 80069

== ENCOUNTER 2023-05-25 09:30 | Outpatient (CLI) | payer MEDICARE, SELFPAY ==
[2023-05-25 10:20] LABS: Albumin Level 4.5 g/dL (3.5-5.1); Anion Gap 6 mmol/L (8-16); Blood Urea Nitrogen 18 mg/dL (7-17); Calcium 9.3 mg/dL (8.4-10.2); Carbon Dioxide 27 mmol/L (22-30); Chloride 103 mmol/L (98-107); Estimated Glomerular Filt Rate > 60; Glucose 109 mg/dL (65-110); Phosphorus 4.2 mg/dL (2.5-4.5); Potassium 4.5 mmol/L (3.4-5.0); Sodium 136 mmol/L (137-145)
== END 2023-05-25 09:31 | disposition home or self-care (01) ==
LOC: ANHLAB 09:31
PROVIDERS: PCP Family Medicine; Visit Provider Internal Medicine Nephrology
DX: E87.1 Hypo-osmolality and hyponatremia (principal)
CPT/HCPCS: 36415; 80069

== ENCOUNTER 2023-06-02 12:42 | Outpatient (CLI) | payer MEDICARE, SELFPAY ==
[2023-06-02 13:29] LABS: Basophils Percent Auto 0.7 % (0.2-1.2); Eosinophils Percent Auto 0.7 % (0-4.4); Hematocrit 41.1 % (37.0-47.0); Hemoglobin 13.5 g/dL (12.0-15.0); Immature Granulocyte Absolute 0.01 K/mm3 (0.00-0.031); Immature Granulocyte Percent A 0.2 % (0-0.5); Lymphocytes Absolute Auto 0.86 K/mm3 (0.9-3.2); Mean Corpuscular HGB Conc 32.8 g/dl (32-36); Mean Corpuscular Hemoglobin 32.5 pg (26-34); Mean Corpuscular Volume 98.8 fl (80-100); Mean Platelet Volume 10.7 fl (7.4-10.4); Monocytes Absolute Auto 0.2 K/mm3 (0.1-0.6); Monocytes Percent Auto 5.6 % (2.6-8.5); Neutrophils Absolute Auto 2.9 K/mm3 (1.3-6.7); Neutrophils Percent Auto 71.8 % (45.5-73.1); Platelet Count Result 263 k/mm3 (150-375); Red Blood Count 4.16 M/mm3 (4.2-5.4); Red Cell Distribution Width 12.8 % (11.5-14.5); White Blood Count 4.1 K/mm3 (4.5-10.0)
[2023-06-02 13:39] LABS: Alanine Aminotransferase 22 U/L (6-35); Albumin Level 4.4 g/dL (3.5-5.1); Alkaline Phosphatase 46 U/L (38-126); Anion Gap 8 mmol/L (8-16); Aspartate Amino Transferase 26 U/L (14-36); Bilirubin,Total 0.3 mg/dL (0.2-1.3); Blood Urea Nitrogen 19 mg/dL (7-17); Calcium 9.6 mg/dL (8.4-10.2); Carbon Dioxide 30 mmol/L (22-30); Chloride 102 mmol/L (98-107); Cholesterol 267 mg/dL (0-200); Estimated Glomerular Filt Rate > 60; Glucose 108 mg/dL (65-110); HDL Direct 85 mg/dL; Potassium 4.3 mmol/L (3.4-5.0); Sodium 140 mmol/L (137-145); Triglycerides 88 mg/dL (<150)
[2023-06-02 13:50] LABS: LDL Cholesterol Direct 132 mg/dL
[2023-06-02 15:14] LABS: Iron 76 ug/dL (37-170)
[2023-06-02 15:24] LABS: Percent Iron Saturation 32 % (20-50)
== END 2023-06-02 12:43 | disposition home or self-care (01) ==
PROVIDERS: PCP Family Medicine; Visit Provider Physician Assistant Medical
DX: D64.9 Anemia, unspecified (principal); E78.2 Mixed hyperlipidemia
CPT/HCPCS: 36415; 80053; 80061; 83540; 83550; 85025

== ENCOUNTER 2023-11-25 11:21 | Outpatient (CLI) | payer MEDICARE, SELFPAY ==
[2023-11-25 12:40] LABS: Basophils Percent Auto 0.5 % (0.2-1.2); Eosinophils Absolute Auto 0.1 K/mm3 (0-0.3); Eosinophils Percent Auto 1.7 % (0-4.4); Hematocrit 41.1 % (37.0-47.0); Hemoglobin 12.9 g/dL (12.0-15.0); Lymphocytes Absolute Auto 0.87 K/mm3 (0.9-3.2); Lymphocytes Percent Auto 20.9 % (18.3-44.2); Mean Corpuscular HGB Conc 31.4 g/dl (32-36); Mean Corpuscular Hemoglobin 31.7 pg (26-34); Mean Platelet Volume 11.1 fl (7.4-10.4); Monocytes Absolute Auto 0.2 K/mm3 (0.1-0.6); Monocytes Percent Auto 5.5 % (2.6-8.5); Neutrophils Percent Auto 71.4 % (45.5-73.1); Platelet Count Result 276 k/mm3 (150-375); Red Blood Count 4.07 M/mm3 (4.2-5.4); Red Cell Distribution Width 12.1 % (11.5-14.5); White Blood Count 4.2 K/mm3 (4.5-10.0)
[2023-11-25 12:53] LABS: Alanine Aminotransferase 26 U/L (6-35); Albumin Level 4.7 g/dL (3.5-5.1); Alkaline Phosphatase 63 U/L (38-126); Anion Gap 9 mmol/L (8-16); Aspartate Amino Transferase 35 U/L (14-36); Bilirubin,Total 0.4 mg/dL (0.2-1.3); Blood Urea Nitrogen 18 mg/dL (7-17); Calcium 9.8 mg/dL (8.4-10.2); Carbon Dioxide 25 mmol/L (22-30); Chloride 105 mmol/L (98-107); Cholesterol 257 mg/dL (0-200); Estimated Glomerular Filt Rate > 60; Glucose 105 mg/dL (65-110); HDL Direct 92 mg/dL; Potassium 3.4 mmol/L (3.4-5.0); Sodium 139 mmol/L (137-145); Triglycerides 66 mg/dL (<150)
[2023-11-25 13:04] LABS: LDL Cholesterol Direct 116 mg/dL
[2023-11-25 13:52] LABS: Iron 92 ug/dL (37-170); Percent Iron Saturation 38 % (20-50); Vitamin D 25 Hydroxy 77.9 ng/mL
== END 2023-11-25 11:22 | disposition home or self-care (01) ==
LOC: ANHLAB 11:23
PROVIDERS: PCP Family Medicine; Visit Provider Physician Assistant Medical
DX: D64.9 Anemia, unspecified (principal); E55.9 Vitamin D deficiency, unspecified; E78.2 Mixed hyperlipidemia
CPT/HCPCS: 36415; 80053; 80061; 82306; 82728; 83540; 83550; 85025

== ENCOUNTER 2024-04-22 09:02 | Outpatient (CLI) | payer MEDICARE, SELFPAY ==
[2024-04-22 09:36] LABS: Albumin Level 4.7 g/dL (3.5-5.1); Anion Gap 8 mmol/L (4-12); Blood Urea Nitrogen 22 mg/dL (7-17); Calcium 9.4 mg/dL (8.4-10.2); Carbon Dioxide 30 mmol/L (22-30); Chloride 100 mmol/L (98-107); Estimated Glomerular Filt Rate > 60; Glucose 108 mg/dL (65-110); Phosphorus 4.1 mg/dL (2.5-4.5); Potassium 4.2 mmol/L (3.4-5.0); Sodium 138 mmol/L (137-145)
== END 2024-04-22 09:03 | disposition home or self-care (01) ==
PROVIDERS: PCP Family Medicine; Visit Provider Internal Medicine Nephrology
DX: E87.1 Hypo-osmolality and hyponatremia (principal)
CPT/HCPCS: 36415; 80069

== ENCOUNTER 2024-06-22 09:08 | Outpatient (CLI) | payer MEDICARE, SELFPAY ==
[2024-06-22 09:42] LABS: Basophils Percent Auto 0.7 % (0.2-1.2); Eosinophils Absolute Auto 0.1 K/mm3 (0-0.3); Eosinophils Percent Auto 2.2 % (0-4.4); Hematocrit 40.2 % (37.0-47.0); Hemoglobin 13.4 g/dL (12.0-15.0); Immature Granulocyte Absolute 0.01 K/mm3 (0.00-0.031); Immature Granulocyte Percent A 0.2 % (0-0.5); Lymphocytes Absolute Auto 1.06 K/mm3 (0.9-3.2); Lymphocytes Percent Auto 23.5 % (18.3-44.2); Mean Corpuscular HGB Conc 33.3 g/dl (32-36); Mean Corpuscular Hemoglobin 33.6 pg (26-34); Mean Corpuscular Volume 100.8 fl (80-100); Mean Platelet Volume 10.9 fl (7.4-10.4); Monocytes Absolute Auto 0.3 K/mm3 (0.1-0.6); Monocytes Percent Auto 6.9 % (2.6-8.5); Neutrophils Percent Auto 66.5 % (45.5-73.1); Platelet Count Result 229 k/mm3 (150-375); Red Blood Count 3.99 M/mm3 (4.2-5.4); White Blood Count 4.5 K/mm3 (4.5-10.0)
[2024-06-22 09:52] LABS: Alanine Aminotransferase 24 U/L (6-35); Albumin Level 4.9 g/dL (3.5-5.1); Alkaline Phosphatase 58 U/L (38-126); Anion Gap 16 mmol/L (4-12); Aspartate Amino Transferase 28 U/L (14-36); Bilirubin,Total 0.5 mg/dL (0.2-1.3); Blood Urea Nitrogen 24 mg/dL (7-17); Calcium 9.5 mg/dL (8.4-10.2); Carbon Dioxide 24 mmol/L (22-30); Chloride 93 mmol/L (98-107); Cholesterol 242 mg/dL (0-200); Estimated Glomerular Filt Rate > 60; Glucose 98 mg/dL (65-110); HDL Direct 107 mg/dL; Potassium 3.8 mmol/L (3.4-5.0); Sodium 133 mmol/L (137-145); Triglycerides 95 mg/dL (<150)
[2024-06-22 10:03] LABS: LDL Cholesterol Direct 105 mg/dL
[2024-06-22 10:22] LABS: Hemoglobin A1C 5.7 % (<5.7)
[2024-06-22 11:11] LABS: Hepatitis C Virus Antibody Negative (Negative)
[2024-06-22 14:11] LABS: Vitamin D 25 Hydroxy 69.5 ng/mL
== END 2024-06-22 09:09 | disposition home or self-care (01) ==
LOC: ANHLAB 09:12
PROVIDERS: PCP Family Medicine; Visit Provider Family Medicine
DX: E87.1 Hypo-osmolality and hyponatremia (principal); R73.03 Prediabetes; Z00.00 Encounter for general adult medical examination without abnormal findings; R53.83 Other fatigue; E78.2 Mixed hyperlipidemia; E55.9 Vitamin D deficiency, unspecified; D72.819 Decreased white blood cell count, unspecified; Z11.59 Encounter for screening for other viral diseases
CPT/HCPCS: 36415; 80053; 80061; 82306; 83036; 84443; 85025; 86803

== ENCOUNTER 2024-07-11 09:39 | Outpatient (CLI) | payer MEDICARE, SELFPAY ==
[2024-07-11 10:26] LABS: Albumin Level 4.4 g/dL (3.5-5.1); Anion Gap 6 mmol/L (4-12); Blood Urea Nitrogen 25 mg/dL (7-17); Calcium 9.5 mg/dL (8.4-10.2); Carbon Dioxide 31 mmol/L (22-30); Chloride 103 mmol/L (98-107); Estimated Glomerular Filt Rate > 60; Glucose 115 mg/dL (65-110); Phosphorus 3.8 mg/dL (2.5-4.5); Sodium 140 mmol/L (137-145)
== END 2024-07-11 09:40 | disposition home or self-care (01) ==
PROVIDERS: PCP Family Medicine; Visit Provider Internal Medicine Nephrology
DX: E87.1 Hypo-osmolality and hyponatremia (principal)
CPT/HCPCS: 36415; 80069

== ENCOUNTER 2024-12-19 11:05 | Outpatient (CLI) | payer MEDICARE, SELFPAY ==
[2024-12-19 12:48] LABS: Hematocrit 41.3 % (37.0-47.0); Hemoglobin 13.5 g/dL (12.0-15.0); Mean Corpuscular HGB Conc 32.7 g/dl (32-36); Mean Corpuscular Hemoglobin 32.3 pg (26-34); Mean Corpuscular Volume 98.8 fl (80-100); Mean Platelet Volume 11.1 fl (7.4-10.4); Platelet Count Result 273 k/mm3 (150-375); Red Blood Count 4.18 M/mm3 (4.2-5.4); Red Cell Distribution Width 12.1 % (11.5-14.5)
[2024-12-19 12:59] LABS: Alanine Aminotransferase 29 U/L (6-35); Albumin Level 4.7 g/dL (3.5-5.1); Alkaline Phosphatase 50 U/L (38-126); Anion Gap 12 mmol/L (4-12); Aspartate Amino Transferase 29 U/L (14-36); Bilirubin,Total 0.4 mg/dL (0.2-1.3); Blood Urea Nitrogen 20 mg/dL (7-17); Calcium 9.8 mg/dL (8.4-10.2); Carbon Dioxide 26 mmol/L (22-30); Chloride 102 mmol/L (98-107); Estimated Glomerular Filt Rate > 60; Glucose 97 mg/dL (65-110); Potassium 3.7 mmol/L (3.4-5.0); Sodium 140 mmol/L (137-145)
[2024-12-19 13:00] LABS: Cholesterol 232 mg/dL (0-200); HDL Direct 83 mg/dL; Triglycerides 89 mg/dL (<150)
[2024-12-19 13:13] LABS: LDL Cholesterol Direct 107 mg/dL
[2024-12-19 13:17] LABS: Iron 92 ug/dL (37-170)
[2024-12-19 13:37] LABS: Percent Iron Saturation 37 % (20-50)
--- OUTSIDE RECORDS SUMMARY | 2024-12-19 13:41 | XMS_ITS | Clinical Summary ---
Author Organization [facility] Address [address] [place] [id number] Phone Care Team Providers Care Live Ammunition Inspector Name Role Phone Danelle Aguilera MD Primary Care Provider [phone] Allergies Active Allergy Reactions Criticality Noted Date Comments Ibuprofen Swelling Medium 03/22/2020 Iodinated Contrast Media Other (see comments) Low 03/22/2020 Dye that contains shellfish. Medications Medication Sig Dispensed Refills Start Date End Date Status Eliquis 5 MG tablet TAKE 1 TABLET BY MOUTH EVERY 12 HOURS FOR DVT PROPHYLAXIS 06/15/2022 Active amiodarone (PACERONE) 200 MG tablet TAKE 1 TABLET BY MOUTH EVERY 12 HOURS FOR ATRIAL FIBRILLATION 06/15/2022 Active docusate sodium (COLACE) 100 MG capsule TAKE 1 TABLET BY MOUTH EVERY DAY FOR CONSTIPATION 06/15/2022 Active famotidine (PEPCID) 20 MG tablet TAKE 1 TABLET BY MOUTH EVERY DAY FOR GERD 06/15/2022 Active ferrous sulfate 325 (65 Fe) MG tablet TAKE 1 TABLET BY MOUTH TWICE A DAY FOR ANEMIA 06/15/2022 Active furosemide (LASIX) 20 MG tablet 1/2 TABLET (10MG) BY MOUTH TWICE A DAY FOR CHF 06/15/2022 Active Magnesium 200 MG tablet 200 mg Active [facility] Aspirin Adult Low Dose 81 MG chewable tablet TAKE 1 TABLET BY MOUTH EVERY DAY FOR DVT PROPHYLAXIS 06/15/2022 Active D3 High Potency 50 MCG (1999 UT) capsule TAKE 1 CAPSULE BY MOUTH EVERY DAY FOR SUPPLEMENT 06/15/2022 Active sodium chloride 1 g tablet 1 AND A HALF TABLETS (1.5GM) BY MOUTH TWICE DAIYL FOR HYPONATREMIA 06/15/2022 Active tamsulosin (FLOMAX) 0.4 MG 24 hr capsule TAKE 1 CAPSULE BY MOUTH EVERY DAY FOR URINARY RETENTION 06/15/2022 Active Multiple Vitamins-Minerals (Decubi-Kasey) capsule Take 2 capsules by mouth 2 times daily Active metoprolol tartrate (LOPRESSOR) 25 MG tablet TAKE 1 TABLET BY MOUTH EVERY 12 HOURS FOR ATRIAL FIBRILLATION 06/15/2022 Active Melatonin 5 MG tablet TAKE 1 TABLET BY MOUTH EVERY EVENING FOR INSOMNIA 06/15/2022 Active Active Problems Problem Noted Date Diagnosed Date Chronic hyponatremia 06/10/2022 Gastro-esophageal reflux disease without esophag itis 06/06/2022 Dyslipidemia 10/31/2020 Pericarditis 04/25/2020 Paroxysmal atrial fibrillation 04/25/2020 Benign hypertension 04/25/2020 Social History Tobacco Use Types Packs/Day Years Used Date Smoking Tobacco: Never Assessed Sex and Gender Information Value Date Recorded Sex Assigned at Not on file Gender Identity Not on file Sexual Orientation Not on file Last Filed Vital Signs Vital Sign Reading Time Taken Comments Blood Pressure 112/70 06/23/2022 9:17 AM CDT Pulse 72 06/23/2022 9:17 AM CDT Temperature 35.7 C (96.3 F) 06/23/2022 9:17 AM CDT Respiratory Rate - - Oxygen Saturation - - Inhaled Oxygen Concentration - - Weight 44 kg (97 lb) 06/23/2022 9:17 AM CDT Height 149.9 cm (4' 11 ) 06/23/2022 9:17 AM CDT Body Mass Index 19.59 06/23/2022 9:17 AM CDT Plan of Treatment Health Maintenance Due Date Last Done Comments Pneumococcal PPSV23/PCV13 65 + Years / Low and Medium Risk (1 of 4 - PCV) 02/08/2016 Influenza Vaccine (#1) 2024 Care Teams Live Ammunition Inspector Relationship Specialty Start Date End Date Danelle Aguilera MD [address] [place] [address] PCP - General Internal Medicine 05/27/22
--- OUTSIDE RECORDS SUMMARY | 2024-12-19 13:41 | XMS_ITS | Referral Summary ---
Author Organization [facility] [address] [place] [address] [address] [place] [address] Care Team Providers Care Hat Cleaner Name Role Phone Danelle Aguilera MD Primary Care Provider [phone] Encounters Date Type Department Care Team Description 12/15/2024 1:30 PM CDT Office Visit [facility] Cardiology [address] [facility] [address] [place] [address] Carlota Sheridan MD Dyslipidemia (Primary Dx); Paroxysmal atrial fibrillation (HCC); HTN (hypertension), benign; Chronic anticoagulation; History of pericarditis from Last 3 Months Allergies Active Allergy Reactions Criticality Noted Date Comments Iodinated Contrast Media Other (See comments) Low 03/22/2020 Dye that contains shellfish. Ibuprofen Swelling Medium 03/22/2020 Medications ASCORBIC ACID, VITAMIN C, ORAL Take 1,000 mg by mouth 2 (two) times a day Active biotin 5 mg capsule Take 1 capsule (1 tablet total) by mouth daily Active cholecalciferol (VITAMIN D-3) 2000 unit capsule Take 1 capsule (2,000 Units total) by mouth daily Active acetaminophen ER (TYLENOL) 650 mg 8 hr tablet Take 1 tablet (650 mg total) by mouth every 8 (eight) hours as needed for pain Active magnesium gluconate 200 mg tabletIndicatio ns:hypomagnesem ia 1 tablet (200 mg total) Active ferrous sulfate 325 mg (65 mg of elemental iron) tablet 325 MG ORALLY TWICE A DAY WITH FOOD 05/27/2022 Active Eliquis 5 mg tablet TAKE 1 TABLET BY MOUTH TWICE A DAY 180 tablet 1 04/18/2024 Active metoprolol tartrate (LOPRESSOR) 25 mg immediate release tablet Take 1 tablet (25 mg total) by mouth 2 (two) times a day 180 tablet 3 11/14/2024 Active Active Problems Problem Noted Date Diagnosed Date Weakness 06/10/2022 Chronic hyponatremia 06/10/2022 Chronic anticoagulation 06/10/2022 Dyslipidemia 10/31/2020 Sinus tachycardia 10/31/2020 HTN (hypertension), benign 04/25/2020 Paroxysmal atrial fibrillation 04/25/2020 History of pericarditis 04/25/2020 Social History Tobacco Use Types Packs/Day Years Used Date Smoking Tobacco: Never Smokeless Tobacco: Never Tobacco Cessation:Counseling Given: Not Answered Alcohol Use Standard Drinks/Week Comments Yes 2 (1 standard drink = 0.6 oz pur e alcohol) Comments Unknown Sex and Gender Information Value Date Recorded Sex Assigned at Not on file Legal Sex Female 12:55 PM CDT Gender Identity Female 03/21/2020 9:58 AM CDT Sexual Orientation Straight 03/21/2020 9: 58 AM CDT Last Filed Vital Signs Vital Sign Reading Time Taken Comments Blood Pressure 172/70 12/15/2024 1:20 PM CDT Pulse 58 12/15/2024 1:20 PM CDT Temperature 36.4 C (97.6 F) 11/21/2020 9:22 AM LAPEL PADDER Respiratory Rate - - Oxygen Saturation 97% 12/15/2024 1:20 PM CDT Inhaled Oxygen Concentration - - Weight 53.2 kg (117 lb 3.2 oz) 12/15/2024 1:20 P M CDT Height 149.9 cm (4' 11 ) 12/15/2024 1:20 PM CDT Body Mass Index 23.67 12/15/2024 1:20 PM CDT Plan of Treatment Not on file Procedures Procedure Name Priority Date/Time Associated Diagnosis Comments POCT LIPID PANEL Routine 12/15/2024 1:40 PM CDT Dyslipidemia from Last 3 Months Results * POCT lipid panel (12/15/2024 1:40 PM CDT) Cholesterol, POC 239 mg/dL Comment:GLU = 95 HDL, POC 37 mg/dL Triglycerides, POC 58 mg/dL LDL Cholesterol POC 191 mg/dL Chol/HDL Ratio, POC 5.2 Non-HDL Cholesterol, POC 203 mg/dL Cholesterol Total, POC 239 mg/dL Capillary blood 12/15/2024 1 :40 PM CDT [facility] Wilma Sheridan MD POINT OF CARE TEST VIANEY PAULINO Final Result from Last 3 Months Insurance [facility] [employer] [facility] [employer] [facility] Care Teams Hat Cleaner Relationship Specialty Start Date End Date Danelle Aguilera MD PCP - General Family Medicine 03/04/20
--- OUTSIDE RECORDS SUMMARY | 2024-12-19 13:41 | XMS_ITS | Clinical Summary ---
Author Organization [facility] [place] [address] Address [address] [place] [address] Care Team Providers Care Senior Compensation Consultant Name Role Phone Danelle gAuilera MD Primary Care Provider [phone] Allergies Active Allergy Reactions Criticality Noted Date [...] atrial fibrillation 04/25/2020 History of pericarditis 04/25/2020 Encounters Date Type Department Care Team Description 12/15/2024 1:30 PM CDT Office Visit [facility] Medical Group Cardiology [address] [place] [address] Carlota Sheridan MD Dyslipidemia (Primary Dx); Paroxysmal atrial fibrillation (HCC); HTN (hypertension), benign; Chronic anticoagulation; History of pericarditis from Last 3 Months Medical History Medical History Date Comments Hypertension 2016 H/O atrial fibrillation without current medicati on H/O pericarditis Family History Medical History Relation Name Comments Heart attack Brother 1 Matt Suarez No Known Problems Brother 2 Ken No Known Problems Brother 3 Abe Alzheimer's disease Father Stephen Suarez Alzheimer's disease Mother Jenni Suarez Diabetes Paternal Grandfather Jose Suarez Diabetes Sister Inocencia Elder Relation Name Status Comments Brother 1 Matt Suarez Alive Brother 2 Ken Alive Brother 3 Abe Alive Father Stephen Suarez (Age 83) Mother Jenni Suarez (Age 83) Paternal Grandfather Jose Suarez Sister Inocencia Elder Alive Social History Tobacco Use Types Packs/Day Years [...] Orientation Straight 03/21/2020 9: 58 AM CDT Obstetrics History Last Filed Vital Signs Vital Sign Reading Time Taken Comments Blood Pressure 172/70 12/15/2024 1:20 PM CDT Pulse 58 12/15/2024 1:20 PM CDT Temperature 36.4 C (97.6 F) 11/21/2020 9:22 AM [employer]IVATE [employer] B[employer]ER [employer]AF[employer] Respiratory Rate - - Oxygen Saturation 97% 12/15/2024 1:20 PM CDT Inhaled Oxygen Concentration - - Weight 53.2 kg (117 lb 3.2 oz) 12/15/2024 1:20 P M CDT Height 149.9 cm (4' 11 ) 12/15/2024 1:20 PM CDT Body Mass Index 23.67 12/15/2024 1:20 PM CDT Plan of Treatment Health Maintenance Due Date Last Done Comments Breast Cancer Screening-Mammogram 1950 Colon Cancer Screening-Colonoscopy 1950 Depression Screening 1951 Fall Risk Assessment 1950 Hepatitis C Screening 1950 Osteoporosis Screening-Bone Density Scan 1951 DTaP/Tdap/Td Vaccine (1 - Tdap) 1962 Hepatitis B Screening 1969 Pneumococcal vaccine 65+ (1 of 1 - PCV) 2001 Zoster Vaccine (1 of 2) 2001 Well Visit 65+ 02/08/2016 Influenza Vaccine (#1) 2024 Procedures Procedure Name Priority Date/Time Associated Diagnosis [...] Capillary blood 12/15/2024 1 :[address] [facility] Wilma Sheridan MD POINT OF CARE TEST VIANEY PAULINO Final Result from Last 3 Months [facility] [employer] [facility] [employer] Care Teams Senior Compensation Consultant Relationship Specialty Start Date End Date Danelle Aguilera MD PCP - General Family Medicine 03/04/20
--- OUTSIDE RECORDS SUMMARY | 2024-12-19 13:41 | XMS_ITS | Continuity of Care Document ---
Author Name Auto Generated, Auto Generated Organization [facility] Support Name Relationship Address Phone Sivan Goff Emergency Contact [address] [place] [address] Unavailable Sivan Goff Daughter [address] [place] [address] Unavailable Radhames Little Son [address] [place] [address] Unavailable Radhames Little Financial [address] [place] [address] Unavailable Anita Little Financial Responsible Alliance Party [address] [place] [address] Anita Little Self [address] [place] [address] Sivan Goff [facility] [address] [place] [address] Unavailable Haven Little [id number] [address] [place] [address] Unavailable Radhames Little Statement Copy [address] [place] [address] Unavailable Juan James Son-in-Law [address] [place] [address] Unavailable Summary Purpose Consult/Referral Allergies, Adverse Reactions, Alerts Type Description/Agent Code Date Allergy Active Date Allergy Inactivated Date of Last Reaction Adverse Reactions Severity Status Comments Source of Information [facility]DB Medic ation Ingre dient ibuprofen Active Patient History Medications No Known Medications Conditions/Problems Problem/Diagnosis Awareness of Diagnosis Code (ICD-10) Onset Date (Start Date) Resolution Date (End Date) Status Source Comments HYPO-OSMOLALITY AND HYPONATREMIA E87.1 07/23/20 22 Active Danelle Aguilera MUSCLE WEAKNESS (GENERALIZED) M62.81 07/23/20 22 Active Danelle Aguilera OTHER PERICARDIAL EFFUSION (NONINFLAMMATORY) I31.39 07/05/20 22 Active Danelle Aguilera ANEMIA, UNSPECIFIED D64.9 07/03/20 22 Active Danelle Aguilera 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.2 06/07/20 Active Bird, Danelle PAROXYSMAL ATRIAL FIBRILLATION I48.0 06/07/20 Active Bird, Danelle PERICARDIAL EFFUSION (NONINFLAMMATORY) I31.3 06/07/20 22 07/04/2022 Resolved Bird, Danelle CARDIAC MURMUR, UNSPECIFIED R01.1 06/07/20 Active Bird, Danelle UNSPECIFIED SEVERE PROTEIN-CALORIE MALNUTRITION E43 06/07/20 Active Bird, Danelle ABNORMAL WEIGHT LOSS R63.4 06/07/20 Active Bird, Danelle HYPOTHYROIDISM, UNSPECIFIED E03.9 06/07/20 Active Bird, Danelle HYPOMAGNESEMIA E83.42 06/07/20 Active Bird, Danelle MIXED HYPERLIPIDEMIA E78.2 06/07/20 Active Bird, Danelle OTHER DISORDERS OF PLASMA-PROTEIN METABOLISM, NOT ELSEWHERE CLASSIFIED E88.09 06/07/20 Active Bird, Danelle VITAMIN D DEFICIENCY, UNSPECIFIED E55.9 06/07/20 Active Bird, Danelle HYPOCALCEMIA E83.51 06/07/20 Active Bird, Danelle PREDIABETES R73.03 06/07/20 Active Bird, Danelle SLOW TRANSIT CONSTIPATION K59.01 06/07/20 Active Bird, Danelle GASTRO-ESOPHAGEAL REFLUX DISEASE WITHOUT ESOPHAGITIS K21.9 06/07/20 Active Bird, Danelle PRIMARY INSOMNIA F51.01 06/07/20 Active Willy, Danelle ESSENTIAL (PRIMARY) HYPERTENSION I10 06/07/20 Active Danelle Aguilera PERSONAL HISTORY OF OTHER VENOUS THROMBOSIS AND EMBOLISM Z86.718 06/07/20 Active Danelle Aguilera FDC (CURRENT) USE OF ANTICOAGULANTS Z79.01 06/07/20 Active Danelle Aguilera DRAGLINE MECHANIC (CURRENT) USE OF ASPIRIN Z79.82 06/07/20 Active Danelle Aguilera PRESSURE ULCER OF RIGHT BUTTOCK, UNSTAGEABLE L89.310 05/28/20 Active Danelle Aguilera Procedures No Known Procedures
== END 2024-12-19 11:06 | disposition home or self-care (01) ==
PROVIDERS: PCP Family Medicine; Referring Provider Internal Medicine; Visit Provider Family Medicine
DX: E78.5 Hyperlipidemia, unspecified (principal); E61.1 Iron deficiency; I10 Essential (primary) hypertension
CPT/HCPCS: 36415; 80053; 80061; 82728; 83540; 83550; 85027

== ENCOUNTER 2024-12-30 09:15 | Outpatient (CLI) | payer MEDICARE, SELFPAY ==
--- NOTE | ~2024-12-30 | DEXA_ITS ---
Bone Density Report Name: IMKE NEAL Age: 74 Sex: Female Ethnicity: White Date of : 1950 Indication: postmenopausal; screening for osteoporosis; Referring Provider: ULI SALAZAR Study: Bone densitometry was performed. Exam Date: December 30, 2024 Accession number: [id number] Bone Density: Region BMD T-score Z-score Classification AP Spine(L1-L4) 0.968 -0.7 1.6 Normal Femoral Neck (Left) 0.693 -1.4 0.6 Osteopenia Total Hip (Left) 0.816 -1.0 0.7 Normal Femoral Neck (Right) 0.691 -1.4 0.6 Osteopenia Total Hip (Right) 0.794 -1.2 0.5 Osteopenia Total Hip Mean 0.805 -1.1 0.6 Osteopenia World Health Organization criteria for BMD impression classify patients as: Normal (T-score at or above -1.0), Osteopenia (T-score between -1.0 and -2.5), or Osteoporosis (T-score at or below -2.5). 10-year Fracture Risk(1): Major Osteoporotic Fracture 11% Hip Fracture 1.9% Reported Risk Factors: [place] (), Neck BMD=0.693, BMI=24.6 (1) FRAX(R) Version 3.08. Fracture probability calculated for an untreated patient. Fracture probability may be lower if the patient has received treatment. Clinical Information Provided by Patient: Has used the following medications: Vitamin D, Calcium Patient maximum height was 58 Menopause Age: 53 Drinks caffeinated beverages Onset of menses at age 10 Number of children 2 Impression: The patient has low bone mass, based on the Left Femoral Neck T-score. The patient has an estimated ten-year risk of hip fracture of 1.9% and an estimated ten-year risk of major fracture of 11%, based on the WHO FRAX algorithm. Discussion: BONE DENSITY IS LOW AT ONE OR MORE SKELETAL SITES. This patient's lowest T-score is low at one or more skeletal sites. It meets the World Health Organization's (WHO) criteria for ?low bone mass? (T-score between -1.0 and -2.5). The patient's 10-year risk of fracture as calculated by FRAX is less than the threshold where pharmacological therapy is recommended by the National Osteoporosis Foundation (NOF). However, all treatment decisions require clinical judgment and consideration of individual patient factors, including patient preferences, comorbidities, previous drug use, risk factors not captured in the FRAX model (e.g., frailty, falls, vitamin D deficiency, increased bone turnover, interval significant decline in bone density) and possible under or overestimation of fracture risk by FRAX. The patient should follow a healthful lifestyle (good nutrition with adequate calcium and vitamin D, and appropriate weight-bearing exercise). Follow-Up: Consider repeating this study in 2 to 3 years to reassess this patient's status, or sooner if there is some new clinical indication. Reported by: BRIAN on 12/30/2024 9:52:00 AM. Reviewed, dictated and finalized at location AHellen MIN
--- OUTSIDE RECORDS SUMMARY | 2024-12-30 09:53 | XMS_ITS | Clinical Summary ---
Author Organization [facility] [place] [address] Address [address] [place] [address] Care Team Providers Care Box Sealing Machine Operator Name Role Phone Danelle Aguilera MD Primary Care Provider [phone] Allergies Active Allergy Reactions Criticality Noted Date [...] Encounters Date Type Department Care Team Description 12/21/2024 Results Follow-Up [facility] Medical Group Cardiology at [address] [place] [phone] Carlota Sheridan MD 12/15/2024 1:30 PM CDT Office Visit [facility] Medical Group Cardiology [address] [place] [address] Carlota Sheridan MD Dyslipidemia (Primary Dx); Paroxysmal atrial fibrillation (HCC); HTN (hypertension), benign; Chronic anticoagulation; History of pericarditis from Last 3 Months Medical History Medical History Date Comments Hypertension 2017 H/O atrial fibrillation without current medicati on [...] 36.4 C (97.6 F) 11/21/2020 9:22 AM MANAGER REQUIREMENTS Respiratory Rate - - Oxygen Saturation 97% [...] Procedure Name Priority Date/Time Associated Diagnosis Comments LIPID PANEL Routine 12/19/2024 Dyslipidemia POCT LIPID PANEL Routine 12/15/2024 1:40 PM CDT Dyslipidemia from Last 3 Months Results * Lipid panel (12/19/2024) SCRIBED Cholesterol, Total 232 <200 EXTERNAL LAB SCRIBED HDL 83 >40 EXTERNAL LAB SCRIBED LDL 107 <100 EXTERNAL LAB SCRIBED Triglycerides 89 <150 EXTERNAL LAB Blood 12/19/2024 [facility] Wilma Sheridan MD LAB BLOOD ORDERABLES Fi nal Result EXTERNAL LAB * POCT lipid panel (12/15/2024 1:40 PM CDT) Cholesterol, POC 239 mg/dL Comment:GLU = 95 HDL, POC 37 mg/dL Triglycerides, POC 58 mg/dL LDL Cholesterol POC 191 mg/dL Chol/HDL Ratio, POC 5.2 Non-HDL Cholesterol, POC 203 mg/dL Cholesterol Total, POC 239 mg/dL Capillary blood 12/15/2024 1 :40 PM CDT [facility] Wilma Sheridan MD POINT OF CARE TEST VIANEY PAULINO Final Result from Last 3 Months Insurance [facility] [employer] [facility] [employer] [facility] Care Teams Box Sealing Machine Operator Relationship Specialty Start Date End Date Danelle Aguilera MD PCP - General Family Medicine 03/04/20
--- OUTSIDE RECORDS SUMMARY | 2024-12-30 09:53 | XMS_ITS | Clinical Summary ---
Author Organization [facility] Address [address] [place] [address] Phone Care Team Providers Care Elevated Guard Name Role Phone Danelle Aguilera MD Primary Care Provider [phone] Allergies Active Allergy Reactions Criticality Noted Date [...] 02/08/2016 Influenza Vaccine (#1) 2024 Care Teams Elevated Guard Relationship Specialty Start Date End Date Danelle Aguilera MD [address] [place] [address] PCP - General Internal Medicine 05/27/22
--- OUTSIDE RECORDS SUMMARY | 2024-12-30 09:53 | XMS_ITS | Encounter Summary ---
Author Organization [facility] Address [address] [place] [address] Care Team Providers Care Level Vial Inside Grinder Name Role Phone Danelle Aguilera MD Primary Care Provider [phone] Encounter Details Date Type Department Care Team (Late st Contact Info) Description 12/21/2024 Results Follow-Up [facility] Medical Group Cardiology at [address] [place] [address] Carlota Sheridan MD [address] [place] [address] Social History Tobacco Use Types Packs/Day Years Used Date Smoking Tobacco: Never Smokeless Tobacco: Never Alcohol Use Standard Drinks/Week Comments Yes 2 (1 standard drink = 0.6 oz pur e alcohol) Comments Unknown Sex and Gender Information Value Date Recorded Sex Assigned at Not on file Legal Sex Female 12:55 PM CDT Gender Identity Female 03/21/2020 9:58 AM CDT Sexual Orientation Straight 03/21/2020 9: 58 AM CDT documented as of this encounter Plan of Treatment Not on file documented as of this encounter Visit Diagnoses Not on filedocumented in this encounter Care Teams Level Vial Inside Grinder Relationship Specialty Start Date End Date Danelle Aguilera MD PCP - General Family Medicine 03/04/20 documented as of this encounter
--- OUTSIDE RECORDS SUMMARY | 2024-12-30 09:53 | XMS_ITS ---
Author Name FranceDaniel deenick Rai Address [address] [place] [address] Phone [phone] Joobili ices Address [address] [place] [address] Phone [phone] Care Team Providers Care Fish Net Maker Name Role Phone Gus Delmar K Unavailable Danelle Aguilera Unavailable [phone] Quincy Smiley Unavailable [phone] Functional Status No Results Mental Status No Results Allergies and Intolerances Name Onset Date Reaction Severity ibuprofen (Allergy) Sat Jun 07 18:20:00 EDT 2021 Medications Medication Directions Start Date End Date Chest Congestion Relief 400 mg tablet 1 tab TABLET Oral PRN Every 4 Hours Indication: for cough or congestion Take 1 tab Q4hr PRN for cough or congestion. ThuOct 02 16:32:00 2021Nov 09 01:00:00 2022 magnesium carbonate (bulk) powder 3/4 scoop POWDER (GRAM) Oral 2 Times Daily Indication: Supplement 2/3 scoop with 4oz. water ASSEMBLY CLEANER x2 x4 ThuAug 14 18:52:00 2021Nov 09 01:00:00 2022 calcium 250 mg-D3 400 unit-magnesium 40 bj-X1-Rv-copper-torres tablet 2 cap TABLET Oral 2 Times Daily Indication: supplement ASSEMBLY CLEANER x1 x3 2 caps ThuAug 13 06:40:00 2021Nov 09 01:00:00 2022 famotidine 20 mg tablet 1 tablet TABLET Oral Every 3 Days for 6 Days Indication: TX indigestion Famotidine 20mg tablet PO take 1 tablet every third day for 6 days, then stop.ASSEMBLY CLEANER X1 ThuAug 08 01:00:00 EDT 2021 10 00:59:00 EST 2021 famotidine 20 mg tablet 1 tablet TABLET Oral Every 3 Days for 6 Days Indication: TX indigestion Famotidine 20mg tablet PO take 1 tablet every third day for 6 days, then stop.ASSEMBLY CLEANER X1 ThuAug 08 08:25:00 EDT 2021Aug 08 10:32:00 EDT 2021 Calixto-Gest Antacid 200 mg calcium (500 mg) chewable tablet 2 tabs TABLET,CHEWABLE Oral PRN 2 Times Daily Indication: Treatment for heart burn. Take 2 tabs PO BID if heart burn symptoms occur. ThuJul 24 16:22:00 2021Nov 09 01:00:00 EST 2022 famotidine 20 mg tablet 1 tablet TABLET Oral Every 2 Days for 14 Days Indication: TX indigestion. Famotidine 20mg tablet PO 1 tablet every other day for 14 days, then take 1 tablet every third day for 6 days, then stop. ThuJul 24 16:30:00 EDT 2021Aug 07 16:29:00 EDT 2021 famotidine 20 mg tablet 1 tablet TABLET Oral Every 3 Days for 6 Days Indication: TX indigestion Famotidine 20mg tablet PO take 1 tablet every third day for 6 days, then stop. ThuJul 24 14:34:00 EDT 2021Jul 27 08:27:00 EDT 2021 Calmoseptine 0.44 %-20.6 % topical ointment 1 aleksandra OINTMENT (GRAM) Topical 1 Time Daily Indication: As a preventative Apply topically to right buttocks once daily as preventative. ThuJul 13 07:00:00 EDT 2021Jul 13 11:16:00 EDT 2021 Calmoseptine 0.44 %-20.6 % topical ointment 1 aleksandra OINTMENT (GRAM) Topical 1 Time Daily Indication: As a preventative Apply topically to right buttocks once daily as preventative. ThuJul 13 11:15:00 EDT 2021Nov 09 01:00:00 EST 2022 furosemide 40 mg tablet 1 tablet TABLET Oral 1 Time Daily Indication: diuretic CHF ASSEMBLY CLEANER observation early am ThuJul 09 15:00:00 EDT 2021Nov 09 01:00:00 EST 2022 mupirocin 2 % topical ointment 1 aleksandra OINTMENT (GRAM) Topical 1 Time Daily Indication: open area to rt buttock Cleanse RT buttock with saline and apply ointment and calcium alginate and cover with Aquacel . Daily and PRN , measure weekly on until healed . ThuJul 04 09:30:00 EDT 2021Jul 13 04:22:00 EDT 2021 Vitamin C 1,000 mg tablet 1 pack TABLET Oral 1 Time Daily Indication: Vitamins Vitamin C power pack ( Vit C + vitamins and minerals Daughter provides ) take 1 packet daily with 2 to 3 oz of liquid . ThuJul 04 11:00:00 EDT 2021Jul 24 16:19:00 EDT 2021 TUBErsoL 5 tub. unit/0.1 mL intradermal injection solution 0.1 ml VIAL (ML) Intradermal 1 Time Daily for 1 Day Indication: TB Reading 1st injection on admission, then one week after. Read between 48 and 72 hours ThuJul 03 15:00:00 ED2021Jul 04 14:59:00 EDT 2021 TUBErsoL 5 tub. unit/0.1 mL intradermal injection solution Read Results VIAL (ML) Other 1 Time Daily for 1 Day Indication: TB Reading Read results between 48-72 hours after 1st and 2nd (1 week apart). If positive do chest x-ray. [facility] Jul 05 01:00:00 EDT 2021Jul 06 00:59:00 EDT 2021 Blood Pressure Cuff 1 EACH Other Every 1 Month Indication: Monthly Vitals ASSEMBLY CLEANER to obtain ThuJul 10 01:00:00 ED2021Nov 09 01:00:00 EST 2022 amiodarone 200 mg tablet 200mg TABLET Or al Every 12 Hours Indication: A-fib ASSEMBLY CLEANER x1 x4 1 tab ThuJul 03 15:00:00 ED2021Jul 24 16:15:00 ED2021 Eliquis 5 mg tablet 5mg TABLET Oral Ever y 12 Hours Indication: DVT prophCNA x1 x4 1 tab Thu Sep 15:00:00 EDT 2021Nov 09 01:00:00 EST 2022 furosemide 20 mg tablet 10mg TABLET Oral 2 Times Daily Indication: CHF ASSEMBLY CLEANER x1 x21/2 tab Codie Sep 15:00:00 EDT 2021Jul 09 17:56:00 EDT 2021 melatonin 5 mg tablet 5mg TABLET Oral 1 Time Daily Indication: Insomnia ASSEMBLY CLEANER x4 Codie Sep 29 01:00:00 EDT 2021Nov 09 01:00:00 EST 2022 sodium chloride 1 gram tablet 1 gram TABLET Oral 1 Time Daily Indication: Hyponatremia ASSEMBLY CLEANER x1 Codie Sep 15:00:00 EDT 2021Nov 09 01:00:00 EST 2022 Acid Assistant Auditor (famotidine) 20 mg tablet 20mg TABLET Oral 1 Time Daily Indication: GERD ASSEMBLY CLEANER x1 Codie Sep 15:00:00 EDT 2021Jul 24 16:18:00 EDT 2021 metoprolol tartrate 25 mg tablet 25mg TABLET Oral Every 12 Hours Indication: A-fib ASSEMBLY CLEANER x1 x4 Codie Sep 15:00:00 EDT 2021Nov 09 01:00:00 EST 2022 polyethylene glycoL 3350 17 gram oral powder packet 17 grams POWDER IN PACKET (EA) Oral PRN Every 1 Day Indication: Constipation Cdoie Sep 01:00:00 EDT 2021Jul 24 16:20:00 EDT 2021 cholecalciferol (vitamin D3) 50 mcg (2,000 unit) capsule 1 capsule CAPSULE Oral 1 Time Daily Indication: Supplement ASSEMBLY CLEANER x1 Codie Sep 15:00:00 EDT 2021Nov 09 01:00:00 EST 2022 FeroSuL 325 mg (65 mg iron) tablet 1 tablet TABLET Oral 2 Times Daily Indication: AnemiaCNA x1 x3 Codie Sep 15:00:00 EDT 2021Nov 09 01:00:00 EST 2022 aspirin 81 mg chewable tablet 81mg TABLET,CHEWABLE Oral 1 Time Daily Indication: DVT proph ASSEMBLY CLEANER x1 Fri Sep 30 01:00:00 ED2021Nov 09 01:00:00 EST 2022 calcium 250 mg-D3 400 unit-magnesium 40 xn-O8-Wg-copper-torres tablet 2 tab TABLET Oral 2 Times Daily Indication: supplement ASSEMBLY CLEANER x1 x3 2 tabs Codie Sep 15:00:00 EDT 2021Aug 13 06:42:00 EST 2021 sodium chloride 1 gram tablet 0.5 gram TABLET Oral 1 Time Daily Indication: Hyponatremia ASSEMBLY CLEANER x2 Fri Sep 30 01:00:00 EDT 2021Jul 09 17:58:00 EDT 2021 magnesium carbonate (bulk) powder 3/4 scoop POWDER (GRAM) Oral 2 Times Daily Indication: Supplement 2/3 scoop with 4oz. water ASSEMBLY CLEANER x2 x3 ThuJul 04 01:00:00 EDT 2021 [place]ie Aug 14 18:53:00 EST 2021 levothyroxine 13 mcg capsule 13mcg CAPSULE Oral 1 Time Daily Indication: Hypothyroidism ThuJun 10 12:00:00 EDT 2021Jun 10 13:51:00 EDT 2021 calcium carbonate 500 mg calcium (1,250 mg) tablet 1 tablet TABLET Oral 1 Time Daily Indication: Hypocalcemia ThuJun 10 12:00:00 EDT 2021 Sep 01:00:00 EDT 2021 mupirocin 2 % topical ointment 1 application OINTMENT (GRAM) Topical 1 Time Daily Indication: Buttocks wound Cleanse area to buttocks with NS, apply bactroban to wound bed, and secure with aquacel daily. ThuJun 10 12:00:00 EDT 2021 Sep 01:00:00 EDT 2021 TUBErsoL 5 tub. unit/0.1 mL intradermal injection solution 0.1 ml VIAL (ML) Intradermal 1 Time Weekly for 2 Weeks Indication: tb test 1st injection on admission, then one week after. Read between 48 and 72 hours Sun Sep 01:00:00 EDT 2021 Sun Sep 01:00:00 EDT 2021 TUBErsoL 5 tub. unit/0.1 mL intradermal injection solution Read Results VIAL (ML) Other 1 Time Weekly for 2 Weeks Indication: tb test Read results between 48-72 hours after 1st and 2nd (1 week apart). If positive do chest x-ray. Sun Sep 01:00:00 EDT 2021 Sun Sep 01:00:00 EDT 2021 Leif 7 gram-7 gram-1.5 gram oral powder packet 1 packet POWDER IN PACKET (EA) Oral 2 Times Daily Indication: Supplement Sun Sep 04 14:00:00 EDT 2021 Sun Sep 01:00:00 EDT 2021 acetaminophen 325 mg tablet 650mg TABLET Oral PRN Every 6 Hours Indication: Pain [facility] Sep 03 18:00:00 EDT 2021 Sun Sep 11 01:00:00 EDT 2021 amiodarone 200 mg tablet 200mg TABLET Or al Every 12 Hours Indication: A-fib A-fib Sat Sep 03 18:00:00 EDT 2021 Sun Sep 11 01:00:00 EDT 2021 Eliquis 5 mg tablet 5mg TABLET Oral Ever y 12 Hours Indication: DVT proph DVT proph Sat Sep 03 18:00:00 EDT 2021 Sun Sep 11 01:00:00 EDT 2021 furosemide 20 mg tablet 10mg TABLET Oral 2 Times Daily Indication: CHF CHF Sat Sep 03 18:00:00 EDT 2021 Sun Sep 11 01:00:00 EDT 2021 melatonin 5 mg tablet 5mg TABLET Oral 1 Time Daily Indication: Insomnia Sat Sep 03 18:00:00 EDT 2021 Sun Sep 11 01:00:00 EDT 2021 sodium chloride 1 gram tablet 1.5 grams TABLET Oral 2 Times Daily Indication: Hyponatremia Sat Sep 03 18:00:00 EDT 2021 Sun Sep 11 01:00:00 EDT 2021 tamsulosin 0.4 mg capsule 1 capsule CAPS ULE Oral 1 Time Daily Indication: Urinary Retention Sat Sep 03 18:00:00 EDT 2021 Sun Sep 11 01:00:00 EDT 2021 docusate sodium 100 mg capsule 100mg CAPSULE Oral 1 Time Daily Indication: Constipation Sat Sep 03 18:00:00 EDT 2021 Sun Sep 11 01:00:00 EDT 2021 famotidine 20 mg tablet 20mg TABLET Oral 1 Time Daily Indication: GERD Sat Sep 03 18:00:00 EDT 2021 Sun Sep 11 01:00:00 EDT 2021 metoprolol tartrate 25 mg tablet 25mg TABLET Oral Every 12 Hours Indication: A-fib A-fib Sat Sep 03 18:00:00 EDT 2021 Sun Sep 11 01:00:00 EDT 2021 polyethylene glycoL 3350 17 gram oral powder packet 17 grams POWDER IN PACKET (EA) Oral 1 Time Daily Indication: Constipation Sat Sep 03 18:00:00 EDT 2021 Sun Sep 11 01:00:00 EDT 2021 tolnaftate 1 % topical powder 1 application POWDER (GRAM) Topical PRN Every 12 Hours Indication: Antifungal Apply to affected area until clear Sat Sep 03 18:00:00 EDT 2021 Sun Sep 11 01:00:00 EDT 2021 cholecalciferol (vitamin D3) 50 mcg (2,000 unit) capsule 1 capsule CAPSULE Oral 1 Time Daily Indication: Supplement ThuJun 07 18:00:00 EDT 2021 Sun Jun 15 01:00:00 EDT 2021 magnesium 250 mg (as magnesium oxide) tablet 350mg TABLET Oral 2 Times Daily Indication: Supplement Supplement ThuJun 07 18:00:00 EDT 2021 Sun Jun 15 01:00:00 EDT 2021 FeroSuL 325 mg (65 mg iron) tablet 1 tablet TABLET Oral 2 Times Daily Indication: Anemia Anemia ThuJun 07 18:00:00 EDT 2021 Sun Sep 01:00:00 EDT 2021 aspirin 81 mg chewable tablet 81mg TABLET,CHEWABLE Oral 1 Time Daily Indication: DVT proph ThuJun 07 18:00:00 EDT 2021 [place] Jun 15 01:00:00 EDT 2021 Problems Active Concerns * Hypo-osmolality and hyponatremia* Code: * Start Date: ThuJun 07 00:00:00 EDT 2021 * End Date: * Text: * Syndrome of inappropriate secretion of antidiuretic hormone* Code: * Start Date: ThuJun 07 00:00:00 EDT 2021 * End Date: * Text: * Pressure ulcer of right buttock, unstageable* Code: * Start Date: ThuJun 07 00:00:00 EDT 2021 * End Date: * Text: * Paroxysmal atrial fibrillation* Code: * Start Date: ThuJun 07 00:00:00 EDT 2021 * End Date: * Text: * Cardiac murmur, unspecified* Code: * Start Date: ThuJun 07 00:00:00 EDT 2021 * End Date: * Text: * Unspecified severe protein-calorie malnutrition* Code: * Start Date: ThuJun 07 00:00:00 EDT 2021 * End Date: * Text: * Abnormal weight loss* Code: * Start Date: ThuJun 07 00:00:00 EDT 2021 * End Date: * Text: * Hypothyroidism, unspecified* Code: * Start Date: ThuJun 07 00:00:00 EDT 2021 * End Date: * Text: * Hypomagnesemia* Code: * Start Date: ThuJun 07 00:00:00 EDT 2021 * End Date: * Text: * Mixed hyperlipidemia* Code: * Start Date: ThuJun 07 00:00:00 EDT 2021 * End Date: * Text: * Other disorders of plasma-protein metabolism, not elsewhere classified* Code: * Start Date: ThuJun 07 00:00:00 EDT 2021 * End Date: * Text: * Vitamin D deficiency, unspecified* Code: * Start Date: ThuJun 07 00:00:00 EDT 2021 * End Date: * Text: * Hypocalcemia* Code: * Start Date: ThuJun 07 00:00:00 EDT 2021 * End Date: * Text: * Prediabetes* Code: * Start Date: ThuJun 07 00:00:00 EDT 2021 * End Date: * Text: * Slow transit constipation* Code: * Start Date: ThuJun 07 00:00:00 EDT 2021 * End Date: * Text: * Gastro-esophageal reflux disease without esophagitis* Code: * Start Date: ThuJun 07 00:00:00 EDT 2021 * End Date: * Text: * Primary insomnia* Code: * Start Date: ThuJun 07 00:00:00 EDT 2021 * End Date: * Text: * Essential (primary) hypertension* Code: * Start Date: ThuJun 07 00:00:00 EDT 2021 * End Date: * Text: * Personal history of other venous thrombosis and embolism* Code: * Start Date: ThuJun 07 00:00:00 EDT 2021 * End Date: * Text: * long-term (current) use of anticoagulants* Code: * Start Date: ThuJun 07 00:00:00 EDT 2021 * End Date: * Text: * long-term (current) use of aspirin* Code: * Start Date: ThuJun 07 00:00:00 EDT 2021 * End Date: * Text: * Other pericardial effusion (noninflammatory)* Code: * Start Date: ThuJul 05 00:00:00 EDT 2021 * End Date: * Text: * Anemia, unspecified* Code: * Start Date: ThuJul 03 00:00:00 EDT 2021 * End Date: * Text: * Muscle weakness (generalized)* Code: * Start Date: ThuJul 21 00:00:00 EDT 2021 * End Date: * Text: Reason for Referral Past Medical History Resolved Concerns * Problem Pericardial effusion (noninflammatory)* Code: * Start Date: ThuJun 07 00:00:00 EDT 2021 * End Date: ThuJul 04 00:00:00 EDT 2021
--- OUTSIDE RECORDS SUMMARY | 2024-12-30 09:53 | XMS_ITS | Referral Summary ---
Author Organization [facility] [address] [place] [address] [address] [facility] [address] [place] [address] Care Team Providers Care Creative Perfumer Name Role Phone Danelle Aguilera MD Primary Care Provider [phone] Encounters Date Type Department Care Team Description 12/21/2024 Results Follow-Up [facility] Cardiology at [address] [place] [address] Carlota Sheridan MD 12/15/2024 1:30 PM CDT Office Visit [facility] Cardiology [address] [place] [address] [address] [place] [address] Carlota Sheridan MD Dyslipidemia (Primary [...] 36.4 C (97.6 F) 11/21/2020 9:22 AM HEALTH EDUCATION AIDE Respiratory Rate - - Oxygen Saturation 97% [...] Triglycerides 89 <150 EXTERNAL LAB Blood 12/19/2024 Carlota Sheridan MD LAB BLOOD ORDERABLES Fi nal Result EXTERNAL LAB * POCT lipid panel (12/15/2024 1:40 PM CDT) Cholesterol, POC 239 mg/dL Comment:GLU = 95 HDL, POC 37 mg/dL Triglycerides, POC 58 mg/dL LDL Cholesterol POC 191 mg/dL Chol/HDL Ratio, POC 5.2 Non-HDL Cholesterol, POC 203 mg/dL Cholesterol Total, POC 239 mg/dL Capillary blood 12/15/2024 1 :40 PM CDT Carlota Sheridan MD POINT OF CARE TEST ORDSrinivasa PAULINO Final Result from Last 3 Months Insurance [facility] Care Teams Creative Perfumer Relationship Specialty Start Date End Date Danelle Aguilera MD PCP - General Family Medicine 03/04/20
== END 2024-12-30 09:16 | disposition home or self-care (01) ==
LOC: ANHIMG 09:18
PROVIDERS: PCP Family Medicine; Visit Provider Family Medicine
DX: Z78.0 Asymptomatic menopausal state (principal); M85.852 Other specified disorders of bone density and structure, left thigh; M85.851 Other specified disorders of bone density and structure, right thigh
CPT/HCPCS: 77080

== ENCOUNTER 2025-04-20 09:11 | Outpatient (CLI) | payer MEDICARE, SELFPAY ==
--- OUTSIDE RECORDS SUMMARY | 2025-04-20 09:18 | XMS_ITS | Referral Summary ---
Author Organization [facility] [address] [place] [address] Care Team Providers Care Vp Celebrity Services Name Role Phone Danelle Aguilera MD Primary Care Provider [phone] Allergies Active Allergy Reactions Criticality Noted Date Comments Iodinated Contrast Media Other (See comments) Low 03/22/2020 Dye that contains shellfish. Ibuprofen Swelling Medium 03/22/2020 Medications ASCORBIC ACID, VITAMIN C, ORAL Take 1,000 mg by mouth 2 (two) times a day Active biotin 5 mg capsule Take 1 capsule (1 tablet total) by mouth daily Active cholecalcifero l (VITAMIN D-3) 2000 unit capsule Take 1 capsule (2,000 Units total) by mouth daily Active acetaminophen ER (TYLENOL) 650 mg 8 hr tablet Take 1 tablet (650 mg total) by mouth every 8 (eight) hours as needed for pain Active magnesium gluconate 200 mg tabletIndicati ons:hypomagnes emia 1 tablet (200 mg total) Active ferrous sulfate 325 mg (65 mg of elemental iron) tablet 325 MG ORALLY TWICE A DAY WITH FOOD 2 Active metoprolol tartrate (LOPRESSOR) 25 mg immediate release tablet Take 1 tablet (25 mg total) by mouth 2 (two) times a day 180 tablet 3 5 Active Eliquis 5 mg tablet TAKE 1 TABLET BY MOUTH TWICE A DAY 180 tablet 5 Active apixaban (Eliquis) 5 mg tablet Take 1 tablet (5 mg total) by mouth 2 (two) times a day 180 tablet 5 04/10/20 25 Discontinued Active Problems Problem Noted Date Diagnosed Date [...] C (97.6 F) 11/21/2020 9: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 Respiratory Rate - - Oxygen Saturation 97% 12/15/2024 1:20 PM CDT Inhaled Oxygen Concentration - - Weight 53.2 kg (117 lb 3.2 oz) 12/15/2024 1:20 P M CDT Height 149.9 cm (4' 11) 12/15/2024 1:20 PM CDT Body Mass Index 23.67 12/15/2024 1:20 PM CDT Plan of Treatment Not on file Insurance [facility] [employer] Member Subscriber Plan / Payer ( fective 2019-Present) Name:Sidney Anita L Relation to Subscriber:Self Name:Anita Little Payer ID:[id number] ([facility] Type:[employer]ETNA MEDICARE Address: [address] [place] [address] [facility] [employer] Member Subscriber Plan / Payer ( fective 2019-Present) Name:Sidney Anita L Relation to Subscriber:Self Name:Sidney Anita L Payer ID:1 ([facility]) Type:AETNA MEDICARE Address: [facility] [address] [place] [address] Care Teams Vp Celebrity Services Relationship Specialty Start Date End Date Danelle Aguilera MD PCP - General Family Medicine 03/04/20
--- OUTSIDE RECORDS SUMMARY | 2025-04-20 09:18 | XMS_ITS | Clinical Summary ---
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
--- OUTSIDE RECORDS SUMMARY | 2025-04-20 09:18 | XMS_ITS | Clinical Summary ---
Author Organization [facility] Address [address] [place] [address] Phone Care Team Providers Care Gas Station Service Attendant Name Role Phone Danelle Aguilera MD Primary Care Provider Allergies Active Allergy Reactions Criticality Noted Date Comments Ibuprofen Swelling Medium 03/22/2020 Iodinated Contrast Media Other (see comments) Low 03/22/2020 Dye that contains shellfish. Medications Eliquis 5 MG tablet TAKE 1 TABLET BY MOUTH EVERY 12 HOURS FOR DVT PROPHYLAXIS 2 Active amiodarone (PACERONE) 200 MG tablet TAKE 1 TABLET BY MOUTH EVERY 12 HOURS FOR ATRIAL FIBRILLATION 2 Active docusate sodium (COLACE) 100 MG capsule TAKE 1 TABLET BY MOUTH EVERY DAY FOR CONSTIPATION 2 Active famotidine (PEPCID) 20 MG tablet TAKE 1 TABLET BY MOUTH EVERY DAY FOR GERD 2 Active ferrous sulfate 325 (65 Fe) MG tablet TAKE 1 TABLET BY MOUTH TWICE A DAY FOR ANEMIA 2 Active furosemide (LASIX) 20 MG tablet 1/2 TABLET (10MG) BY MOUTH TWICE A DAY FOR CHF 2 Active Magnesium 200 MG tablet 200 mg Active [facility] Aspirin Adult Low Dose 81 MG chewable tablet TAKE 1 TABLET BY MOUTH EVERY DAY FOR DVT PROPHYLAXIS 2 Active D3 High Potency 50 MCG (1999 UT) capsule TAKE 1 CAPSULE BY MOUTH EVERY DAY FOR SUPPLEMENT 2 Active sodium chloride 1 g tablet 1 AND A HALF TABLETS (1.5GM) BY MOUTH TWICE DAIYL FOR HYPONATREMIA 2 Active tamsulosin (FLOMAX) 0.4 MG 24 hr capsule TAKE 1 CAPSULE BY MOUTH EVERY DAY FOR URINARY RETENTION 2 Active Multiple Vitamins-Minera ls (Decubi-Kasey) capsule Take 2 capsules by mouth 2 times daily Active metoprolol tartrate (LOPRESSOR) 25 MG tablet TAKE 1 TABLET BY MOUTH EVERY 12 HOURS FOR ATRIAL FIBRILLATION 2 Active Melatonin 5 MG tablet TAKE 1 TABLET BY MOUTH EVERY EVENING FOR INSOMNIA 2 Active Active Problems Problem Noted Date Diagnosed Date Chronic hyponatremia 06/10/2022 Gastro-esophageal reflux disease without esophag itis 06/06/2022 Dyslipidemia 10/31/2020 Pericarditis 04/25/2020 Paroxysmal atrial fibrillation 04/25/2020 Benign hypertension 04/25/2020 Social History Tobacco Use Types Packs/Day Years Used Date Smoking Tobacco: Never Assessed Comments Unknown Sex and Gender Information Value Date Recorded Sex Assigned at Not on file Legal Sex Female 1:02 PM MDT Gender Identity Not on file Sexual Orientation [...] 9:17 AM CDT Height 149.9 cm (4' 11) 06/23/2022 9:17 AM CDT Body Mass Index 19.59 06/23/2022 9:17 AM CDT Plan of Treatment Health Maintenance Due Date Last Done Comments Pneumococcal PPSV23/PCV13 65 + Years / Low and Medium Risk (1 of 2 - PCV) 2001 Influenza Vaccine (#1) 2025 Insurance [employer] Care Teams Gas Station Service Attendant Relationship Specialty Start Date End Date Danelle Aguilera MD [address] [place] [id number] PCP - General Internal Medicine 05/27/22
--- OUTSIDE RECORDS SUMMARY | 2025-04-20 09:18 | XMS_ITS ---
Author Name Auto Generated, Auto Generated Organization [facility] Address [address] [place] [address] Phone [phone] Care Team Providers Care Document Manager Name Role Phone Delmar Weber Unavailable [phone] WillyDanelle Unavailable [phone] Quincy Smiley Unavailable Functional Status No Results Mental Status No Results Allergies and Intolerances Name Onset Date Reaction Severity ibuprofen (Allergy) ThuJun 07 18:20:00 EDT 2021 Medications Medication Directions [...] Indication: Supplement 2/3 scoop with 4oz. water SUPERVISOR CLOTH WINDING x2 x4 ThuAug 14 18:52:00 2021Nov 09 01:00:00 2022 calcium 250 mg-D3 400 unit-magnesium 40 ip-B9-Ov-copper-torres tablet 2 cap TABLET Oral 2 Times Daily Indication: supplement SUPERVISOR CLOTH WINDING x1 x3 2 caps ThuAug 13 06:40:00 2021Nov 09 01:00:00 2022 famotidine 20 mg tablet 1 tablet TABLET Oral Every 3 Days for 6 Days Indication: TX indigestion Famotidine 20mg tablet PO take 1 tablet every third day for 6 days, then stop.SUPERVISOR CLOTH WINDING X1 ThuAug 08 01:00:00 2021Aug 14 00:59:00 EST 2021 famotidine 20 mg tablet 1 tablet TABLET Oral Every 3 Days for 6 Days Indication: TX indigestion Famotidine 20mg tablet PO take 1 tablet every third day for 6 days, then stop.SUPERVISOR CLOTH WINDING X1 ThuAug 08 08:25:00 EDT 2021Aug 08 [...] 6 days, then stop. ThuJul 24 16:30:00 2021Aug 07 16:29:00 EDT 2021 famotidine 20 mg tablet 1 tablet TABLET Oral Every 3 Days for 6 Days Indication: TX indigestion Famotidine 20mg tablet PO take 1 tablet every third day for 6 days, then stop. [place] Jul 24 14:34:00 2021Jul 27 08:27:00 EDT 2021 Calmoseptine 0.44 [...] once daily as preventative. ThuJul 13 11:15:00 ED2021Nov 09 01:00:00 EST 2022 furosemide 40 mg tablet 1 tablet TABLET Oral 1 Time Daily Indication: diuretic CHF SUPERVISOR CLOTH WINDING observation early am ThuJul 09 15:00:00 ED2021Nov 09 01:00:00 EST 2022 mupirocin 2 % [...] 48 and 72 hours ThuJul 03 15:00:00 EDT 2021Jul 04 14:59:00 EDT 2021 TUBErsoL 5 tub. unit/0.1 mL intradermal injection solution Read Results VIAL (ML) Other 1 Time Daily for 1 Day Indication: TB Reading Read results between 48-72 hours after 1st and 2nd (1 week apart). If positive do chest x-ray. [facility] Jul 05 01:00:00 EDT 2021Jul 06 00:59:00 EDT 2021 Blood Pressure Cuff 1 EACH Other Every 1 Month Indication: Monthly Vitals SUPERVISOR CLOTH WINDING to obtain ThuJul 10 01:00:00 EDT 2021Nov 09 01:00:00 EST 2022 amiodarone 200 mg tablet 200mg TABLET Or al Every 12 Hours Indication: A-fib SUPERVISOR CLOTH WINDING x1 x4 1 tab ThuJul 03 15:00:00 EDT 2021Jul 24 16:15:00 EDT 2021 Eliquis 5 mg tablet 5mg TABLET Oral Ever y 12 Hours Indication: DVT prophCNA x1 x4 1 tab Thu Sep 15:00:00 EDT 2021Nov 09 01:00:00 EST 2022 furosemide 20 mg tablet 10mg TABLET Oral 2 Times Daily Indication: CHF SUPERVISOR CLOTH WINDING x1 x21/2 tab Thu Sep 15:00:00 EDT 2021 Wed Jul 09 17:56:00 EDT 2021 melatonin 5 mg tablet 5mg TABLET Oral 1 Time Daily Indication: Insomnia SUPERVISOR CLOTH WINDING x4 Codie Sep 29 01:00:00 EDT 2021Nov 09 01:00:00 EST 2022 sodium chloride 1 gram tablet 1 gram TABLET Oral 1 Time Daily Indication: Hyponatremia SUPERVISOR CLOTH WINDING x1 Codie Sep 29 15:00:00 EDT 2021Nov 09 01:00:00 EST 2022 Acid Emt I/99 (famotidine) 20 mg tablet 20mg TABLET Oral 1 Time Daily Indication: GERD SUPERVISOR CLOTH WINDING x1 Codie Sep 15:00:00 EDT 2021Jul 24 16:18:00 EDT 2021 metoprolol tartrate 25 mg tablet 25mg TABLET Oral Every 12 Hours Indication: A-fib SUPERVISOR CLOTH WINDING x1 x4 Thu Sep 15:00:00 EDT 2021Nov 09 01:00:00 EST 2022 polyethylene glycoL 3350 17 gram oral powder packet 17 grams POWDER IN PACKET (EA) Oral PRN Every 1 Day Indication: Constipation Thu Sep 01:00:00 EDT 2021u Jul 24 16:20:00 EDT 2021 cholecalciferol (vitamin D3) 50 mcg (2,000 unit) capsule 1 capsule CAPSULE Oral 1 Time Daily Indication: Supplement SUPERVISOR CLOTH WINDING x1 Thu Sep 15:00:00 EDT 2021Nov 09 01:00:00 EST 2022 FeroSuL 325 mg (65 mg iron) tablet 1 tablet TABLET Oral 2 Times Daily Indication: AnemiaCNA x1 x3 Codie Sep 15:00:00 EDT 2021Nov 09 01:00:00 EST 2022 aspirin 81 mg chewable tablet 81mg TABLET,CHEWABLE Oral 1 Time Daily Indication: DVT proph SUPERVISOR CLOTH WINDING x1 ThuJul 04 01:00:00 EDT 2021Nov 09 01:00:00 EST 2022 calcium 250 mg-D3 400 unit-magnesium 40 ql-O1-Lk-copper-torres tablet 2 tab TABLET Oral 2 Times Daily Indication: supplement SUPERVISOR CLOTH WINDING x1 x3 2 tabs Thu Sep 15:00:00 EDT 2021Aug 13 06:42:00 EST 2021 sodium chloride 1 gram tablet 0.5 gram TABLET Oral 1 Time Daily Indication: Hyponatremia SUPERVISOR CLOTH WINDING x2 Thu Sep 01:00:00 EDT 2021Jul 09 17:58:00 EDT 2022 magnesium carbonate (bulk) powder 3/4 scoop POWDER (GRAM) Oral 2 Times Daily Indication: Supplement 2/3 scoop with 4oz. water SUPERVISOR CLOTH WINDING x2 x3 Fri Jun 30 01:00:00 EDT 2021Aug 14 18:53:00 EST 2021 levothyroxine 13 mcg capsule 13mcg CAPSULE Oral 1 Time Daily Indication: Hypothyroidism ThuJun 10 12:00:00 EDT 2021Jun 10 13:51:00 EDT 2021 calcium carbonate 500 mg calcium (1,250 mg) tablet 1 tablet TABLET Oral 1 Time Daily Indication: Hypocalcemia ThuJun 10 12:00:00 EDT 2021 [place] Sep 01:00:00 EDT 2021 mupirocin 2 % [...] 2 Times Daily Indication: Supplement Sun Sep 14:00:00 EDT 2021 Sun Sep 01:00:00 EDT 2021 acetaminophen 325 mg tablet 650mg TABLET Oral PRN Every 6 Hours Indication: Pain Sat Sep 03 18:00:00 EDT 2021 Sun Sep 01:00:00 EDT 2021 amiodarone 200 mg tablet 200mg TABLET Or al Every 12 Hours Indication: A-fib A-fib Sat Sep 18:00:00 EDT 2021 Sun Sep 11 01:00:00 [...] CAPSULE Oral 1 Time Daily Indication: Supplement Sat Sep 03 18:00:00 EDT 2021Jun 15 01:00:00 EDT 2021 magnesium 250 mg (as magnesium oxide) tablet 350mg TABLET Oral 2 Times Daily Indication: Supplement Supplement ThuJun 07 18:00:00 EDT 2021 [place] Jun 15 01:00:00 EDT 2021 FeroSuL 325 mg (65 mg iron) tablet 1 tablet TABLET Oral 2 Times Daily Indication: Anemia Anemia ThuJun 07 18:00:00 EDT 2021 [place] Jun 15 01:00:00 EDT 2021 aspirin 81 mg chewable tablet 81mg TABLET,CHEWABLE Oral 1 Time Daily Indication: DVT proph ThuJun 07 18:00:00 EDT 2021 [place] Jun 15 01:00:00 EDT 2021 Problems Active [...] 2021 * End Date: * Text: * 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
[2025-04-20 10:06] LABS: Anion Gap 9 mmol/L (4-12); Blood Urea Nitrogen 21 mg/dL (7-17); Calcium 9.6 mg/dL (8.4-10.2); Carbon Dioxide 26 mmol/L (22-30); Chloride 104 mmol/L (98-107); Estimated Glomerular Filt Rate > 60; Glucose 109 mg/dL (65-110); Sodium 139 mmol/L (137-145)
[2025-04-20 10:14] LABS: Potassium 4.1 mmol/L (3.4-5.0)
== END 2025-04-20 09:12 | disposition home or self-care (01) ==
LOC: ANHLAB 09:13
PROVIDERS: PCP Family Medicine; Visit Provider Internal Medicine Nephrology
DX: E87.1 Hypo-osmolality and hyponatremia (principal)
CPT/HCPCS: 36415; 80048

== ENCOUNTER 2025-06-20 10:22 | Outpatient (CLI) | payer MEDICARE, SELFPAY ==
[2025-06-20 11:10] LABS: Hematocrit 40.8 % (37.0-47.0); Hemoglobin 13.6 g/dL (12.0-15.0); Immature Granulocyte Percent A 0.2 % (0-0.5); Lymphocytes Absolute Auto 0.71 K/mm3 (0.9-3.2); Mean Corpuscular HGB Conc 33.3 g/dl (32-36); Mean Corpuscular Hemoglobin 32.7 pg (26-34); Mean Corpuscular Volume 98.1 fl (80-100); Nucleated Red Blood Cells Absolute Auto 0.000 K/mm3 (0.0-0.012); Nucleated Red Blood Cells Perc 0.0 % (0.0-0.2); Platelet Count Result 258 k/mm3 (150-375); Red Blood Count 4.16 M/mm3 (4.2-5.4); White Blood Count 4.4 K/mm3 (4.5-10.0)
[2025-06-20 11:32] LABS: Alanine Aminotransferase 29 U/L (6-35); Albumin Level 4.4 g/dL (3.5-5.1); Alkaline Phosphatase 56 U/L (38-126); Anion Gap 7 mmol/L (4-12); Aspartate Amino Transferase 30 U/L (14-36); Bilirubin,Total 0.3 mg/dL (0.2-1.3); Blood Urea Nitrogen 22 mg/dL (7-17); Calcium 9.7 mg/dL (8.4-10.2); Carbon Dioxide 29 mmol/L (22-30); Chloride 103 mmol/L (98-107); Cholesterol 223 mg/dL (0-200); Estimated Glomerular Filt Rate > 60; Glucose 122 mg/dL (65-110); HDL Direct 75 mg/dL; Potassium 4.2 mmol/L (3.4-5.0); Sodium 139 mmol/L (137-145); Total Protein 7.5 g/dL (6.3-8.2); Triglycerides 71 mg/dL (<150)
[2025-06-20 12:03] LABS: Thyroid Stimulating Hormone Reflex 1.670 uIU/mL (0.465-4.68)
--- OUTSIDE RECORDS SUMMARY | 2025-06-20 12:06 | XMS_ITS | Clinical Summary ---
Author Organization [facility] [place] [address] Address [address] [place] [address] Care Team Providers Care Studio Operation Engineer Name Role Phone Danelle Aguilera MD Primary Care Provider [phone] Allergies Active Allergy Reactions Criticality Noted Date [...] TWICE A DAY WITH FOOD 05/27/2022 Active metoprolol tartrate (LOPRESSOR) 25 mg immediate release tablet Take 1 tablet (25 mg total) by mouth 2 (two) times a day 180 tablet 3 11/14/2024 Active Eliquis 5 mg tablet TAKE 1 TABLET BY MOUTH TWICE A DAY 180 tablet 04/10/2025 Active Active Problems Problem Noted Date Diagnosed Date Weakness 06/10/2022 Chronic hyponatremia 06/10/2022 Chronic anticoagulation 06/10/2022 Dyslipidemia 10/31/2020 Sinus tachycardia 10/31/2020 HTN (hypertension), benign 04/25/2020 Paroxysmal atrial fibrillation 04/25/2020 History of pericarditis 04/25/2020 Encounters Date Type Department Care Team Description 06/13/2025 11:00 AM CDT Office Visit [facility] [address] [place] [address] Kelli Denis NP Paroxysmal atrial fibrillation (HCC) (Primary Dx); Chronic anticoagulation; History of pericarditis; HTN (hypertension), benign from Last 3 Months Medical History Medical [...] Sign Reading Time Taken Comments Blood Pressure 162/70 06/13/2025 10:48 AM CDT Pulse 62 06/13/2025 10:48 AM CDT Temperature 36.4 C (97.6 F) 11/21/2020 9: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
--- OUTSIDE RECORDS SUMMARY | 2025-06-20 12:06 | XMS_ITS | Encounter Summary ---
Author Organization [facility] Healthcare Address [address] [place] [address] Care Team Providers Care Ergonomic Specialist Name Role Phone Danelle Aguilera MD Primary Care Provider [phone] Encounter Details Date Type Department Care Team (Late st Contact Info) Description 12/19/[address] [facility] Health Information Management [address] [place] [id number] Scanning, Provider Social History Tobacco Use Types Packs/Day Years [...] on file documented as of this encounter Procedures Procedure Name Priority Date/Time Associated Diagnosis Comments SCAN - LABS 12/19/2024 documented in this encounter Results * SCAN - LABS (12/19/2024) us Provider Scanning Final Result documented in this encounter Visit Diagnoses Not on filedocumented in this encounter Care Teams Ergonomic Specialist Relationship Specialty Start Date End Date Danelle Aguilera MD PCP - General Family Medicine 03/04/20 documented as of this encounter
--- OUTSIDE RECORDS SUMMARY | 2025-06-20 12:06 | XMS_ITS | Clinical Summary ---
Author Organization [facility] Address [address] [place] [id number] Phone Care Team Providers Care Retread Mold Operator Name Role Phone Danelle Aguilera MD Primary Care Provider [phone] Allergies Active Allergy Reactions Criticality Noted Date [...] 2025 Insurance [employer] Care Teams Retread Mold Operator Relationship Specialty Start Date End Date Danelle Aguilera MD [address] [place] [id number] PCP - General Internal Medicine 05/27/22
== END 2025-06-20 10:23 | disposition home or self-care (01) ==
LOC: ANHLAB 10:23
PROVIDERS: PCP Family Medicine; Visit Provider Family Medicine
DX: E03.9 Hypothyroidism, unspecified (principal); E78.2 Mixed hyperlipidemia; E87.1 Hypo-osmolality and hyponatremia; E55.9 Vitamin D deficiency, unspecified; R53.83 Other fatigue
CPT/HCPCS: 36415; 80053; 80061; 82306; 84443; 85025